=== PATIENT | female | born 1985 | race African-American/Black ===

== ENCOUNTER 2020-01-29 10:39 | Outpatient (CLI) | payer OTHER, SELFPAY ==
--- NOTE | ~2020-01-29 | US_ITS ---
EXAMINATION: US thyroid DATE: 01/29/2020 11:10 INDICATION: Abnormal labs with increased TPO and decreased TSH TECHNIQUE: Multiple ultrasound images of the thyroid were obtained. COMPARISON: None. FINDINGS: The right thyroid lobe measures 4.9 x 2.0 x 1.6 cm. The left thyroid lobe measures 4.2 x 1.2 x 1.3 c m. Wider than tall, well defined 6 x 5 x 2.5 mm solid hypoechoic nodule without echogenic foci in the right thyroid (TI-RADS 4, moderately suspicious , FNA if >=1.5 cm, annual followup is >1 cm). There is a slightly larger 9 x 8 x 7 mm nodule along the deep margin of the right thyroid which could repre sent a second There is nodule however on the cine images the nodule appears peripheral to the capsule of the thyroid with location favoring parathyroid adenoma. There is normal echogenicity and echotext ure throughout the thyroid but with diffusely increased vascular flow on color Doppler. IMPRESSION: 1. 9 mm solid hypoechoic nodule which abuts but appears peripheral to the capsule of the posterior ri ght thyroid lobe and favor parathyroid adenoma over a TI-RADS 4 thyroid nodule. If a thyroid nodule, this along with a smaller TI-RADS 4 nodule in the right thyroid with both remain below threshold for recommendation for either biopsy or follow-up. Could consider correlation with calcium and parathyroi d hormone levels and if clinically indicated parathyroid scintigraphy. Reviewed, dictated and finalized at location A. IMPRESSION: 1. 9 mm solid hypoechoic nodule which abuts but appears peripheral to the capsu le of the posterior right thyroid lobe and favor parathyroid adenoma over a TI- RADS 4 thyroid nodule. If a thyroid nodule, this along with a smaller TI-RADS 4 nodule in the right thyroid with both remain below threshold for recommendatio n for either biopsy or follow-up. Could consider correlation with calcium and p arathyroid hormone levels and if clinically indicated parathyroid scintigraphy.
== END 2020-01-29 10:40 | disposition home or self-care (01) ==
LOC: ANHIMG 10:42
PROVIDERS: PCP Emergency Medicine; Visit Provider Emergency Medicine
DX: R94.6 Abnormal results of thyroid function studies (principal); E04.1 Nontoxic single thyroid nodule
CPT/HCPCS: 76536

== ENCOUNTER 2020-09-02 19:14 | Emergency (ER) | payer OTHER, SELFPAY ==
[2020-09-02 19:20] VITALS: BP 118/63; PULSE 69; RESP 16; TEMP 36.8; O2SAT 100
[2020-09-02 19:27] VITALS: BP 118/63; PULSE 69; RESP 16; TEMP 36.8; O2SAT 100
--- NOTE | 2020-09-02 19:33 | ED.DENTAL ---
HPI - Dental/Oral General Chief complaint: Dental/Oral Stated complaint: sore in nose/swollen face/tooth pain Source: patient Mode of arrival: ambulatory Limitations: no limitations and clinical condition History of Present Illness HPI Narrative: Patient is a 35-year-old female who presents complaining of right upper dental pain x3 to 4 days. She reports a history of dental infections. Reports increased swelling starting yesterday. She reports taking ibuprofen with no relief. She reports dental appointment on 09/30/2020. She denies all other complaints. MD Complaint: tooth pain Related Data Home Medications Medication Instructions Recorded Confirmed ferrous sulfate 324 mg PO DAILY 06/16/20 09/02/20 sumatriptan succinate 50 mg PO PRN PRN 06/16/20 09/02/20 topiramate 50 mg PO HS 09/02/20 09/02/20 Allergies Allergy/AdvReac Type Severity Reaction Status Date / Time No Known Allergies Allergy Unknown Verified 09/02/20 19:25 Review of Systems Review of Systems: Narrative: CONSTITUTIONAL: Denies fever, chills, or sweats. EYES: Denies visual changes, redness, or discharge. ENT: Denies rhinorrhea, congestion, sore throat, or otalgia. Reports dental pain CARDIOVASCULAR: Denies chest pain, palpitations, or edema. RESPIRATORY: Denies cough or dyspnea. GASTROINTESTINAL: Denies abdominal pain, nausea, vomiting, or diarrhea. GENITOURINARY: Denies dysuria or hematuria. SKIN: Denies rash or itching. MUSCULOSKELETAL: Denies back pain, joint pain, or myalgia. NEUROLOGIC: Denies headache, numbness, dizziness, or weakness. PSYCHIATRIC: Denies anxiety or depression. [facility] Past Medical History Medical History Anemia Back pain Depression Eczema Fibroids Hypothyroidism Migraines labor Renal cyst Seasonal allergies Thyroid disease UTI (urinary tract infection) Surgical History Surgical History H/O breast biopsy H/O tubal ligation History of lumpectomy Family History Family History Grandparent Hypertension Asthma Malignant neoplasm of prostate Diabetes mellitus Other Cerebrovascular accident Family history of allergic disorder Family history of anemia Family history of malignant neoplasm Family history of migraine headaches Social History Social History Smoking status: Never smoker Alcohol intake: current Gender identity (if verbalized by the patient): Female Spiritual care concerns: No Exam Narrative: Exam Narrative: GENERAL: Well-appearing, well-nourished, and in no acute distress. HEAD: Normocephalic, atraumatic. EYES: Conjunctiva are normal. ENT: Mucous membranes pink and moist. Multiple dental caries and fractures, periapical abscess noted CHEST: No respiratory distress. EXTREMITIES: Normal range of motion. SKIN: Warm, dry, no rash. NEURO: No focal deficits. Alert and oriented x3. Gait steady. PSYCH: Normal affect. No signs of depression or anxiety. Course Vital Signs Vital signs: Vital Signs Temperature 36.8 C 09/02/20 19:20 Pulse Rate 69 09/02/20 19:20 Respiratory Rate 16 09/02/20 19:20 Blood Pressure 118/63 09/02/20 19:20 Pulse Oximetry 100 09/02/20 19:20 Temperature 36.8 C 09/02/20 19:27 Pulse Rate 69 09/02/20 19:27 Respiratory Rate 16 09/02/20 19:27 Blood Pressure 118/63 09/02/20 19:27 Pulse Oximetry 100 09/02/20 19:27 Reviewed MDM - Dental/Oral MDM Narrative Medical decision making narrative: Patient has periapical abscess and dental swelling. Patient to be started on antibiotics at this time. Discussed with patient the need to see a dentist as soon as possible. Patient reporting that ibuprofen is not working, limited prescription of tramadol to be given. Patient is stable for discharge home with outp
== END 2020-09-02 19:48 | disposition home or self-care (01) ==
PROVIDERS: Emergency Provider Nurse Practitioner; PCP Emergency Medicine
DX: K02.9 Dental caries, unspecified (principal); K04.7 Periapical abscess without sinus; E03.9 Hypothyroidism, unspecified; D64.9 Anemia, unspecified
CPT/HCPCS: 99213; G0463

== ENCOUNTER 2020-11-08 08:24 | Outpatient (CLI) | payer OTHER, SELFPAY ==
--- NOTE | ~2020-11-08 | MM_ITS ---
EXAMINATION: MM screening noemi BI w jason HISTORY: Screening TECHNIQUE: Craniocaudal and mediolateral oblique 3-D tomosynthesis images were obtained and synthetic 2-D images were generated. CAD analysis was submitted and interpreted. COMPARISON: 07/29/2015 BREAST PARENCHYMAL COMPOSITION: The breasts are heterogenously dense, which may obscure small masses. FINDINGS: There are developing clustered calcifications in the upper central and upper outer quadrant s of the right breast. The left breast is stable without evidence for malignancy. IMPRESSION: 1. Developing clusters of right breast calcifications. 2. Magnification views are recommended. BI-RADS Category 0: Incomplete: Needs additional imaging evaluation. Reviewed, dictated and finalized at location A. NAL CLERK
== END 2020-11-08 08:25 | disposition home or self-care (01) ==
LOC: ANHIMG 08:27
PROVIDERS: PCP Emergency Medicine; Visit Provider Emergency Medicine
DX: Z12.31 Encounter for screening mammogram for malignant neoplasm of breast (principal); R92.8 Other abnormal and inconclusive findings on diagnostic imaging of breast
CPT/HCPCS: 77063; 77067

== ENCOUNTER 2020-12-05 13:03 | Outpatient (CLI) | payer OTHER, SELFPAY ==
--- NOTE | ~2020-12-05 | MM_ITS ---
EXAMINATION: MM diagnostic mammo unilat RT HISTORY: Right breast calcifications TECHNIQUE: Additional 3-D tomosynthesis images of the right breast were performed and synthetic 2-D i mages were generated. CAD analysis was submitted and interpreted. COMPARISON: Comparison to multiple prior studies sequentially, with oldest reviewed study dated 07/17. BREAST PARENCHYMAL COMPOSITION: The breasts are heterogenously dense, which may obscure small masses. FINDINGS: There are scattered punctate monomorphic calcifications of the right breast, likely benign. There are no suspicious discrete masses or architectural distortion. IMPRESSION: 1. Probable benign right breast calcifications. 2. Recommend 6 month follow-up diagnostic right mammogram BI-RADS category 3, probably benign findings. Reviewed, dictated and finalized at location A. DISASTER RECOVERY MANAGER
== END 2020-12-05 13:04 | disposition home or self-care (01) ==
PROVIDERS: PCP Emergency Medicine; Visit Provider Emergency Medicine
DX: R92.8 Other abnormal and inconclusive findings on diagnostic imaging of breast (principal)
CPT/HCPCS: 77065

== ENCOUNTER 2020-12-12 09:07 | Emergency (ER) | payer OTHER, SELFPAY ==
--- NOTE | 2020-12-12 09:18 | ED.GENADULT ---
HPI - General Adult General Chief complaint: Upper Respiratory Infection Stated complaint: sore throat Time Seen by Provider: 12/12/20 09:18 Source: patient Mode of arrival: ambulatory Limitations: no limitations History of Present Illness HPI narrative: 35-year-old female patient presents to the [facility] with complaints of a sore throat for the past 2 days. 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 Patient states she started taking some leftover penicillin that she had at home yesterday. Patient states she is coming here today to get treatment because the place that she works out does not take Medicaid. Patient also says she has had some fullness to bilateral ears, congestion, and body aches. Patient states she has not been tested for Covid but would like to be tested for Covid today. Related Data Home Medications Medication Instructions Recorded Confirmed sumatriptan succinate 50 mg PO PRN PRN 06/16/20 12/12/20 topiramate 50 mg PO HS 09/02/20 12/12/20 Allergies Allergy/AdvReac Type Severity Reaction Status Date / Time No Known Allergies Allergy Unknown Verified 12/12/20 09:46 Review of Systems Review of Systems: Narrative: CONSTITUTIONAL: Denies fever, chills, or sweats. Positive body aches EYES: Denies visual changes, redness, or discharge. ENT: Positive rhinorrhea, congestion, positive sore throat, positive bilateral otalgia. CARDIOVASCULAR: Denies chest pain, palpitations, or edema. RESPIRATORY: Denies cough or dyspnea. GASTROINTESTINAL: Denies abdominal pain, nausea, vomiting, or diarrhea. GENITOURINARY: Denies dysuria or hematuria. SKIN: Denies rash or itching. MUSCULOSKELETAL: Denies back pain, joint pain, or myalgia. NEUROLOGIC: Denies headache, numbness, or weakness. PSYCHIATRIC: Denies anxiety or depression. [facility] Past Medical History Medical History Anemia Back pain Depression Eczema Fibroids Hypothyroidism Migraines labor Renal cyst Seasonal allergies Thyroid disease UTI (urinary tract infection) Surgical History Surgical History H/O breast biopsy H/O tubal ligation History of lumpectomy Family History Family History Grandparent Hypertension Asthma Malignant neoplasm of prostate Diabetes mellitus Other Cerebrovascular accident Family history of allergic disorder Family history of anemia Family history of malignant neoplasm Family history of migraine headaches Social History Social History Smoking status: Never smoker Alcohol intake: current Gender identity (if verbalized by the patient): Female Spiritual care concerns: No Comments At the time of my signature I agree with nursing past medical history, surgical, social, and family history. There is no relevant family history pertinent to the presenting complaint. Exam Narrative: Exam Narrative: GENERAL: Well-appearing, well-nourished, and in no acute distress. HEAD: Normocephalic, atraumatic. EYES: PERRLA and EOMI. ENT: Nares with erythema and edema noted bilaterally, no rhinorrhea or epistaxis. Mucous membranes moist. Posterior pharynx with some erythema but no tonsil enlargement, no exudates or lesions present. NECK: Supple. No lymphadenopathy CHEST: Clear to auscultation. No respiratory distress. Patient able talk in clear complete sentences. HEART: Regular rate and rhythm. No murmur heard. Normal peripheral pulses. ABDOMEN: Soft, nontender, nondistended, normal active bowel sounds. EXTREMITIES: Normal range of motion. No edema. SKIN: Warm, dry, no rash. NEURO: No focal deficits. Alert and oriented x3. Course Reevaluation(s) Reevaluation #1: Reevaluated patient
[2020-12-12 11:15] VITALS: BP 128/84; PULSE 107; RESP 18; TEMP 37.6; O2SAT 100
[2020-12-13 19:42] LABS: SARS-CoV-2 RNA PCR Negative
== END 2020-12-12 10:11 | disposition home or self-care (01) ==
PROVIDERS: Emergency Provider Nurse Practitioner Family; PCP Emergency Medicine
DX: J02.9 Acute pharyngitis, unspecified (principal); Z20.822 Contact with and (suspected) exposure to COVID-19; E03.9 Hypothyroidism, unspecified
CPT/HCPCS: 87081; 87426; 87880; 99213; C9803; G0463; U0003; U0005

== ENCOUNTER 2020-12-16 17:42 | Outpatient (CLI) | payer OTHER, SELFPAY ==
[2020-12-16 18:10] LABS: Basophils Percent Auto 0.6 % (0.2-1.2); Eosinophils Absolute Auto 0.1 K/mm3 (0-0.3); Eosinophils Percent Auto 2.1 % (0-4.4); Hematocrit 34.5 % (37.0-47.0); Hemoglobin 11.4 g/dL (12.0-15.0); Immature Granulocyte Absolute 0.01 K/mm3 (0.00-0.031); Immature Granulocyte Percent A 0.2 % (0-0.5); Lymphocytes Absolute Auto 2.54 K/mm3 (0.9-3.2); Lymphocytes Percent Auto 40.8 % (18.3-44.2); Mean Corpuscular Hemoglobin 30.2 pg (26-34); Mean Corpuscular Volume 91.5 fl (80-100); Mean Platelet Volume 9.5 fl (7.4-10.4); Monocytes Absolute Auto 0.5 K/mm3 (0.1-0.6); Monocytes Percent Auto 8.3 % (2.6-8.5); Platelet Count Result 269 k/mm3 (150-375); Red Blood Count 3.77 M/mm3 (4.2-5.4); Red Cell Distribution Width 12.7 % (11.5-14.5); White Blood Count 6.2 K/mm3 (4.5-10.0)
[2020-12-16 19:01] LABS: Iron 50 ug/dL (37-170)
[2020-12-16 19:10] LABS: Percent Iron Saturation 15 % (20-50)
== END 2020-12-16 17:43 | disposition home or self-care (01) ==
LOC: ANHLAB 17:46
PROVIDERS: PCP Emergency Medicine; Visit Provider Internal Medicine Hematology & Oncology
DX: D64.9 Anemia, unspecified (principal)
CPT/HCPCS: 36415; 82728; 83540; 83550; 85025

== ENCOUNTER 2021-01-08 13:27 | Outpatient (CLI) | payer OTHER, SELFPAY ==
--- NOTE | ~2021-01-08 | US_ITS ---
EXAMINATION: US pelvic complete w TV DATE: 01/08/2021 14:52 INDICATION: Abdominal pain Comparison:Ultrasound dated 03/23/2019 TECHNIQUE: Multiple transabdominal and endovaginal sonographic images of the pelvis performed. FINDINGS: The uterus measures 8.3 x 4 x 5.5 cm. The endometrial complex measures 4 mm. The right ovary measures 3 x 1.6 x 1.9 cm and the left ovary measures 2.3 x 1.9 x 1.8 cm. There is a 1.8 cm complicated cyst of the right ovary, likely proteinaceous or hemorrhagic. There are small foll icles in each ovary. Normal doppler signal in both ovaries. There is no free fluid in the pelvis. There are no abnormal masses seen on either side. IMPRESSION: 1. Complicated 1.8 cm right ovarian cyst. Reviewed, dictated and finalized at location A.
[2021-01-08 14:16] LABS: Lactic Acid 0.6 mmol/L (0.7-2.1)
[2021-01-08 14:19] LABS: Rheumatoid Factor < 8.6 IU/ML (<12)
[2021-01-08 14:36] LABS: Erythrocyte Sedimentation Rate 12 mm/hr (0-20)
[2021-01-08 14:56] LABS: HIV 1/2 Ab P24 Ag Result Negative (Negative)
[2021-01-09 12:02] LABS: Rapid Plasma Reagin Non-Reactive (NonReactive)
== END 2021-01-08 13:28 | disposition home or self-care (01) ==
PROVIDERS: PCP Emergency Medicine; Visit Provider Emergency Medicine
DX: N83.291 Other ovarian cyst, right side (principal)
CPT/HCPCS: 36415; 76830; 76856; 83605; 85652; 86038; 86430; 86592; 86695; 86696; 86703; 87086; 87491; 87591; G0432

== ENCOUNTER 2021-01-13 17:30 | Outpatient (CLI) | payer OTHER, SELFPAY | END 2021-01-13 17:31 | disposition home or self-care (01) | LOC: ANHLAB 17:33 | PROVIDERS: PCP Emergency Medicine; Visit Provider Emergency Medicine | DX: R10.9 Unspecified abdominal pain (principal) | CPT/HCPCS: 87491; 87591 ==

== ENCOUNTER → 2021-02-04 16:30 | Outpatient (CLI) | payer OTHER, SELFPAY ==
--- NOTE | ~2021-02-04 | XR_ITS ---
EXAMINATION: XR chest 2V 02/04/2021 16:45 INDICATION: Productive cough PROCEDURE: 2 view chest COMPARISON: 03/28/2019 FINDINGS: The lungs are clear. The cardiomediastinal silhouette is within normal limits. There are no pleural effusions. There is no pneumothorax suspected. IMPRESSION: 1: NO ACUTE CARDIOPULMONARY DISEASE. Reviewed, dictated and finalized at location A.
== END ==
PROVIDERS: PCP Emergency Medicine; Visit Provider Emergency Medicine
DX: R05 Cough (principal)
CPT/HCPCS: 71046

== ENCOUNTER 2021-06-05 13:51 | Outpatient (CLI) | payer OTHER, SELFPAY ==
--- NOTE | ~2021-06-05 | MM_ITS ---
EXAMINATION: MM diagnostic noemi RT w jason HISTORY: Six-month follow-up for probably benign right breast calcifications TECHNIQUE: Craniocaudal, mediolateral, and mediolateral oblique 3-D tomosynthesis images of the right breast were performed and synthetic 2-D images were generated. Magnification views of the right [address] are also obtained. CAD analysis was submitted and interpreted. COMPARISON: 12/05/2020, 11/08/2020, 07/29/2015 BREAST PARENCHYMAL COMPOSITION: The breasts are heterogeneously dense, which may obscure small masses . FINDINGS: There are stable punctate grouped calcifications in the posterior third of the upper outer quadrant of the breast which appear to be round in morphology. No suspicious mass or architectural di stortion are identified. IMPRESSION: 1. Stable, probably benign right breast calcifications. 2. Recommend 6 month follow-up right diagnostic mammogram. BI-RADS category 3, probably benign findings. Reviewed, dictated and finalized at location A.
== END 2021-06-05 13:52 | disposition home or self-care (01) ==
PROVIDERS: PCP Emergency Medicine; Visit Provider Emergency Medicine
DX: R92.8 Other abnormal and inconclusive findings on diagnostic imaging of breast (principal)
CPT/HCPCS: 77061; 77065; G0279

== ENCOUNTER 2021-07-13 16:26 | Outpatient (CLI) | payer OTHER, SELFPAY ==
[2021-07-13 16:58] LABS: Hematocrit 35.1 % (37.0-47.0); Hemoglobin 11.7 g/dL (12.0-15.0); Mean Corpuscular HGB Conc 33.3 g/dl (32-36); Mean Corpuscular Hemoglobin 30.1 pg (26-34); Mean Corpuscular Volume 90.2 fl (80-100); Mean Platelet Volume 9.9 fl (7.4-10.4); Platelet Count Result 277 k/mm3 (150-375); Red Blood Count 3.89 M/mm3 (4.2-5.4); Red Cell Distribution Width 12.6 % (11.5-14.5)
[2021-07-13 17:08] LABS: Cholesterol 177 mg/dL (0-200); HDL Direct 75 mg/dL; Triglycerides 59 mg/dL (<150)
[2021-07-13 17:18] LABS: LDL Cholesterol Direct 73 mg/dL
[2021-07-13 17:38] LABS: Thyroid Stimulating Hormone 0.356 uIU/mL (0.465-4.680)
[2021-07-13 18:04] LABS: Free T4 Free Thyroxine 0.86 ng/mL (0.78-2.19); Vitamin D 25 Hydroxy 39.2 ng/mL
[2021-07-13 18:15] LABS: Iron 69 ug/dL (37-170)
== END 2021-07-13 16:27 | disposition home or self-care (01) ==
LOC: ANHLAB 16:29
PROVIDERS: PCP Emergency Medicine; Visit Provider Emergency Medicine
DX: D64.9 Anemia, unspecified (principal)
CPT/HCPCS: 36415; 80061; 82306; 83540; 84439; 84443; 85027

== ENCOUNTER → 2021-11-25 02:21 | Outpatient (CLI) | payer OTHER, SELFPAY ==
[2021-11-25 16:42] LABS: SARS-CoV-2 RNA PCR Negative
== END ==
PROVIDERS: PCP Emergency Medicine; Visit Provider Emergency Medicine
DX: Z20.822 Contact with and (suspected) exposure to COVID-19 (principal)
CPT/HCPCS: C9803; U0003; U0005

== ENCOUNTER 2021-11-28 11:46 | Outpatient (CLI) | payer OTHER, SELFPAY ==
[2021-11-28 12:59] LABS: Ammonia < 9 umol/L (9-30)
[2021-11-28 13:00] LABS: Alanine Aminotransferase 12 U/L (4-35); Albumin Level 4.4 g/dL (3.5-5.1); Alkaline Phosphatase 49 U/L (38-126); Anion Gap 10 mmol/L (8-16); Aspartate Amino Transferase 20 U/L (14-36); Bilirubin,Total 0.3 mg/dL (0.2-1.3); Blood Urea Nitrogen 11 mg/dL (7-17); Calcium 9.2 mg/dL (8.4-10.2); Carbon Dioxide 26 mmol/L (22-30); Chloride 101 mmol/L (98-107); Estimated Glomerular Filt Rate > 60; Glucose 99 mg/dL (65-110); Potassium 3.9 mmol/L (3.4-5.0); Sodium 137 mmol/L (137-145)
[2021-11-28 13:47] LABS: Thyroid Stimulating Hormone Reflex 0.174 uIU/mL (0.465-4.68)
[2021-11-29 06:18] LABS: Free T4 Free Thyroxine Reflex 1.02 ng/dL (0.78-2.19)
[2021-11-29 07:26] LABS: Total Triiodothyronine (T3) 1.32 NG/ML (0.97-1.69)
== END 2021-11-28 11:47 | disposition home or self-care (01) ==
LOC: ANHLAB 11:48
PROVIDERS: PCP Emergency Medicine; Visit Provider Emergency Medicine
DX: R43.8 Other disturbances of smell and taste (principal)
CPT/HCPCS: 36415; 80053; 82140; 82525; 84439; 84443; 84480

== ENCOUNTER 2021-12-07 14:06 | Outpatient (CLI) | payer OTHER, SELFPAY ==
--- NOTE | ~2021-12-07 | MMUS_ITS ---
EXAMINATION: MM diagnostic noemi BI w jason, US breast BI complete HISTORY: Six-month follow-up of calcifications TECHNIQUE: ML, MLO and craniocaudal 3-D tomosynthesis images of both breasts were performed and synth etic 2-D images were generated. Magnification views of right breast in ML and cc projections. CAD cielo lysis was submitted and interpreted. High resolution complete bilateral breast ultrasound including a ll 4 quadrants and subareolar area was performed. COMPARISON: 06/05/2021 diagnostic right mammogram 12/05/2020 diagnostic right mammogram 11/08/2020 bilateral screening mammogram /09/2017 Limited left breast ultrasound / left diagnostic mammogram 07/29/2015 bilateral diagnostic mammography and complete left breast ultrasound BREAST PARENCHYMAL COMPOSITION: The breasts are extremely dense, which lowers the sensitivity of mamm ography. FINDINGS: MAMMOGRAPHIC FINDINGS: Bilateral microcalcifications are again noted, more numerous on the right, mostly punctate, most like ly benign. No suspicious mass or architectural distortion is evident. ULTRASOUND: Right breast: 12:00 1 cm from nipple: 9.5 x 4.2 x 9.0 mm parallel largely circumscribed but mildly irregular mass w ith internal vascularity is noted. No suspicious shadowing is evident. The mild irregular margins and internal vascularity warrant further investigation; ultrasound-guided biopsy is recommended. No other significant sonographic finding of the right breast Left breast: No suspicious mass or shadowing or other significant sonographic finding. IMPRESSION: 1. Mildly irregular vascular 9.5 x 4.2 x 9.0 mm right breast mass at 12:00 1 cm from nipple 2. Ultrasound-guided biopsy of right breast 12:00 lesion is recommended BI-RADS category 4, suspicious findings. Dr. Gray telephoned Dr. Huerta himself with the report and ultrasound guided biopsy recommendation of the right breast at 12:00 on December 07, 2021 at 1540 hours. Reviewed, dictated and finalized at location A. OWN MACHINE OPERATOR IMPRESSION: 1. Mildly irregular vascular 9.5 x 4.2 x 9.0 mm right breast mass at 12:00 1 cm from nipple 2. Ultrasound-guided biopsy of right breast 12:00 lesion is recommended BI-RADS category 4, suspicious findings. Dr. Gray telephoned Dr. Huerta himself with the report and ultrasound guided bio psy recommendation of the right breast at 12:00 on December 07, 2021 at 1540 ho urs.
== END 2021-12-07 14:07 | disposition home or self-care (01) ==
PROVIDERS: PCP Emergency Medicine; Visit Provider Emergency Medicine
DX: R92.8 Other abnormal and inconclusive findings on diagnostic imaging of breast (principal)
CPT/HCPCS: 76641; 77062; 77066; G0279

== ENCOUNTER 2021-12-17 10:06 | Outpatient (CLI) | payer OTHER, SELFPAY ==
--- NOTE | ~2021-12-17 | MMUS_ITS ---
EXAMINATION: US breast biopsy RT w image, MM post biopsy invasive RT DATE: 12/17/2021 11:34 (accession [id number]), 12/17/2021 11:38 (accession [id number]) INDICATION: Indeterminate right breast mass Ultrasound-guided core biopsy is requested to evaluate fo r malignancy. TECHNIQUE AND FINDINGS: The risks and potential benefits of the procedure were discussed with the patient including bleeding, infection, and nondiagnostic specimen. A time out was performed. The skin of the right breast was pr epared and draped in usual sterile fashion. 1% lidocaine was used for superficial anesthesia. 1% lido luis with epinephrine was used for deep anesthesia. A vacuum-assisted biopsy gun needle was advanced through to the outer edge of the region of interest from an inferolateral approach utilizing sonographic guidance. A total of five tissue core samples we re obtained through the lesion. A tissue marker clip was then placed at the biopsy site. Hemostasis w as achieved. A sterile bandage was applied. The patient tolerated procedure well and there was no evidence of immediate complication. The patient was given verbal instructions to return to the Emergency Department in the event of severe breast pa in or rapid breast enlargement. A two view right breast mammogram was obtained to document tissue mar ker clip placement. IMPRESSION: 1. Successful ultrasound-guided vacuum-assisted biopsy of right breast mass with tissue marker placem ent. Reviewed, dictated and finalized at location A. LITIES MANAGEMENT EXECUTIVE IMPRESSION: 1. Successful ultrasound-guided vacuum-assisted biopsy of right breast mass wit h tissue marker placement.
== END 2021-12-17 10:07 | disposition home or self-care (01) ==
LOC: ANHIMG 10:09
PROVIDERS: PCP Emergency Medicine; Visit Provider Emergency Medicine
DX: D24.1 Benign neoplasm of right breast (principal); N60.31 Fibrosclerosis of right breast; N60.21 Fibroadenosis of right breast; N60.41 Mammary duct ectasia of right breast
CPT/HCPCS: 19083; 88305; A4648

== ENCOUNTER 2022-01-08 13:11 | Outpatient (CLI) | payer OTHER, SELFPAY ==
[2022-01-08 13:45] LABS: Basophils Percent Auto 0.6 % (0.2-1.2); Eosinophils Absolute Auto 0.1 K/mm3 (0-0.3); Eosinophils Percent Auto 1.2 % (0-4.4); Hematocrit 33.9 % (37.0-47.0); Immature Granulocyte Absolute 0.01 K/mm3 (0.00-0.031); Immature Granulocyte Percent A 0.2 % (0-0.5); Lymphocytes Absolute Auto 1.83 K/mm3 (0.9-3.2); Lymphocytes Percent Auto 35.3 % (18.3-44.2); Mean Corpuscular HGB Conc 32.4 g/dl (32-36); Mean Corpuscular Hemoglobin 29.6 pg (26-34); Mean Corpuscular Volume 91.4 fl (80-100); Mean Platelet Volume 9.5 fl (7.4-10.4); Monocytes Absolute Auto 0.5 K/mm3 (0.1-0.6); Monocytes Percent Auto 8.9 % (2.6-8.5); Neutrophils Absolute Auto 2.8 K/mm3 (1.3-6.7); Neutrophils Percent Auto 53.8 % (45.5-73.1); Platelet Count Result 249 k/mm3 (150-375); Red Blood Count 3.71 M/mm3 (4.2-5.4); Red Cell Distribution Width 13.2 % (11.5-14.5); White Blood Count 5.2 K/mm3 (4.5-10.0)
[2022-01-08 14:00] LABS: Alanine Aminotransferase 12 U/L (4-35); Albumin Level 4.5 g/dL (3.5-5.1); Alkaline Phosphatase 43 U/L (38-126); Anion Gap 4 mmol/L (8-16); Aspartate Amino Transferase 20 U/L (14-36); Bilirubin,Total 0.4 mg/dL (0.2-1.3); Blood Urea Nitrogen 12 mg/dL (7-17); Carbon Dioxide 29 mmol/L (22-30); Chloride 106 mmol/L (98-107); Estimated Glomerular Filt Rate > 60; Glucose 84 mg/dL (65-110); Potassium 3.6 mmol/L (3.4-5.0); Sodium 139 mmol/L (137-145)
[2022-01-08 14:13] LABS: Iron 49 ug/dL (37-170)
[2022-01-08 14:22] LABS: Percent Iron Saturation 14 % (20-50)
[2022-01-08 14:30] LABS: Free T4 Free Thyroxine 0.77 ng/mL (0.78-2.19); Thyroid Stimulating Hormone 0.269 uIU/mL (0.465-4.680)
[2022-01-08 14:38] LABS: Vitamin D 25 Hydroxy 29.9 ng/mL
[2022-01-08 15:06] LABS: Folic Acid 10.1 ng/mL (2.76->20)
[2022-01-08 18:09] LABS: Parathyroid Intact 100.4 pg/mL (7.5-53.5)
[2022-01-10 05:27] LABS: Thyroid Peroxidase Antibodies 24 IU/mL (<9)
[2022-01-12 14:33] LABS: Thyroid Stimulating Immunoglob <89 % baseline (<140)
== END 2022-01-08 13:12 | disposition home or self-care (01) ==
LOC: ANHLAB 13:24
PROVIDERS: PCP Emergency Medicine; Visit Provider Nurse Practitioner
DX: R94.6 Abnormal results of thyroid function studies (principal); E04.9 Nontoxic goiter, unspecified; R53.83 Other fatigue
CPT/HCPCS: 36415; 80053; 82306; 82607; 82746; 83540; 83550; 83970; 84439; 84443; 84445; 85025; 86376

== ENCOUNTER 2022-02-08 11:38 | Outpatient (CLI) | payer OTHER, SELFPAY ==
--- NOTE | ~2022-02-08 | NM_ITS ---
EXAMINATION: NM parathyroid w imaging DATE: 02/09/2022 07:20 INDICATION: Hyperparathyroidism. TECHNIQUE: A 2.5 mCi Tc99m sestamibi was administered intravenously. Anterior images of the neck were obtained immediately and at 2 hours. SPECT images of the neck were obtained. COMPARISON: Thyroid ultrasound 05/12/2015 FINDINGS: There is focal persistent activity in the area of posterior inferior left thyroid lobe. IMPRESSION: 1. Focal persistent activity in the area of posterior inferior left thyroid lobe, which may be a para thyroid adenoma. Reviewed, dictated and finalized at location A. IMPRESSION: 1. Focal persistent activity in the area of posterior inferior left thyroid lob e, which may be a parathyroid adenoma.
[2022-02-08 14:06] LABS: Alanine Aminotransferase 13 U/L (4-35); Albumin Level 4.4 g/dL (3.5-5.1); Alkaline Phosphatase 45 U/L (38-126); Anion Gap 7 mmol/L (8-16); Aspartate Amino Transferase 24 U/L (14-36); Bilirubin,Total 0.2 mg/dL (0.2-1.3); Blood Urea Nitrogen 12 mg/dL (7-17); Calcium 9.3 mg/dL (8.4-10.2); Carbon Dioxide 29 mmol/L (22-30); Chloride 103 mmol/L (98-107); Estimated Glomerular Filt Rate > 60; Glucose 87 mg/dL (65-110); Sodium 139 mmol/L (137-145)
[2022-02-08 14:46] LABS: Vitamin D 25 Hydroxy 39.1 ng/mL
[2022-02-10 11:38] LABS: Ionized Calcium 5.1 mg/dL (4.8-5.6)
== END 2022-02-08 11:39 | disposition home or self-care (01) ==
PROVIDERS: PCP Emergency Medicine; Visit Provider Nurse Practitioner
DX: E21.3 Hyperparathyroidism, unspecified (principal); E55.9 Vitamin D deficiency, unspecified; R93.89 Abnormal findings on diagnostic imaging of other specified body structures
CPT/HCPCS: 36415; 78070; 80053; 82306; 82330; 84100; A9500

== ENCOUNTER 2022-02-11 09:20 | Outpatient (CLI) | payer OTHER, SELFPAY ==
[2022-02-14 15:07] LABS: Total Volume 700 mL; Urine Calcium 4.8 mg/dL
== END 2022-02-11 09:21 | disposition home or self-care (01) ==
PROVIDERS: PCP Emergency Medicine; Visit Provider Nurse Practitioner
DX: E21.3 Hyperparathyroidism, unspecified (principal); E55.9 Vitamin D deficiency, unspecified
CPT/HCPCS: 82340

== ENCOUNTER 2022-03-18 12:10 | Outpatient (CLI) | payer OTHER, SELFPAY ==
[2022-03-18 21:45] LABS: Alanine Aminotransferase 14 U/L (6-35); Albumin Level 4.3 g/dL (3.5-5.1); Alkaline Phosphatase 50 U/L (38-126); Anion Gap 9 mmol/L (8-16); Aspartate Amino Transferase 25 U/L (14-36); Bilirubin,Total 0.5 mg/dL (0.2-1.3); Blood Urea Nitrogen 13 mg/dL (7-17); Calcium 8.6 mg/dL (8.4-10.2); Carbon Dioxide 27 mmol/L (22-30); Chloride 103 mmol/L (98-107); Estimated Glomerular Filt Rate > 60; Glucose 97 mg/dL (65-110); Potassium 3.6 mmol/L (3.4-5.0); Sodium 139 mmol/L (137-145); Uric Acid 3.2 mg/dL (2.5-7.5)
[2022-03-18 21:56] LABS: Parathyroid Intact 36.1 pg/mL (7.5-53.5)
[2022-03-22 03:00] LABS: Ionized Calcium 4.9 mg/dL (4.8-5.6)
== END 2022-03-18 12:11 | disposition home or self-care (01) ==
LOC: ANHLAB 12:12
PROVIDERS: PCP Emergency Medicine; Visit Provider Internal Medicine Endocrinology, Diabetes & Metabolism
DX: E21.0 Primary hyperparathyroidism (principal)
CPT/HCPCS: 36415; 80053; 82330; 83970; 84550

== ENCOUNTER 2022-04-12 14:07 | Outpatient (CLI) | payer OTHER, SELFPAY ==
[2022-04-12 14:40] LABS: Hemoglobin 11.3 g/dL (12.0-15.0); Mean Corpuscular HGB Conc 32.3 g/dl (32-36); Mean Corpuscular Hemoglobin 28.8 pg (26-34); Mean Corpuscular Volume 89.3 fl (80-100); Mean Platelet Volume 9.6 fl (7.4-10.4); Platelet Count Result 289 k/mm3 (150-375); Red Blood Count 3.92 M/mm3 (4.2-5.4); Red Cell Distribution Width 12.6 % (11.5-14.5); White Blood Count 5.3 K/mm3 (4.5-10.0)
[2022-04-12 14:46] LABS: Appearance Urine Clear (Clear); Bilirubin Urine Negative (Negative); Blood Urine Negative (Negative); Color Urine Yellow (Yellow); Glucose Urine UA Negative (Negative); Ketones Urine Negative (Negative); Leukocyte Esterase Ur Negative LEU/UL (NEGATIVE); Nitrate Urine Negative (Negative); Protein Urine Negative (Negative); Specific Grav Ur 1.025 (1.001-1.035); pH Urine 6.5 (5.0-9.0)
[2022-04-12 14:51] LABS: Bacteria Urine Trace /hpf; Mucus Urine Rare /lpf; RBC Urine 0-2 /hpf (0-2); Squamous Epithelial Cell Urine Occasional /hpf (Few); WBC Urine 0-3 /hpf (0-3)
[2022-04-12 14:54] LABS: Add Urine Microscopic? YES
[2022-04-12 14:56] LABS: Alanine Aminotransferase 11 U/L (6-35); Albumin Level 4.5 g/dL (3.5-5.1); Alkaline Phosphatase 47 U/L (38-126); Anion Gap 4 mmol/L (8-16); Aspartate Amino Transferase 17 U/L (14-36); Bilirubin,Total 0.4 mg/dL (0.2-1.3); Blood Urea Nitrogen 10 mg/dL (7-17); Carbon Dioxide 29 mmol/L (22-30); Chloride 105 mmol/L (98-107); Estimated Glomerular Filt Rate > 60; Glucose 107 mg/dL (65-110); Potassium 3.9 mmol/L (3.4-5.0); Sodium 138 mmol/L (137-145)
[2022-04-12 15:03] LABS: Iron 85 ug/dL (37-170)
[2022-04-12 15:21] LABS: Free T4 Free Thyroxine 1.06 ng/mL (0.78-2.19)
[2022-04-12 15:25] LABS: Thyroid Stimulating Hormone < 0.015 uIU/mL (0.465-4.680)
== END 2022-04-12 14:08 | disposition home or self-care (01) ==
LOC: ANHLAB 14:09
PROVIDERS: PCP Emergency Medicine; Visit Provider Emergency Medicine
DX: R42 Dizziness and giddiness (principal); R35.0 Frequency of micturition; E03.9 Hypothyroidism, unspecified
CPT/HCPCS: 36415; 80053; 81001; 82330; 83540; 84439; 84443; 85027; 87086

== ENCOUNTER → 2022-04-28 09:23 | Outpatient (CLI) | payer OTHER, SELFPAY ==
--- NOTE | ~2022-04-28 | US_ITS ---
US abdomen limited INDICATION: Elevated liver function tests PROCEDURE: Realtime right upper abdominal ultrasound. COMPARISON: No prior studies for comparison. FINDINGS: The pancreas is normal without focal mass or pancreatic ductal dilation. Liver echotexture is normal without focal mass or intrahepatic biliary dilatation. There is normal directional flow i n the portal vein. The gallbladder is normal without stones, gallbladder wall thickening or pericholecystic fluid. Comm on bile duct measures 4 mm. No sonographic Canales's sign. There is a right renal cyst measuring 3.6 cm. IMPRESSION: 1: Right renal cysts measuring 3.6 cm. Reviewed, dictated and finalized at location A.
== END ==
PROVIDERS: PCP Emergency Medicine; Visit Provider Emergency Medicine
DX: R74.01 Elevation of levels of liver transaminase levels (principal); N28.1 Cyst of kidney, acquired
CPT/HCPCS: 76705

== ENCOUNTER 2022-05-10 13:32 | Outpatient (CLI) | payer OTHER, SELFPAY ==
--- NOTE | ~2022-05-10 | XR_ITS ---
XR tibia fibula RT 2V, XR tibia fibula LT 2V 05/10/2022 15:05 Indication: Bilateral leg pain Procedure: 2 views of the tibia/fibula bilaterally Comparison: No prior studies for comparison. Findings: There is anatomic alignment. No fracture, subluxation or dislocation. No significant soft t issue abnormality. No foreign body. Impression: 1: No acute bone or joint abnormality. Reviewed, dictated and finalized at location A. Impression: 1: No acute bone or joint abnormality. Impression: 1: No acute bone or joint abnormality.
--- NOTE | ~2022-05-10 | DEXA_ITS ---
Bone Density Report Name: ANI MELENDEZ Age: 37 Sex: Female Ethnicity: Black Date of : 1985 Indication: hyperparathyroidism; Referring Provider: NOA ALANIS Study: Bone densitometry was performed. Exam Date: May 10, 2022 Accession number: [id number] Bone Density: Region BMD T-score Z-score Classification AP Spine(L1-L4) 1.114 -0.2 Femoral Neck (Left) 0.748 -1.2 Total Hip (Left) 0.933 -0.5 Femoral Neck (Right) 0.738 -1.2 Total Hip (Right) 0.908 -0.7 Total Hip Mean 0.921 -0.6 World Health Organization criteria for BMD impression classify patients as: Normal (T-score at or above -1.0), Osteopenia (T-score between -1.0 and -2.5), or Osteoporosis (T-score at or below -2.5). 10-year Fracture Risk: FRAX not reported because: Premenopausal woman Clinical Information Provided by Patient: Has the following medical conditions: Hyperparathyroidism Patient maximum height was 66 No regular weight bearing exercise Onset of menses at age 12 Premenopausal Number of children 3 Impression: The patient's bone mass is within expected range for age, gender and ethnicity. Discussion: BONE DENSITY IS WITHIN EXPECTED LIMITS FOR AGE, SEX AND RACE. Bone density is within expected limits for age, sex and race at all sites measured. The patient should follow a healthful lifestyle (good nutrition with adequate calcium and vitamin D, and appropriate weight-bearing exercise). Follow-Up: Consider repeating this study in 5 years or sooner if there is some new clinical indication. Reported by: GUERO on 05/10/2022 2:16:00 PM. Reviewed, dictated and finalized at location Ciarra MOJICA
--- NOTE | ~2022-05-10 | XR_ITS ---
XR knee RT min 4V, XR knee LT min 4V 05/10/2022 15:05 Indication: Knee pain Procedure: 4 views each knee Comparison: No prior studies for comparison. Findings: There is anatomic alignment of both knees. No significant joint space narrowing. No degener ative change. No erosive changes. No joint effusion. No significant soft tissue abnormality or foreig n body. Impression: 1: No significant bone or joint abnormality. Reviewed, dictated and finalized at location A. Impression: 1: No significant bone or joint abnormality. Impression: 1: No significant bone or joint abnormality.
== END 2022-05-10 13:33 | disposition home or self-care (01) ==
LOC: ANHIMG 13:35
PROVIDERS: PCP Emergency Medicine; Visit Provider Emergency Medicine
DX: M79.661 Pain in right lower leg (principal); M79.662 Pain in left lower leg
CPT/HCPCS: 73564; 73590; 77080

== ENCOUNTER 2022-06-15 12:06 | Outpatient (CLI) | payer OTHER, SELFPAY ==
[2022-06-15 13:28] LABS: Alanine Aminotransferase 9 U/L (6-35); Albumin Level 4.1 g/dL (3.5-5.1); Alkaline Phosphatase 41 U/L (38-126); Anion Gap 11 mmol/L (8-16); Aspartate Amino Transferase 18 U/L (14-36); Bilirubin,Total 0.6 mg/dL (0.2-1.3); Blood Urea Nitrogen 10 mg/dL (7-17); Calcium 8.9 mg/dL (8.4-10.2); Carbon Dioxide 26 mmol/L (22-30); Chloride 103 mmol/L (98-107); Estimated Glomerular Filt Rate > 60; Glucose 98 mg/dL (65-110); Potassium 3.6 mmol/L (3.4-5.0); Sodium 140 mmol/L (137-145)
[2022-06-15 13:49] LABS: Thyroid Stimulating Hormone 0.361 uIU/mL (0.465-4.680)
[2022-06-18 04:17] LABS: Thyroid Peroxidase Antibodies 122 IU/mL (<9)
== END 2022-06-15 12:07 | disposition home or self-care (01) ==
PROVIDERS: PCP Emergency Medicine; Visit Provider Internal Medicine Endocrinology, Diabetes & Metabolism
DX: E06.3 Autoimmune thyroiditis (principal)
CPT/HCPCS: 36415; 80053; 84443; 86376

== ENCOUNTER → 2022-07-07 10:51 | Outpatient (CLI) | payer OTHER, SELFPAY ==
--- NOTE | ~2022-07-07 | XR_ITS ---
XR forearm RT 2V 07/07/2022 11:20 INDICATION: Right arm pain PROCEDURE: 2 views right forearm. Generalized joint pain. COMPARISON: No prior studies for comparison. FINDINGS: Fracture, dislocation or subluxation is not identified. The soft tissues appear within norm al limits. No foreign bodies are identified. IMPRESSION: 1: NO ACUTE BONE OR JOINT ABNORMALITY IDENTIFIED. Reviewed, dictated and finalized at location A.
--- NOTE | ~2022-07-07 | XR_ITS ---
XR elbow RT min 3V 07/07/2022 11:20 INDICATION: Generalized joint pain PROCEDURE: 4 views right elbow COMPARISON: No prior studies for comparison. FINDINGS: Fracture, dislocation or subluxation is not identified. No significant joint effusion. The soft tissues appear within normal limits. No foreign bodies are identified. IMPRESSION: 1: NO ACUTE BONE OR JOINT ABNORMALITY IDENTIFIED. Reviewed, dictated and finalized at location A.
--- NOTE | ~2022-07-07 | XR_ITS ---
XR hand RT min 3V 07/07/2022 11:20 INDICATION: Generalized joint pain. PROCEDURE: 3 views right hand COMPARISON: No prior studies for comparison. FINDINGS: Fracture, dislocation or subluxation is not identified. The soft tissues appear within norm al limits. No foreign bodies are identified. IMPRESSION: 1: NO ACUTE BONE OR JOINT ABNORMALITY IDENTIFIED. Reviewed, dictated and finalized at location A.
--- NOTE | ~2022-07-07 | XR_ITS ---
XR wrist RT min 3V 07/07/2022 11:21 Indication: General joint pain Procedure: 4 views right wrist Comparison: No prior studies for comparison. Findings: No fracture, subluxation or dislocation. No significant soft tissue abnormality. No foreign bodies. Impression: 1: No acute bone or joint abnormality. Reviewed, dictated and finalized at location A. Impression: 1: No acute bone or joint abnormality.
== END ==
PROVIDERS: PCP Emergency Medicine; Visit Provider Emergency Medicine
DX: M79.621 Pain in right upper arm (principal); M79.641 Pain in right hand; M79.631 Pain in right forearm; M25.531 Pain in right wrist; M25.521 Pain in right elbow
CPT/HCPCS: 73080; 73090; 73110; 73130

== ENCOUNTER → 2022-08-20 18:06 | Outpatient (CLI) | payer OTHER, SELFPAY ==
--- NOTE | ~2022-08-20 | XR_ITS ---
XR hand RT min 3V DATE: 08/20/2022 18:22 INDICATION: Chronic pain and swelling of right hand including third proximal interphalangeal joint TECHNIQUE: 3 views of right hand COMPARISON: 07/07/2022 right hand FINDINGS: No fracture or dislocation, periosteal reaction or bone destruction, joint space narrowing, erosive change or chondrocalcinosis. IMPRESSION: Negative Reviewed, dictated and finalized at location A. IMPRESSION: Negative
== END ==
PROVIDERS: PCP Emergency Medicine; Visit Provider Emergency Medicine
DX: M79.641 Pain in right hand (principal)
CPT/HCPCS: 73130

== ENCOUNTER → 2022-08-27 13:31 | Outpatient (CLI) | payer OTHER, SELFPAY ==
--- NOTE | ~2022-08-27 | XR_ITS ---
XR tibia fibula LT 2V DATE: 08/27/2022 13:51 INDICATION: Posterior lower leg pain TECHNIQUE: AP and lateral views COMPARISON: 05/10/2022 tibia fibula FINDINGS: No fracture or dislocation, periosteal reaction or bone destruction. Normal alignment and p reservation of joint spaces at the knee and ankle joints. IMPRESSION: Negative Reviewed, dictated and finalized at location A. OSITION STONE APPLICATOR IMPRESSION: Negative
--- NOTE | ~2022-08-27 | XR_ITS ---
XR tibia fibula RT 2V DATE: 08/27/2022 13:50 INDICATION: Posterior lower leg pain TECHNIQUE: AP and lateral views COMPARISON: 05/10/2022 right tibia fibula FINDINGS: No fracture or dislocation, periosteal reaction or bone destruction. Normal alignment at th e knee and ankle joints. IMPRESSION: Negative Reviewed, dictated and finalized at location A. ERATURE REGULATOR PYROMETER IMPRESSION: Negative
== END ==
PROVIDERS: PCP Emergency Medicine; Visit Provider Emergency Medicine
DX: M79.661 Pain in right lower leg (principal); M79.662 Pain in left lower leg
CPT/HCPCS: 73590

== ENCOUNTER 2022-09-03 10:50 | Outpatient (CLI) | payer OTHER, SELFPAY ==
--- NOTE | ~2022-09-03 | US_ITS ---
EXAMINATION:US venous doppler LE BI INDICATION:Bilateral leg pain TECHNIQUE: Multiple grayscale, color flow and Doppler images of the right and left lower extremity de ep venous systems were obtained and reviewed. COMPARISON:Ultrasound dated 01/06/2018 FINDINGS: The common femoral, superficial femoral and popliteal veins demonstrate normal respiratory variation, augmentation and compressibility. Color flow is also seen within the posterior tibial, pe roneal, greater saphenous and profunda veins. IMPRESSION: 1: No lower extremity deep venous thrombosis. Reviewed, dictated and finalized at location A. ITECTURAL DESIGN LECTURER
== END 2022-09-03 10:51 | disposition home or self-care (01) ==
PROVIDERS: PCP Emergency Medicine; Visit Provider Emergency Medicine
DX: M79.662 Pain in left lower leg (principal); M79.661 Pain in right lower leg
CPT/HCPCS: 93970

== ENCOUNTER 2023-02-01 08:08 | Emergency (ER) | payer OTHER, SELFPAY ==
[2023-02-01 08:12] VITALS: BP 110/67; PULSE 72; RESP 20; TEMP 37; O2SAT 100
--- NOTE | 2023-02-01 08:33 | ED.EYEPROB ---
HPI - Eye Problem General Chief complaint: Eye Problems Stated complaint: sore throat and crusty eyes Time Seen by Provider: 02/01/23 08:33 Source: patient, RN notes reviewed and old records reviewed Mode of arrival: ambulatory Limitations: no limitations History of Present Illness HPI Narrative: 37-year-old female presents to [facility] with complaints of sore throat, some nasal congestion and drainage which started 4 days ago and then developed during the night crusty drainage from bilateral eyes which is greenish. Patient reports some itching to her eyes with drainage noted to be yellowish, denies any sharp pain to her eyes. Patient reports that she has been taking Zyrtec daily for her nasal congestion and drainage. Patient denies any known fevers, chills or sweats. MD chief complaint: eye redness and other (eye drainage) Onset (ago): day(s) (1) Onset description: awoke with symptoms Eye Symptoms: redness, itching, discharge and blurry vision Severity scale (1-10): 2 Treatments Prior to Arrival: other (warm compresses, zyrtec) Related Data Allergies Allergy/AdvReac Type Severity Reaction Status Date / Time No Known Allergies Allergy Unknown Verified 02/01/23 08:25 Review of Systems Review of Systems: CONSTITUTIONAL: Denies malaise, chills, sweats, or fever. EYES: Denies visual changes,positive for redness, and discharge bilateral eyes ENT: Reports rhinorrhea, congestion,no sinus pain,no otalgia and sore throat. CARDIOVASCULAR: Denies chest pain, palpitations, or edema. RESPIRATORY: Reports no cough.? Denies dyspnea. GASTROINTESTINAL: Denies abdominal pain, nausea, vomiting, diarrhea SKIN: Denies rash or itching. MUSCULOSKELETAL: Denies myalgia. NEUROLOGIC: Denies headache. All systems reviewed & are unremarkable except as noted in HPI and below PMFSH Past Medical History Medical History Anemia Back pain Depression Eczema Fibroids Hypothyroidism Migraines labor Renal cyst Seasonal allergies Thyroid disease UTI (urinary tract infection) Surgical History Surgical History H/O breast biopsy H/O tubal ligation History of lumpectomy Family History Family History Grandparent Hypertension Asthma Malignant neoplasm of prostate Diabetes mellitus Other Cerebrovascular accident Family history of allergic disorder Family history of anemia Family history of malignant neoplasm Family history of migraine headaches Social History Social History Smoking status: Never smoker Alcohol intake: current Gender identity (if verbalized by the patient): Female Spiritual care concerns: No Comments At time of signature, agree with nursing past medical, surgical, social and family history. There is no relevant family history pertinent to the presenting complaint Exam Narrative: GENERAL: Well-appearing, well-nourished, and in no acute distress. HEAD: Normocephalic EYES: PERRLA, conjunctivae red bilateral eyes with yellowish drainage ENT: Nares clear, turbinates edematous and erythematous, clear discharge. Mucous membranes moist. TM pearly smalls with dull light reflex bilaterally; no tragal tenderness. Oropharynx erythematous without lesions. Tonsils red not enlarged and without exudate, no drooling, no hoarseness, no trismus, uvula midline, post nasal drainage. NECK: Supple. No lymphadenopathy CHEST: Clear to auscultation, breath sounds equal. No wheezing, rhonchi, rales, or stridor. No respiratory distress, speaks in full sentences.SAO2 100% on room air HEART: Regular rate and rhythm. No murmur heard. SKIN: Warm, dry, no rash. NEURO: Alert and oriented x3. PSYCH: Normal mood and affect Course Course Emergency Course: Patient is aware of diagnosis,
== END 2023-02-01 08:53 | disposition home or self-care (01) ==
PROVIDERS: Emergency Provider Registered Nurse
DX: H10.9 Unspecified conjunctivitis (principal); J31.0 Chronic rhinitis; E03.9 Hypothyroidism, unspecified
CPT/HCPCS: 87081; 87880; 99213; G0463

== ENCOUNTER 2023-02-18 12:37 | Outpatient (CLI) | payer OTHER, SELFPAY ==
[2023-02-18 12:50] LABS: Hematocrit 34.2 % (37.0-47.0); Hemoglobin 11.1 g/dL (12.0-15.0); Mean Corpuscular HGB Conc 32.5 g/dl (32-36); Mean Corpuscular Hemoglobin 29.2 pg (26-34); Mean Platelet Volume 8.9 fl (7.4-10.4); Platelet Count Result 322 k/mm3 (150-375); Red Cell Distribution Width 12.9 % (11.5-14.5); White Blood Count 4.9 K/mm3 (4.5-10.0)
[2023-02-18 15:29] LABS: Blood Urea Nitrogen 12 mg/dL (7-17); Calcium 8.9 mg/dL (8.4-10.2); Carbon Dioxide 31 mmol/L (22-30); Chloride 103 mmol/L (98-107); Estimated Glomerular Filt Rate > 60; Glucose 93 mg/dL (65-110)
[2023-02-18 21:27] LABS: Anion Gap 5 mmol/L (8-16); Potassium 3.9 mmol/L (3.4-5.0); Sodium 139 mmol/L (137-145)
== END 2023-02-18 12:38 | disposition home or self-care (01) ==
LOC: ANHLAB 12:39
PROVIDERS: PCP Family Medicine; Visit Provider Internal Medicine Hematology & Oncology
DX: D64.9 Anemia, unspecified (principal)
CPT/HCPCS: 36415; 80048; 85027

== ENCOUNTER 2023-03-03 10:05 | Outpatient (CLI) | payer OTHER, SELFPAY ==
[2023-03-03 12:55] LABS: Thyroid Stimulating Hormone 0.576 uIU/mL (0.465-4.680)
== END 2023-03-03 10:06 | disposition home or self-care (01) ==
LOC: ANHLAB 10:08
PROVIDERS: PCP Family Medicine; Visit Provider Internal Medicine Hematology & Oncology
DX: E03.9 Hypothyroidism, unspecified (principal)
CPT/HCPCS: 36415; 84443

== ENCOUNTER 2023-04-24 09:54 | Emergency (ER) | payer OTHER, SELFPAY ==
[2023-04-24 10:01] VITALS: BP 93/70; PULSE 69; RESP 16; TEMP 36.2; O2SAT 100
--- NOTE | 2023-04-24 10:16 | ED.GENADULT ---
HPI - General Adult General Chief complaint: Upper Respiratory Infection Stated complaint: Ear Pain/Sore Throat Source: patient Mode of arrival: ambulatory Limitations: no limitations History of Present Illness HPI narrative: Pt presents for evaluation of bilateral ear pain. Symptom onset two days ago. She went rafting yesterday and when she woke from sleep this morning she noted that she was also experiencing a sore throat. No fever, chills, nausea, vomiting, cough or SOB. No recent sick contacts to her knowledge. She is not taking any medications for symptoms. She does not smoke. Related Data Home Medications Medication Instructions Recorded Confirmed ferrous sulfate 325 mg (65 mg 325 mg PO DAILY 04/24/23 04/24/23 iron) tablet (Iron (ferrous sulfate)) topiramate 25 mg tablet 25 mg PO DAILY PRN headache 04/24/23 04/24/23 Allergies Allergy/AdvReac Type Severity Reaction Status Date / Time No Known Allergies Allergy Unknown Verified 04/24/23 10:00 Review of Systems Review of Systems: CONSTITUTIONAL: Denies fever, chills, or sweats. EYES: Denies visual changes, redness, or discharge. ENT: Reports sore throat and bilateral ear pain. Denies rhinorrhea and congestion CARDIOVASCULAR: Denies chest pain, palpitations, or edema. RESPIRATORY: Denies cough or dyspnea. GASTROINTESTINAL: Denies abdominal pain, nausea, vomiting, or diarrhea. GENITOURINARY: Denies dysuria or hematuria. SKIN: Denies rash or itching. MUSCULOSKELETAL: Denies back pain, joint pain, or myalgia. NEUROLOGIC: Denies headache, numbness, dizziness, or weakness. PSYCHIATRIC: Denies anxiety or depression. [facility] Past Medical History Medical History Anemia Back pain Depression Eczema Fibroids Hypothyroidism Migraines labor Renal cyst Seasonal allergies Thyroid disease UTI (urinary tract infection) Surgical History Surgical History H/O breast biopsy H/O tubal ligation History of lumpectomy Family History Family History Grandparent Hypertension Asthma Malignant neoplasm of prostate Diabetes mellitus Other Cerebrovascular accident Family history of allergic disorder Family history of anemia Family history of malignant neoplasm Family history of migraine headaches Social History Social History Smoking status: Never smoker Alcohol intake: current Gender identity (if verbalized by the patient): Female Spiritual care concerns: No Exam Narrative: GENERAL: Well-appearing, well-nourished, and in no acute distress. HEAD: Normocephalic, atraumatic. EYES: PERRLA and EOMI. ENT: Nares clear, no rhinorrhea or epistaxis. Mucous membranes moist. Oropharynx without tonsillar hypertrophy exudate or other lesions. Bilateral TMs pearly smalls nonbulging NECK: Supple. No adenopathy or masses. No carotid bruits or JVD CHEST: Clear to auscultation. No respiratory distress. No wheezes rales or rhonchi HEART: Regular rate and rhythm. No murmur heard. Normal peripheral pulses. ABDOMEN: Soft, nontender, nondistended, normal active bowel sounds. EXTREMITIES: Normal range of motion. No edema. SKIN: Warm, dry, no rash. NEURO: No focal deficits. Alert and oriented x3. PSYCH: Normal mood and affect. Course Course Emergency Course: This is a 38-year-old female who presented for evaluation of bilateral ear pain and sore throat. Her rapid strep was negative. Discussed waiting for culture results vs treating today. She would like to be treated today. Will dc with augmentin. Follow up with primary provider this week. Go to the ER for worsening symptoms. Pt in agreement with plan of care. Level of Care: Express Care Visit Vital Signs Vital signs: Vital Signs Temperature
== END 2023-04-24 10:25 | disposition home or self-care (01) ==
PROVIDERS: Emergency Provider Nurse Practitioner; PCP Family Medicine
DX: J02.9 Acute pharyngitis, unspecified (principal); E03.9 Hypothyroidism, unspecified
CPT/HCPCS: 87081; 87880; 99213; G0463

== ENCOUNTER 2023-06-18 15:24 | Emergency (ER) | payer OTHER, SELFPAY ==
[2023-06-18 15:29] VITALS: BP 104/63; PULSE 70; RESP 16; TEMP 36.6; O2SAT 100
--- NOTE | 2023-06-18 16:41 | ED.EAR ---
HPI - Ear Problem General Chief complaint: Ear Stated complaint: ears aching Source: patient Mode of arrival: ambulatory Limitations: no limitations History of Present Illness HPI Narrative: Patient presents for evaluation of bilateral ear pain. Symptoms have been intermittently bothersome over the last 4 months. She states she was seen in urgent care on the time of symptom onset was given Augmentin. Her symptoms improved. She has noticed intermittent discomfort as of late. No fever, chills, nausea, vomiting, sore throat, cough, tinnitus, hearing loss, drainage from the ears. Related Data Home Medications Medication Instructions Recorded Confirmed ferrous sulfate 325 mg (65 mg 325 mg PO DAILY 04/24/23 06/18/23 iron) tablet (Iron (ferrous sulfate)) Allergies Allergy/AdvReac Type Severity Reaction Status Date / Time No Known Allergies Allergy Unknown Verified 06/18/23 15:36 Review of Systems Review of Systems: CONSTITUTIONAL: Denies fever, chills, or sweats. EYES: Denies visual changes, redness, or discharge. ENT: Reports bilateral ear pain. Denies rhinorrhea, congestion, or sore throat CARDIOVASCULAR: Denies chest pain, palpitations, or edema. RESPIRATORY: Denies cough or dyspnea. GASTROINTESTINAL: Denies abdominal pain, nausea, vomiting, or diarrhea. GENITOURINARY: Denies dysuria or hematuria. SKIN: Denies rash or itching. MUSCULOSKELETAL: Denies back pain, joint pain, or myalgia. NEUROLOGIC: Denies headache, numbness, dizziness, or weakness. PSYCHIATRIC: Denies anxiety or depression. [facility] Past Medical History Medical History Anemia Back pain Depression Eczema Fibroids Hypothyroidism Migraines labor Renal cyst Seasonal allergies Thyroid disease UTI (urinary tract infection) Surgical History Surgical History H/O breast biopsy H/O tubal ligation History of lumpectomy History of parathyroid surgery Family History Family History Grandparent Hypertension Asthma Malignant neoplasm of prostate Diabetes mellitus Other Cerebrovascular accident Family history of allergic disorder Family history of anemia Family history of malignant neoplasm Family history of migraine headaches Social History Social History Smoking status: Never smoker Alcohol intake: current Gender identity (if verbalized by the patient): Female Spiritual care concerns: No Exam Narrative: GENERAL: Well-appearing, well-nourished, and in no acute distress. HEAD: Normocephalic, atraumatic. EYES: PERRLA and EOMI. ENT: Nares clear, no rhinorrhea or epistaxis. Mucous membranes moist. Oropharynx without tonsillar hypertrophy exudate or other lesions. There is thick yellow drainage behind both TM's with bulging on right NECK: Supple. No adenopathy or masses. No carotid bruits or JVD CHEST: Clear to auscultation. No respiratory distress. No wheezes rales or rhonchi HEART: Regular rate and rhythm. No murmur heard. Normal peripheral pulses. ABDOMEN: Soft, nontender, nondistended, normal active bowel sounds. EXTREMITIES: Normal range of motion. No edema. SKIN: Warm, dry, no rash. NEURO: No focal deficits. Alert and oriented x3. PSYCH: Normal mood and affect. Course Course Emergency Course: This is a 38-year-old female who presented for evaluation of bilateral ear pain. She has evidence of otitis media on exam. Will treat with Augmentin. Increase hydration. [id number] agents for symptom management. Follow up with primary provider. To the emergency department for worsening symptoms. Patient in agreement plan of care Level of Care: Express Care Visit Vital Signs Vital signs: Vital Signs Temperature 36.6 C 06/18/23 15:29 Pulse Ra
== END 2023-06-18 15:49 | disposition home or self-care (01) ==
PROVIDERS: Emergency Provider Nurse Practitioner; PCP Family Medicine
DX: H66.93 Otitis media, unspecified, bilateral (principal); E03.9 Hypothyroidism, unspecified; D64.9 Anemia, unspecified
CPT/HCPCS: 99213; G0463

== ENCOUNTER 2023-08-11 12:28 | Outpatient (CLI) | payer OTHER, SELFPAY ==
--- NOTE | ~2023-08-11 | MMUS_ITS ---
EXAMINATION: MM diagnostic noemi BI w jason, US breast BI complete HISTORY: Left upper outer quadrant breast pain TECHNIQUE: ML, MLO and CC 3-D tomosynthesis images of both breasts were performed and synthetic 2-D i mages were generated. CAD analysis was submitted and interpreted. High resolution complete bilateral breast ultrasound examination: All 4 quadrants and subareolar area was performed. COMPARISON: 12/17/2021 right ultrasound-guided breast biopsy 12/07/2021 diagnostic bilateral mammogram and complete bilateral breast ultrasound examination BREAST PARENCHYMAL COMPOSITION: The breasts are extremely dense, which lowers the sensitivity of mamm ography. FINDINGS: MAMMOGRAPHIC FINDINGS: Bilateral benign-appearing microcalcifications are noted, more numerous on the right. No suspicious m ass or architectural distortion desiccation, skin thickening or retraction of either breast is noted. Extremely dense tissue however may obscure masses. Bilateral complete breast ultrasound examination w as performed. ULTRASOUND: Right breast: 2:00 2 cm from nipple: Parallel circumscribed hypoechoic 6.6 x 3 x 4.7 mm lesion without suspicious s hadowing. No other significant finding of the right breast is noted. Left breast: No suspicious mass or shadowing of the left breast is detected. IMPRESSION: 1. Benign findings; no mammographic or sonographic evidence of malignancy of the breasts 2. Routine annual mammographic screening is recommended BI-RADS Category 2: Benign finding(s). Reviewed, dictated and finalized at location C. IMPRESSION: 1. Benign findings; no mammographic or sonographic evidence of malignancy of th e breasts 2. Routine annual mammographic screening is recommended BI-RADS Category 2: Benign finding(s).
== END 2023-08-11 12:29 | disposition home or self-care (01) ==
PROVIDERS: PCP Family Medicine; Visit Provider Nurse Practitioner Obstetrics & Gynecology
DX: N64.4 Mastodynia (principal); R92.8 Other abnormal and inconclusive findings on diagnostic imaging of breast
CPT/HCPCS: 76641; 77062; 77066; G0279

== ENCOUNTER 2023-10-20 17:54 | Emergency (ER) | payer OTHER, SELFPAY ==
--- NOTE | ~2023-10-20 | XR_ITS ---
EXAMINATION: XR hand BI arthritis min 3V DATE: 10/20/2023 18:31 INDICATION: Bilateral hand pain. TECHNIQUE: 3 views of right hand and 3 views of left hand were obtained. COMPARISON: Right hand radiographs 08/20/2022 FINDINGS: RIGHT HAND: Bone alignment is normal. No fracture. Joint spaces are normal. LEFT HAND: Bone alignment is normal. No fracture. There is mild osteoarthritis of third distal interp halangeal joint. IMPRESSION: 1. 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 Reviewed, dictated and finalized at location E. ST FIRE PREVENTION SPECIALIST
[2023-10-20 17:58] VITALS: BP 113/54; PULSE 72; RESP 16; TEMP 37; O2SAT 100
--- NOTE | 2023-10-20 18:05 | ED.GENADULT ---
HPI - General Adult General Chief complaint: Extremity Problem,Nontraumatic Stated complaint: fingers swelling/achy Time Seen by Provider: 10/20/23 18:05 Source: patient, RN notes reviewed and old records reviewed Mode of arrival: ambulatory Limitations: no limitations History of Present Illness HPI narrative: 38-year-old female presents to the [facility] with finger swelling and hands that are very achy. Reports that her elbows and her shoulders were also achy and felt swollen. Patient states that she started a new job on September 25. Had seen her primary care provider was prescribed steroid pack on the 04 of October. States it never got any better. Patient reports that she had recent labs done, explained to patient that if she conceded in my chart that is probably with [facility] care and we cannot see any of that. Patient upset that we cannot see anything [facility] does, states that she was referred here by her primary for further evaluation of her chronic hand pain and swelling. Related Data Home Medications Medication Instructions Recorded Confirmed ferrous sulfate 325 mg (65 mg 325 mg PO DAILY 04/24/23 10/20/23 iron) tablet (Iron (ferrous sulfate)) Allergies Allergy/AdvReac Type Severity Reaction Status Date / Time No Known Allergies Allergy Unknown Verified 10/20/23 18:08 Review of Systems Review of Systems: All systems reviewed & are unremarkable except as noted in HPI and below Constitutional: Constitutional: Reports no additional constitutional complaints Eyes: Eyes: Reports no additional eye complaints ENT: Reports system reviewed and no additional complaints, except as documented Cardiovascular: Cardiovascular: Reports no additional cardiovascular complaints, Denies chest pain and Denies dyspnea Respiratory: Respiratory: Reports no additional respiratory complaints, Denies chest congestion, Denies cough and Denies dyspnea Gastrointestinal: Gastrointestinal: Reports no additional gastrointestinal complaints, Denies abdominal pain, Denies nausea and Denies vomiting Musculoskeletal: Musculoskeletal: Reports as per HPI Integumentary/Breasts: Skin/Breast: Reports system reviewed and no additional complaints, except as docu Neurologic: Reports system reviewed and no additional complaints, except as documented Psychiatric: Psychiatric: Reports no additional psychiatric complaints Allergic/Immunologic: Allergic/Immunologic: Reports no additional allergic/immunologic complaints PMFSH Past Medical History Medical History Anemia Back pain Depression Eczema Fibroids Hypothyroidism Migraines labor Renal cyst Seasonal allergies Thyroid disease UTI (urinary tract infection) Surgical History Surgical History H/O breast biopsy H/O tubal ligation History of lumpectomy History of parathyroid surgery Family History Family History Grandparent Hypertension Asthma Malignant neoplasm of prostate Diabetes mellitus Other Cerebrovascular accident Family history of allergic disorder Family history of anemia Family history of malignant neoplasm Family history of migraine headaches Social History Social History Smoking status: Never smoker Alcohol intake: current Gender identity (if verbalized by the patient): Female Spiritual care concerns: No Comments At the time of my signature, I reviewed and agree with the nursing past medical, surgical, social, and family history. There is no relevant family history pertinent to the patient complaint. Exam Const: General: cooperative, healthy appearing, comfortable, no acute distress, well developed, alert and well nourished Nutritional Appearance: well nourished Orientation/consciousness: patient oriented x3 Vega
== END 2023-10-20 18:53 | disposition home or self-care (01) ==
PROVIDERS: Emergency Provider Nurse Practitioner; PCP Family Medicine
DX: M79.642 Pain in left hand (principal); M79.641 Pain in right hand; R22.33 Localized swelling, mass and lump, upper limb, bilateral; M19.042 Primary osteoarthritis, left hand; E03.9 Hypothyroidism, unspecified; E06.3 Autoimmune thyroiditis; D64.9 Anemia, unspecified
CPT/HCPCS: 73130; 99214; G0463

== ENCOUNTER 2024-02-25 10:15 | Outpatient (CLI) | payer OTHER, SELFPAY ==
[2024-02-25 11:24] LABS: Hematocrit 35.7 % (37.0-47.0); Hemoglobin 11.4 g/dL (12.0-15.0)
== END 2024-02-25 10:16 | disposition home or self-care (01) ==
LOC: ANHLAB 10:17
PROVIDERS: Visit Provider Anesthesiology
DX: Z01.818 Encounter for other preprocedural examination (principal); D50.9 Iron deficiency anemia, unspecified
CPT/HCPCS: 36415; 85014; 85018

== ENCOUNTER 2024-03-02 00:28 | Day surgery (SDC) | payer OTHER, SELFPAY ==
--- NOTE | 2024-02-24 13:34 | PC.NURSE ---
Report to the Outpatient Waiting Room, entrance under the green pavilion located off [facility], at time _0700_ on date _[id number]_. Planned Procedure Time: _0900_. Time changes happen often and if your time is changed the preop area will call you the afternoon before. - You and your visitor will be asked to self-screen and do not enter if you have any COVID symptoms. - A mask is optional within the hospital at this time. Patients may have clear liquids (water, carbonated beverages, clear teas, apple juice) until 3 hours prior to surgery with a maximum of 20 ounces. - No food from midnight until time of surgery Take the following medications with a SIP of water the morning of surgery: __None DO NOT STOP ANY OF YOUR OTHER PRESCRIPTION MEDICATIONS PRIOR TO SURGERY ?EXCEPT THE FOLLOWING Medications to discontinue per physician Vitamin d3 and Ferrous sulfate Date to take last ebrp__[id number] Please no make-up, nail kuwaiti, hairspray, perfume, deodorant, or body powder the day of surgery. No jewelry (including any body piercings) or valuables the day of surgery, leave them at home. Please take a shower or bath the night before, or the morning of, surgery with an antibacterial soap. Wear comfortable, loose fitting clothing. - Jewelry must be removed prior to entering the operating room. Rings and piercings that are not removed may be cut off. - The hospital will not accept responsibility for valuables. - Please leave all valuables, including medications, at home the day of surgery. If you are going home after surgery, a licensed sprinkler driver must drive you home. - NO public transportation without another adult if you receive anesthesia. - We recommend that an adult stay with you for 24 hours following discharge. - We also recommend that you do not drive, make important decision, drink alcoholic beverages, or take any drugs that were not prescribed by your health care provider for at least 24 hours after your discharge time. Follow any additional instructions given to you from your surgeon. If you or anyone in your household have experienced Covid symptoms in the past week, please notify your surgeon or the nurse liaison at the phone number below for possible testing. Telephone instructions given to __Akhil__and asked if any additional questions and then verbalized understanding. Patient advised to call surgeon office or pre surgery nurse liaison [phone] if any additional questions.
[2024-03-02 06:11] VITALS: BP 94/69; PULSE 66; RESP 14; TEMP 36.3; O2SAT 100
[2024-03-02 06:30] VITALS: BMI 20.9
[2024-03-02] MEDS: LACTATED RINGERS 1,000 ML 30 ML IV CONT (06:35)
[2024-03-02] MEDS: ACETAMINOPHEN 500 MG TABLET 1000 MG PO (06:39)
--- NOTE | 2024-03-02 07:02 | P.PNAN_ITS ---
Anes - Initial Pre Proc Eval Procedure: Operation Date: 03/02/24 07:30 Proposed Procedures p Hysteroscopy with Concepción Endometrial Ablation, Removal of Leiomyomata - Arben Mendoza MD Date/Time: 03/02/24 07:02 Surgeon: Arben Mendoza MD Pre Op Diagnosis: Uterine Leiomyomia, Menorrhagia Patient Data Age: 39 Gender: F Height: 1.68 m Weight: 58.75 kg Last Vital Signs Temp 97.4 F L 03/02/24 06:11 Pulse 66 03/02/24 06:11 Resp 14 03/02/24 06:11 BP 94/69 L 03/02/24 06:11 Pulse Ox 100 03/02/24 06:11 O2 Del Method Room Air 03/02/24 06:11 Allergies Allergy/AdvReac Type Severity Reaction Status Date / Time oxycodone [From Percocet] Allergy Unknown Itching Verified 03/02/24 06:46 Home Medications Medication Instructions Recorded Confirmed Type ferrous sulfate 325 mg (65 mg 325 mg PO DAILY 04/24/23 03/02/24 History iron) tablet (Iron (ferrous sulfate)) cholecalciferol (vitamin D3) 10 10 mcg PO DAILY 02/24/24 03/02/24 History mcg (400 unit) tablet (Vitamin D3) Patient hx anesthesia problems: none Family hx anesthesia problems: none Results Review: All pre-operative results and documents have been reviewed as part of the pre- operative evaluation. [facility] Past Medical History Medical History Anemia Back pain Depression Eczema Fibroids Hypothyroidism Migraines labor Renal cyst Seasonal allergies Thyroid disease UTI (urinary tract infection) Surgical History Surgical History H/O breast biopsy H/O tubal ligation History of lumpectomy History of parathyroid surgery Family History Family History Grandparent Hypertension Asthma Malignant neoplasm of prostate Diabetes mellitus Other Cerebrovascular accident Family history of allergic disorder Family history of anemia Family history of malignant neoplasm Family history of migraine headaches Social History Social History Smoking status: Never smoker Alcohol intake: current Living arrangements: with family Gender identity (if verbalized by the patient): Female Spiritual care concerns: No Anes - Eval Final PreProcedure Day of Procedure 03/02/24 07:02 Patient weight: normal Heart: regular rate and rhythm Lungs: clear to auscultation Airway: Mallampati scale and special considerations (Missing some upper and lower post teeth, none loose. ) Neurological: alert and oriented Last oral intake: >/= 8 hours ASA classification: II Emergent: no Anesthetic plan: proceed Anesthesia type and monitoring: general GIVS and standard monitoring Results Review: All pre-operative results and documents have been reviewed as part of the pre- operative evaluation. Informed Consent: The patient's anesthetic plan and its attendant risks and benefits were discussed with the patient/family/POA. Questions were solicited and answers provided to the satisfaction of the patient/family/POA.
--- NOTE | 2024-03-02 07:23 | PM.IMHP ---
H&P: HPI History of Present Illness Date/Time: 03/02/24 07:23 Chief Complaint: Heavy vaginal bleeding Narrative: this patient is a 39-year-old female with menorrhagia and a submucosal fibroid. We agreed to perform endometrial ablation with hysteroscopy and possible resection of myoma. She understands the procedures. It is been explained her in detail. She understands the risk. She says usually occur that result in hospitalization, more surgery, and severe illness. She understands risk of hemorrhage infection. She denies any nausea, vomiting, fever, chills. She denies any chest pain shortness of breath. Review of Systems Review of Systems: All systems reviewed & are unremarkable except as noted in HPI and below Constitutional: Constitutional: Denies chills, Denies fatigue, Denies fever(s) and Denies weakness Eyes: Eyes: Denies blurry vision, Denies change in vision, Denies loss of peripheral vision, Denies loss of vision, Denies other visual disturbances and Denies eye pain ENT: Denies vertigo, Denies dizziness, Denies hearing loss, Denies mouth pain, Denies nasal obstruction, Denies neck mass and Denies neck pain Cardiovascular: Cardiovascular: Denies chest pain, Denies diaphoresis, Denies syncope, Denies leg edema and Denies dyspnea Respiratory: Respiratory: Denies chest congestion, Denies cough, Denies hemoptysis, Denies dyspnea and Denies wheezing Gastrointestinal: Gastrointestinal: Denies abdominal pain, Denies constipation, Denies diarrhea, Denies nausea and Denies vomiting Genitourinary: Genitourinary: Denies hematuria, Denies change in libido, Denies nocturia, Denies genital lesions, Denies flank pain and Denies urinary urgency Musculoskeletal: Musculoskeletal: Denies abnormal gait, Denies back pain, Denies myalgias, Denies arthralgias, Denies joint swelling, Denies muscle weakness and Denies neck pain Integumentary/Breasts: Skin/Breast: Denies swelling, Denies breast pain, Denies breast mass, Denies dry skin, Denies nipple discharge, Denies unusual bruising and Denies jaundice Neurologic: Denies Neuro-related abnormal movements, Denies Abnormal speech present, Denies abnormal gait, Denies behavioral changes, Denies confusion, Denies vertigo, Denies dizziness, Denies syncope, Denies loss of vision, Denies memory loss, Denies convulsions and Denies weakness Psychiatric: Psychiatric: Denies abnormal sleep pattern, Denies behavioral changes, Denies change in libido, Denies confusion, Denies depression, Denies anhedonia and Denies memory loss Endocrine: Endocrine: Reports no additional endocrine complaints, Denies change in libido and Denies fatigue Hematologic/Lymphatic: Hematologic/Lymphatic: Reports no additional hematologic/lymphatic complaints Allergic/Immunologic: Allergic/Immunologic: Reports no additional allergic/immunologic complaints and Denies wheezing PMFSH Past Medical History Medical History Anemia Back pain Depression Eczema Fibroids Hypothyroidism Migraines labor Renal cyst Seasonal allergies Thyroid disease UTI (urinary tract infection) Surgical History Surgical History H/O breast biopsy H/O tubal ligation History of lumpectomy History of parathyroid surgery Family History Family History Grandparent Hypertension Asthma Malignant neoplasm of prostate Diabetes mellitus Other Cerebrovascular accident Family history of allergic disorder Family history of anemia Family history of malignant neoplasm Family history of migraine headaches Social History Social History Smoking status: Never smoker Alcohol intake: current Living arrangements: with family Gender identity (if verbalized by the patient): Female Spiritual care concerns
--- NOTE | 2024-03-02 07:27 | WPDHPUPDATE1 ---
History and Physical Update Update Date/Time: 03/02/24 07:27 History and Physical has been reviewed, including an updated exam of the patient. There are NO changes in the patient's condition. Risks, benefits, and alternatives have been discussed and questions answered. Patient agrees to proceed with procedure.
[2024-03-02] MEDS: LIDOCAINE HCL 1% LOCAL INJ 20 ML VIAL 10 ML INFILTRATE (07:44)
[2024-03-02 08:25] VITALS: BP 91/56; PULSE 62; RESP 12; O2SAT 100
[2024-03-02 08:55] VITALS: BP 151/68; PULSE 67; RESP 20
--- NOTE | 2024-03-02 08:56 | W.PM.PROC2 ---
Procedure Note - Detailed Date of Procedure 03/02/24 Pre-op Diagnosis Uterine Leiomyomia, Menorrhagia Post-op Diagnosis Same Procedure Performed endometrial ablation with hysteroscopy d&c , operative hysteroscopy with resection of myoma Surgeon Arben Mendoza MD Anesthesia MAC Indications Severe menorrhagia Findings Normal vulva vagina and cervix. 3cm submucosal myoma Description of Procedure The patient was taken to the operating room. She was prepped and draped in the dorsal lithotomy position after induction of mac anesthesia. A speculum was placed in the vagina. Cervix grasped with a tenaculum. The cervix was dilated to about 1 cm. The hysteroscope was inserted. The above findings were noted. Endometrial curettage was performed with a medium-size curette. All surfaces of the endometrium were affected by the curettage. The specimens were collected and sent to pathology. The operative portion of the procedure was then performed. The rotation ablated the hysteroscope was inserted. Fibroid that was observed was resected two-point beneath the surface of the endometrium. Measurements were taken of the uterus and cervix. The uterine length was then entered into the hand piece of the Concepción device. The device was inserted into the intrauterine cavity. The array of the device was expanded. The balloon cuff was inflated. A good seal was achieved. The energy and safety cycles were initiated and completed. The array was collapsed and the instrument was withdrawn after deflating the balloon cuff. Hysteroscope was reinserted. Above findings were noted. The hysteroscope was removed. The patient tolerated the procedure well. The speculum and tenaculum were removed. She was taken to recovery in stable condition. Sponge lap and needle counts were correct x2. Estimated Blood Loss 15 Pathology Yes Complications No immediate complications Condition Stable Disposition Same day
[2024-03-02 09:25] VITALS: BP 113/78; PULSE 55; RESP 20
[2024-03-02 09:40] VITALS: BP 117/79; PULSE 53; RESP 20
== END 2024-03-02 09:45 | disposition home or self-care (01) ==
PROVIDERS: PCP Emergency Medicine; Visit Provider Obstetrics & Gynecology
PROC: 0U5B8ZZ Destruction of Endometrium, Via Natural or Artificial Opening Endoscopic (ICD-10-PCS; CPT 58563; principal; 2024-03-02 07:30)
DX: D25.0 Submucous leiomyoma of uterus (principal); N92.0 Excessive and frequent menstruation with regular cycle
CPT/HCPCS: 58561; 58563; 88305; A9270; J1100; J2250; J2405; J2704; J3010; J7120

== ENCOUNTER 2024-03-09 15:28 | Outpatient (CLI) | payer OTHER, SELFPAY ==
[2024-03-09 16:01] LABS: Hematocrit 36.8 % (37.0-47.0); Mean Corpuscular HGB Conc 32.6 g/dl (32-36); Mean Corpuscular Hemoglobin 29.6 pg (26-34); Mean Corpuscular Volume 90.6 fl (80-100); Mean Platelet Volume 9.6 fl (7.4-10.4); Platelet Count Result 282 k/mm3 (150-375); Red Blood Count 4.06 M/mm3 (4.2-5.4); Red Cell Distribution Width 12.9 % (11.5-14.5); White Blood Count 5.4 K/mm3 (4.5-10.0)
[2024-03-09 16:12] LABS: Alanine Aminotransferase 12 U/L (6-35); Albumin Level 4.6 g/dL (3.5-5.1); Alkaline Phosphatase 43 U/L (38-126); Anion Gap 8 mmol/L (4-12); Aspartate Amino Transferase 19 U/L (14-36); Bilirubin,Total 0.5 mg/dL (0.2-1.3); Blood Urea Nitrogen 9 mg/dL (7-17); Calcium 9.4 mg/dL (8.4-10.2); Carbon Dioxide 27 mmol/L (22-30); Chloride 105 mmol/L (98-107); Cholesterol 180 mg/dL (0-200); Estimated Glomerular Filt Rate > 60; Glucose 117 mg/dL (65-110); HDL Direct 77 mg/dL; Potassium 3.5 mmol/L (3.4-5.0); Sodium 140 mmol/L (137-145); Triglycerides 150 mg/dL (<150)
[2024-03-09 16:23] LABS: Appearance Urine Clear (Clear); Bacteria Urine Rare /hpf; Bilirubin Urine Negative (Negative); Blood Urine Negative (Negative); Color Urine Dark Yellow (Yellow); Glucose Urine UA Negative (Negative); Ketones Urine Trace mg/dL (Negative); Leukocyte Esterase Ur Negative LEU/UL (Negative); Need Manual Microscopic Reviewed; Nitrate Urine Negative (Negative); Non Pathogenic Casts 0-2; Protein Urine Trace mg/dL (Negative); RBC Urine 0-2 /hpf (0-2); Specific Grav Ur 1.027 (1.001-1.035); Squamous Epithelial Cell Urine Few /hpf (Few); WBC Urine 0-5 /hpf (0-3); pH Urine 5.5 (5.0-9.0)
[2024-03-09 16:23] LABS: LDL Cholesterol Direct 74 mg/dL
[2024-03-09 16:24] LABS: Add Urine Microscopic? YES
[2024-03-09 16:59] LABS: Hemoglobin A1C 4.7 % (<5.7)
[2024-03-09 17:14] LABS: Free T4 Free Thyroxine 0.82 ng/mL (0.78-2.19); Vitamin D 25 Hydroxy 50.5 ng/mL
[2024-03-09 17:40] LABS: Microalbumin Urine Random 65.7 mg/L (0-16.7)
[2024-03-09 17:52] LABS: Creatinine Urine 370.6 mg/dL; MALB Creatinine Ratio 17.7 mg/g (0-30)
== END 2024-03-09 15:29 | disposition home or self-care (01) ==
LOC: ANHLAB 15:30
PROVIDERS: PCP Emergency Medicine; Visit Provider Emergency Medicine
DX: Z00.00 Encounter for general adult medical examination without abnormal findings (principal); M12.9 Arthropathy, unspecified
CPT/HCPCS: 36415; 80053; 80061; 81001; 82043; 82306; 83036; 84439; 84443; 85027

== ENCOUNTER 2024-05-02 14:13 | Outpatient (CLI) | payer OTHER, SELFPAY ==
[2024-05-02 14:49] LABS: Basophils Percent Auto 0.8 % (0.2-1.2); Eosinophils Absolute Auto 0.1 K/mm3 (0-0.3); Hematocrit 35.3 % (37.0-47.0); Hemoglobin 11.9 g/dL (12.0-15.0); Immature Granulocyte Absolute 0.01 K/mm3 (0.00-0.031); Immature Granulocyte Percent A 0.2 % (0-0.5); Lymphocytes Absolute Auto 2.08 K/mm3 (0.9-3.2); Lymphocytes Percent Auto 42.4 % (18.3-44.2); Mean Corpuscular HGB Conc 33.7 g/dl (32-36); Mean Corpuscular Hemoglobin 30.2 pg (26-34); Mean Corpuscular Volume 89.6 fl (80-100); Mean Platelet Volume 9.9 fl (7.4-10.4); Monocytes Absolute Auto 0.3 K/mm3 (0.1-0.6); Monocytes Percent Auto 5.3 % (2.6-8.5); Neutrophils Absolute Auto 2.4 K/mm3 (1.3-6.7); Neutrophils Percent Auto 49.3 % (45.5-73.1); Platelet Count Result 264 k/mm3 (150-375); Red Blood Count 3.94 M/mm3 (4.2-5.4); Red Cell Distribution Width 12.5 % (11.5-14.5); White Blood Count 4.9 K/mm3 (4.5-10.0)
[2024-05-02 17:20] LABS: Iron 49 ug/dL (37-170)
[2024-05-02 17:38] LABS: Percent Iron Saturation 15 % (20-50)
[2024-05-02 18:02] LABS: Folic Acid 12.5 ng/mL (2.76->20)
== END 2024-05-02 14:14 | disposition home or self-care (01) ==
LOC: ANHLAB 14:16
PROVIDERS: PCP Emergency Medicine; Visit Provider Internal Medicine Hematology & Oncology
DX: E03.9 Hypothyroidism, unspecified (principal)
CPT/HCPCS: 36415; 82607; 82728; 82746; 83540; 83550; 85025

== ENCOUNTER 2024-05-10 14:41 | Emergency (ER) | payer OTHER, SELFPAY ==
[2024-05-10 14:53] VITALS: BP 124/69; PULSE 75; RESP 18; TEMP 36.3; O2SAT 100
--- NOTE | 2024-05-10 15:23 | ED.LOWEXIN ---
HPI - Extremity Injury (Lower) General Chief Complaint: Extremity Injury, Lower Stated Complaint: Swollen Feet History of Present Illness HPI Narrative: Patient is a 39-year-old female, past medical history significant for mitral valve prolapse who presents to [facility] with persistent lower extremity swelling for the past 2 months, worse when she is standing for a long period time which he is seated at her desk at work for long duration. Swelling improves when she elevates her legs. Her crystal evaluator ordered an outpatient venous duplex scheduled for tomorrow however she presents today with concerns of her lower extremity swelling persists. She denies history of renal insufficiency but does have a scheduled appointment with nephrology the end of May for protein urea. She does not take diuretic therapy. She does not wear Gutierrez hose. She has no calf pain, no asymmetry of her lower extremities. She denies shortness of breath or dyspnea on exertion. Related Data Home Medications Medication Instructions Recorded Confirmed ferrous sulfate 325 mg (65 mg 325 mg PO DAILY 04/24/23 03/02/24 iron) tablet (Iron (ferrous sulfate)) cholecalciferol (vitamin D3) 10 10 mcg PO DAILY 02/24/24 03/02/24 mcg (400 unit) tablet (Vitamin D3) Allergies Allergy/AdvReac Type Severity Reaction Status Date / Time oxycodone [From Percocet] Allergy Unknown Itching Verified 05/10/24 15:00 Review of Systems Musculoskeletal: Comments: refer to [facility] Past Medical History Medical History Anemia Back pain Depression Eczema Fibroids Hypothyroidism Migraines labor Renal cyst Seasonal allergies Thyroid disease UTI (urinary tract infection) Surgical History Surgical History H/O breast biopsy H/O tubal ligation History of lumpectomy History of parathyroid surgery Family History Family History Grandparent Hypertension Asthma Malignant neoplasm of prostate Diabetes mellitus Other Cerebrovascular accident Family history of allergic disorder Family history of anemia Family history of malignant neoplasm Family history of migraine headaches Social History Social History Smoking status: Never smoker Alcohol intake: current Living arrangements: with family Gender identity (if verbalized by the patient): Female Spiritual care concerns: No Exam Const: General: healthy appearing, no acute distress and alert Nutritional Appearance: well nourished Orientation/consciousness: patient oriented x3 Limitations: no limitations HENMT: Head: normal to inspection Ears: external ears normal Mouth: Yes Normal oral and palatal mucosa present Teeth and gingiva: dentition normal Throat: posterior oropharynx normal and uvula midline Eyes: Conjunctivae: conjunctivae normal EOM: EOMs intact bilaterally Neck: Neck: normal visual inspection, no lymphadenopathy and no meningeal signs Resp: Effort & Inspection: normal respiratory effort Auscultation: clear to auscultation bilaterally Cardio: Rate: regular rate Rhythm: regular rhythm Other: no murmur noted, S1-S2 Back/Spine/Pelvis: Back: no CVA tenderness Skin: General skin exam: normal color Rashes: no rashes Wounds: no wounds Neuro: General: patient oriented x3, moves all extremities, no meningeal signs, no focal motor deficits and CN's II-XI intact bilaterally Cranial nerves: Yes Nystagmus not present Speech: normal speech Gait exam (Neuro): Normal gait present Extrem: General: normal to inspection and no clubbing, cyanosis or edema Other: patient has no pitting edema, no asymmetry or lower extremities, no palpable cord. She does bring with her pictures of lower extremity, primarily feet swelling that
== END 2024-05-10 15:41 | disposition home or self-care (01) ==
PROVIDERS: Emergency Provider Nurse Practitioner Family; PCP Emergency Medicine
DX: R60.9 Edema, unspecified (principal); E03.9 Hypothyroidism, unspecified; D64.9 Anemia, unspecified
CPT/HCPCS: 99213; G0463

== ENCOUNTER 2024-07-10 15:56 | Outpatient (CLI) | payer OTHER, SELFPAY ==
[2024-07-10 17:17] LABS: HIV 1/2 Ab P24 Ag Result Negative (Negative)
[2024-07-10 17:51] LABS: Hepatitis B Surface Antigen Negative (Negative)
[2024-07-10 17:56] LABS: Hepatitis B Core IgM Result Negative (Negative)
[2024-07-10 18:08] LABS: Hepatitis C Virus Antibody Negative (Negative)
[2024-07-11 07:45] LABS: Rapid Plasma Reagin Non-Reactive (NonReactive)
== END 2024-07-10 15:57 | disposition home or self-care (01) ==
LOC: ANHLAB 16:00
PROVIDERS: PCP Emergency Medicine; Visit Provider Obstetrics & Gynecology
DX: A64 Unspecified sexually transmitted disease (principal)
CPT/HCPCS: 36415; 86592; 86695; 86696; 86703; 86705; 86803; 87340; G0432

== ENCOUNTER 2024-09-20 16:08 | Emergency (ER) | payer OTHER, SELFPAY ==
[2024-09-20 16:28] VITALS: BP 110/71; PULSE 75; RESP 20; TEMP 37.1; O2SAT 99
--- NOTE | 2024-09-20 17:03 | ED.URI ---
HPI - URI/Sore Throat General Chief Complaint: Upper Respiratory Infection Stated Complaint: cold symptoms Time Seen by Provider: 09/20/24 16:44 Source: patient, RN notes reviewed and old records reviewed Mode of arrival: ambulatory Limitations: no limitations History of Present Illness HPI Narrative: 39 year old female who presents to [facility] with complaints of cough with congestion and intermittent headaches since Thanksgiving with phlegm production greenish in color. Patient reports that she has not had any chills or sweats or any known fevers. Patient reports some leg aches but denies any generalized body aches. Patient reports that cough is worse when she is supine and has been sleeping propped up. Patient has taken Theraflu and allergy medications for her symptoms with no improvement. Patient reports that she is so congested she can't breathe out of her nose. MD elicited complaint: cough, rhinorrhea, nasal congestion and other (headache) Onset (ago): week(s) (2) Severity: moderate Treatments prior to arrival: other (Theraflu and allergy medication) Related Data Home Medications Medication Instructions Recorded Confirmed ferrous sulfate 325 mg (65 mg 325 mg PO DAILY 04/24/23 09/20/24 iron) tablet (Iron (ferrous sulfate)) Allergies Allergy/AdvReac Type Severity Reaction Status Date / Time oxycodone [From Percocet] Allergy Unknown Itching Verified 05/10/24 15:00 Review of Systems Review of Systems: CONSTITUTIONAL: Reports malaise, no chills, sweats, or fever. EYES: Denies visual changes, redness, or discharge. ENT: Reports rhinorrhea, congestion, sinus pain,headache, no otalgia and no sore throat. CARDIOVASCULAR: Denies chest pain, palpitations, or edema. RESPIRATORY: Reports cough.? Denies dyspnea. GASTROINTESTINAL: Denies abdominal pain, nausea, vomiting, diarrhea SKIN: Denies rash or itching. MUSCULOSKELETAL: Denies generalized myalgia, reports leg ache NEUROLOGIC: Reports intermittent headache. All systems reviewed & are unremarkable except as noted in HPI and below PMFSH Past Medical History Medical History Anemia Back pain Depression Eczema Fibroids Hypothyroidism Migraines labor Renal cyst Seasonal allergies Thyroid disease UTI (urinary tract infection) Surgical History Surgical History H/O breast biopsy H/O tubal ligation History of lumpectomy History of parathyroid surgery Family History Family History Grandparent Hypertension Asthma Malignant neoplasm of prostate Diabetes mellitus Other Cerebrovascular accident Family history of allergic disorder Family history of anemia Family history of malignant neoplasm Family history of migraine headaches Social History Social History Smoking status: Never smoker Alcohol intake: current Substance use type: does not use Living arrangements: with family Gender identity (if verbalized by the patient): Female Spiritual care concerns: No Comments At time of signature, agree with nursing past medical, surgical, social and family history. There is no relevant family history pertinent to the presenting complaint Exam Narrative: GENERAL: Well-appearing, well-nourished, and in no acute distress. HEAD: Normocephalic EYES: PERRLA, conjunctivae clear ENT: Nares clear, turbinates edematous and erythematous, clear discharge, sinus pressure intermittent headache,. Mucous membranes moist. TM pearly smalls with dull light reflex bilaterally; no tragal tenderness. Oropharynx erythematous without lesions. Tonsils not enlarged and without exudate, no drooling, no hoarseness, no trismus, uvula midline, post nasal drainage present.. NECK: Supple. No lymphadenopathy CHEST: Clear to auscultation, breath sounds equal. No wheezing, rhonchi, rales, or stridor. No respiratory distress, speaks in full sentences.cough present productive greenish tinged phlegm, SAO2 99% on room air HEART: Regular rate and rhythm. No murmur heard. SKIN: Warm, dry, no rash. NEURO: Alert and oriented x3. PSYCH: Normal mood and affect Course Course Emergency Course: Patient is aware of diagnosis, understands and agrees to treatment plan.? Anticipatory guidance given.? Patient agrees to follow-up as directed and is aware of reasons to seek care at the emergency department. Portions of this record may have been created with voice recognition software Level of Care: Express Care Visit Vital Signs Vital signs: Vital Signs Temperature 37.1 C 09/20/24 16:28 Pulse Rate 75 12/05/24 16:28 Respiratory Rate 20 09/20/24 16:28 Blood Pressure 110/71 09/20/24 16:28 Pulse Oximetry 99 09/20/24 16:28 Oxygen Delivery Room Air 09/20/24 16:28 Temperature 37.1 C 09/20/24 16:28 Pulse Rate 75 09/20/24 16:28 Respiratory Rate 20 09/20/24 16:28 Blood Pressure 110/71 09/20/24 16:28 Pulse Oximetry 99 09/20/24 16:28 Oxygen Delivery Room Air 09/20/24 16:28 Reviewed MDM - URI/Sore Throat MDM Narrative Medical decision making narrative: Differential diagnosis considered: Martinez virus, strep pharyngitis, allergic rhinitis, upper respiratory tract infection, sinusitis, rhinosinusitis, nasopharyngitis. viral pharyngitis, otitis media, otitis externa, pneumonia, bronchitis, viral cough syndrome, viral syndrome, and influenza.? Exam findings show no acute concerns or changes; patient is non-toxic appearing and is in no distress.? Patient is appropriate for outpatient treatment and follow-up. Differential Diagnosis Differential diagnosis: Likely upper respiratory infection, sinusitis, viral infection, bronchitis and other (cough) Medical Records Attestation: I reviewed the patient's medical records. Lab Data Attestation: I reviewed the patient's lab results. Critical Care Time Critical Care Time Critical Care Time: No Discharge Plan Discharge Clinical Impression: Sinusitis Qualifiers: Sinusitis location: pansinusitis Chronicity: acute Recurrence: non-recurrent Qualified Code(s): J01.40 - Acute pansinusitis, unspecified Patient Disposition: Home, Self-Care Condition: Stable Instructions: Antibiotic Form, Sinusitis (ED) Additional Instructions: Increase fluids especially juices and water [id number] cough and cold medicine of your choice for your symptoms Zyrtec Claritin or Chantelle daily may use plain Sudafed in a.m. and early p.m. heat to the face 20-30 minutes 4-6 times a day for pain Salt water gargles, throat lozenges or throat sprays as desired Antibiotic as directed--finished the medication If your symptoms persist, change or worsen significantly before you can contact your personal physician then please, without delay, go to the emergency department for further evaluation. Follow-up with PCP in 7-10 days or sooner if needed Use your Flonase nasal spray daily Prescriptions: New amoxicillin-pot clavulanate 875-125 mg tablet 1 tablet PO Q12H Qty: 20 0RF No Action ferrous sulfate [Iron (ferrous sulfate)] 325 mg (65 mg iron) Tablet 325 mg PO DAILY Follow-up/Referrals: Khari Jason MD [Primary Care Provider] - Time of Disposition: 17:15 Quality Emy Coma Scale Eyes: Open Verbal: Oriented and Alert Motor: Follows Commands Emy Coma Total Score: 15
== END 2024-09-20 17:23 | disposition home or self-care (01) ==
PROVIDERS: Emergency Provider Registered Nurse; PCP Emergency Medicine
DX: J01.40 Acute pansinusitis, unspecified (principal); E03.9 Hypothyroidism, unspecified
CPT/HCPCS: 99213; G0463

== ENCOUNTER 2024-11-06 14:26 | Outpatient (CLI) | payer OTHER, SELFPAY ==
[2024-11-06 14:41] LABS: Basophils Percent Auto 0.7 % (0.2-1.2); Eosinophils Absolute Auto 0.1 K/mm3 (0-0.3); Eosinophils Percent Auto 1.3 % (0-4.4); Hematocrit 33.3 % (37.0-47.0); Lymphocytes Absolute Auto 1.33 K/mm3 (0.9-3.2); Lymphocytes Percent Auto 29.4 % (18.3-44.2); Mean Corpuscular Hemoglobin 29.7 pg (26-34); Mean Platelet Volume 9.4 fl (7.4-10.4); Monocytes Absolute Auto 0.8 K/mm3 (0.1-0.6); Monocytes Percent Auto 17.7 % (2.6-8.5); Neutrophils Absolute Auto 2.3 K/mm3 (1.3-6.7); Neutrophils Percent Auto 50.9 % (45.5-73.1); Platelet Count Result 299 k/mm3 (150-375); Red Cell Distribution Width 12.7 % (11.5-14.5); White Blood Count 4.5 K/mm3 (4.5-10.0)
[2024-11-06 16:30] LABS: Iron 48 ug/dL (37-170)
[2024-11-06 16:40] LABS: Percent Iron Saturation 15 % (20-50)
--- OUTSIDE RECORDS SUMMARY | 2024-11-08 18:52 | XMS_ITS | Data Portability ---
Author Organization [facility] [email or web address], Main Office Address [address] [place] [phone] Assessment No assessment recorded. Plan of Treatment Reminders Order Date Submit Date Provider Last Modified By Organization Details Last Modified Time Details Appointments None recorded. Lab None recorded. Referral None recorded. Procedures None recorded. Surgeries None recorded. Imaging None recorded. Medication Orders ketoconaz ole 2 % topical cream 2023 024 [facility], [address] [place] [address], [address], 4 12:46:04 Diflucan 150 mg tablet 2023 024 [facility], [address] [place], [address], 4 12:46:04 Patient TargetsNo targets recorded. Patient InstructionsNo instructions recorded. Reason for Referral None Reported. Results Created Date Observation Date Name Description Value Unit Range Abnormal Flag Note LastModifiedBy Organization Detail LastModifiedTime 06/23/2006/25/2022 T3, FREE T3, free 3.2 pg/mL 2.3-4. 2 normal Not Available [employer] [facility] [address] [place], [address], 06/25/2022 17:11:41 06/23/20 22 06/25/2022 TSH TSH 0.70 mIU/L normal Refer ence Range > or = 20 Years 0.40- 4.50 Pregn verona Range s First trime ster 0.26- 2.66 Secon d trime ster 0.55- 2.73 Third trime ster 0.43- 2.91 Not Available [address], [address], 06/25/2022 17:11:40 06/23/20 22 06/25/2022 T4, FREE T4, free 1.0 NG/dL 0.8-1. 8 normal Not Available [address], [address], 06/25/2022 17:11:40 06/23/20 22 06/25/2022 THYRO ID PEROX IDASE ANTIB ODIES thyroid peroxidase antibodies 155 IU/mL <9 high Not Available [address], [address], 06/25/2022 17:11:39 06/23/20 22 06/25/2022 COMPR EHENS YOSI METAB OLIC PANEL glucose 86 mg/dL 65-99 normal Fasti ng refer ence inter hilary Not Available [address], [address], 06/25/2022 17:11:39 06/23/20 22 06/25/2022 COMPR EHENS YOSI METAB OLIC PANEL urea nitrogen (BUN) 9 mg/dL 7-25 normal Not Available [address], [address], 06/25/2022 17:11:39 06/23/20 22 06/25/2022 COMPR EHENS YOSI METAB OLIC PANEL creatinine 0.84 mg/dL 0.50-0 .97 normal Not Available [address], [address], 06/25/2022 17:11:39 06/23/20 22 06/25/2022 COMPR EHENS YOSI METAB OLIC PANEL eGFR 92 mL/mi n/1.7 3m2 > or = 60 normal The eGFR is based on the CKD-E PI 2020 equat ion. To calcu late the new eGFR from a previ ous Creat inine or Cysta tin C resul t, go to https ://jun welch.elva childs.o dmitriy/pr ofess ional s/ kdoqi /gfr% 5Fcal culat or Not Available [address], [address], 06/25/2022 17:11:39 06/23/20 22 06/25/2022 COMPR EHENS YOSI METAB OLIC PANEL BUN/creatini ne ratio not applic able (calc ) 6-22 Not Available [address], [address], 06/25/2022 17:11:39 06/23/20 22 06/25/2022 COMPR EHENS YOSI METAB OLIC PANEL sodium 140 mmol/ L 135-14 6 normal Not Available [address], [address], 06/25/2022 17:11:39 06/23/20 22 06/25/2022 COMPR EHENS YOSI METAB OLIC PANEL potassium 4.2 mmol/ L 3.5-5. 3 normal Not Available [address], [address], 06/25/2022 17:11:39 06/23/20 22 06/25/2022 COMPR EHENS YOSI METAB OLIC PANEL chloride 106 mmol/ L 98-110 normal Not Available [address], [address], 06/25/2022 17:11:39 06/23/20 22 06/25/2022 COMPR EHENS YOSI METAB OLIC PANEL carbon dioxide 28 mmol/ L 20-32 normal Not Available [address], [address], 06/25/2022 17:11:39 06/23/20 22 06/25/2022 COMPR EHENS YOSI METAB OLIC PANEL calcium 9.2 mg/dL 8.6-10 .2 normal Not Available [address], [address], 06/25/2022 17:11:39 06/23/20 22 06/25/2022 COMPR EHENS YOSI METAB OLIC PANEL protein, total 6.9 g/dL 6.1-8. 1 normal Not Available [address], [address], 06/25/2022 17:11:39 06/23/20 22 06/25/2022 COMPR EHENS YOSI METAB OLIC PANEL albumin 4.4 g/dL 3.6-5. 1 normal Not Available [address], [address], 06/25/2022 17:11:39 06/23/20 22 06/25/2022 COMPR EHENS YOSI METAB OLIC PANEL globulin 2.5 g/dL_ (calc ) 1.9-3. 7 normal Not Available [address], [address], 06/25/2022 17:11:39 06/23/20 22 06/25/2022 COMPR EHENS YOSI METAB OLIC PANEL albumin/glob ulin ratio 1.8 (calc ) 1.0-2. 5 normal Not Available [address], [address], 06/25/2022 17:11:39 06/23/20 22 06/25/2022 COMPR EHENS YOSI METAB OLIC PANEL bilirubin, total 0.5 mg/dL 0.2-1. 2 normal Not Available [address], [address], 06/25/2022 17:11:39 06/23/20 22 06/25/2022 COMPR EHENS YOSI METAB OLIC PANEL alkaline phosphatase 41 U/L 31-125 normal Not Available [address], [address], 06/25/2022 17:11:39 06/23/20 22 06/25/2022 COMPR EHENS YOSI METAB OLIC PANEL AST 11 U/L 10-30 normal Not Available [address], [address], 06/25/2022 17:11:39 06/23/20 22 06/25/2022 COMPR EHENS YOSI METAB OLIC PANEL ALT 8 U/L 6-29 normal Not Available [address], [address], 06/25/2022 17:11:39 07/06/20 22 07/10/2022 CALCI UM, IONIZ ED calcium, ionized 5.0 mg/dL 4.8-5. 6 normal Not Available [address], [address], 07/10/2022 15:37:55 07/06/20 22 07/10/2022 CORTI KULDEEP, A.M. cortisol, A.M. 18.1 mcg/d L normal Refer ence Range 8 a.m. (7-9 a.m.) Speci men: 4.0-2 2.0 Not Available [address], [address], 07/10/2022 15:37:55 07/06/20 22 07/10/2022 PROLA CTIN prolactin 24.3 NG/mL normal Refer ence Range Femal es Non-p regna nt 3.0-3 0.0 Pregn ant 10.0- 209.0 Postm enopa usal 2.0-2 0.0 Not Available [address], [address], 07/10/2022 15:37:54 07/06/20 22 07/10/2022 ACTH, PLASM A acth, plasma 21 pg/mL 6-50 Refer ence range appli es only to speci mens colle cted betwe en 7am-1 0am. Not Available [facility] [address], [place], [address], 07/10/2022 15:37:54 02/10/20 22 02/08/2022 tanner MOLINA scan No observ ation record ed. [id number] [facility] [address], [place], [address], 12/15/2022 16:41:26 Result Notes None recorded. 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 606972621 Active 2021 Not Available [facility] 3 16:40:24 Thyroid function tests abnormal 346987747 Active 2021 Not Available [facility] 3 16:40:24 Vitamin D deficiency 77123702 Active 2021 Not Available [facility] 3 16:40:24 Primary hyperparathyr oidism 09188758 Active 2021 Not Available [facility] 3 16:40:24 Goiter 7954072 Active 2021 Not Available [facility] 3 16:40:24 Hypothyroidis m 51515025 Active 2021 Not Available [facility] 3 16:40:24 Hyperparathyr oidism 00901155 Active 2021 Not Available [facility] 3 16:40:24 Fatigue 23032357 Active 2021 Not Available [facility] 3 16:40:24 Iron deficiency anemia 02801274 Active 2021 Not Available [facility] 3 16:40:25 Tinea pedis 8513363 Active 2023 Patricio Barrientos, EAN null, [place] - [facility] 4 14:33:54 Onychomycosis of toenails 199142091 Active 2023 EAN Hancock [facility], [place] - [facility] 4 14:35:25 Problem Notes None recorded. Procedures Surgical History Date Name Laterality Status Provider Name and Address Organization Details Recorded Time 2 Lumpectomy completed Not Available [facility] 3 16:39:45 2 Biopsy completed Not Available [facility] 3 16:39:45 Tubal Ligation completed EAN Hancock [place] - [facility] 04/11/2024 14:29:31 Imaging Results Imaging Date Name Status LastModified by Organiz ation Details LastModified Time 02/08/2022 NM, parathyroid scan completed [id number] [facility] [address], [place], [address], 12/15/2022 16:41:26 Procedure Notes None recorded. Medical Equipment None Reported. Allergies No known drug allergies Medications Name Sig Start Date Stop Date Status Note LastModified by Organization Details LastModified Time tetracyclin e 500 mg capsule TAKE 1 CAPSULE BY MOUTH 4 TIMES DAILY FOR 14 DAYS active Not Available Not Available No t Available amoxicillin 500 mg capsule 04/23 completed Not Available Not Available Not Available azithromyci n 250 mg tablet 07/19 completed Not Available Not Available Not Available fluconazole 150 mg tablet TAKE 1 TABLET BY MOUTH ONCE DAILY active Not Available Not Available No t Available clarithromy diane 500 mg tablet TAKE 1 TABLET BY MOUTH TWICE DAILY FOR 14 DAYS active Not Available Not Available No t Available metronidazo le 0.75 % (37.5 mg/5 gram) vaginal gel INSERT 1 APPLICATO RFUL VAGINALLY EVERY DAY AT BEDTIME 07/19 completed Not Available Not Available Not Available famotidine 40 mg tablet TAKE 1 TABLET BY MOUTH TWICE DAILY NEEDED (DYSPEPSI A/UPSET STOMACH) active Not Available Not Available No t Available metronidazo le 250 mg tablet 07/19 completed Not Available Not Available Not Available topiramate 25 mg tablet TAKE 1 TABLET BY MOUTH AT BEDTIME active Not Available Not Available No t Available acyclovir 400 mg tablet 07/19 completed Not Available Not Available Not Available ciprofloxac in 500 mg tablet TAKE 1 TABLET BY MOUTH EVERY 12 HOURS active Not Available Not Available No t Available calcium 600 mg (as calcium carbonate 1,500 mg) tablet PLEASE SEE ATTACHED FOR DETAILED DIRECTION S 07/19 completed Not Available Not Available Not Available pantoprazol e 40 mg tablet,marquise yed release TAKE 1 TABLET BY MOUTH TWICE DAILY FOR 14 DAYS active Not Available Not Available No t Available bismuth subsalicyla te 262 mg chewable tablet TAKE 2 TABLETS BY MOUTH 4 TIMES DAILY FOR 14 DAYS active Not Available Not Available No t Available omeprazole 20 mg capsule,del ayed release TAKE 1 CAPSULE BY MOUTH TWICE DAILY FOR 14 DAYS WHILE BEING TREATED WITH ANTIBIOTI CS 04/23 completed Not Available Not Available Not Available Euthyrox 50 mcg tablet TAKE 1 TABLET BY MOUTH ONCE DAILY FOR 30 DAYS 07/19 completed Not Available Not Available Not Available amoxicillin 250 mg capsule TAKE 3 CAPSULES BY MOUTH THREE TIMES DAILY FOR 14 DAYS active Not Available Not Available No t Available Unithroid 25 mcg tablet Take 1 tablet every day by oral route for 30 days. active Not Available Not Available No t Available ergocalcife rol (vitamin D2) 1,250 mcg (50,000 unit) capsule 07/19 completed Not Available Not Available Not Available levofloxaci n 500 mg tablet TAKE 1 TABLET BY MOUTH ONCE DAILY FOR 14 DAYS active Not Available Not Available No t Available methylpredn isolone 4 mg tablets in a dose pack TAKE BY MOUTH DIRECTED ON INSIDE OF PACKAGE active Not Available Not Available No t Available ketoconazol e 2 % topical cream APPLY CREAM TOPICALLY TO AFFECTED AREA TWICE DAILY active Not Available Not Available No t Available ondansetron 4 mg disintegrat ing tablet DISSOLVE 1 TABLET IN MOUTH EVERY 6 HOURS NEEDED FOR NAUSEA OR VOMITING active Not Available Not Available No t Available amoxicillin 875 mg-potassiu m clavulanate 125 mg tablet TAKE 1 TABLET BY MOUTH EVERY 12 HOURS active Not Available Not Available No t Available rizatriptan 5 mg tablet TAKE ONE TABLET BY MOUTH AT ONSET OF MIGRAINE. IF SYMPTOMS PERSIST, A SECOND DOSE MAY BE TAKEN IN 2 HOURS. DO NOT EXCEED 2 DOSES IN A 24 HOUR PERIOD, UNLESS OTHERWISE INSTRUCTE D BY YOUR PHYSICIAN active Not Available Not Available No t Available oxycodone 5 mg tablet 04/23 completed Not Available Not Available Not Available nitrofurant oin monohydrate /macrocryst als 100 mg capsule 07/19 completed Not Available Not Available Not Available solifenacin 5 mg tablet 07/19 completed Not Available Not Available Not Available Vitamin D3 125 mcg (5,000 unit) tablet Take 1 tablet every day by oral route for 90 days. active Not Available Not Available No t Available Vitals Date Recorded Body mass index (BMI) Body height Oxygen saturation Oxygen saturation in Arterial blood by Pulse oximetry Heart rate Body temperature Body weight Systolic blood pressure Diastolic blood pressure Provider Name and Address Organization Details Last Updated DateTime 2 21 kg/m2 167.64 cm 99 % 99 % 70 /min 97.8 [degF] 93860.0 1 g 105 mm[Hg] 75 mm[Hg] Not Available [facility] 3 16:39:50 Date Recorded Body mass index (BMI) Body height Oxygen saturation Oxygen saturation in Arterial blood by Pulse oximetry Heart rate Body temperature Body weight Systolic blood pressure Diastolic blood pressure Provider Name and Address Organization Details Last Updated DateTime 2 21.5 kg/m2 167.64 cm 98 % 98 % 70 /min 97.8 [degF] 90072.5 8 g 95 mm[Hg] 65 mm[Hg] Not Available [facility] 3 16:39:51 Date Recorded Body mass index (BMI) Body height Oxygen saturation Oxygen saturation in Arterial blood by Pulse oximetry Heart rate Body temperature Body weight Systolic blood pressure Diastolic blood pressure Provider Name and Address Organization Details Last Updated DateTime 2 21.5 kg/m2 167.64 cm 98 % 98 % 82 /min 98.8 [degF] 11466.7 9 g 100 mm[Hg] 60 mm[Hg] Not Available [facility] 3 16:39:51 Date Recorded Body mass index (BMI) Body height Oxygen saturation Oxygen saturation in Arterial blood by Pulse oximetry Heart rate Body temperature Body weight Systolic blood pressure Diastolic blood pressure Provider Name and Address Organization Details Last Updated DateTime 2 22.5 kg/m2 167.64 cm 99 % 99 % 75 /min 97.6 [degF] 24218.0 6 g 102 mm[Hg] 64 mm[Hg] Not Available [facility] 3 16:39:51 Date Recorded Body height Body mass index (BMI) Body weight Oxygen saturation Oxygen saturation in Arterial blood by Pulse oximetry Body temperature Heart rate Systolic blood pressure Diastolic blood pressure Provider Name and Address Organization Details Last Updated DateTime 4 167.64 cm 20.7 kg/m2 51011.8 2 g 97 % 97 % 97.7 [degF] 69 /min 116 mm[Hg] 73 mm[Hg] EAN Hancock [place] [facility] [place] [employer] [facility] 4 14:28:06 Social History Question Answer Notes LastModified by Organizat ion Details LastModified Time Tobacco Smoking Status Never Smoker Not Available [facility] 12/15/2022 16:39:37 What Is Your Level Of Alcohol Consumption? None [id number] Information not available 12/15/2022 What Is Your Level Of Caffeine Consumption? Occasional On A Rare Occassion [id number] Information not available 12/15/2022 In The 14 Days Before Symptom Onset, Have You Had Close Contact With A Laboratory-confi rmed COVID-19 While That Case Was Ill? No [id number] Information not available 12/15/2022 In The 14 Days Before Symptom Onset, Have You Had Close Contact With A Person Who Is Under Investigation For COVID-19 While That Person Was Ill? 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 04/11/2024 Information not available 04/11/2024 What Is Your Relationship Status? Single [id number] Information not available 12/15/2022 Have You Recently Traveled Abroad? No [id number] Information not available 12/15/2022 Sex: Female Functional Status None recorded. Mental Status None recorded. Family History Relationship Description Onset Age of this Age Resolved Age Notes LastModified by Organization Details LastModified Time Maternal Grandmother History of thyroid disorder [id number] Not available 12/15/2022 16:39:46 Paternal Aunt History of thyroid disorder [id number] Not available 12/15/2022 16:39:46 Medical History Condition Response HAVE YOU BEEN HOSPITALIZED OR SEEN IN [facility] ER IN THE PAST YEAR ? Y GERD/NAUSEA Y HEADACHES/MIGRAINES Y ANEMIA/BLOOD DISORDER Y Gynecological HistoryNo gynecological history recorded. Obstetrics History GPAL:G 0 P 0 0 0 0 Past Encounters Encounter ID Performer Location Encounter Start Date Encounter Closed Date Diagnosis/Indication Diagnosis SNOMED-CT Code Diagnosis ICD10 Code Diagnosis Note [id number] [facility] [address] [place] [address] 12/21/2021 00:00:00 12/21/2021 11:15:37 [id number] [facility] [address] [place] [address] 02/01/2022 00:00:00 02/01/2022 14:52:44 [id number] [facility] [address] [place] [address] 04/23/2022 00:00:00 04/24/2022 13:21:53 [id number] [facility] [address] [place] [address] 07/19/2022 00:00:00 07/19/2022 13:27:43 [id number] Davy Jackson DPM [facility] [place] [id number] [address] 04/11/2024 14:02:20 04/26/2024 11:57:16 Tinea pedis 4808294 B35.3 Health Concerns Section Related Observation LastModified by Organization Detai ls LastModified Time None Recorded Concern Status LastModified by Organization Details LastModified Time None Recorded Advance Directives Directive None Recorded Payers Encounter Date Sequence Insurance Name Policy Number Policy Otero Covered Member ID Otero Member ID Guarantor Name 04/11/2024 1 [facility] (MEDICAID HMO) [id number] Cawana Blissit [id number] Cawana Blissit OBGyn Episode No OBEpisode recorded.
--- OUTSIDE RECORDS SUMMARY | 2024-11-08 18:53 | XMS_ITS | Data Portability ---
Author Organization [facility] Address [address] [place] [address] Care Team Providers Care Photolithographer Name Role Phone NOA ALANIS Primary Care Provider [phone] Assessment Encounter Date Assessment Date Assessment LastModified by Organization Details LastModified Time 07/07/2024 07/07/2024 Annual gynecological exam performed. Patient will come back in a year unless there are new symptoms. Not available 07/07/2024 12:18:37 Plan of Treatment Reminders Order Date Submit Date Provider Last Modified By Organization Details Last Modified Time Details Appointments None recorded. Lab hormone panel, serum or plasma 2023 024 [facility] (Lab), [address], [place], [address], 4 07:18:32 Referral None recorded. Procedures None recorded. Surgeries hysteroscop y, with endometrial ablation (SURG) 2023 024 [facility], [address], [address], 4 10:04:23 hysteroscop y,surgical with removal of leiomyomata (SURG) [address], [address], [address], 4 09:55:03 Imaging None recorded. Medication Orders None recorded. Patient TargetsNo targets recorded. Patient InstructionsNo instructions recorded. Reason for Referral None Reported. Results Created Date Observation Date Name Description Value Unit Range Abnormal Flag Note LastModifiedBy Organization Detail LastModifiedTime 07/21/2007/21/2023 CT/GC AND TRICH OMONA S VAGIN THOMAS (RRNA ), SWAB chlamydia trachomatis, PCR Negati ve negati ve Not Available [facility] (Lab) [address], [place], [address], 07/22/2023 15:04:00 07/21/2007/21/2023 CT/GC AND TRICH OMONA S VAGIN THOMAS (RRNA ), SWAB neisseria gonorrhoeae, PCR Negati ve negati ve Not Available [facility] (Lab) [address], [place], [address], 07/22/2023 15:04:00 07/21/20 23 07/21/2023 CT/GC AND TRICH OMONA S VAGIN THOMAS (RRNA ), SWAB trichomonas vaginalis ribosomal RNA (rrna) Negati ve negati ve Not Available [facility] (Lab) [address], [place], [address], 07/22/2023 15:04:00 01/12/20 24 01/12/2024 FSH, LH, ESTRA DIOL estradiol 42.0 pg/mL This assay was perfo rmed using [employer] n reage nts and test kits. Value s obtai etienne with other assay metho ds or kits canno t be used inter [place] [facility] . Femal e Estra diol Range s: Folli cular phasE 12.4- 233 pg/mL Ovula tion phasE 41.0- 398 pg/mL Lutea l phasE 22.3- 341 pg/mL Postm enopa usal <5-13 8 pg/mL Healt hy Pregn ant Women 1st Trime ster 154-3 243 pg/mL 2nd Trime ster 1561- 57159 pg/mL 3rd Trime ster 8525- >3000 0 pg/mL Not Available [facility] (Lab) [address] [place], [address], 01/13/2024 07:18:32 01/12/20 24 01/12/2024 FSH, LH, ESTRA DIOL FSH 12.3 mIU/m L This assay was perfo rmed using [employer] reage nts and test kits. Value s obtai etienne with other assay metho ds or kits canno t be used inter [facility] . Femal es Folli cular : 3.5-1 2.5 mIU/m L Ovula tion: 4.7-2 1.5 mIU/m L Lutea l: 1.7-7 .7 mIU/m L Postm enopa use: 25.8- 134.8 mIU/m L Not Available [facility] (Lab) [address], [place], [address], 01/13/2024 07:18:32 01/12/20 24 01/12/2024 FSH, LH, ESTRA DIOL LH 8.1 mIU/m L This assay was perfo rmed using [employer] reage nts and test kits. Value s obtai etienne with other assay metho ds or kits canno t be used inter [facility] . Femal es Mid-F ollic ular: 2.4-1 2.6 mIU/m L Mid-C ycle: 14.0- 95.6 mIU/m L Mid-L uteal : 1.0-1 1.4 mIU/m L Postm enopa use: 7.7-5 8.5 mIU/m L Not Available [facility] (Lab) [address], [place], [address], 01/13/2024 07:18:32 01/12/20 24 01/12/2024 TSH, REFLE X FREE T4 TSH 0.58 uIU/m L 0.30-5 .33 Not Available [facility] (Lab) [address], [place], [address], 01/13/2024 07:18:33 07/09/20 24 07/09/2024 IMAGE GUIDE D PAP AND HPV REGAR DLESS image guided Pap, HPV regardless of Pap result SEE RESULT S BELOW CASE REPOR T: Cytol ogy Gynec ologi radha Repor t Case: [id number] Autho zafar meyer Provi gayle: America Mendoza MD Colle cted: 07/09 0820 Order ing Locat ion: [place] Patho logfreddy Recei rodger: 07/10 0710 First Scree n: Anne samuel, Sri maria, CT Speci men: José Manuel burleson Pap - Image d, Cervi x STATE MENT OF ADEQU ACY: Satis facto ry for evalu ation Trans forma tion zone compo nent prese nt ----- ----- ----- ----- ----- ----- ----- ----- ----- ----- ----- ----- ----- ----- ----- ----- ----- ---- FINAL DIAGN OSIS: Negat gigi for Intra epith elial Lesio brock or Surya merida (NIL) . Elect norris ferrer d by Sri Reis ed, CT on 2023 at 6:35 PM ----- ----- ----- ----- ----- ----- ----- ----- ----- ----- ----- ----- ----- ----- ----- ----- ----- ---- HPV RESUL TS: HPV mRNA E6/E7 : No HPV mRNA Detec srinath NOTE: This high risk HPV mRNA assay detec ts fourt een high- risk HPV types (16, 18, 31, 33, 35, 39, 45, 51, 52, 56, 58, 59, 66, 68) witho ut diffe renti ation . COMME NT: This speci men was revie wed by a Cytot echno logis t and/o r Patho logis t (as indic ated in this repor t) after evalu ation using the Thinp rep Imagi ng Syste m. CLINI RADHA INFOR MATIO N: Menst rual Statu s: LMP (if appli cable ): Clini radha Histo ry/Pr eviou s Pap: Type of Neopl diane (if appli cable ): Signi fican t Clini radha Findi ngs: Other Histo ry: Hormo sofiya (if appli cable ): PAP EDUCA JEFE L NOTE: The Pap Test is a scree benjy test with an inher ent false negat gigi rate. Liqui d-bas ed sampl ing may decre ase, but will not elimi afrzad, false negat gigi resul ts. A negat gigi resul t does not precl ude the prese nce and/o r devel opmen t of disea se, since the prese nce of abnor mal cells in the sampl e depen ds on the locat ion of the lesio n and sampl ing techn ique. Pilar nued regul ar scree benjy is the best metho d of cance r preve ntion . If repor srinath cytol ogic findi ng do not corre late with physi radha and/o r histo rical findi ngs, furth er inves tigat ion is recom art d, as clini genny warra nted. Not Available [facility] (Lab) [address], [place], [address], 07/16/2024 19:40:58 07/26/20 23 07/26/2023 US, trans vagin al No observ ation record ed. [email or web address] [facility] [address], [place], [address], 07/26/2023 13:42:45 07/26/20 23 07/26/2023 US, trans vagin al No observ ation record ed. [email or web address] [address] [facility], [place], [address], 07/29/2023 13:50:06 08/11/20 23 08/11/2023 MAMMO , diagn ostic , bilat eral No observ ation record ed. [facility] [address], [place], [address], 08/16/2023 16:27:41 Result Notes None recorded. Problems Name Problem SNOMED Code Status Onset Date Resolution Date Notes Provider Name and Address Organization Details Recorded Time Gestatio n period, 35 weeks [id number] Completed 201705/16/2021 35 weeks gestatio n of pregnanc y;Record ed Elsewher e: No Locat ion: Immanuel [facility] S ource: EHR Hydroelectric Mechanic niko: N Pam ce ID: 0001 Ramiro lable Time: 11:30:[address] [facility] 12:29:[address] Concept Completed 201705/16/2021 Matern care for abnlt fetl hrt rate or rhym, 3rd tri, unsp;Rec orded Elsewher e: No [facility]: EHR Hydroelectric Mechanic niko: N Pam ce ID: 0001 Ramiro lable Time: 10:30:[address] [facility] 12:30:15 Normal pregnanc y in multigra justin [id number] Completed 201605/16/2021 Encounte r for suprvsn of normal pregnanc y, third trimeste r;Record ed Elsewher e: No Locat ion: [facility] S ource: EHR Hydroelectric Mechanic niko: N Pam ce ID: 0001 Ramiro lable Time: 11:45:[address] [facility] 12:30:01 Gestatio n period, 33 weeks [id number] Completed 201705/16/2021 33 weeks gestatio n of pregnanc y;Record ed Elsewher e: No Locat ion: [facility] S ource: EHR Hydroelectric Mechanic niko: N Ricardoti ce ID: 0001 Ramiro lable Time: 08:30:[address] [facility] 12:29:26 Localize d enlarged lymph nodes [id number] Completed 201605/16/2021 Localize d enlarged lymph node;Rec orded Elsewher e: No Locat ion: Immanuel burden [facility] S ource: EHR Hydroelectric Mechanic niko: N Practi ce ID: 0001 Ramiro lable Time: 09:45:00 AM Yazmin Olivera [facility] 12:29:50 Gestatio n period, 26 weeks [id number] Completed 201705/16/2021 26 weeks gestatio n of pregnanc y;Record ed Elsewher e: No Locat ion: [facility] jenise [facility] S ource: EHR Hydroelectric Mechanic niko: N Practi ce ID: 0001 Ramiro lable Time: 09:45:00 AM Yazmin [facility] 12:29:21 Gestatio n period, 36 weeks [id number] Completed 201705/16/2021 36 weeks gestatio n of pregnanc y;Record ed Elsewher e: No Locat ion: Todd jenise [facility] S ource: EHR Hydroelectric Mechanic niko: N Ricardoti ce ID: 0001 Ramiro lable Time: 09:15:00 AM Yazminrubens Olivera [facility] 12:29:32 Alopecia [id number] Active 2018 Alopecia ;Recorde d Elsewher e: No Locat ion: [facility] jenise [facility] S ource: EHR Hydroelectric Mechanic niko: N Practi ce ID: 0001 Ramiro lable Time: 10:00:00 AM Not Available [facility] 0 21:38:29 Abdomina l pain [id number] Completed 201405/16/2021 Left flank pain;Rec orded Elsewher e: No Locat ion: [facility] jenise [facility] S ource: EHR Hydroelectric Mechanic niko: N Practi ce ID: 0001 Ramiro lable Time: 11:00:00 AM Yazminrubens Olivera [facility] 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 1 12:30:20 Pregnanc y detectio n examinat ion Completed 201605/16/2021 Encounte r for pregnanc y test, result positive ;Recorde d Elsewher e: No Locat ion: [facility] S ource: EHR Hydroelectric Mechanic niko: N Practi ce ID: 0001 Ramiro lable Time: 04:15:00 PM Yazmin Olivera [facility] 12:30:07 Gestatio n period, 38 weeks [id number] Completed 201705/16/2021 38 weeks gestatio n of pregnanc y;Record ed Elsewher e: No Locat ion: [facility] jenise [facility] S ource: EHR Hydroelectric Mechanic niko: N Practi ce ID: 0001 Ramiro lable Time: 08:30:00 AM Yazmin Olivera [facility] 12:29:36 Leukorrh ea [id number] Completed 201305/16/2021 Leukorrh ea, not specifie d as infectiv e;Record ed Elsewher e: No Locat ion: [facility] S ource: EHR Hydroelectric Mechanic niko: N Practi ce ID: 0001 Ramiro lable Time: 09:00:00 AM Yazmin Olivera [facility] 12:29:48 Lesion of ovary Completed 201805/16/2021 Other ovarian cyst, unspecif ied side;Rec orded Elsewher e: No Locat ion: [facility] S ource: EHR Hydroelectric Mechanic niko: N Practi ce ID: 0001 Ramiro lable Time: 09:00:00 AM Yazmin Olivera [facility] 12:29:14 Adult health examinat ion Completed 201305/16/2021 Routine general medical examinat ion at a health care facility ;Practic e ID: 0001 Yazmin juarez [facility] 12:28:50 Speciali zed medical examinat ion Completed 201305/16/2021 Routine gynecolo gical examinat ion;Prac robert ID: 0001 Yazmin juarez [facility] 12:30:22 Speciali zed medical examinat ion Completed 201305/16/2021 Other specifie d chlamydi al diseases ;Practic e ID: 0001 Yazmin juarez [facility] 12:30:24 Venereal disease screenin g Completed 201305/16/2021 Screenin g examinat ion for venereal disease; Practice ID: 0001 Yazmin juarez [facility] 12:30:38 Urinary tract infectio us disease [id number] Completed 201305/16/2021 Urinary tract infectio n, site not specifie d;Practi ce ID: 0001 Yazmin juarez [facility] 12:30:34 Pregnanc y test negative [id number] Completed 201305/16/2021 Negative Pregnanc y Test;Pra ctice ID: 0001 Yazmin juraez [facility] 12:30:09 Joint pain [id number] Completed 201405/16/2021 Pain in joint, site unspecif ied;Prac robert ID: 0001 Yazmin juarez [facility] 12:29:45 Blood in urine [id number] Completed 201405/16/2021 HEMATURI A NOS;Prac robert ID: 0001 [facility] 12:29:02 Increase d frequenc y of urinatio n [id number] Completed 201405/16/2021 Urinary frequenc y;Practi ce ID: 0001 [facility] 12:29:[address] Concept Completed 201405/16/2021 Encntr for general adult medical exam w/o abnormal findings ;Practic e ID: 0001 [facility] 12:30:16 Screenin g for malignan t neoplasm of cervix Completed 201405/16/2021 Encounte r for screenin g for malignan t neoplasm of cervix;P jonathantice ID: 0001 [facility] 12:30:11 Vaginola bial hernia Completed 201505/16/2021 Other specifie d noninfla mmatory disorder s of vagina;P haider ID: 0001 [facility] 12:30:36 Acute vaginiti s [id number] Completed 201505/16/2021 Acute vaginiti s;Practi ce ID: 0001 [facility] 12:28:46 Infectio n screenin g Completed 201505/16/2021 Encounte r for screenin g for oth infec/pa rastc diseases ;Practic e ID: 0001 [facility] 12:29:43 Breast lump [id number] Completed 201605/16/2021 Unspecif ied lump in breast;P ractice ID: 0001 [facility] 12:29:[address] Concept Completed 201605/16/2021 Encntr for patrol officer exam (general ) (routine ) w abnormal findings ;Practic e ID: 0001 [facility] 12:30:18 Amenorrh ea [id number] Completed 201605/16/2021 Amenorrh ea, unspecif ied;Prac robert ID: 0001 [facility] 12:28:54 Nausea [id number] Completed 201605/16/2021 Nausea;P ractice ID: [address] [facility] 12:29:59 Finding of general energy [id number] Completed 201605/16/2021 Other fatigue; Practice ID: [address] [facility] 12:29:19 Antenata l screenin g Completed 201605/16/2021 Encounte r for antenata l screenin g for nuchal transluc ency;Pra ctice ID: 0001 [facility] 12:28:56 Antenata l screenin g for malforma tion Completed 201605/16/2021 Encounte r for antenata l screenin g for malforma tions;Pr actice ID: 0001 [facility] 12:28:58 Placenta previa [id number] Completed 201705/16/2021 Placenta previa specifie d as w/o hemor, second trimeste r;Practi ce ID: 0001 [facility] 12:30:05 Pregnanc y, childbir th and puerperi um finding Completed 201705/16/2021 Oth pregnanc y related conditio ns, third trimeste r;Practi ce ID: 0001 Yazmin Joselin null, [facility] 12:29:10 Gestatio n period, 31 weeks [id number] Completed 201705/16/2021 31 weeks gestatio n of pregnanc y;Practi ce ID: 0001 Yazmin juarez [facility] 12:29:23 Backache [id number] Completed 201705/16/2021 Dorsalgi a, unspecif ied;Prac robert ID: 0001 Yazmin juarez [facility] 12:29:00 Complica tion of pregnanc y, childbir th and/or puerperi um [id number] Completed 201705/16/2021 Oth diseases and conditio ns compl preg/chl dbrth;Pr actice ID: 0001 Yazmin juarez [facility] 12:30:32 Gestatio n period, 32 weeks [id number] Completed 201705/16/2021 32 weeks gestatio n of pregnanc y;Practi ce ID: 0001 Yazmin juarez [facility] 12:29:25 Gestatio n period, 34 weeks [id number] Completed 201705/16/2021 34 weeks gestatio n of pregnanc y;Practi ce ID: 0001 Yazmin juarez [facility] 12:29:29 Gestatio n period, 37 weeks [id number] Completed 201705/16/2021 37 weeks gestatio n of pregnanc y;Practi ce ID: 0001 Yazmin juarez [facility] 12:29:34 Pelvic and perineal pain [id number] Completed 201805/16/2021 Pelvic and perineal pain;Rec orded Elsewher e: No Locat ion: Immanuel burden [facility] S ource: EHR Hydroelectric Mechanic niko: N Practi ce ID: 0001 Ramiro lable Time: 04:30:00 PM Yazmin juarez [facility] 1 12:30:03 Lesion of ovary Completed 201805/16/2021 Other ovarian cyst, right side;Rec orded Elsewher e: No Locat ion: [facility] S ource: EHR Hydroelectric Mechanic niko: N Practi ce ID: 0001 Ramiro lable Time: 02:30:00 PM Yazmin juarez [facility] 1 12:29:12 heart finding Completed 201705/16/2021 Abnlt in heart rate and rhythm comp labor and delivery ;Practic e ID: 0001 Yazmin juarez [facility] 12:29:16 Single live [id number] Completed 201705/16/2021 Single live ;Pr actice ID: 0001 Yazmin juarez [facility] 12:30:13 Gestatio n period, 39 weeks [id number] Completed 201705/16/2021 39 weeks gestatio n of pregnanc y;Practi ce ID: 0001 Yazmin juarez [facility] 12:29:38 Lochia finding Completed 201705/16/2021 Encounte r for routine postpart um follow-u p;Practi ce ID: 0001 Yazmin juarez [facility] 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 12:29:08 Left lower quadrant pain [id number] Completed 201805/16/2021 Left lower quadrant pain;Pra ctice ID: 0001 Yazmin juarez [facility] 12:29:47 Mammogra phi calcific ation of breast [id number] Completed 201405/16/2021 Mammogra phic calcifcn found on diagnost ic imaging of breast;R ecorded Elsewher e: No Locat ion: [facility] S ource: EHR Hydroelectric Mechanic niko: N Practi ce ID: 0001 Ramiro lable Time: 09:30:00 AM [facility] 12:29:56 Problem Notes None recorded. Procedures Surgical History Date Name Laterality Status Provider Name and Address Organization Details Recorded Time 024 HYSTEROSCOPY, WITH ENDOMETRIAL ABLATION (SURG) completed Morgan Calderón [facility] 03/02/2024 11:14:15 024 Date of Last Mammogram completed Arielle Williamson [facility] 01/12/2024 14:09:49 022 Date of Last Pap Smear completed [facility] 10/13/2022 09:56:40 022 breast procedure completed [facility] 07/23/2022 10:50:05 022 biopsy of breast completed [facility] 07/23/2022 10:47:38 022 parathyroidectomy completed [facility] 07/23/2022 10:40:02 017 breast procedure completed [facility] 07/23/2022 10:46:32 [facility] 05/16/2021 09:10:12 Imaging Results Imaging Date Name Status LastModified by Organization Details LastModified Time 07/26/2023 US, transvaginal completed [email or web address] Immanuel burden [address], [place], [address], 07/26/2023 13:42:45 07/26/2023 US, transvaginal completed [email or web address] [address], [place], [address], 07/29/2023 13:50:06 08/11/2023 MAMMO, diagnostic, bilateral completed [facility] [address], [place], [address], 08/16/2023 16:27:41 Procedure Notes None recorded. Medical Equipment None Reported. Allergies No known drug allergies Medications Name Sig Start Date Stop Date Status Note LastModified by Organization Details LastModified Time iron 65mg tab TAKE 1 TABLET BY MOUTH ONCE DAILY 07/23 completed Not Available Not Available Not Available tetracycl ine 500 mg capsule TAKE 1 CAPSULE BY MOUTH 4 TIMES DAILY FOR 14 DAYS 03/09 completed Not Available Not Available Not Available cyclobenz aprine 10 mg tablet take 1 tablet by oral route 2 times every day 02/22 completed Prescrib ed Elsewher e: No [facility] M odify By: marci guidry DateTime : 12/27/19 18 12:00:00 PM Not Available Not Available Not Available amoxicill in 500 mg capsule TAKE 1 CAPSULE BY MOUTH EVERY 8 HOURS FOR 10 DAYS 07/21 completed Not Available Not Available Not Available azithromy diane 250 mg tablet TAKE 2 TABLETS BY MOUTH ON DAY 1 AND THEN TAKE 1 TABLET BY MOUTH ONCE A DAY ON DAY 2 THROUGH DAY 5 07/23 completed Not Available Not Available Not Available ibuprofen 800 mg tablet TAKE 1 TABLET BY MOUTH EVERY 12 HOURS FOR 10 DAYS. 07/21 completed Not Available Not Available Not Available ofloxacin 0.3 % eye drops PUT 1-2 DRPS INTO AFFECTED EYE(S) EVERY 2-4 H X 2 DAYS, THEN 1-2 DRPS 4 TIMES/DA Y DAYS 3-7 07/21 completed Not Available Not Available Not Available fluconazo le 150 mg tablet TAKE 1 TABLET BY MOUTH ONCE DAILY active Not Available Not Available No t Available clarithro mycin 500 mg tablet TAKE 1 TABLET BY MOUTH TWICE DAILY FOR 14 DAYS 03/09 completed Not Available Not Available Not Available metronida zole 0.75 % (37.5 mg/5 gram) vaginal gel INSERT 1 APPLICAT ORFUL VAGINALL Y EVERY DAY AT BEDTIME 07/23 completed Not Available Not Available Not Available famotidin e 40 mg tablet TAKE 1 TABLET BY MOUTH TWICE DAILY NEEDED (DYSPEPS IA/UPSET STOMACH) 2023 active Not Available Not Available Not Avai lable metronida zole 250 mg tablet TAKE 1 TABLET BY MOUTH EVERY 6 HOURS FOR 14 DAYS 07/23 completed Not Available Not Available Not Available sumatript an 50 mg tablet 10/13 completed Not Available Not Available Not Available penicilli n V potassium 500 mg tablet TK 1 T PO Q 6 H FOR 7 DAYS 10/13 completed Not Available Not Available Not Available topiramat e 25 mg tablet TAKE 1 TABLET BY MOUTH AT BEDTIME 07/07 completed Not Available Not Available Not Available acyclovir 400 mg tablet TAKE 1 TABLET BY MOUTH THREE TIMES DAILY FOR 7 DAYS 07/23 completed Not Available Not Available Not Available ciproflox acin 500 mg tablet TAKE 1 TABLET BY MOUTH EVERY 12 HOURS 07/07 completed Not Available Not Available Not Available tramadol 50 mg tablet TK 1 T PO Q 6 H PRN FOR PAIN 07/23 completed Not Available Not Available Not Available acetamino phen 500 mg tablet TAKE 1 TABLET BY MOUTH EVERY 8 HOURS FOR 10 DAYS 07/21 completed Not Available Not Available Not Available butalbita l-acetami nophen-ca ffeine 50 mg-325 mg-40 mg tablet TAKE 1 TABLET BY MOUTH EVERY 4 HOURS NEEDED FOR HEADACHE (NO ADDITION AL TYLENOL OR ACETAMIN OPHEN WITH THIS MEDICATI ON) 07/23 completed Not Available Not Available Not Available propranol ol 10 mg tablet take 2 tablet by oral route 3 times every day 02/12 completed Prescrib ed Elsewher e: Yes Loca tion: Immanuel burden [facility] odify By: [email or web address] trick En counter DateTime : 07/17/20 14 10:30:00 AM Not Available Not Available Not Available calcium 600 mg (as calcium carbonate 1,500 mg) tablet PLEASE SEE ATTACHED FOR DETAILED DIRECTIO NS 10/13 completed Not Available Not Available Not Available Flagyl 500 mg tablet take 1 tablet by oral route 2 times every day 02/22 completed Prescrib ed Elsewher e: No Locat ion: [facility] odify By: marci Espinoza r DateTime : 12/23/19 18 02:00:00 PM Not Available Not Available Not Available cephalexi n 500 mg capsule take 1 capsule by oral route every 6 hours 02/22 completed Prescrib ed Elsewher e: No [facility] By: marci Espinoza r DateTime : 10/13/20 17 09:45:00 AM Not Available Not Available Not Available pantopraz ole 40 mg tablet,de layed release TAKE 1 TABLET BY MOUTH TWICE DAILY FOR 14 DAYS 03/09 completed Not Available Not Available Not Available oseltamiv ir 75 mg capsule 05/14 completed Not Available Not Available Not Available bismuth subsalicy late 262 mg chewable tablet TAKE 2 TABLETS BY MOUTH 4 TIMES DAILY FOR 14 DAYS 03/09 completed Not Available Not Available Not Available omeprazol e 20 mg capsule,d elayed release TAKE 1 CAPSULE BY MOUTH TWICE DAILY FOR 14 DAYS WHILE BEING TREATED WITH ANTIBIOT ICS 10/13 completed Not Available Not Available Not Available Euthyrox 50 mcg tablet TAKE 1 TABLET BY MOUTH ONCE DAILY FOR 30 DAYS 10/13 completed Not Available Not Available Not Available amoxicill in 250 mg capsule TAKE 3 CAPSULES BY MOUTH THREE TIMES DAILY FOR 14 DAYS 01/11 completed Not Available Not Available Not Available Ferron 10 mg-325 mg tablet take 1 tablet by oral route every 4 - 6 hours as needed for pain 09/10 completed Prescrib ed Elsewher e: No [facility] By: marci Espinoza r DateTime : 03/23/20 18 03:35:20 PM Not Available Not Available Not Available Unithroid 25 mcg tablet 07/21 completed Not Available Not Available Not Available ergocalci ferol (vitamin D2) 1,250 mcg (50,000 unit) capsule TAKE 1 CAPSULE BY MOUTH ONCE A WEEK active Not Available Not Available No t Available levofloxa diane 500 mg tablet 01/11 completed Not Available Not Available Not Available methylpre dnisolone 4 mg tablets in a dose pack TAKE BY MOUTH DIRECTED ON INSIDE OF PACKAGE 01/11 completed Not Available Not Available Not Available ketoconaz ole 2 % topical cream APPLY CREAM TOPICALL Y TO AFFECTED AREA TWICE DAILY 07/07 completed Not Available Not Available Not Available ondansetr on 4 mg disintegr ating tablet DISSOLVE 1 TABLET IN MOUTH EVERY 6 HOURS NEEDED FOR NAUSEA OR VOMITING active Not Available Not Available No t Available naproxen 500 mg tablet TAKE 1 TABLET BY MOUTH TWICE DAILY NEEDED FOR PAIN WITH FOOD 10/13 completed Not Available Not Available Not Available metoclopr amide 10 mg tablet TAKE 1 TABLET BY MOUTH EVERY 6 HOURS 10/13 completed Not Available Not Available Not Available amoxicill in 875 mg-potass ium clavulana te 125 mg tablet TAKE 1 TABLET BY MOUTH EVERY 12 HOURS 07/21 completed Not Available Not Available Not Available rizatript an 5 mg tablet TAKE ONE TABLET BY MOUTH AT ONSET OF MIGRAINE . IF SYMPTOMS PERSIST, A SECOND DOSE MAY BE TAKEN IN 2 HOURS. DO NOT EXCEED 2 DOSES IN A 24 HOUR PERIOD, UNLESS OTHERWIS E INSTRUCT ED BY YOUR PHYSICIA N 07/07 completed Not Available Not Available Not Available oxycodone 5 mg tablet 07/23 completed Not Available Not Available Not Available NuvaRing 0.12 mg-0.015 mg/24 hr vaginal insert 1 vaginal ring by vaginal route every month leave in place for 3 weeks, remove for 1 week 11/11 completed Prescrib ed Elsewher e: No Locat ion: [facility] odify By: [email or web address] trick En counter DateTime : 07/17/20 14 10:30:00 AM Not Available Not Available Not Available Ortho Evra 150 mcg-35 mcg/24 hr transderm al patch apply 1 patch by transder mal route every week 11/05 /2014 completed Prescrib ed Elsewher e: Yes Loca tion: [facility]en[facility] odify By: [email or web address] richardson Thomas counter DateTime : 07/17/20 14 10:30:00 AM Not Available Not Available Not Available iron ER 325 mg (65 mg iron) capsule,e xtended release take 1 Tablet by Oral route 3 times every day 09/10 completed Prescrib ed Elsewher e: Yes Loca tion: [facility]en[facility] odify By: [email or web address] Espinoza r DateTime : 02/23/20 18 10:15:00 AM Not Available Not Available Not Available topiramat e 50 mg tablet 05/14 completed Not Available Not Available Not Available nitrofura ntoin monohydra te/macroc rystals 100 mg capsule TAKE 1 CAPSULE BY MOUTH EVERY 12 HOURS WITH FOOD FOR 7 DAYS 07/23 completed Not Available Not Available Not Available duloxetin e 20 mg capsule,d elayed release TAKE 1 CAPSULE BY MOUTH ONCE DAILY WITH BREAKFAS T 10/13 completed Not Available Not Available Not Available iron 07/23 completed Not Available Not Available Not Available Iron (ferrous sulfate) active Not Available Not Available Not Available Topamax 10/13 completed Not Available Not Available Not Available ferrous sulfate 324 mg (65 mg iron) tablet,de layed release 05/14 completed Not Available Not Available Not Available omeprazol e 20 mg tablet,de layed release TAKE 1 TABLET BY MOUTH ONCE DAILY 30 MINUTES BEFORE A MEAL 07/21 completed Not Available Not Available Not Available Morgidox 1x100 100 mg kit 01/19 completed Prescrib ed Elsewher e: Yes Loca tion: [facility] odify By: tyshawn euceda DateTime : 02/13/20 16 01:00:00 PM Not Available Not Available Not Available Monistat 3 4 % (200 mg)-2 %(9 gram)vagi nal pack,pref il appl and cream Use 1 prefille d applicat ion every night for 3 nights 01/19 completed Prescrib ed Elsewher e: No Locat ion: [facility] odify By: tyshawn euceda DateTime : 02/13/20 16 01:00:00 PM Not Available Not Available Not Available Vitals Date Recorded Body height Body mass index (BMI) Body weight Systolic blood pressure Diastolic blood pressure Provider Name and Address Organization Details Last Updated DateTime 08/04/2023 167.64 cm 21.6 kg/m2 83160.38 g 113 mm[Hg] 72 mm[Hg] Yazmin Olivera [facility] 3 15:06:18 Date Recorded Body height Body mass index (BMI) Body weight Systolic blood pressure Diastolic blood pressure Provider Name and Address Organization Details Last Updated DateTime 01/12/2024 167.64 cm 21.1 kg/m2 88929.6 g 105 mm[Hg] 67 mm[Hg] Arielle [facility] 4 14:02:51 Date Recorded Body height Body mass index (BMI) Body weight Systolic blood pressure Diastolic blood pressure Provider Name and Address Organization Details Last Updated DateTime 03/09/2024 167.64 cm 21.1 kg/m2 66089.6 g 122 mm[Hg] 77 mm[Hg] Amaris Mayer [facility] 4 15:03:43 Date Recorded Body height Body mass index (BMI) Body weight Systolic blood pressure Diastolic blood pressure Provider Name and Address Organization Details Last Updated DateTime 07/07/2024 167.64 cm 22.3 kg/m2 98366.75 g 116 mm[Hg] 81 mm[Hg] Arielle [facility] 4 12:19:37 Social History Question Answer Notes LastModified by Organizat ion Details LastModified Time Tobacco Smoking Status Never Smoker Yazmin Olivera [facility] 08/04/2023 15:06:24 Do You Have An Advance Directive? No Information n ot available 04/08/2021 What Is Your Level Of Alcohol Consumption? None Information not available 04/08/2021 Are You Blind Or Do You Have Difficulty Seeing? No Information n ot available 04/08/2021 What Is Your Level Of Caffeine Consumption? Occasional Information not available 04/08/2021 How Much Tobacco Do You Chew? None Information not available 04/08/2021 In The 14 Days Before Symptom Onset, Have You Had Close Contact With A Laboratory-confirm ed COVID-19 While That Case Was Ill? No Information n ot available 04/08/2021 In The 14 Days Before Symptom Onset, Have You Had Close Contact With A Person Who Is Under Investigation For COVID-19 While That Person Was Ill? No Information not available 04/08/2021 Have You Been To An Area Known To Be High Risk For COVID-19? No Information not available 04/08/2021 Are You Deaf Or Do You Have Serious Difficulty Hearing? No Information not available 04/08/2021 What Type Of Diet Are You Following? REGULAR Information n ot available 04/08/2021 What Is The Highest Grade Or Level Of School You Have Completed Or The Highest Degree You Have Received? 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 No Information not available 04/08/2021 Do You Use Protection During Sex? No Information not available 04/08/2021 Do You Use Your Seat Belt Or Car Seat Routinely? Yes Information not available 04/08/2021 Do You Have Smoke And Carbon Monoxide Detectors In Your Home? Yes Information not available 04/08/2021 How Much Tobacco Do You Smoke? No Information not available 04/08/2021 Do You Feel Stressed (tense, Restless, Nervous, Or Anxious, Or Unable To Sleep At Night)? NB1212-6 Information not available 04/08/2021 Do You Use Any Illicit Or Recreational Drugs? No Information not available 04/08/2021 Do You Use Sunscreen Routinely? No Information not available 04/08/2021 Have You Used IV Drugs? No Information not available 04/08/2021 Sex: Unknown Functional Status Question Answer Note LastModified by Organizat ion Details LastModified Time Are you able to walk? YESWOREST Information not available 04/08/2021 What is your exercise level? Occasional Information not available 04/08/2021 Mental Status None recorded. Family History Relationship Description Onset Age of this Age Resolved Age Notes LastModified by Organization Details LastModified Time Maternal Grandmother Diabetes mellitus [email or web address] Not available 2022 12:10:51 Maternal Grandmother Asthma [email or web address] Not available 2022 12:10:51 Maternal Grandmother Disorder of thyroid gland [email or web address] Not available 2022 12:10:51 Maternal Aunt Disorder of thyroid gland [email or web address] Not available 2022 12:10:51 Maternal Aunt Diabetes mellitus [email or web address] Not available 2022 12:10:51 Maternal Aunt Asthma Not avail able 07/21/2023 12:10:51 Paternal Aunt Disorder of thyroid gland [email or web address] Not available 2022 12:10:51 Paternal Aunt History of malignant neoplasm of kidney 56 [email or web address] Not available 2023 14:55:33 Paternal Grandmother Family history of breast cancer Patern al Great Grandm other- from Breast CA [email or web address] Not available 03/09/2024 14:55:33 Paternal Grandfather Family history of malignant neoplasm of prostate from prosta te CA [email or web address] Not available 03/09/2024 14:55:33 Medical History Condition Response History of abnormal pap Y Anemia Y Thyroid Problems Y Gynecological History Statement/Question Response Abnormal Pap Y Date of Last Mammogram 12/16/2023 Flow Moderate Date of LMP 01/12/2024 On BCP's at Conception? N N Was last menstrual period normal Y STIs/STDs N HPV Vaccine Y Duration of Flow (days) 5 Current Control Method Tubal Ligat ion Age at First Child 18 Are cycles usually normal Y Sexually Active? Y Menses Monthly Y Age of first menstrual cycle 14 Date of Last Pap Smear 07/23/2022 Sexual Problems? N Desired Control Method Ablation LMP Approximate N Obstetrics History GPAL:G 3 P 2 1 0 3 Type Value Full Term 2 Premature 1 Living 3 Total 3 Past Encounters Encounter ID Performer Location Encounter Start Date Encounter Closed Date Diagnosis/Indication Diagnosis SNOMED-CT Code Diagnosis ICD10 Code Diagnosis Note [id number] Harika KirbySELENAStan [facility] [address],[place] [address] 03/14/2020 11:51:17 04/17/2020 18:13:16 Acute urinary tract infection 667432665 N39.0 [id number] Arben Mendoza MD [facility] [address],[place] [address] 05/14/2020 17:10:07 05/14/2020 17:51:37 Gynecologic examination 64699598 Z01.419 This patient is here for her annual exam. A thorough history was taken. A physical exam was performed. Age appropriat e routine health screening was ordered, performed, and discussed. Recommende d testing was ordered. She was asked to follow up in one year. She will be informed of any test results. Dyspareunia 98648339 N94 .10 Vaginitis 03386785 N76.0 [id number] Lisa Guerra [facility] [address],[place] [address] 05/15/2020 15:00:26 05/15/2020 15:33:08 Pain in pelvis 26613157 R10.2 [id number] Arben Mendoza MD [facility] [address],[place] [address] 06/07/2020 10:41:32 06/07/2020 11:25:21 Pain in pelvis 12259306 R10.2 This patient is a 35-year-ol d female presents for follow-up on pelvic pain. Her pelvic pain has resolved. Her pain with intercours e has resolved. All her pelvic ultrasound was normal. We agreed to follow up as needed. [id number] Arben Mendoza MD [facility] [address],[place] [address] 04/08/2021 18:13:16 04/09/2021 09:16:27 Cyst of ovary 75688157 N83.209 THIS PATIENT IS A 36-YEAR-OL D FEMALE she presents for follow-up on a couple of issues. She has asked me about her breast findings. She has had some suspicious areas on breast ultrasound and mammogram. She has adequate follow-up for that. I emphasized the importance of rigorous follow-up on this issue. She has an ovarian cyst on previous ultrasound . It was a complex cyst. She needs follow-up on this ovarian cyst concern. We agreed to ultrasound and short-term follow-up. She has no symptoms at this time. Patient has some vague complaints about a sharp instantane ous abdominal pain that lasts less than 1 minute. She she was asked to see her primary care physician about this. ? She also reports urinary urge before intercours e. I indicated to her that we could try some medication s for bladder spasm. This is likely a learned behavior. She declined a trial of anticholin ergics. We need to check her urine. [id number] Lisa Guerra [facility] [address],[place] [address] 04/13/2021 10:00:07 04/13/2021 10:41:56 Cyst of right ovary [id number] 6641840 N83.291 [id number] Arben Mendoza MD [facility] [address],[place] [address] 04/24/2021 13:06:28 04/25/2021 09:51:17 Cyst of ovary 50778492 N83.209 ? discussed normal ultrasound results with patient over the phone. She has no complaints . [id number] Arben Mendoza MD [facility] [address],[place] [address] 05/16/2021 12:25:47 05/16/2021 13:23:51 Vulvovaginitis 89210506 N76.0 Gynecologi c examination 59340557 Z01.419 This patient is here for her annual exam. A thorough history was taken. A physical exam was performed. Age appropriat e routine health screening was ordered, performed, and discussed. Recommende d testing was ordered. She was asked to follow up in one year. She will be informed of any test results. [id number] Arben Mendoza MD [facility] [address],[place] [address] 07/23/2022 10:16:38 07/23/2022 11:10:44 Gynecologic examination 86491126 Z01.419 Z11.51 This patient is here for her annual exam. A thorough history was taken. A physical exam was performed. Age appropriat e routine health screening was ordered, performed, and discussed. Recommende d testing was ordered. She was asked to follow up in one year. She will be informed of any test results. Night sweats 82774586 R6 1 [id number] Charlene Black [facility] [address],[place] [address] 10/13/2022 09:41:46 10/14/2022 15:39:14 Menorrhagia 371834377 N92.0 D64.9 Today we discussed updating TVUS.Consi gayle the following for possible causes of the pain she describes: pelvic congestion syndrome, arterio/ve nous malformati ons, hernia etc. Discussed management options for heavy menses:Con supervisor nurse trial of SLYND or consider IUD Mirena moving forward for heavy menses & dysmenorrh ea which would also benefit her anemia and test our theory of a connection with heavy menses, loss of blood, & calf pain bilaterall y she has a couple days prior to onset of menses. during menses until resolution . Will update US & f/u to discuss.He r hematologi st has her uptodate on labs as well as PCP/Endocr inologist. Will request these results/do cuments. Time spent in visit is a total of 30 mins with at least 50% of visit consisting of counseling and review of plan of care. [facility] ion care management [id number] Z30.9 Counseled on multiple options today.Will await results to determine best options moving forward. [id number] Althea Rene [facility] [address],[place] [address] 10/14/2022 12:25:58 10/14/2022 15:01:25 Menorrhagia 349998037 N92.0 [id number] Charlene Black [facility] [address],[facility] [place] [address] 10/22/2022 10:31:26 10/22/2022 11:16:15 Menorrhagia 296456757 N92.0 D64.9 Reviewed US today.Opti ons discussed as noted below.Hx of tubal ligation which can also potentiall y cause an increase in menstrual flow in some women. Time spent in visit is a total of 30 mins with at least 50% of visit consisting of counseling and review of plan of care. Uterine leiomyoma 217665 05 D25.9 Reviewed USSmall fibroid stable (can effect menses making them heavier).P aratubal cyst-will repeat us in 6-8wks (no pain currently outside of menstrual cycle). Contracept ion care management 623578408 Z30.9 Discussed all control options and pt would like mirena IUD. I have discussed in detail all risks and benefits including risk of infection and perforatio n. She understand s she will need to contact office with next menses.. Aware of need to verify with insurance device coverage. Literature given. All questions answered to patient satisfacti on.Hx of Tubal ligation.O pts for IUD mirena.ananth l call with next menstrual cycle for placement appt. Pelvic con gestion syndrome 85059599 N94.89 US noted Dilated pelvic vessels which could be indicative of PCS.Will request a consultati on to evaluate if there is a possibilit y of this issue/othe r issue that is connected with the pain she experience s in her calves only during the onset of her menstrual cycle.Refe rral placed and agreeablel to this plan. [id number] Lisa Guerra [facility] [address],[place] [address] 12/14/2022 16:26:57 12/14/2022 17:33:42 Cyst of right ovary [id number] 3310776 N83.291 D25.9 N92.0 [id number] Arben Mendoza MD [facility] [address],[place] [address] 12/30/2022 13:51:04 12/30/2022 15:24:42 Pain in pelvis 06975860 R10.2 Patient is a 37-year-ol d female presents for follow-up from the emergency department . She went for pain in her legs. Patient has pelvic congestion syndrome. She has a uterine artery embolizati on schedule. She has pain at the time of her. The leading up to her periods that runs down her legs and into her legs lower legs. She is known to have a fibroid uterus. She has 1 small fibroid that is possibly submucosal . We talked about her pain. We talked about her treatment plan. Talked about her emergency depart trip. She we spent more than 20 minutes face-to-fa ce. More than 50% was counseling . She will follow-up as needed. [id number] [facility] [address],[place] [address] 07/21/2023 11:55:13 07/21/2023 14:51:48 Pain in pelvis 25791497 R10.2 This patient is a 38 -year-old female with pelvic pain. We have agreed to complete the evaluation with pelvic ultrasound . The patient will return after the pelvic ultrasound to discuss those findings and to develop a treatment plan. A comprehens gigi history and physical exam was performed today. We spent over 25 minutes face-to-fa ce. The patient was given precaution s. She will contact clinic if pelvic pain increases in frequency or intensity. Also notify clinic of any new symptoms associated with pelvic pain. She does not appear to have an acute pelvic infection today, but was asked to contact us Immediatel y with nausea, vomiting, fever, chills. Pain of left breast [id number] 864163 N64.4 12-1 o'clock position an area of thickened breast tissue and tenderness presentHx of breast bx'sBenign Ordered imagingWil l schedule [id number] [facility] [address],[place] [address] 07/26/2023 11:40:34 07/26/2023 13:25:22 Pain in pelvis 44455472 R10.2 Patient is a 37-year-ol d female presents for follow-up from the emergency department . She went for pain in her legs. Patient has pelvic congestion syndrome. She has a uterine artery embolizati on schedule. She has pain at the time of her. The leading up to her periods that runs down her legs and into her legs lower legs. She is known to have a fibroid uterus. She has 1 small fibroid that is possibly submucosal . We talked about her pain. We talked about her treatment plan. Talked about her emergency depart trip. She we spent more than 20 minutes face-to-fa ce. More than 50% was counseling . She will follow-up as needed. [id number] [facility] [address],[place] [address] 07/27/2023 11:20:33 07/27/2023 11:39:39 Pain in pelvis 45923672 R10.2 N92.0 Today we reviewed US.Underst anding verbalized . consult recommende d since very symptomati c and would also like to discuss fibroid/he felipa menses. Patient is to contact office or go to nearest ED/Urgent care if fever >/= 100.1, pain, excessive bleeding, unusual drainage or swelling in area of concern; or experienci ng worsening sx's or new onset of concerning sx's. Understand ing verbalized . All questions answered to patient satisfacti on. Total time of virtual-te levisit visit was approx 15 mins with >50% consisting of counseling , education of patient's plan of care. [id number] Arben Mendoza MD [facility] [address],[place] [address] 08/04/2023 15:02:01 08/04/2023 16:01:52 Pain in pelvis 90812292 R10.2 this patient is a 38-year-ol d female with pelvic pain and menorrhagi a. she also has uterine fibroids, and pelvic congestion syndrome. We talked about treatment options in detail. She is already taken some hormonal contracept ion that failed. She has longstandi ng pelvic pain and the pain is affecting her quality of life and activities of daily living. The bleeding has resulted in severe anemia that required iron insfusions . We spent 40 minutes face-to-fa ce and essentiall y made a decision to perform surgery. She is going to contact us with her confirmati on of total laparoscop ic hysterecto my bilateral salpingect norbert. Uterine leiomyoma 415234 05 D25.9 Pelvic con gestion syndrome 22528877 N94.89 Menorrhagia 512643513 N9 2.0 Anemia 223240221 D64.9 [id number] Arben Mendoza MD [facility] [address],[place] [address] 01/12/2024 13:50:08 01/12/2024 22:08:17 Menorrhagia 517339892 N92.0 this patient is a 38-year-ol d female with severe menorrhagi a. We reviewed her ultrasound results today and her symptoms. She has a submucosal fibroid. We talked about treatment options. We agreed to treat with hysterosco pic myomectomy and endometria l ablation. We spent over 40 minutes face-to-fa ce. We discussed all medical treatment options along with surgical treatment options that included hysterecto my. We reviewed the endometria l ablation procedure and the myomectomy in detail. We talked about risks in detail. We made a decision today to perform surgery. We will proceed with hysterosco pic myomectomy and endometria l ablation discussed menopausal symptoms. She has night sweats. To evaluate sex hormones. Menopausal symptom 36465 002 N95.1 Uterine leiomyoma 397913 05 D25.9 [id number] Arben Mendoza MD [facility] [address],[place] [address] 03/09/2024 14:55:28 03/09/2024 16:06:27 Postoperative care [id number] Z48.89 patient presents for postop follow-up after endometria l ablation. She is recovering normally. She has Watery vaginal discharge. She denies any foul-smell ing discharge. She denies any nausea, vomiting, fever, chills. [id number] Arben Mendoza MD [facility] [address] [address] 07/07/2024 12:12:55 07/09/2024 09:22:52 Gynecologic examination 23201098 Z01.419 Z11.51 Annual gynecologi radha exam performed. Patient will come back in a year unless there are new symptoms. Suggest Calcium with Vitamin D if not eating in diet. Patient advised to get annual flu shot. Recommend yearly physicals and preform monthly breast exams. Genetic testing is available for patients with family history of cancer. Engage in safe sexual practices, use condoms. Encouraged to have daily exercise. Avoid tobacco and illicit drugs, moderation of alcohol. If BMI greater than 25 dietary consult advised. If you have any questions please call or email. Pap smear- today laboratory evaluation - std's only Health Concerns Section Related Observation LastModified by Organization Detai ls LastModified Time None Recorded Concern Status LastModified by Organization Details LastModified Time None Recorded Advance Directives Directive N: Payers Encounter Date Sequence Insurance Name Policy Number Policy Otero Covered Member ID Otero Member ID Guarantor Name 07/27/2023 1 [facility] (MEDICAID HMO) [id number] Cawana Blissit [id number] Cawana Blissit 08/04/2023 1 [facility] (MEDICAID HMO) [id number] Cawana Blissit [id number] Cawana Blissit 01/12/2024 1 [facility] (MEDICAID HMO) [id number] 0003 Cawana Blissit [id number] Cawana Blissit 03/09/2024 1 [facility] (MEDICAID HMO) [id number] 0003 Cawana Blissit [id number] Cawana Blissit 07/07/2024 1 [facility] (MEDICAID HMO) [id number] 0003 Cawana Blissit [id number] Cawana Blissit Notes Date Note Type Note Provider Name and Address Organization Details Recorded Time 07/27/2023 text/html Televisit for f/ u to US for pelvic pain & heavy menses Charlene Black, [facility]- [address], [place], [address], [facility] 07/27/2023 11:39:04 08/04/2023 text/html this patient is a 38-year-old female with pelvic pain and menorrhagia. she also has uterine fibroids, and pelvic congestion syndrome. We talked about treatment options in detail. She is already taken some hormonal contraception that failed. She has longstanding pelvic pain and the pain is affecting her quality of life and activities of daily living. The bleeding has resulted in severe anemia that required iron insfusions. We spent 40 minutes [id number] and essentially made a decision to perform surgery. She is going to contact us with her confirmation of total laparoscopic hysterectomy bilateral salpingectomy. Arben Mendoza MD [address], [place], [address], [facility] 08/04/2023 15:59:16 01/12/2024 text/html this patient is a 38-year-old female with severe menorrhagia. We reviewed her ultrasound results today and her symptoms. She has a submucosal fibroid. We talked about treatment options. We agreed to treat with hysteroscopic myomectomy and endometrial ablation. We spent over 40 minutes [id number]. We discussed all medical treatment options along with surgical treatment options that included hysterectomy. We reviewed the endometrial ablation procedure and the myomectomy in detail. We talked about risks in detail. We made a decision today to perform surgery. We will proceed with hysteroscopic myomectomy and endometrial ablation Arben Mendoza MD [address], [place], [address], [facility] 01/12/2024 18:44:37 03/09/2024 text/html patient presents for postop follow-up after endometrial ablation. She is recovering normally. She has Watery vaginal discharge. She denies any foul-smelling discharge. She denies any nausea, vomiting, fever, chills. Arben Mendoza MD [address], [place], [address], [facility] 03/09/2024 15:53:03 07/07/2024 text/html Annual GYNReport ed bypatient.History:n o gynecologic complaints Urinary symptoms:No hematuria Vulva:No genital lesion Vagina:Normal vaginal discharge Breast:No breast pain Current Contraception:Satis fied with current contraception; Tubal ligation Sexual complaints:No sexual complaints; No pain during intercourse Menopausal Symptoms:No menopausal symptoms Psychological symptoms:No depression; No anxiety Preventive measures:Encourage self breast examination Arben Mendoza MD [address], [place], [address], [facility] 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 Status 05/14/20 20 1 CLOSED Fetus Data First Name Last Name Admitted to NICU Weight (g) Sex Living Outcome Pediatric Complications Fetus ID Race Codes Race Delivery Type 3316.66 4704 F Prematur e 3288 Vaginal Delivery Jaun Calculation Initial Jaun Date Initial Exam Date Initial Exam Provider Initial Ultrasound Date Last Menstrual Period Date Ultra Sound Weeks Gestation 0 Eighteen To Twenty Week Jaun Update Ultra Sound Date Fundal Height At Umbil Quickening Date Ultra Sound Latest Weeks Gestation Final Jaun Confirmed By Final Jaun Confirmed Date Final Jaun Date Ultra Sound Latest Days Gestation 0 0 Menstrual History Last Menstrual Date Menses Monthly On Bcp Conception Prior Menses Frequency Hcg Plus Date Menarche Onset Age Delivery Information Delivery Date Delivery Type Labor Anesthesia Weeks Gestation Incision Type Labor Labor Length Hrs Delivered By Post Complications Tubal Sterilization Discharge Date Comments 5 35 Trell Discharge Information Feeding Method Contraceptive Method Maternal HG B and HCT Levels Ob Episode Information Episode Created Date Number of Fetuses Patient Bloodtype Patient rh Status Prepregnancy Weight lbs Domestic Partner Domestic Partner Phone 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 Status 05/14/20 20 1 CLOSED Fetus Data First Name Last Name Admitted to NICU Weight (g) Sex Living Outcome Pediatric Complications Fetus ID Race Codes Race Delivery Type 3401.94 M Full Term 3287 Vaginal Delivery Jaun Calculation Initial Jaun Date Initial Exam Date Initial Exam Provider Initial Ultrasound Date Last Menstrual Period Date Ultra Sound Weeks Gestation 0 Eighteen To Twenty Week Jaun Update Ultra Sound Date Fundal Height At Umbil Quickening Date Ultra Sound Latest Weeks Gestation Final Jaun Confirmed By Final Jaun Confirmed Date Final Jaun Date Ultra Sound Latest Days Gestation 0 0 Menstrual History Last Menstrual Date Menses Monthly On Bcp Conception Prior Menses Frequency Hcg Plus Date Menarche Onset Age Delivery Information Delivery Date Delivery Type Labor Anesthesia Weeks Gestation Incision Type Labor Labor Length Hrs Delivered By Post Complications Tubal Sterilization Discharge Date Comments 3 40 Mick Discharge Information Feeding Method Contraceptive Method Maternal HG B and HCT Levels Ob Episode Information Episode Created Date Number of Fetuses Patient Bloodtype Patient rh Status Prepregnancy Weight lbs Domestic Partner Domestic Partner Phone 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 Status 05/14/20 20 1 CLOSED Fetus Data First Name Last Name Admitted to NICU Weight (g) Sex Living Outcome Pediatric Complications Fetus ID Race Codes Race Delivery Type 3543.46 0704 M Full Term 3289 Vaginal Delivery Jaun Calculation Initial Jaun Date Initial Exam Date Initial Exam Provider Initial Ultrasound Date Last Menstrual Period Date Ultra Sound Weeks Gestation 0 Eighteen To Twenty Week Jaun Update Ultra Sound Date Fundal Height At Umbil Quickening Date Ultra Sound Latest Weeks Gestation Final Jaun Confirmed By Final Jaun Confirmed Date Final Jaun Date Ultra Sound Latest Days Gestation 0 0 Menstrual History Last Menstrual Date Menses Monthly On Bcp Conception Prior Menses Frequency Hcg Plus Date Menarche Onset Age Delivery Information Delivery Date Delivery Type Labor Anesthesia Weeks Gestation Incision Type Labor Labor Length Hrs Delivered By Post Complications Tubal Sterilization Discharge Date Comments 8 39 Previa(r e solved) arrhythmi a Discharge Information Feeding Method Contraceptive Method Maternal HG B and HCT Levels
== END 2024-11-06 14:27 | disposition home or self-care (01) ==
LOC: ANHLAB 14:29
PROVIDERS: PCP Emergency Medicine; Visit Provider Internal Medicine Hematology & Oncology
DX: D64.9 Anemia, unspecified (principal)
CPT/HCPCS: 36415; 82728; 83540; 83550; 85025

== ENCOUNTER 2025-05-01 16:32 | Outpatient (CLI) | payer OTHER, SELFPAY ==
--- OUTSIDE RECORDS SUMMARY | 2025-05-01 16:38 | XMS_ITS | Clinical Summary ---
Author Organization [facility] Address [address] [place] [address] Care Team Providers Care Health Care Consultant Name Role Phone Bucky Abreu MD Unavailable [phone] Arben Mendoza MD Unavailable [phone] Rigoberto Ramos MD Unavailable [phone] Gregorio Land MD Unavailable [phone] Rei Cid NP Unavailable [phone] Khari Jason MD Primary Care Provider [phone] Allergies Active Allergy Reactions Criticality Noted Date Comments Oxycodone-Acetaminoph en Nausea And Vomiting Low 05/14/2022 Shakiness, nausea, vomiting Medications ferrous sulfate 325 mg (65 mg of elemental iron) tabletIndications :Iron Deficiency Anemia Take 1 tablet (325 mg total) by mouth daily with breakfast 0 Active famotidine (PEPCID) 40 mg tablet Take 1 tablet (40 mg total) by mouth 2 (two) times a day as needed (Dyspepsia/ups et stomach) 60 tablet 1 4 Active bismuth subsalicylate 262 mg tablet,chewable Take 2 tablets (524 mg total) by mouth 4 (four) times a day for 14 days 112 tablet [address] (PROTONIX) 40 mg EC tablet Take 1 tablet (40 mg total) by mouth 2 (two) times a day for 14 days 28 tablet 4 Active rizatriptan (MAXALT) 5 mg tablet TAKE ONE TABLET BY MOUTH AT ONSET OF MIGRAINE. IF SYMPTOMS PERSIST, A SECOND DOSE MAY BE TAKEN IN 2 HOURS. DO NOT EXCEED 2 DOSES IN A 24 HOUR PERIOD, UNLESS OTHERWISE INSTRUCTED BY YOUR PHYSICIAN 4 Active ergocalciferol (VITAMIN D) 50,000 unit capsule Take 1 capsule (50,000 Units total) by mouth once a week 4 Active rimegepant (NURTEC ODT) tablet,disintegra tingIndications:M igraine with aura and without status migrainosus, not intractable Take 1 tablet (75 mg total) by mouth daily as needed (migraine) 8 tablet 5 5 Active Active Problems Problem Noted Date Diagnosed Date Anemia 05/31/2024 Microalbuminuria 05/31/2024 Microscopic hematuria 05/31/2024 Venous insufficiency 05/21/2024 Onychomycosis of toenail 04/11/2024 Tinea pedis 04/11/2024 Renal cyst 04/09/2024 Pain in both upper extremities 11/23/2023 Acute pain of left shoulder 10/24/2023 Assessment & Plan (10/24/2023 11:21 AM HOISTING ENGINEER): Acute problem-this is a new problem Recommend taking OTC Tylenol and ibuprofen-use as directed Alternate ice and heat therapy to left shoulder p.r.n. at 20 minute intervals Ordered EMG/NCS bilateral upper extremities Follow-up with PCP as scheduled Continue to monitor Ordered x-ray of left shoulder Plan to consult ortho versus PT pending images Pain involving joints of fingers of both hands 0 10/24/2023 Assessment & Plan (10/24/2023 11:23 AM HOISTING ENGINEER): Acute problem-this is a new problem Recommend taking OTC Tylenol and ibuprofen-use as directed Alternate ice and heat therapy to hands p.r.n. at 20 minute intervals Ordered EMG/NCS bilateral upper extremities Follow-up with PCP as scheduled Continue to monitor Reviewed current x-rays and shows mild osteoarthritis of distal joint in the third finger of left hand BMI 21.0-21.9, adult 10/04/2023 Myalgia 10/04/2023 Assessment & Plan (10/24/2023 11:19 AM HOISTING ENGINEER): Acute on chronic problem-this is recurring problem Recommend taking OTC Tylenol and ibuprofen-use as directed Alternate ice and heat therapy to left shoulder p.r.n. at 20 minute intervals Ordered EMG/NCS bilateral upper extremities Follow-up with PCP as scheduled Continue to monitor Follow-up with rheumatoid specialist as scheduled Assessment & Plan (10/04/2023 11:28 AM HOISTING ENGINEER): OTC NSAIDs recommended. Please take your omeprazole daily. Pain in both feet 10/04/2023 Assessment & Plan (10/04/2023 11:29 AM HOISTING ENGINEER): Xrays ordered, add OTC NSAIDs, such as Aleve. Use as directed. Pain in both knees 10/04/2023 Assessment & Plan (10/04/2023 11:29 AM HOISTING ENGINEER): Xrays ordered, add OTC NSAIDs, such as Aleve. Use as directed. Abnormal thyroid function test 09/27/2023 Assessment & Plan (09/27/2023 4:24 PM HOISTING ENGINEER): Chronic, worsening Low TSH with normal free T4 levels DD: Thyroiditis versus true hyperthyroidism from Graves disease versus toxic goiter - plan to repeat thyroid function test include TSH, free T4 levels, free T3 levels Include thyroid antibodies - if TSH remains low then will plan to get thyroid ultrasound and nuclear medicine thyroid uptake and scan Further plans based on it Migraine with aura and witho ut status migrainosus, not intractable 06/03/2023 Assessment & Plan (03/13/2025 8:39 AM CDT): The patient has a history of migraine with aura. During her migraine she often times develops left facial droop. Unfortunately, her headaches have become more frequent and severe. She is currently not on any preventative medications. We will start Nurtec 75 mg daily as needed. She has had success with this medication in the past but it was not covered by her insurance. She has tried and failed sumatriptan, rizatriptan, propranolol, topiramate. She is to let me know how this medication works for her. We may need to add additional preventative agents depending on how she responds. Follow up in six months. Assessment & Plan (04/25/2024 10:45 AM CDT): The patient reports that she is doing very well without any prophylactic agents currently. She attributes this improvement to her recent gynecological procedure as well as a change in job. She rarely has take acute treatment with rizatriptan. When she takes it she does not have any side effects. Continue rizatriptan 5 mg as needed. Follow up in one year. Assessment & Plan (06/03/2023 11:15 AM CDT): Improved, keep magdalena appt with neurology next month. Suggested that she try Excedrin Migraine OTC, use as directed. Continue Topamax. Fan's thyroiditis 06/03/2023 Assessment & Plan (07/16/2024 8:12 AM CDT): History of Fan's thyroiditis Elevated TPO antibodies Repeat recent thyroid function test, within normal limits Recheck thyroid function test today Follow-up in 1 year Assessment & Plan (11/28/2023 8:34 AM HOISTING ENGINEER): History of Fan's thyroiditis Elevated TPO antibodies Repeat recent thyroid function test, within normal limits Patient hot flashes are not explain due to her thyroid Advised patient to see cane weigher Assessment & Plan (06/03/2023 11:16 AM CDT): Currently not on any medications. Patient reports that her crown ironer told her she no longer needed levothyroxine. Labs ordered, will follow. Pelvic congestion syndrome 03/15/2023 Overview (03/15/2023): pelvic venous insufficiency status post bilateral gonadal vein embolization on 01/05 Assessment & Plan (03/15/2023 10:45 AM CDT): Managed by Interventional Radiology. 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 Left parathyroid inferior removal. Assessment & Plan (03/29/2023 1:25 PM CDT): Asymptomatic. Referred to endocrinology for further eval/mgmt. Assessment & Plan (03/29/2023 11:56 AM CDT): S/p parathyroid surgery in 2021 Post operative Normal PTH and calcium Last calcium level was 8.9 on 03/03/23 - check PTH History of Helicobacter pylori infection 022 Dyspepsia 02/24/2022 Non-toxic multinodular goiter 05/02/2020 Assessment & Plan (03/29/2023 1:26 PM CDT): Asymptomatic, referred to Endocrinology for further eval/mgmt. Assessment & Plan (03/29/2023 11:58 AM CDT): Multiple sub-centimeter nodules stable in size since 2014 last ultrsound on 08/20/21 Not detected clinically Plan: Can monitor clinically If nodules are stable, no follow up will be needed. Assessment & Plan (08/04/2021 2:25 PM CDT): Multiple sub-centimeter nodules Looks to be stable in size since 2014 with last ultrsound on 01/29/2020 Plan: Schedule patient for thyroid Ultrasound this month If nodules are stable, no follow up will be needed. Assessment & Plan (05/02/2020 12:29 PM CDT): Multiple sub-centimeter nodules Looks to be stable in size since 2014 with last ultrsound on 01/29/2020 Radiologist suspected parathyroid adenoma on the right lobe, but work up showed normal PTH 38 and calcium 9.2 on 01/31/20 Plan: The results of ultrasound reviewed with patient Assured patient of stability Chronic abdominal pain 12/12/2019 Overview (12/12/2019): Added automatically from request for surgery [id number] Assessment & Plan (12/26/2019 1:42 PM CDT): Had an episode of abdominal cramping recently. Likely related to constipation. Colonoscopy, EGD, and CT negative. Diastasis of rectus abdominis 11/21/2019 Assessment & Plan (11/21/2019 12:01 PM HOISTING ENGINEER): With a couple of loops of non obstructed bowel extending into the resultant small wide mouthed ventral hernia. Will discuss referral to surgery at next visit after EGD is done. Irritable bowel syndrome with constipation 11/20 Assessment & Plan (12/26/2019 1:52 PM CDT): Pt says she has only tracked BM for about 1 week. She had colonoscopy a week ago and just had BM yesterday. Pt says she had to strain a lot and very hard stool. Will start on fiber gummies daily. Explained this could cause more gas/bloating at first so can use simethicone prn if having more gas/bloating with the fiber. Assessment & Plan (12/12/2019 1:55 PM HOISTING ENGINEER): Pt is unsure of her BM pattern. She says she is going to pay more attention to these and track them for next appointment. She says she does know that after the EGD she had 3 BM's but hasn't had one since. This was about 1 week ago. Pt encouraged to use Miralax prn for constipation and try not to go more than a couple days without BM. Will schedule colonoscopy due to abdominal pain, nausea, and constipation issues. Assessment & Plan (11/20/2019 2:31 PM HOISTING ENGINEER): Intermittent issues with constipation. Pt is unsure of pattern and states she doesn't pay attention to when she goes. She does know she can skip a couple of days. She doesn't take anything for her constipation. Spoke with patient and appears she has poor diet. She says she eats fast food a lot and loves malagasy fries. Discussed importance of eating a fresh piece of fruit with every meal and increase fiber intake. Also discussed importance of cutting down on heavy fried foods and eating out. Resolved Problems Problem Noted Date Diagnosed Date Resolved Date Fan's thyroiditis 03/29/202305/17 Assessment & Plan (03/29/2023 12:02 PM CDT): Patient reports diagnosis by Endocrinology She has been on and off Levothyroxine Patient is clinically euthyroid Last TSH was normal at 0.57 on 03/03/23 Plan: Stay off Levothyroxine Check labs in 6 weeks We will decide on restarting treatment based on results Muscle strain of lower extremity 05/13/2022 03/15/2023 Positive H. pylori test 08/14/202102/16 Acquired hypothyroidism 05/02/202002/16 Assessment & Plan (08/05/2021 8:50 AM CDT): Chronic low TSH between 0.16 and 0.3 detected in 2015 With normal T4 and T3 The abnormality was extenenesively evaluated by Endocrinology department at [facility] No other abnormalities found TSH was normal at 0.48 on 05/02/20 With normal free T4 and Free T3 She had a recent TSH of 0.35 on 07/13/21 Plan: Again explained to patient that the abnormal TSH is not the cause of any symptoms and will only require treatment if there is evidence of hyperthyroidism with high T4 and T3. I recommend annual TSH and free T4, by her PCP Assessment & Plan (05/02/2020 12:34 PM CDT): Chronic low TSH between 0.16 and 0.3 detected in 2015 With normal T4 and T3 The abnormality was extenenesively evaluated by Endocrinology department at [facility] No other abnormalities found Plan: Explained to patient that the abnormal TSH is not the cause of symptoms and will only require treatment if there is evidence of hyperthyroidism with high T4 and T3. Follow up and further recommendation will be decided after we obtain above test results. Obtain copy of most recent thyroid labs. Check labs for TFT Nausea without vomiting 11/20/2019 053 Assessment & Plan (12/26/2019 1:41 PM CDT): Pt has intermittent nausea usually occurs after eating certain foods. Recent had after having pizza and bread with butter and another time after having queso. Pt has not started on pantoprazole yet. Advised to start taking this every morning about 30 minutes before first meal. Will also target constipation issues to see if this will help with nausea. Assessment & Plan (12/12/2019 1:54 PM HOISTING ENGINEER): Pt having intermittent episodes of nausea. EGD was normal. Possible dyspepsia. Pt appears to have overall poor diet. Will start on pantoprazole 40mg daily and instructed to keep food journal of things that are causing the nausea/pain. Instructed to avoid too heavy/high fat, fast foods. Assessment & Plan (11/20/2019 2:35 PM HOISTING ENGINEER): Intermittent episodes of nausea on and off. No vomiting. Discussed avoiding high fat, fried foods and avoiding fast food. Will schedule EGD due to complaints of LUQ pain and intermittent nausea. Upper abdominal pain 11/20/2019 023 Overview (11/20/2019): Added automatically from request for surgery [id number] Assessment & Plan (12/12/2019 1:52 PM HOISTING ENGINEER): Intermittent episodes. Pt says she had LUQ pain that didn't last very long and then another separate episodes in the epigastric area. She is getting intermittent nausea episodes as well. Will schedule colonoscopy due to issues with constipation, abdominal pain, and nausea. Acute vaginitis 07/01/2016 07/28/2023 Overview (07/28/2023): Acute vaginitis;Practice ID: [id number] Encounters Date Type Department Care Team Description 03/13/2025 8:30 AM CDT [facility] [address] [place] [id number] Gregorio Land MD Migraine with aura and without status migrainosus, not intractable (Primary Dx) 03/13/2025 [facility] [address] [facility] [address] [place] [phone] Kris Tyler MA Nurtec PA 02/08/2025 2:50 PM CDT Lab [facility] [address] [place] [address] from Last 3 Months Immunizations Immunization Administration Dates Next Due DTP 06/12/1992,06/22/1988,1985 ,1985 HPV, Quadrivalent 10/30/2007,08/14/2007 Hep A, Unspecified 12/26/2007 Hep B, Adolescent or Pediatric 05/30/2000 Influenza, Unspecified 10/04/2023(Deferr ed: Patient Refused),03/15/2023(Deferred: Patient Refused) MMR 06/12/1992,06/22/1988 OPV 06/12/1992,06/22/1988,1985 ,1985 Surgical History Surgery Date Site/Laterality Comments TUBAL LIGATION 03/23/2018 CYST REMOVAL 10/17/2016 - 10/16/2017 Left breast COLONOSCOPY 12/19/2019 BREAST LUMPECTOMY 01/15/2022 - 02/13/2022 Right UTERINE FIBROID SURGERY Medical History Medical History Date Comments UTI (urinary tract infection) Anemia Hernia, umbilical GERD (gastroesophageal reflux disease) Chronic constipation Hypothyroidism Acute vaginitis 07/01/2016 Acute vaginitis; Practice ID: [id number] Family History Medical History Relation Name Comments Thyroid disease Daughter Asthma Maternal Grandmother Prostate cancer Paternal Grandfather Diabetes Paternal Grandmother Relation Name Status Comments Daughter Maternal Grandmother Paternal Grandfather Paternal Grandmother Social History Tobacco Use Types Packs/Day Years Used Date Smoking Tobacco: Never Smokeless Tobacco: Never Tobacco Cessation:Counseling Given: Not Answered Alcohol Use Standard Drinks/Week Comments Yes 0 (1 standard drink = 0.6 oz pur e alcohol) socially AUDIT-C Answer Date Recorded Q1: How often do you have a drink containing alcohol? Never 03/13/2025 Q2: How many drinks containi ng alcohol do you have on a typical day when you are drinking? Patient does not drink Q3: How often do you have si x or more drinks on one occasion? Never 03/13/2025 PHQ-2 Answer Date Recorded PHQ-2 Total Score (If total score is 3 or more points, staff should administer the PHQ-9) 0 10/24/2023 Personal Safety Answer Date Recorded Have you ever been in or are you currently in a harmful physical or emotional relationship or is someone making you feel afraid or unsafe? Denies 10/22/2024 Comments No Sex and Gender Information Value Date Recorded Sex Assigned at Not on file Legal Sex Female 3:57 AM HOISTING ENGINEER Gender Identity Female 08/04/2021 8:37 AM CDT Sexual Orientation Not on file Obstetrics History Para Term AB IAB SAB Ectopic Multiple Livin g Live Births 3 2 2 2 2 Date Outcome GA Total Labor Labor/2nd/3rd Weight Sex Type Anes PTL Elena A1 A5 Name Clin 06/29 Term 40w 0d M Vag-S pont Epidura l N Living Complications:None 10/18 Term 37w 0d 3.175 kg (7 lb) F Vag-S pont Epidura l N Living Complications:None Last Filed Vital Signs Vital Sign Reading Time Taken Comments Blood Pressure 97/75 10/22/2024 8:40 AM HOISTING ENGINEER Pulse 92 10/22/2024 8:40 AM HOISTING ENGINEER Temperature 36.7 C (98 F) 10/22/2024 8:40 AM HOISTING ENGINEER Respiratory Rate 16 10/22/2024 8:40 AM HOISTING ENGINEER Oxygen Saturation 100% 10/22/2024 8:40 AM HOISTING ENGINEER Inhaled Oxygen Concentration - - Weight 63.5 kg (140 lb) 03/13/2025 8:23 AM CDT Height 167.6 cm (5' 6) 03/13/2025 8:23 AM CDT Body Mass Index 22.6 03/13/2025 8:23 AM CDT Plan of Treatment Health Maintenance Due Date Last Done Comments DTaP/Tdap/Td Vaccine (5 - Tdap) 02/22/1996 06/12/1992, 06/22/1988, 1985, Additional history exists HPV Vaccines (3 - 3-dose series) 02/13/2008 10/30/2007, 08/14/2007 Regular Well Visit/Exam 18-64 03/15/2024 03/15/2023 Depression Screening 10/24/2024 10/24/2023, 10/04/2023, 06/03/2023, Additional history exists Influenza Vaccine (#1) 2025 Breast Cancer Screening-Mammogram 07/30/2025 07/30/2024, 07/30/2024, 08/11/2023, Additional history exists Cervical Cancer Screening 07/23/2027 07/23/2022 Hepatitis B Screening Completed 05/30/2000 Hepatitis C Screening Completed 03/15/2023 Pneumococcal vaccine <65 Aged Out No longer eligible based on patient's age to complete this topic Varicella Vaccines Discontinued Procedures Procedure Name Priority Date/Time Associated Diagnosis Comments EGFR Routine 02/08/2025 2:59 PM CDT DIFFERENTIAL AUTO Routine 02/08/2025 2:5 9 PM CDT URINALYSIS AND REFLEX TO MICROSCOPIC Routine 02/08/2025 2:59 PM CDT VITAMIN D 25 HYDROXY Routine 02/08/2025 2:59 PM CDT CBC WITH AUTO DIFFERENTIAL Routine 02/08/2025 2:59 PM CDT RENAL FUNCTION PANEL Routine 02/08/2025 2:59 PM CDT SCREENING MAMMOGRAM BILATERAL W CRISTIAN Schedule Routine, Read Routine (OP Routine) 08/11/2023 HEPATITIS C ANTIBODY Routine 03/15/2023 11:25 AM CDT Annual physical exam Encounter for hepatitis C screening test for low risk patient HM PAP SMEAR WITH HPV Routine 07/23/2022 from Last 3 Months or Most Recently Relevant to Health Maintenance Results * eGFR (02/08/2025 2:59 PM CDT) eGFR 72 >=60 mL/min/1. 73 m2 Comment: Interpretive Data Reference Interval Normal >/= 90 mL/min/1.73m2 Mildly decreased* 60 - 89 mL/min/1.73m2 Mildly to moderately decreased 45 - 59 mL/min/1.73m2 Moderately to severely decreased 30 - 44 mL/min/1.73m2 Severely decreased 15 - 29 mL/min/1.73m2 Kidney Failure < 15 mL/min/1.73m2 *Relative to young adult level Estimated glomerular filtration rate is determined by the 2020 CKD-EPI equation recommended by the National Kid[employer] Foundation (A Unifying Approach to GFR Estimation: Recommendations of the NKF-ASK Task Force on Reassessing the Inclusion of Race in Diagnosing Kidney Disease, JASN 2020). The CKD-EPI equation should not be used for patients with unstable renal function and has not been validated in children and those over 70. Current interpretive data was last reviewed 2021. Blood 02/08/2025 2:59 PM CDT 02/08/2025 3:03 PM CDT us Man Sidhu MD LAB BLOOD ORDERABLES Final Resul t [facility] ([place]) [address] [facility] [place] [address] * Differential, auto (02/08/2025 2:59 PM CDT) Neutrophil abs 3.49 1.50 - 6.50 K/cumm Imm gran abs 0.01 0.00 - 0.10 K/cumm [facility] ([place]) Lymphocyte abs 2.31 0.80 - 3.30 K/cumm [facility] ([place]) Monocyte abs 0.39 0.20 - 0.80 K/cumm [facility] ([place]) Eosinophil abs 0.07 0.00 - 0.50 K/cumm [facility] ([place]) Basophil abs 0.03 0.00 - 0.10 K/cumm [facility] ([place]) Neutrophil pct 55.3 % [facility] ([place]) Comment: Interpretive Data Percent cell count reference ranges are not reported, since discordance with absolute values may lead to misinterpretation of CBC data. Current Interpretive Data was last revised on 2018. Imm gran pct 0.2 % [facility] ([place]) Comment: Interpretive Data Percent cell count reference ranges are not reported, since discordance with absolute values may lead to misinterpretation of CBC data. Current Interpretive Data was last revised on 2018. Lymphocyte pct 36.7 % [facility] ([place]) Comment: Interpretive Data Percent cell count reference ranges are not reported, since discordance with absolute values may lead to misinterpretation of CBC data. Current Interpretive Data was last revised on 2018. Monocyte pct 6.2 % [facility] ([place]) Comment: Interpretive Data Percent cell count reference ranges are not reported, since discordance with absolute values may lead to misinterpretation of CBC data. Current Interpretive Data was last revised on 2018. Eosinophil pct 1.1 % [facility] ([place]) Comment: Interpretive Data Percent cell count reference ranges are not reported, since discordance with absolute values may lead to misinterpretation of CBC data. Current Interpretive Data was last revised on 2018. Basophil pct 0.5 % [facility] ([place]) Comment: Interpretive Data Percent cell count reference ranges are not reported, since discordance with absolute values may lead to misinterpretation of CBC data. Current Interpretive Data was last revised on 2018. Blood 02/08/2025 2:59 PM CDT 02/08/2025 3:03 PM CDT Man Sidhu MD LAB BLOOD ORDERABLES Final Resul t [facility] ([place]) [address] [facility] [place] [address] * (ABNORMAL) Urinalysis reflex to microscopic (02/08/2025 2:59 PM CDT) Color, ur Yellow Yellow Clarity, ur Turbid(A) Clear [facility] ([place]) Specific gravity, ur 1.022 1.003 - 1.030 [facility] ([place]) pH, urine 5.5 [facility] ([place]) Comment: Interpretive Data U rine pH is affected by diet, medications, systemic acid-base disturbances, and renal tubular function. pH may affect urinary stone formation. For example, urine pH below 6.0 may help reduce the tendency for calcium phosphate stones and pH greater than 6.0 may reduce the tendency for uric acid stone formation. Source: [facility] Current Interpretive Data was last revised on 2017 Protein, ur ql Negative Negative [facility] ([place]) Glucose, ur ql Negative Negative [facility] ([place]) Ketones, ur Negative Negative [facility] ([place]) Bilirubin, ur Negative Negative [facility] ([place]) Blood, ur Negative Negative [facility] ([place]) Urobilinogen, ur <2.0 <2.0 mg/dL [facility] ([place]) Nitrite, ur Negative Negative [facility] ([place]) Leukocyte esterase, ur Negative Negative [facility] ([place]) UA reflex comment Reflex conditions for microscopic UA not met. [facility] ([place]) Urine 02/08/2025 2:59 PM CDT 02/08/2025 3:03 PM CDT Man Sidhu MD LAB URINE ORDERABLES Final Resul t [facility] ([place]) [address] [facility] [place] [address] * (ABNORMAL) CBC with auto differential (02/08/2025 2:59 PM CDT) WBC 6.30 3.80 - 9.90 K/cumm Hgb 11.7(L) 11.9 - 15.5 g/dL [facility] ([place]) Hct 34.9(L) 35.6 - 45.5 % [facility] ([place]) Plt 275 150 - 400 K/cumm [facility] ([place]) MPV 9.7 9.1 - 12.3 fL [facility] ([place]) RBC 3.88(L) 3.90 - 5.20 M/cumm [facility] ([place]) MCV 89.9 81.3 - 96.4 fL [facility] ([place]) MCH 30.2 27.1 - 33.3 pg [facility] ([place]) MCHC 33.5 32.3 - 35.7 g/dL [facility] ([place]) RDW CV 13.0 11.1 - 14.9 % [facility] ([place]) RDW SD 42.8 35.7 - 48.1 fL [facility] ([place]) NRBC abs 0.00 0.00 - 0.01 K/cumm [facility] ([place]) Blood 02/08/2025 2:59 PM CDT 02/08/2025 3:03 PM CDT Man Sidhu MD LAB BLOOD ORDERABLES Final Resul t Performing Organization Address City/[facility]/ZIP Co de Phone Number [facility] ([place]) 1 [facility] [place] [address] * Vitamin D 25 hydroxy (02/08/2025 2:59 PM CDT) Vitamin D 25-OH 32 30 - 80 ng/mL Blood 02/08/2025 2:59 PM CDT 02/08/2025 3:03 PM CDT Man Sidhu MD LAB BLOOD ORDERABLES Final Resul t Performing Organization Address [facility] de Phone Number [facility] ([place]) 1 [facility] [place] [address] * Renal function panel (02/08/2025 2:59 PM CDT) Sodium 141 135 - 145 mmol/L Potassium, pl 3.4 3.3 - 4.9 mmol/L [facility] ([place]) Chloride 104 97 - 110 mmol/L [facility] ([place]) CO2 23 22 - 32 mmol/L [facility] ([place]) Anion gap 14 2 - 15 mmol/L [facility] ([place]) BUN 12 6 - 25 mg/dL [facility] ([place]) Creatinine 1.02 0.60 - 1.10 mg/dL [facility] ([place]) Glucose 100 70 - 199 mg/dL [facility] ([place]) Comment: Interpretive Data Fasting glucose >/= 126 mg/dl is diagnostic for diabetes. Fasting is defined as no caloric intake for at least 8 hours. Fasting glucose between 100 mg/dl to 125 mg/dl is diagnostic of prediabetes. In a patient with classic symptoms of hyperglycemia or hyperglycemic crisis, a random glucose >/= 200 mg/dl is diagnostic for diabetes. In the absence of unequivocal hyperglycemia, results should be confirmed by repeat testing. The classification and Diagnosis of Diabetes Diabetes Care 2021; 46: S19-S40. Current interpretive data was last revised 2022. Calcium 9.3 8.5 - 10.3 mg/dL [facility] ([place]) Phosphorus, pl 3.5 2.3 - 4.5 mg/dL [facility] ([facility]) Albumin 4.6 3.5 - 5.0 g/dL [facility] ([place]) Blood 02/08/2025 2:59 PM CDT 02/08/2025 3:03 PM CDT Man Sidhu MD LAB BLOOD ORDERABLES Final Resul t [facility] ([place]) 1 [facility] [place] [address] * Screening Mammogram Bilateral W Cristian (08/11/2023) Anatomical Region Laterality Modality Breast Bilateral Mammography Generic External Data Provider IMG MAMMO PROCEDU RES Final Result * Hepatitis C antibody (03/15/2023 11:25 AM CDT) Hep C Ab Nonreactive Nonreactive [facility] ([place]) Comment: Interpretive Data Nonreactive: Antibodies to HCV not detected. Does NOT exclude the possibility of recent exposure to HCV. Equivocal: Equivocal for HCV antibodies. Supplemental molecular testing will be automatically performed to determine infection status in accordance with current CDC screening recommendations. Reactive: Positive for HCV antibodies. This may represent current or past HCV infection. Supplemental molecular testing will be automatically performed to determine current infection status in accordance with current CDC screening recommendations. Interpretive data was last revised on 2020. Testing performed by: [facility], [address] [place] [address], [place]., [address] Blood 03/15/2023 11:2 5 AM CDT 03/15/2023 11:29 PM CDT Tegan Gama DO LAB MICROBIOLOGY - GENERAL ORDERABLES Final Result [facility] ([place]) 1 [facility] [place] [address] * HM PAP SMEAR WITH HPV (07/23/2022) Scribed Pap Smear w/HPV Normal Generic External Data Provider HEALTH MAINTENANC E Final Result from Last 3 Months or Most Recently Relevant to Health Maintenance Insurance [facility] CHOICE PLUS Advance Directives For more information, please contact: [phone] * Full Code (Latest Code Status on File) Date Activated Date Inactivated Comments 12/19/2019 9:42 AM 12/19/2019 5:00 PM * Full Code Date Activated Date Inactivated Comments 12/19/2019 9:42 AM 12/19/2019 9:42 AM * Full Code Date Activated Date Inactivated Comments 12/05/2019 6:51 AM 12/05/2019 1:19 PM * Full Code Date Activated Date Inactivated Comments 12/05/2019 6:51 AM 12/05/2019 6:51 AM Care Teams Health Care Consultant Relationship Specialty Start Date End Date Khari Jason MD [address] [place] [id number] PCP - General Emergency Medicine 03/05/24 Bucky Abreu MD [address] [phone] Referring Physician Hematology 03/15/23 Arben Mendoza MD [address] [place] [address] Referring Physician Obstetrics and Gynecology 03/15/23 Rigoberto Ramos MD [address] DIV OF RADIOLOGY [place], [place] [phone] Radiation Therapy 03/15/23 Gregorio Land MD [address] [place] [address] Referring Physician Neurology 03/15/23 Rei Cid NP [address] [place] [address] Nurse Practitioner Family Practice 03/15/23
--- OUTSIDE RECORDS SUMMARY | 2025-05-01 16:38 | XMS_ITS | Clinical Summary ---
Author Organization [facility] Address [address] [facility] [place] [address] Care Team Providers Care Entry Engineer Name Role Phone Tegan Gama DO Primary Care Provider [phone] Source Comments [facility],non-owned Affiliates and Associated Physician Practices is amultiple site organization consisting of ambulatory clinics and hospital sitesin [place], [place], [place] and [place]. This disclosure is being madepursuant to the Care Everywhere program and may not contain all information available regarding this patient. Last updated 18.[facility] Allergies No known active allergies Medications * Be aware that medications may not be up to date on this document. Alwaysverify current medications with the patient. Acetaminophen Extra Strength 500 MG tablet TAKE 1 TABLET BY MOUTH EVERY 8 HOURS FOR 10 DAYS 2023 Active omeprazole EC (PriLOSEC OTC) 20 MG tablet Take 1 (one) tablet by mouth once daily as needed 08/20/2022 Active ergocalciferol (Drisdol) 1.25 MG (84175 UT) capsule Take 1 (one) capsule by mouth 06/18/2024 Active Active Problems Problem Noted Date Diagnosed Date Acute pain of left shoulder 10/24/202311/17 Overview (11/28/2023): Last Assessment & Plan: Acute problem-this is a new problem Recommend taking OTC Tylenol and ibuprofen-use as directed Alternate ice and heat therapy to left shoulder p.r.n. at 20 minute intervals Ordered EMG/NCS bilateral upper extremities Follow-up with PCP as scheduled Continue to monitor Ordered x-ray of left shoulder Plan to consult ortho versus PT pending images Pain involving joints of fingers of both hands 0 10/24/2023 11/28/2023 Overview (11/28/2023): Last Assessment & Plan: Acute problem-this is a new problem Recommend taking OTC Tylenol and ibuprofen-use as directed Alternate ice and heat therapy to hands p.r.n. at 20 minute intervals Ordered EMG/NCS bilateral upper extremities Follow-up with PCP as scheduled Continue to monitor Reviewed current x-rays and shows mild osteoarthritis of distal joint in the third finger of left hand Pain in both feet 10/04/2023 11/28/2023 Overview (11/28/2023): Last Assessment & Plan: Xrays ordered, add OTC NSAIDs, such as Aleve. Use as directed. 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 Labs ordered, will follow. Female pelvic congestion syndrome 01/03/2023 Renal cyst 05/14/2022 Gross hematuria 05/14/2022 Dyspepsia 02/24/2022 Helicobacter pylori infection 02/24/2022 History of Helicobacter pylori infection 022 07/11/2023 Hyperparathyroidism 01/11/2022 Overview (07/09/2022): PROCEDURE PERFORMED (03/16/22, Suze) Four gland parathyroid exploration. Left parathyroid inferior removal. Fatigue 12/21/2021 Migraine headache 04/29/2021 Iron deficiency anemia 06/16/2020 Non-toxic multinodular goiter 05/02/2020 Abnormal serum thyroid stimulating hormone (TSH) level 05/02/2020 Overview (08/04/2020): Last Assessment & Plan: Chronic low TSH between 0.16 and 0.3 detected in 2015 With normal T4 and T3 The abnormality was extenenesively evaluated by Endocrinology department at [facility] No other abnormalities found Plan: Explained to patient that the abnormal TSH is not the cause of symptoms and will only require treatment if there is evidence of hyperthyroidism with high T4 and T3. Follow up and further recommendation will be decided after we obtain above test results. Obtain copy of most recent thyroid labs. Check labs for TFT Fan's thyroiditis 03/19/2020 Mitral valve insufficiency 02/14/2020 Vitamin D deficiency 02/06/2020 Ectopic atrial tachycardia 02/06/2020 Thyroid disease 02/06/2020 Diastasis of rectus abdominis 11/21/2019 Overview (03/04/2021): Last Assessment & Plan: With a couple of loops of non obstructed bowel extending into the resultant small wide mouthed ventral hernia. Will discuss referral to surgery at next visit after EGD is done. Lesion of ovary 03/23/2019 07/11/2023 Overview (07/11/2023): Other ovarian cyst, unspecified side;Recorded Elsewhere: No Location: [facility] Source: EHR Chronic: N Practice ID: [id number] Billable Time: 09:00:00 AM Other ovarian cyst, right side;Recorded Elsewhere: No Location: [facility] Source: EHR Chronic: N Practice ID: [id number] Billable Time: 02:30:00 PM Broad ligament laceration syndrome 03/23/2018 Normal in multigravida 07/25/2017 07/11/2023 Overview (07/11/2023): Encounter for suprvsn of normal , third trimester;Recorded Elsewhere: No Location: [facility] Source: EHR Chronic: N Practice ID: [id number] Billable Time: 11:45:00 AM 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 Leukorrhea 08/21/2014 Resolved Problems Problem Noted Date Diagnosed Date Resolved Date Muscle strain of lower extremity 05/13/2022 11/18/2022 Contact with and (suspected) exposure to other communicable diseases 04/29/2020 11/12/2020 Constipation 02/06/2020 11/12/2020 Overview (11/12/2020): neg colon and endosocpu Chest pain, atypical 02/06/2020 021 Left lower quadrant pain 03/23/2019 Single live 01/24/2018 11/12/2020 arrhythmia affecting p regnancy, antepartum 12/06/2017 03/19/2020 Hypothyroidism affecting pre gnancy, antepartum 12/06/2017 03/19/2020 Localized enlarged lymph nodes 10/13/2017 11/12/2020 Amenorrhea 06/28/2017 11/12/2020 Breast lump 01/19/2017 11/12/2020 Upper abdominal pain 08/24/2016 021 Overview (05/02/2020): Overview: Per written order 07/29/16 Added automatically from request for surgery [id number] Last Assessment & Plan: Intermittent episodes. Pt says she had LUQ pain that didn't last very long and then another separate episodes in the epigastric area. She is getting intermittent nausea episodes as well. Will schedule colonoscopy due to issues with constipation, abdominal pain, and nausea. Added automatically from request for surgery [id number] Last Assessment & Plan: Had an episode of abdominal cramping recently. Likely related to constipation. Colonoscopy, EGD, and CT negative. Acute vaginitis 07/01/2016 11/12/2020 Increased frequency of urination 01/29/2015 11/12/2020 Blood in urine 01/29/2015 11/12/2020 Joint pain 11/11/2014 11/12/2020 Urinary tract infectious disease 08/21/2014 11/12/2020 Immunizations Immunization Administration Dates Next Due DTP 06/12/1992, 8,1985,1984 HEP A PED/ADULT VACCINE 12/26/2007 HEP B VACCINE, PED/ADOL 05/30/2000 Human Papilloma Virus Annabel valent Vaccine 10/30/2007,08/14/2007 MMR 06/12/1992,06/22/1988 POLIO OPV 06/12/1992, 8,1985,1984 Family History Medical History Relation Name Comments Other Mother Cancer - Other Paternal Aunt Cancer - Prostate Paternal Grandfather Cancer - Breast Paternal Great-Grandmother Relation Name Status Comments Mother Other Other Kidney cancer Paternal Aunt Paternal Grandfather Paternal Great-Grandmother Social History Tobacco Use Types Packs/Day Years Used Date Smoking Tobacco: Never Smokeless Tobacco: Never Tobacco Cessation:Counseling Given: Not Answered Alcohol Use Standard Drinks/Week Comments Not Currently 1 (1 standard drink = 0.6 oz pure alcohol) rare glass of wine/special occasion AUDIT-C Answer Date Recorded Q1: How often do you have a drink containing alc ohol? Monthly or less 12/03/2022 Q2: How many drinks containi ng alcohol do you have on a typical day when you are drinking? 1 or 2 12/03/2022 Q3: How often do you have si x or more drinks on one occasion? 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 Oxygen Saturation 98% 07/30/2024 10:57 AM CDT Inhaled Oxygen Concentration 21% 01/19/2022 6 :57 AM CDT Weight 63.5 kg (140 lb) 07/30/2024 10:57 AM CDT Height 167.6 cm (5' 6) 07/30/2024 10:57 AM CDT Body Mass Index 22.6 07/30/2024 10:57 AM CDT Plan of Treatment Upcoming Encounters Date Type Department Care Team (Late st Contact Info) Description 07/29/2025 9:45 AM CDT Appointment [address] [address] Selin Eldridge MD [address] [place] [phone] 07/29/2025 10:00 AM CDT Appointment [address] [address] Selin Eldridge MD [address] [place] [address] [place] [phone] 07/29/2025 11:00 AM CDT Office Visit [facility] - General Surgery [address] [place] [phone] Selin Eldridge MD [address] [place] [phone] Health Maintenance Due Date Last Done Comments DTAP/TDAP/TD VACCINES (5 - Tdap) 02/22/1996 06/12/1992, 06/22/1988, 1985, Additional history exists HIV SCREENING 02/22/2000 HEPATITIS B VACCINE (2 of 3 - 3-dose series) 06/27/2000 05/30/2000 HEPATITIS C SCREENING 02/17/2003 HPV VACCINE (3 - 3-dose series) 02/13/2008 10/30/2007, 08/14/2007 COVID-19 VACCINE ( season) 2024 DEPRESSION SCREENING 10/17/2024 INFLUENZA VACCINE (#1) 2025 MAMMOGRAM 07/30/2026 07/30/2024, 07/18, 12/29/2021, Additional history exists PAP SMEAR 07/09/2027 07/09/2024, 06/18, 07/23/2022, Additional history exists LIPID TESTING 03/15/2028 03/15/2023 ZOSTER VACCINE (1 of 2) 2035 HIB VACCINE Aged Out No longer eligi ble based on patient's age to complete this topic MENINGOCOCCAL (Group B) VACCINE SHARED DECISION-MAKING Aged Out No longer eligible based on patient's age to complete this topic MENINGOCOCCAL GROUPS A/C/Y/W VACCINE Aged Out No longer eligible based on patient's age to complete this topic PNEUMOCOCCAL VACCINE Aged Out No long er eligible based on patient's age to complete this topic Goals Goal Patient Goal Type Associated Problems Recent Progress Patient-Stated? Author Medication Management General On track( 023 10:48 AM CDT) Linda Larsen, RN Note: Expected end date: Ongoing Interventions: Take all medications as prescribed Let your doctor know right away about any changes in your medications Make sure to request a refill of your medication at least one week prior to your last dose Medical Devices Implanted Type [employer] Leader Device Identifier Shelf Expiration Date Model / Serial / Lot Coil Azur Cx 32cm 16mm .035in Dtch Loop Implanted:Qty: 1 on 01/05/2023 by Rigoberto Ramos MD at [facility] [employer] [facility] 08/16/2025 [id number] / / [id number] Description:implanted in the left gonadal vein Coil Azur Cx 32cm 16mm .035in Dtch Loop Implanted:Qty: 2 on 01/05/2023 by Rigoberto Ramos MD at [facility] [employer] [facility] 10/16/2027 [id number] / / [id number] Description:implanted in the left gonadal vein. Coil Azur Cx Hdrcl 38cm 12mm .021-.027in Implanted:Qty: 1 on 01/05/2023 by Rigoberto Ramos MD at [facility] 10/16/2027 [id number] / / [id number] Description:R gonadal vein Coil Azur Cx Hdrcl 34cm 14mm .021-.027in Implanted:Qty: 1 on 01/05/2023 by Rigoberto Ramos MD at [facility] 02/13/2025 [id number] / / [id number] Description:R gonadal vein Coil Azur Cx Hdrcl 32cm 10mm .021-.027in Implanted:Qty: 1 on 01/05/2023 by Rigoberto Ramos MD at [facility] 08/16/2026 [id number] / / [id number] Description:R gonadal vein Coil Azur Cx Hdrcl 36cm 18mm .021-.027in Implanted:Qty: 1 on 01/05/2023 by Rigoberto Ramos MD at [facility] 03/16/2025 [id number] / / [id number] Description:R gonadal Vein Coil Azur Cx Hdrcl 36cm 18mm .021-.027in Implanted:Qty: 1 on 01/05/2023 by Rigoberto Ramos MD at [facility] 05/16/2025 [id number] / / [id number] Coil Azur Cx Hdrcl 36cm 18mm .021-.027in Implanted:Qty: 1 on 01/05/2023 by Rigoberto Ramos MD at [facility] 03/16/2025 [id number] / / [id number] Description:R gonadal vein Procedures Procedure Name Priority Date/Time Associated Diagnosis Comments MAMMO BILAT SCREENING W KAMILAH Routine 07/30/2024 10:46 AM CDT Encounter for screening mammogram for malignant neoplasm of breast from Last 3 Months or Most Recently Relevant to Health Maintenance Results * MAMMO BILAT SCREENING W KAMILAH (07/30/2024 10:46 AM CDT) Anatomical Region Laterality Modality Breast Bilateral Mammography 07/30/2024 10:3 4 AM CDT Impressions 07/30/2024 10:55 AM CDT IMPRESSION: Benign mammogram, without evidence of malignancy. Dense breast parenchyma. RECOMMENDATION: 1. Screening mammography in one year, pending no interval breast concerns. 2. Given the extremely dense breast parenchyma, consider annual complete breast ultrasound or breast MRI for supplemental screening. This can be alternated at 6 month intervals with mammography or performed near the time of screening. Patient was notified of the results at the time of her exam. They will see Dr. Eldridge in the breast clinic today. Patient will also receive the exam results by lay letter. OVERALL ASSESSMENT: BI-RADS CATEGORY 2: BENIGN. Report dictated by Lizandro Valdivia MD (residential door unit installer). Ann-Marie Ramey MD (manager of radiology) assisted in the interpretation of this study. I, Bernarda Daniel MD, FACR have personally reviewed and interpreted this examination/study. > Interpreting Provider: Bernarda Daniel MD, FACR on 07/30/2024 10:55 AM Narrative 07/30/2024 10:55 AM CDT EXAMINATIONS: BILATERAL DIGITAL SCREENING MAMMOGRAM AND BILATERAL BREAST TOMOSYNTHESIS LOCATION: [facility] EXAM DATE: 07/30/2024 HISTORY: Screening. 38-year-old female status post right breast mass excision in January 2022 for a benign fibroepithelial lesion. No family history of breast cancer. RISK ASSESSMENT CALCULATION: Patient completed a breast cancer risk assessment during her appointment 07/30/2024. Based upon the information she provided and her mammographic breast density, her lifetime risk of developing breast cancer is 13 % (Average Risk <15%; Intermediate / Moderate Risk 15-19%; High Risk > 20%). Given her extremely dense breast parenchyma, supplemental screening ultrasound is suggested for further evaluation and can be performed at 6 month intervals with screening mammography or the time of screening mammography. For further information, please call [phone]. Risk assessment based upon the BRCAPRO model. COMPARISON: Comparison is made to prior mammograms back to 11/08/2020 and the most recent examination on 08/11/2023 from from [place], [place]. The most recent ultrasound examination was performed on 01/02/2024 from [facility]. TECHNIQUE: Tomosynthesis (3D) and reconstructed synthetic 2-D images acquired and reviewed in the bilateral craniocaudal and mediolateral oblique projections. A total of 4 images obtained. Scar markers placed on both breasts. Transpara AI was utilized in the interpretation. BREAST PARENCHYMAL COMPOSITION: Category D: The breasts are extremely dense which lowers the sensitivity of mammography. FINDINGS: There are no suspicious findings or evidence of malignancy on mammography. Scattered bilateral benign punctate breast calcified patient's. There is no significant change from the prior. Selin Eldridge MD MAMMO ORDERABLES Final Resu lt from Last 3 Months or Most Recently Relevant to Health Maintenance Insurance [facility] * Guarantor: AKHIL MELENDEZ Account Type Relation to Patient Date of Phone Billing Address [address]/Family [phone] [facility] [place] [facility] Member Subscriber Plan / Payer (Ef fective for All Dates) Name:Akhil Melendez Member ID:Not on file Relation to Subscriber:Not on file Name:AKHIL MELENDEZ Subscriber ID:Not on file Address: [address] [place], [place] [phone] Payer ID:Not on file Group ID:Not on file Type:Self Pay Address: [place], [place] * Guarantor: AKHIL MELENDEZ Account Type Relation to Patient Date of Phone Billing Address Personal/Family [address] [phone] [facility] SELF PAY NO INSURANCE Member Subscriber Plan / Payer (Ef fective for All Dates) Name:Akhil Melendez Member ID:Not on file Relation to Subscriber:Not on file Name:AKHIL MELENDEZ Subscriber ID:Not on file Address: [address] [phone] Payer ID:Not on file Group ID:Not on file Type:Self Pay Address: [place], [place] * Guarantor: AKHIL MELENDEZ Account Type Relation to Patient Date of Phone Billing Address Personal/Family [address] [phone] [facility] SELF PAY NO INSURANCE Member Subscriber Plan / Payer (Ef fective for All Dates) Name:Akhil Melendez Member ID:Not on file Relation to Subscriber:Not on file Name:AKHIL MELENDEZ Subscriber ID:Not on file Address: [address] [place] [phone] Payer ID:Not on file Group ID:Not on file Type:Self Pay Address: [place], [place] Care Teams Entry Engineer Relationship Specialty Start Date End Date Tegan Gama DO [address] [place] [phone] PCP - General Family Medicine 03/10/23
--- OUTSIDE RECORDS SUMMARY | 2025-05-01 16:38 | XMS_ITS | Encounter Summary ---
Author Organization [facility] Healthcare Address [address] [place] [address] Care Team Providers Care Machine Greaser Name Role Phone Unavailable Primary Care Provider Unavailabl e Reason for Visit * Diagnostic Imaging (Routine) - Closed Specialty Diagnoses / Procedures Referred By Contac t Referred To Contact Procedures Breast Imaging US Outside Reference Rose Mary Hale MD PhD Phone: tel: fax: Referral ID Status Reason Start Date Expiration Date Visits Re quested Visits Authorized [id number] Closed 12/30/2021 01/29/2023 1 1 Encounter Details Date Type Department Care Team (Late st Contact Info) Description 01/26/2017 Hospital Encounter [facility] Radiology [facility] [address] [place] [id number] Social History Tobacco Use Types Packs/Day Years Used Date Smoking Tobacco: Never Smokeless Tobacco: Never Alcohol Use Standard Drinks/Week Comments Yes 0 [...] on file Legal Sex Female 3:57 AM LIDDER Gender Identity Female 08/04/2021 8:37 AM CDT Sexual Orientation Not on file documented as of this encounter Functional Status * Audit-C Score Answer Date of Assessment Author 0 04/25/2024 10:10 AM CDT Penelope Ignacio MA * Question Answer Date of Assessment Author Q1: How often do you have a drink containing alcohol? Never 04/25/2024 10:10 AM CDT Penelope Ignacio MA Q2: How many drinks containing alcohol do you have on a typical day when you are drinking? Patient does not drink 03/13/2025 8:18 AM CDT Kris Tyler MA Q3: How often do you have six or more drinks on one occasion? Never 04/25/2024 10:10 AM CDT Penelope Ignacio MA documented as of this encounter Plan of Treatment Not on file documented as of this encounter Procedures Procedure Name Priority Date/Time Associated Diagnosis Comments BREAST IMAGING US OUTSIDE REFERENCE Routine 01/26/2017 12:00 AM CDT documented in this encounter Results * Breast Imaging US Outside Reference (01/26/2017 12:00 AM CDT) Impressions [facility]MO[facility] - 12/30/2021 11:28 AM CDT These images are for Reference purposes only and have not been reviewed by [facility] Radiology. There will be no report generated by a [facility] Radiologist. Narrative [facility] - 12/30/2021 11:28 AM CDT EXAMINATION: Images For Reference Purposes Only us Rose Mary Hale MD PhD IMG MAMMO PROCEDURES Final Result [facility] documented in this encounter Visit Diagnoses Not on filedocumented in this encounter Additional Health Concerns Infection Onset Date Last Indicated Resolved Time COVID: Suspected 04/23/2020 04/23/2020 04/25/2020 9:46 AM CDT Respiratory Infection (COLT), contact + droplet Comment:Automatically added due to negative COVID-19 result. 04/25/2020 04/25/2020 05/09/2020 3:0 6 AM CDT Exposure, COVID-19 Comment:Added automatically based on COVID19 lab answers indicating exposure risk 09/17/2021 09/17/2021 09/17/2021 4:[address] COVID: Suspected 09/17/2021 09/17/2021 09/17/2021 4:54 PM LIDDER COVID19 09/17/2021 09/17/2021 10/01/2021 3:05 AM LIDDER COVID: Recovered Comment:Added based on recent COVID infection. 10/01/2021 12/22/2021 01/29/2022 3:05 AM C DT COVID: Suspected 06/09/2022 06/09/2022 06/09/2022 5:57 PM CDT COVID: Suspected 08/30/2022 08/30/2022 08/30/2022 6:50 PM LIDDER COVID: Suspected 03/05/2024 03/05/2024 03/05/2024 8:34 PM CDT COVID: Suspected 10/22/2024 10/22/2024 10/22/2024 9:49 AM LIDDER documented as of this encounter
--- OUTSIDE RECORDS SUMMARY | 2025-05-01 16:38 | XMS_ITS | Referral Summary ---
Author Organization [facility] Address [address] [place] [address] Care Team Providers Care Loan Documentation Specialist Name Role Phone Bucky Abreu MD Unavailable [phone] Arben Mendoza MD Unavailable [phone] Rigoberto Ramos MD Unavailable [phone] Gregorio Land MD Unavailable Rei Cid NP Unavailable [phone] Khari Jason MD Primary Care Provider [phone] Encounters Date Type Department Care Team Description 03/13/2025 [facility] [address] [place] [phone] Kris Tyler MA [facility] 03/13/2025 8:30 AM CDT [facility] [address] [place] [phone] Gregorio Land MD Migraine with aura and without status migrainosus, not intractable (Primary Dx) 02/08/2025 2:50 PM CDT Lab [address] [phone] from Last 3 Months Allergies Active Allergy Reactions Criticality Noted Date [...] 10/24/2023 Assessment & Plan (10/24/2023 11:21 AM PEANUT PICKER): Acute problem-this is a new problem Recommend [...] 10/24/2023 Assessment & Plan (10/24/2023 11:23 AM PEANUT PICKER): Acute problem-this is a new problem Recommend [...] 10/04/2023 Assessment & Plan (10/24/2023 11:19 AM PEANUT PICKER): Acute on chronic problem-this is recurring problem Recommend taking OTC Tylenol and ibuprofen-use as directed Alternate ice and heat therapy to left shoulder p.r.n. at 20 minute intervals Ordered EMG/NCS bilateral upper extremities Follow-up with PCP as scheduled Continue to monitor Follow-up with rheumatoid specialist as scheduled Assessment & Plan (10/04/2023 11:28 AM PEANUT PICKER): OTC NSAIDs recommended. Please take your omeprazole daily. Pain in both feet 10/04/2023 Assessment & Plan (10/04/2023 11:29 AM PEANUT PICKER): Xrays ordered, add OTC NSAIDs, such as Aleve. Use as directed. Pain in both knees 10/04/2023 Assessment & Plan (10/04/2023 11:29 AM PEANUT PICKER): Xrays ordered, add OTC NSAIDs, such as Aleve. Use as directed. Abnormal thyroid function test 09/27/2023 Assessment & Plan (09/27/2023 4:24 PM PEANUT PICKER): Chronic, worsening Low TSH with normal free [...] year Assessment & Plan (11/28/2023 8:34 AM PEANUT PICKER): History of Fan's thyroiditis Elevated TPO antibodies Repeat recent thyroid function test, within normal limits Patient hot flashes are not explain due to her thyroid Advised patient to see filing and polishing supervisor Assessment & Plan (06/03/2023 11:16 AM CDT): Currently not on any medications. Patient reports that her packing checker told her she no longer needed levothyroxine. [...] (12/12/2019): Added automatically from request for surgery [id number] Assessment & Plan (12/26/2019 1:42 PM CDT): Had an episode of abdominal cramping recently. Likely related to constipation. Colonoscopy, EGD, and CT negative. Diastasis of rectus abdominis 11/21/2019 Assessment & Plan (11/21/2019 12:01 PM PEANUT PICKER): With a couple of loops of non [...] fiber. Assessment & Plan (12/12/2019 1:55 PM PEANUT PICKER): Pt is unsure of her BM pattern. [...] issues. Assessment & Plan (11/20/2019 2:31 PM PEANUT PICKER): Intermittent issues with constipation. Pt is unsure of pattern and states she doesn't pay attention to when she goes. She does know she can skip a couple of days. She doesn't take anything for her constipation. Spoke with patient and appears she has poor diet. She says she eats fast food a lot and loves cambodian fries. Discussed importance of eating a fresh [...] was extenenesively evaluated by Endocrinology department at [facility] No other abnormalities found TSH was normal [...] TSH between 0.16 and 0.3 detected in 2016 With normal T4 and T3 The abnormality was extenenesively evaluated by Endocrinology department at [facility] No other abnormalities found Plan: Explained to patient that the abnormal TSH is not the cause of symptoms and will only require treatment if there is evidence of hyperthyroidism with high T4 and T3. Follow up and further recommendation will be decided after we obtain above test results. Obtain copy of most recent thyroid labs. Check labs for TFT Nausea without vomiting 11/20/201902/16 Assessment & Plan (12/26/2019 1:41 PM CDT): [...] nausea. Assessment & Plan (12/12/2019 1:54 PM PEANUT PICKER): Pt having intermittent episodes of nausea. EGD was normal. Possible dyspepsia. Pt appears to have overall poor diet. Will start on pantoprazole 40mg daily and instructed to keep food journal of things that are causing the nausea/pain. Instructed to avoid too heavy/high fat, fast foods. Assessment & Plan (11/20/2019 2:35 PM PEANUT PICKER): Intermittent episodes of nausea on and off. No vomiting. Discussed avoiding high fat, fried foods and avoiding fast food. Will schedule EGD due to complaints of LUQ pain and intermittent nausea. Upper abdominal pain 11/20/2019 023 Overview (11/20/2019): Added automatically from request for surgery [id number] Assessment & Plan (12/12/2019 1:52 PM PEANUT PICKER): Intermittent episodes. Pt says she had LUQ pain that didn't last very long and then another separate episodes in the epigastric area. She is getting intermittent nausea episodes as well. Will schedule colonoscopy due to issues with constipation, abdominal pain, and nausea. Acute vaginitis 07/01/2016 07/28/2023 Overview (07/28/2023): Acute vaginitis;Practice ID: 0001 Immunizations Immunization Administration Dates Next Due DTP 06/12/1992,06/22/1988,1985 ,1985 HPV, Quadrivalent 10/30/2007,08/14/2007 Hep A, Unspecified 12/26/2007 Hep B, Adolescent or Pediatric 05/30/2000 Influenza, Unspecified 10/04/2023(Deferr ed: Patient Refused),03/15/2023(Deferred: Patient Refused) MMR 06/12/1992,06/22/1988 OPV 06/12/1992,06/22/1988,1985 ,1985 Social History Tobacco Use Types Packs/Day Years [...] on file Legal Sex Female 3:57 AM PEANUT PICKER Gender Identity Female 08/04/2021 8:37 AM CDT Sexual Orientation Not on file Last Filed Vital Signs Vital Sign Reading Time Taken Comments Blood Pressure 97/75 10/22/2024 8:40 AM PEANUT PICKER Pulse 92 10/22/2024 8:40 AM PEANUT PICKER Temperature 36.7 C (98 F) 10/22/2024 8:40 AM PEANUT PICKER Respiratory Rate 16 10/22/2024 8:40 AM PEANUT PICKER Oxygen Saturation 100% 10/22/2024 8:40 AM PEANUT PICKER Inhaled Oxygen Concentration - - Weight 63.5 kg (140 lb) 03/13/2025 8:23 AM CDT Height 167.6 cm (5' 6) 03/13/2025 8:23 AM CDT Body Mass Index 22.6 03/13/2025 8:23 AM CDT Plan of Treatment Not on file Procedures Procedure Name Priority Date/Time Associated Diagnosis [...] BLOOD ORDERABLES Final Resul t [facility] ([place]) 1 [facility] Department [place] [address] * Differential, auto (02/08/2025 2:59 PM CDT) [...] revised on 2018. Monocyte pct 6.2 % [facility] ([place]) Comment: Interpretive Data [...] 2018. Basophil pct 0.5 % [facility] ([place]) Comment: Interpretive Data Percent cell count reference ranges are not reported, since discordance with absolute values may lead to misinterpretation of CBC data. Current Interpretive Data was last revised on 2018. Blood 02/08/2025 2:59 PM CDT 02/08/2025 3:03 PM CDT Man Sidhu MD LAB BLOOD ORDERABLES Final Resul t [facility] ([place]) 1 [facility] Department [place] [address] * (ABNORMAL) Urinalysis reflex to microscopic (02/08/2025 2:59 PM CDT) Color, ur Yellow Yellow Clarity, ur Turbid(A) Clear [facility] ([place]) Specific gravity, ur 1.022 1.003 - 1.030 [facility] ([place]) pH, urine 5.5 [facility] ([place]) Comment: Interpretive Data U rine pH is affected by diet, medications, systemic acid-base disturbances, and renal tubular function. pH may affect urinary stone formation. For example, urine pH below 6.0 may help reduce the tendency for calcium phosphate stones and pH greater than 6.0 may reduce the tendency for uric acid stone formation. Source: [facility] [employer] Current Interpretive Data was last revised on 2017 Protein, ur ql Negative Negative [facility] ([place]) Glucose, ur ql Negative Negative [facility] ([place]) Ketones, ur Negative Negative [facility] ([place]) Bilirubin, ur Negative Negative [facility] ([place]) Blood, ur Negative Negative [facility] ([place]) Urobilinogen, ur <2.0 <2.0 mg/dL [facility] ([place]) Nitrite, ur Negative Negative [facility] ([place]) Leukocyte esterase, ur Negative Negative [facility] ([place]) UA reflex comment Reflex conditions for microscopic UA not met. [facility] ([place]) Urine 02/08/2025 2:59 PM CDT 02/08/2025 3:03 PM CDT Man Sidhu MD LAB URINE ORDERABLES Final Resul t [facility] ([place]) 1 [facility] Department [place] [address] * (ABNORMAL) CBC with auto differential (02/08/2025 [...] RDW CV 13.0 11.1 - 14.9 % [facility] ([place]) RDW SD 42.8 35.7 - 48.1 fL [facility] ([place]) NRBC abs 0.00 0.00 - 0.01 K/cumm [facility] ([place]) Blood 02/08/2025 2:59 PM CDT 02/08/2025 3:03 PM CDT Man Sidhu MD LAB BLOOD ORDERABLES Final Resul t [facility] ([place]) 1 [facility] [place] [address] * Vitamin D 25 hydroxy (02/08/2025 2:59 PM CDT) Vitamin D 25-OH 32 30 - 80 ng/mL Blood 02/08/2025 2:59 PM CDT 02/08/2025 3:03 PM CDT Man Sidhu MD LAB BLOOD ORDERABLES Final Resul t Performing Organization Address City/[facility]/ZIP Co de Phone Number [facility] ([place]) 1 [facility] [place] [address] * Renal function panel (02/08/2025 2:59 PM CDT) Sodium 141 135 - 145 mmol/L Potassium, pl 3.4 3.3 - 4.9 mmol/L [facility] ([place]) Chloride 104 97 - 110 mmol/L [facility] ([place]) CO2 23 22 - 32 mmol/L [facility] ([place] Anion gap 14 2 - 15 mmol/L [facility] ([place]) BUN 12 6 - 25 mg/dL [facility] ([place]) Creatinine 1.02 0.60 - 1.10 mg/dL [facility] ([place]) Glucose 100 70 - 199 mg/dL [facility] ([place]) Comment: Interpretive Data Fasting glucose >/= [...] 2022. Calcium 9.3 8.5 - 10.3 mg/dL [facility] ([place]) Phosphorus, pl 3.5 2.3 - 4.5 mg/dL [facility] ([place]) Albumin 4.6 3.5 - 5.0 g/dL [facility] ([place]) Blood 02/08/2025 2:59 PM CDT 02/08/2025 3:03 PM CDT Man Sidhu MD LAB BLOOD ORDERABLES Final Resul t [facility] ([place]) 1 [facility] Department [place] [address] * Screening Mammogram Bilateral W Cristian (08/11/2023) Anatomical Region Laterality Modality Breast Bilateral Mammography Generic External Data Provider IMG MAMMO PROCEDU RES Final Result * Hepatitis C antibody (03/15/2023 11:25 AM CDT) Hep C Ab Nonreactive Nonreactive [facility] ([place]) Comment: Interpretive Data Nonreactive: Antibodies to HCV [...] last revised on 2020. Testing performed by: [facility], [address] [place] [address], [place]., [address] Blood 03/15/2023 11:2 5 AM CDT 03/15/2023 11:29 PM CDT us Tegan Gama DO LAB MICROBIOLOGY - GENERAL ORDERABLES Final Result [facility] ([place]) 1 [facility] Department [place] [address] * HM PAP SMEAR WITH HPV (07/23/2022) Scribed Pap Smear w/HPV Normal us Generic External Data Provider HEALTH MAINTENANC E Final Result from Last 3 Months or Most Recently Relevant to Health Maintenance Insurance [facility] [place] [address] Advance Directives For more information, please contact: [phone] * Full Code (Latest Code Status on File) Date Activated Date Inactivated Comments 12/19/2019 9:42 AM 12/19/2019 5:00 PM * Full Code Date Activated Date Inactivated Comments 12/19/2019 9:42 AM 12/19/2019 9:42 AM * Full Code Date Activated Date Inactivated Comments 12/05/2019 6:51 AM 12/05/2019 1:19 PM * Full Code Date Activated Date Inactivated Comments 12/05/2019 6:51 AM 12/05/2019 6:51 AM Care Teams Loan Documentation Specialist Relationship Specialty Start Date End Date Khari Jason MD [address] [address] PCP - General Emergency Medicine 03/05/24 Bucky Abreu MD [address] [id number] Referring Physician Hematology 03/15/23 Arben Mendoza MD [address] [place] [address] Referring Physician Obstetrics and Gynecology 03/15/23 Rigoberto Ramos MD [address] [place] [address] Radiation Therapy 03/15/23 Gregorio Land MD [address] [place] [address] Referring Physician Neurology 03/15/23 Rei Cid NP [address] [place] [address] Nurse Practitioner Family Practice 03/15/23
--- OUTSIDE RECORDS SUMMARY | 2025-05-01 16:38 | XMS_ITS | Encounter Summary ---
Author Organization [facility] Healthcare Address [address] [place] [address] Care Team Providers Care Photography Editor Name Role Phone Khari Jason MD Primary Care Provider [phone] Reason for Visit * Diagnostic Imaging (Routine) - Closed Specialty Diagnoses / Procedures Referred By Contac t Referred To Contact Procedures Breast Imaging Screening Outside Reference Rose Mary Hale MD PhD Phone: tel: fax: Referral ID Status Reason Start Date Expiration Date Visits Re quested Visits Authorized [id number] Closed 12/30/2021 01/29/2023 1 1 Encounter Details Date Type Department Care Team (Late st Contact Info) Description 11/08/2020 Hospital Encounter [facility] Rad[facility] [address] [place] [phone] Social History Tobacco Use Types Packs/Day Years [...] on file Legal Sex Female 3:57 AM SHREDDED FILLER CUTTER OPERATOR Gender Identity Female 08/04/2021 8:37 AM CDT [...] Priority Date/Time Associated Diagnosis Comments BREAST IMAGING MG SCREENING OUTSIDE REFERENCE Routine 11/08/2020 12:00 AM SHREDDED FILLER CUTTER OPERATOR documented in this encounter Results * Breast Imaging Screening Outside Reference (11/08/2020 12:00 AM SHREDDED FILLER CUTTER OPERATOR) Impressions [facility] - 12/30/2021 11:24 AM CDT These images are for Reference purposes only and have not been reviewed by [facility] Radiology. There will be no report generated by a [facility] Radiologist. Narrative [facility] - 12/30/2021 11:24 AM CDT EXAMINATION: Images For Reference Purposes Only us Rose Mary Hale MD PhD IMG MAMMO PROCEDURES Final Result [facility] documented in this encounter Visit Diagnoses Not on filedocumented in this encounter Additional Health Concerns Infection Onset Date Last Indicated Resolved Time Exposure, COVID-19 Comment:Added automatically based on COVID19 lab answers indicating exposure risk 09/17/2021 09/17/2021 09/17/2021 4:[address] COVID: Suspected 09/17/2021 09/17/2021 09/17/2021 4:54 PM SHREDDED FILLER CUTTER OPERATOR COVID19 09/17/2021 09/17/2021 10/01/2021 3:05 AM SHREDDED FILLER CUTTER OPERATOR COVID: Recovered Comment:Added based on recent COVID infection. 10/01/2021 12/22/2021 01/29/2022 3:05 AM C DT COVID: Suspected 06/09/2022 06/09/2022 06/09/2022 5:57 PM CDT COVID: Suspected 08/30/2022 08/30/2022 08/30/2022 6:50 PM SHREDDED FILLER CUTTER OPERATOR COVID: Suspected 03/05/2024 03/05/2024 03/05/2024 8:34 PM CDT COVID: Suspected 10/22/2024 10/22/2024 10/22/2024 9:49 AM SHREDDED FILLER CUTTER OPERATOR documented as of this encounter Care Teams Photography Editor Relationship Specialty Start Date End Date Khari Jason MD PCP - General Emergency Medicine 04/01/20 03/14/23 documented as of this encounter
--- OUTSIDE RECORDS SUMMARY | 2025-05-01 16:38 | XMS_ITS | Clinical Summary ---
Author Organization [facility] Address [address] [place] [phone] Phone Care Team Providers Care Information Clerk Brokerage Name Role Phone Unavailable Primary Care Provider Unavailabl e Allergies No known active allergies Medications ferrous sulfate 324 MG tablet delayed-release Take 324 mg by mouth 1 (one) time each day with breakfast As needed Active sertraline (ZOLOFT) 25 MG tablet Take 25 mg by mouth 1 (one) time each day As needed Active omeprazole (PriLOSEC) [address] capsule Take 20 mg by mouth 1 (one) time each day As needed Active ergocalciferol (VITAMIN D-2) 1.25 MG (62978 UT) capsule Take 1 capsule (50,000 Units total) by mouth 1 (one) time per week 4 capsule 11 5 Active ergocalciferol (VITAMIN D-2) 1.25 MG (12190 UT) capsule Take 50,000 Units by mouth 1 (one) time per week 04/11/20 25 Discontinu ed(Reorder ) Active Problems Problem Noted Date Diagnosed Date Microalbuminuria 05/31/2024 Microscopic hematuria 05/31/2024 Anemia 05/31/2024 Encounters Date Type Department Care Team Description 04/11/2025 4:20 PM CDT Office Visit [facility] [address] [facility] 1 [place] [address] Man Sidhu MD Chronic kidney disease stage 2 (Primary Dx); Essential hypertension from Last 3 Months Social History Tobacco Use Types Packs/Day Years Used Date Smoking Tobacco: Never Smokeless Tobacco: Never Alcohol Use Standard Drinks/Week Comments Never 0 (1 standard drink = 0.6 oz pur e alcohol) Comments Unknown Sex and Gender Information Value Date Recorded Sex Assigned at Not on file Legal Sex Female 3:25 PM MDT Gender Identity Not on file Sexual Orientation Not on file Last Filed Vital Signs Vital Sign Reading Time Taken Comments Blood Pressure 115/80 04/11/2025 4:16 PM CDT Pulse 75 04/11/2025 4:16 PM CDT Temperature - - Respiratory Rate - - Oxygen Saturation - - Inhaled Oxygen Concentration - - Weight 67.1 kg (148 lb) 04/11/2025 4:16 PM CDT Height 170.2 cm (5' 7) 04/11/2025 4:16 PM CDT Body Mass Index 23.18 04/11/2025 4:16 PM CDT Plan of Treatment Upcoming Encounters Date Type Department Care Team (Late st Contact Info) Description 10/03/2025 11:20 AM PRODUCT HANDLER Office Visit [facility] [address] [facility] 1 [place] [address] Man Sidhu MD [address] [facility] 1 [place] [address] Health Maintenance Due Date Last Done Comments Pneumococcal PPSV23 Highest Risk Adult (1 of 3 - PCV13 ) 02/22/2004 Influenza Vaccine (#1) 2025 Insurance PM INTERFACED INSURANCE
--- OUTSIDE RECORDS SUMMARY | 2025-05-01 16:38 | XMS_ITS | Continuity of Care Document ---
Author Organization [facility] Address [address] [place] [address] Phone Care Team Providers Care Cloth Colorer Name Role Phone Unavailable Unavailable Unavailable Medications Medication Instructions Dosage Effective Dates (start - stop) Status Comments PLUS 65-1MGTABLET PLUS TABLET<><> 1 TAB by mouth (PO) every day.<><><>DISPENSE: 90 day supply.<>REFILLS: 4<>Provider: EZE BURKETT MD<> SIGNATURE ON FILE <><> PLEASE HOLD FOR PATIENT PICK-UP <><>Healt - Active Procedures Procedure Date OFFICE CONSULT, 15 MIN, 3 KE Y COMPS: PROB FOCUS HX; PROB FOCUS EXAM; STRTFWD BLOOD COUNT; COMPLETE (CBC), AUTOMATED (HGB, HCT, RBC, WBC AND PLATELET COUNT) BASIC METABOLIC PANEL CALCIUM TOTAL HUMAN PAPILLOMA VIRUS VACCINE QUADRIV 3 DOSE IM OFFICE OUTPT EST 10 MIN HUMAN PAPILLOMA VIRUS VACCINE QUADRIV 3 DOSE IM OFFICE OUTPT EST 10 MIN Injection, medroxyprogesterone acetate ( Depo-Provera), 150 mg URINE TEST, BY VISUAL COLOR CO MPARISON METHODS Injection, medroxyprogesterone acetate ( Depo-Provera), 150 mg OFFICE OUTPT EST 25 MIN OFFICE/OUTPATIENT VISIT, EST URINE TEST, BY VISUAL COLOR CO MPARISON METHODS OFFICE/OUTPATIENT VISIT, EST Injection, medroxyprogesterone acetate ( Depo-Provera), 150 mg URINE TEST, BY VISUAL COLOR CO MPARISON METHODS Injection, medroxyprogesterone acetate ( Depo-Provera), 150 mg OFFICE/OUTPATIENT VISIT, EST OFFICE/OUTPATIENT VISIT, EST GONADOTROPIN, CHORIONIC (HCG); QUALITATI VE COLLECTION OF VENOUS BLOOD BY VENIPUNCTU RE Injection, medroxyprogesterone acetate ( Depo-Provera), 150 mg SMEAR, WET MOUNT, SALINE/INK BLOOD COUNT; COMPLETE (CBC), AUTOMATED (HGB, HCT, RBC, WBC AND PLATELET COUNT) OFFICE OUTPT EST 25 MIN CYTP C/V AUTO THIN LYR PREPJ SCR SYS PHY S URNLS DIP STICK/TABLET RGNT AUTO W/O RONALD CHYLMD TRACH, DNA, DIR PROBE N.GONORRHOEAE, DNA, DIR PROB OFFICE OUTPT EST 25 MIN Injection, medroxyprogesterone acetate ( Depo-Provera), 150 mg URINE TEST, BY VISUAL COLOR CO MPARISON METHODS URNLS DIP STICK/TABLET RGNT AUTO W/O RONALD Injection, medroxyprogesterone acetate ( Depo-Provera), 150 mg OFFICE OUTPT EST 25 MIN URINE TEST, BY VISUAL COLOR CO MPARISON METHODS URNLS DIP STICK/TABLET RGNT AUTO W/O RONALD Advance Directives Directive Yes / No Effective Date File Name No Information Encounters Encounter Description Practice Location Reason(s) For Visit Diagnoses Date Provider Providers Copied on Encounter [facility] [address], [place], [place], [id number] , [place] tel:[phone] Historic Immunization Location No Information 9 No Information OFFICE CONSULT, 15 MIN, 3 AC COMPS: PROB FOCUS HX; PROB FOCUS EXAM; STRTFWD [facility], [address], [place], [place], [address] , [place] tel: [phone] [facility] ECONOMIC PROBLEM 8 No Information OFFICE OUTPT EST 10 MIN [facility], [address], [place], [place], [address] , [place] tel: [phone] [facility] CONTRACEPT PILL SURVEILLVACCIN FOR DISEASE NEC 8 No Information OFFICE OUTPT EST 10 MIN [facility], [address], [place], [place], [address] , [place] tel: [phone] [facility] VACCIN FOR DISEASE NECCONTRACEPT SURVEILL NEC 7 No Information OFFICE OUTPT EST 25 MIN [facility], [address], [place], [place], [address] , [place] tel: [phone] [facility] [place] LUMP OR MASS IN BREAST 7 Donnell Richard. [address], [place], [place], [address], [place]. tel:[phone] OFFICE/OUTPA TIENT VISIT, EST [facility], [address], [place], [place], [address] , [place] tel: [phone] [facility] [place] OTALGIA NOSACUTE PHARYNGITISRHI NITIS DUE TO POLLEN 7 No Information OFFICE/OUTPA TIENT VISIT, EST [facility], [address], [place], [place], [address] , [place] tel: [phone] [facility] CONTRACEPT PILL SURVEILL 7 No Information OFFICE/OUTPA TIENT VISIT, EST [facility], [address], [place], [place], [address] , [place] tel: [phone] [facility] CONTRACEPT PILL SURVEILL 6 No Information OFFICE/OUTPA TIENT VISIT, EST [facility], [address], [place], [place], [address] , [place] tel: [phone] [facility] CONTRACEPT SURVEILL NOS 6 No Information OFFICE OUTPT EST 25 MIN [facility], [address], [place], [place], [address] , [place] tel: [phone] [facility] ROUTINE KNITTER HELPER EXAMINATION 6 No Information OFFICE OUTPT EST 25 MIN [facility], [address], [place], [place], [address] , [place] tel: [phone] [facility] CONTRACEPT PILL SURVEILLROUTIN E KNITTER HELPER EXAMINATIONLUM P OR MASS IN BREAST 6 No Information OFFICE OUTPT EST 25 MIN [facility], [address], [place], [place], [address] , [place] tel: [phone] Dion[facility] Conversion ROUTINE KNITTER HELPER EXAMINATIONCON TRACEPT PILL SURVEILL 6 No Information Family History Family Member Type Diagnosis Age At Onset No Information Immunizations Vaccine Date Status Comments HUMAN PAPILLOMA VIRUS VACCIN E QUADRIV 3 DOSE IM administered Source: New Immuniza tion Record HUMAN PAPILLOMA VIRUS VACCIN E QUADRIV 3 DOSE IM administered Source: New Immuniza tion Record Payers Payer name Insurance type Covered constitution party ID Authoriza tion(s) No Information Social History Type Description Quantity Date Captured Comments Sex Female Smoking Status No Information Chief Complaint And Reason For Visit No Information Reason For Referral Reason For Referral No Information Plan Of Treatment Date Type Action Status Goal HPV (3rd). Due on 8 due Goal HPV (2nd). Due on 8 due Goal HPV (1st). Due on 7 due History Of Present Illness Encounter Date Complaint History Of Prese nt Illness No Information Functional Status Date Functional Assessmen t No Information Instructions Date Instruction Additional Infor mation No Information Assessments Type Assessment Date No Information Patient Care Teams Name Effective Dates (start - stop) Status Members No Information
--- OUTSIDE RECORDS SUMMARY | 2025-05-01 16:38 | XMS_ITS | Clinical Summary ---
Author Organization [facility] Address [address] [place] [address] Care Team Providers Care Journeyman Plumber Name Role Phone Khari Jason MD Primary Care Provider [phone] Allergies No known active allergies Medications esomeprazole (NEXIUM) 20 MG CAPSULE DELAYED RELEASE Take 2 Caps by mouth daily. 30 Cap 0 02/12/2017 Active polyethylene glycol (MIRALAX) Powder Take 17 g by mouth daily. 17 g = 1 scoop. Dissolve in 4 -8 oz of water or other liquid. 1 Bottle 0 02/12/2017 Active azithromycin (ZITHROMAX Z-DAVE) 250 MG Tablet 2 tab(s) daily for 1 day, then 1 tab(s) daily for days 2-5. 6 Tab 08/25/2018 Active butalbital-acet aminophen-caffe ine (FIORICET, ESGIC) 50-325-40 MG Tablet Take 1 Tab by mouth every 4 hours as needed for Headaches. 15 Tab 06/04/2019 Active Active Problems No known active problems Social History Tobacco Use Types Packs/Day Years Used Date Smoking Tobacco: Never Smokeless Tobacco: Never Alcohol Use Standard Drinks/Week Comments No 0 (1 standard drink = 0.6 oz pur e alcohol) occasional Comments No Sex and Gender Information Value Date Recorded Sex Assigned at Not on file Legal Sex Female 8:16 AM CDT Gender Identity Not on file Sexual Orientation Not on file Last Filed Vital Signs Vital Sign Reading Time Taken Comments Blood Pressure 109/61 06/04/2019 8:47 PM CDT Pulse 67 06/04/2019 6:24 PM CDT Temperature 36.3 C (97.3 F) 06/04/2019 6:24 PM CDT Respiratory Rate 22 06/04/2019 8:47 PM CDT Oxygen Saturation 98% 06/04/2019 8:47 PM CDT Inhaled Oxygen Concentration - - Weight 57.6 kg (127 lb) 06/04/2019 6:24 PM CDT Height 167.6 cm (5' 6) 06/04/2019 6:24 PM CDT Body Mass Index 20.5 06/04/2019 6:24 PM CDT Plan of Treatment Health Maintenance Due Date Last Done Comments Hepatitis C Virus (HCV) Screening 1985 TdaP Immunization 1985 Human Papillomavirus (HPV) Immunization (1 - 3-dose series) 02/22/2000 Hepatitis B Immunization (2 of 3 - 3-dose series) 06/27/2000 05/30/2000 Pap Smear 2006 Cervical Cancer Screening (CCS) 2015 HPV/Cotest 2015 SARS-COV-2 Immunization ( season) 2024 Influenza Immunization (#1) 2025 Respiratory Syncytial Virus (RSV) Immunization (Adult) (1 - 1-dose 75+ series) 02/22/2060 DTaP/Tdap/Td Immunization Discontinued 1991, 06/22/1988, 1985, Additional history exists Meningococcal Immunization (ACWY) Aged Out No longer eligible based on patient's age to complete this topic Pneumococcal Immunization Combined Aged Out No longer eligible based on patient's age to complete this topic Rotavirus Immunization Aged Out No lo nger eligible based on patient's age to complete this topic Insurance [facility] Advance Directives * Full Code (Latest Code Status on File) Date Activated Date Inactivated Comments 01/03/2018 7:44 PM 01/04/2018 2:45 AM CPR-Full Isael atment: FULL ARREST: Attempt Resuscitation/CPR wit intubation and mechanical ventilation. PRE-ARREST: Use entire range of life support measures to stabilize the patient. * Full Code Date Activated Date Inactivated Comments 09/19/2017 12:03 PM 09/19/2017 6:09 PM CPR-Full Tr eatment: FULL ARREST: Attempt Resuscitation/CPR wit intubation and mechanical ventilation. PRE-ARREST: Use entire range of life support measures to stabilize the patient. Care Teams Journeyman Plumber Relationship Specialty Start Date End Date Khari Jason MD [address] [address] PCP - General Family Medicine 09/19/17
--- OUTSIDE RECORDS SUMMARY | 2025-05-01 16:38 | XMS_ITS | Encounter Summary ---
Author Organization [facility] Healthcare Address [address] [place] [address] Care Team Providers Care Grading Clerk Name Role Phone Khari Jason MD Primary Care Provider [phone] Reason for Visit * Diagnostic Imaging (Routine) - Closed Specialty Diagnoses / Procedures Referred By Contac t Referred To Contact Procedures Breast Imaging Diagnostic Outside Reference Rose Mary Hale MD PhD Phone: tel: fax: Referral ID Status Reason Start Date Expiration Date Visits Re quested Visits Authorized [id number] Closed 12/30/2021 01/29/2023 1 1 Encounter Details Date Type Department Care Team (Late st Contact Info) Description 12/05/2020 Hospital Encounter [facility] [address] [place] [id number] Social History Tobacco Use Types Packs/Day Years [...] on file Legal Sex Female 3:57 AM LOAD PLANNER Gender Identity Female 08/04/2021 8:37 AM CDT [...] Date/Time Associated Diagnosis Comments BREAST IMAGING MG DIAGNOSTIC OUTSIDE REFERENCE Routine 12/05/2020 12:00 AM LOAD PLANNER documented in this encounter Results * Breast Imaging Diagnostic Outside Reference (12/05/2020 12:00 AM LOAD PLANNER) Impressions [id number] - 12/30/2021 11:25 AM CDT These images are for Reference purposes only and have not been reviewed by [facility]iology. There will be no report generated by a [facility] Radiologist. Narrative [facility] - 12/30/2021 11:25 AM CDT EXAMINATION: Images For Reference Purposes [...] COVID: Suspected 09/17/2021 09/17/2021 09/17/2021 4:54 PM LOAD PLANNER COVID19 09/17/2021 09/17/2021 10/01/2021 3:05 AM LOAD PLANNER COVID: Recovered Comment:Added based on recent COVID infection. 10/01/2021 12/22/2021 01/29/2022 3:05 AM C DT COVID: Suspected 06/09/2022 06/09/2022 06/09/2022 5:57 PM CDT COVID: Suspected 08/30/2022 08/30/2022 08/30/2022 6:50 PM LOAD PLANNER COVID: Suspected 03/05/2024 03/05/2024 03/05/2024 8:34 PM CDT COVID: Suspected 10/22/2024 10/22/2024 10/22/2024 9:49 AM LOAD PLANNER documented as of this encounter Care Teams Grading Clerk Relationship Specialty Start Date End Date Khari Jason MD PCP - General Emergency Medicine 04/01/20 03/14/23 documented as of this encounter
--- OUTSIDE RECORDS SUMMARY | 2025-05-01 16:38 | XMS_ITS | Clinical Summary ---
Author Organization [facility] Address [address] [place] [address] Care Team Providers Care Project Product Manager Name Role Phone Tegan Gama Primary Care Provider [phone] Allergies No known active allergies Medications ferrous sulfate 324 mg (65 mg iron) Tablet, Delayed Release (E.C.) Take 324 mg by mouth. 01/23/2020 Active omeprazole (PriLOSEC) 20 mg Capsule, Delayed Release(E.C.) 08/13/2021 Activ e Active Problems Problem Noted Date Diagnosed Date Iron deficiency anemia 06/16/2020 Encounters Date Type Department Care Team Description 04/30/2025 External Device Data [facility] ABSTRACTION Provider, Abstract 04/02/2025 External Device Data [facility] ABSTRACTION Provider, Abstract 03/07/2025 External Device Data [facility] ABSTRACTION Provider, Abstract 03/05/2025 External Device Data [facility] ABSTRACTION Provider, Abstract 02/12/2025 External Device Data [facility] ABSTRACTION Provider, Abstract 02/12/2025 External Device Data [facility] ABSTRACTION Provider, Abstract from Last 3 Months Family History Relation Name Status Comments Brother Alive Father Alive Mother Alive Sister Alive Social History Tobacco Use Types Packs/Day Years Used Date Smoking Tobacco: Never Smokeless Tobacco: Never Tobacco Cessation:Counseling Given: Not Answered Alcohol Use Standard Drinks/Week Comments Never 0 (1 standard drink = 0.6 oz pur e alcohol) Comments No Sex and Gender Information Value Date Recorded Sex Assigned at Not on file Legal Sex Female 11:03 AM CDT Gender Identity Not on file Sexual Orientation Not on file Last Filed Vital Signs Vital Sign Reading Time Taken Comments Blood Pressure 101/76 05/03/2024 1:06 PM CDT Pulse 71 05/03/2024 1:06 PM CDT Temperature 36.3 C (97.3 F) 05/03/2024 1:06 PM CDT Respiratory Rate 18 05/03/2024 1:06 PM CDT Oxygen Saturation 98% 05/03/2024 1:06 PM CDT Inhaled Oxygen Concentration - - Weight 61.2 kg (135 lb) 05/03/2024 1:06 PM CDT Height 167.6 cm (5' 6) 08/16/2022 11:35 AM CDT Body Mass Index 21.79 08/16/2022 11:35 AM CDT Plan of Treatment Upcoming Encounters Date Type Department Care Team (Late st Contact Info) Description 05/08/2025 2:45 PM CDT Office Visit [facility] Oncology and Hematology [facility] [address] [facility] [address] [place] [address] Bucky Abreu MD [address] [facility] [address] [place] [address] Health Maintenance Due Date Last Done Comments DTAP/TDAP/TD VACCINES (5 - Tdap) 02/22/1996 06/12/1992, 06/22/1988, 1985, Additional history exists HEPATITIS B VACCINES (2 of 3 - 3-dose series) 06/27/2000 05/30/2000 HPV/Cotest (21-29) 2006 HPV VACCINES (3 - 3-dose series) 02/13/2008 10/30/19 08, 08/14/2007 HPV/Cotest (30-65) 2015 INFLUENZA VACCINE (#1) 2025 BREAST CANCER SCREENING 07/30/2025 07/30/20 24, 08/11/2023, 02/14/2017, Additional history exists CERVICAL CANCER SCREENING 07/09/2027 PAP SMEAR 07/09/2027 07/09/2024, 04/2022, 05/18/2021 Insurance [place] Care Teams Project Product Manager Relationship Specialty Start Date End Date Tegan Gama DO PCP - General Family Practice 02/18/23
--- OUTSIDE RECORDS SUMMARY | 2025-05-01 16:38 | XMS_ITS | Encounter Summary ---
Author Organization [facility] Healthcare Address [address] [place] [address] Care Team Providers Care Financial Services Counselor Name Role Phone No, Physician Primary Care Provider [phone] Reason for Visit * Diagnostic Imaging (Routine) - Closed Specialty Diagnoses / Procedures Referred By Contshamar t Referred To Contact Procedures Breast Imaging Diagnostic Outside Reference Rose Mary Hale MD PhD Phone: tel: fax: Referral ID Status Reason Start Date Expiration Date Visits Re quested Visits Authorized [id number] Closed 12/30/2021 01/29/2023 1 1 Encounter Details Date Type Department Care Team (Late st Contact Info) Description 06/05/2017 Hospital Encounter [facility] [address] [place] [address] Social History Tobacco Use Types Packs/Day Years [...] on file Legal Sex Female 3:57 AM INSTRUMENTATION AND CONTROLS DESIGNER Gender Identity Female 08/04/2021 8:37 AM CDT [...] BREAST IMAGING MG DIAGNOSTIC OUTSIDE REFERENCE Routine 06/05/2017 12:00 AM CDT documented in this encounter Results * Breast Imaging Diagnostic Outside Reference (06/05/2017 12:00 AM CDT) Impressions [id number] - 12/30/2021 11:25 AM CDT These images are for Reference purposes only and have not been reviewed by [facility]. There will be no report generated by a [facility] Radiologist. Narrative [facility] - 12/30/2021 11:25 AM CDT EXAMINATION: Images For Reference Purposes Only Rose Mary Hale MD PhD IMG MAMMO [...] COVID: Suspected 09/17/2021 09/17/2021 09/17/2021 4:54 PM INSTRUMENTATION AND CONTROLS DESIGNER COVID19 09/17/2021 09/17/2021 10/01/2021 3:05 AM INSTRUMENTATION AND CONTROLS DESIGNER COVID: Recovered Comment:Added based on recent COVID infection. 10/01/2021 12/22/2021 01/29/2022 3:05 AM C DT COVID: Suspected 06/09/2022 06/09/2022 06/09/2022 5:57 PM CDT COVID: Suspected 08/30/2022 08/30/2022 08/30/2022 6:50 PM INSTRUMENTATION AND CONTROLS DESIGNER COVID: Suspected 03/05/2024 03/05/2024 03/05/2024 8:34 PM CDT COVID: Suspected 10/22/2024 10/22/2024 10/22/2024 9:49 AM INSTRUMENTATION AND CONTROLS DESIGNER documented as of this encounter Care Teams Financial Services Counselor Relationship Specialty Start Date End Date No, Physician PCP - General 03/22/17 12/04/19 documented as of this encounter
--- OUTSIDE RECORDS SUMMARY | 2025-05-01 16:38 | XMS_ITS | Encounter Summary ---
Author Organization [facility] Address [address] [place] [address] Care Team Providers Care Robotics Testing Technician Name Role Phone Tegan Gama DO Primary Care Provider [phone] Encounter Details Date Type Department Care Team (Late st Contact Info) Description 04/30/2025 External Device Data [facility] Provider, Abstract NO ADDRESS ON FILE Social History Tobacco Use Types Packs/Day Years Used Date Smoking Tobacco: Never Smokeless Tobacco: Never Alcohol Use Standard Drinks/Week Comments Never 0 (1 standard drink = 0.6 oz pur e alcohol) Comments No Sex and Gender Information Value Date Recorded Sex Assigned at Not on file Legal Sex Female 11:03 AM CDT Gender Identity Not on file Sexual Orientation Not on file documented as of this encounter Plan of Treatment Upcoming Encounters Date Type Department Care Team (Late st Contact Info) Description 05/08/2025 2:45 PM CDT Office Visit [facility] Oncology and Hematology - [place] [address] [place] [address] [facility] [address] [place] [id number] Bucky Abreu MD [address] [facility] [address] [place] [address] documented as of this encounter Visit Diagnoses Not on filedocumented in this encounter Care Teams Robotics Testing Technician Relationship Specialty Start Date End Date Tegan Gama DO PCP - General Family Practice 02/18/23 documented as of this encounter
--- OUTSIDE RECORDS SUMMARY | 2025-05-01 16:38 | XMS_ITS | Data Portability ---
Author Organization [facility] [employer], Main Office Address [address] [place] [id number] Assessment No assessment recorded. Plan of Treatment Reminders Order Date Submit Date Provider Last Modified By Organization Details Last Modified Time Details Appointments None recorded. Lab None recorded. Referral None recorded. Procedures None recorded. Surgeries None recorded. Imaging None recorded. Medication Orders ketoconaz ole 2 % topical cream 2023 024 [facility], [address] [place] [address], [address], 4 12:46:04 Diflucan 150 mg tablet 2023 024 [facility], [address] [place] [address], [address], 4 12:46:04 Patient TargetsNo targets recorded. Patient InstructionsNo instructions recorded. Reason for Referral None Reported. Results Created Date Observation Date Name Description Value Unit Range Abnormal Flag Note LastModifiedBy Organization Detail LastModifiedTime 06/23/2006/25/2022 T3, FREE T3, free 3.2 pg/mL 2.3-4. 2 normal Not Available [facility] [id number] [address] , [place], [address], 06/25/2022 17:11:41 06/23/20 22 06/25/2022 TSH TSH 0.70 mIU/L normal Refer ence Range > or = 20 Years 0.40- 4.50 Pregn verona Range s First trime ster 0.26- 2.66 Secon d trime ster 0.55- 2.73 Third trime ster 0.43- 2.91 Not Available [address], [address], 06/25/2022 17:11:40 06/23/20 22 06/25/2022 T4, FREE T4, free 1.0 NG/dL 0.8-1. 8 normal Not Available [address], [address], 06/25/2022 17:11:40 06/23/20 22 06/25/2022 THYRO ID PEROX IDASE ANTIB ODIES thyroid peroxidase antibodies 155 IU/mL <9 high Not Available [address], [address], 06/25/2022 17:11:39 06/23/20 22 06/25/2022 COMPR EHENS YOSI METAB OLIC PANEL glucose 86 mg/dL 65-99 normal Fasti ng refer ence inter hilary Not Available [address], [address], 06/25/2022 17:11:39 06/23/20 22 06/25/2022 COMPR EHENS YOSI METAB OLIC PANEL urea nitrogen (BUN) 9 mg/dL 7-25 normal Not Available [address], [address], 06/25/2022 17:11:39 06/23/20 22 06/25/2022 COMPR EHENS YOSI METAB OLIC PANEL creatinine 0.84 mg/dL 0.50-0 .97 normal Not Available [address], [address], 06/25/2022 17:11:39 06/23/20 22 06/25/2022 COMPR EHENS YOSI METAB OLIC PANEL eGFR 92 mL/mi n/1.7 3m2 > or = 60 normal The eGFR is based on the CKD-E PI 2020 equat ion. To calcu late the new eGFR from a previ ous Creat inine or Cysta tin C resul t, go to https ://jun w.elva childs.o dmitriy/blessing timmons s/ kdoqi /gfr% 5Fcal culat or Not Available [address], [address], 06/25/2022 17:11:39 06/23/20 22 06/25/2022 COMPR EHENS YOSI METAB OLIC PANEL BUN/creatini ne ratio not applic able (calc ) 6-22 Not Available [address], [address], 06/25/2022 17:11:39 06/23/20 22 06/25/2022 COMPR EHENS YOSI METAB OLIC PANEL sodium 140 mmol/ L 135-14 6 normal Not Available [address], [address], 06/25/2022 17:11:39 06/23/20 22 06/25/2022 COMPR EHENS YOSI METAB OLIC PANEL potassium 4.2 mmol/ L 3.5-5. 3 normal Not Available [address], [address], 06/25/2022 17:11:39 06/23/20 22 06/25/2022 COMPR EHENS YOSI METAB OLIC PANEL chloride 106 mmol/ L 98-110 normal Not Available [address], [address], 06/25/2022 17:11:39 06/23/20 22 06/25/2022 COMPR EHENS YOSI METAB OLIC PANEL carbon dioxide 28 mmol/ L 20-32 normal Not Available [address], [address], 06/25/2022 17:11:39 06/23/20 22 06/25/2022 COMPR EHENS YOSI METAB OLIC PANEL calcium 9.2 mg/dL 8.6-10 .2 normal Not Available [facility] [id number], [place], [address], 06/25/2022 17:11:39 06/23/20 22 06/25/2022 COMPR EHENS YOSI METAB OLIC PANEL protein, total 6.9 g/dL 6.1-8. 1 normal Not Available [address], [address], 06/25/2022 17:11:39 06/23/20 22 06/25/2022 COMPR EHENS YOSI METAB OLIC PANEL albumin 4.4 g/dL 3.6-5. 1 normal Not Available [address], [address], 06/25/2022 17:11:39 06/23/20 22 06/25/2022 COMPR EHENS YOSI METAB OLIC PANEL globulin 2.5 g/dL_ (calc ) 1.9-3. 7 normal Not Available [address], [address], 06/25/2022 17:11:39 06/23/20 22 06/25/2022 COMPR EHENS YOSI METAB OLIC PANEL albumin/glob ulin ratio 1.8 (calc ) 1.0-2. 5 normal Not Available [address], [address], 06/25/2022 17:11:39 06/23/20 22 06/25/2022 COMPR EHENS YOSI METAB OLIC PANEL bilirubin, total 0.5 mg/dL 0.2-1. 2 normal Not Available [address], [address], 06/25/2022 17:11:39 06/23/20 22 06/25/2022 COMPR EHENS YOSI METAB OLIC PANEL alkaline phosphatase 41 U/L 31-125 normal Not Available [address], [address], 06/25/2022 17:11:39 06/23/20 22 06/25/2022 COMPR EHENS YOSI METAB OLIC PANEL AST 11 U/L 10-30 normal Not Available [address], [address], 06/25/2022 17:11:39 06/23/20 22 06/25/2022 COMPR EHENS YOSI METAB OLIC PANEL ALT 8 U/L 6-29 normal Not Available [address], [address], 06/25/2022 17:11:39 07/06/20 22 07/10/2022 CALCI UM, IONIZ ED calcium, ionized 5.0 mg/dL 4.8-5. 6 normal Not Available [address], [address], 07/10/2022 15:37:55 07/06/20 22 07/10/2022 CORTI KULDEEP, A.M. cortisol, A.M. 18.1 mcg/d L normal Refer ence Range 8 a.m. (7-9 a.m.) Speci men: 4.0-2 2.0 Not Available [address], [address], 07/10/2022 15:37:55 07/06/20 22 07/10/2022 PROLA CTIN prolactin 24.3 NG/mL normal Refer ence Range Femal es Non-p regna nt 3.0-3 0.0 Pregn ant 10.0- 209.0 Postm enopa usal 2.0-2 0.0 Not Available [address], [address], 07/10/2022 15:37:54 07/06/20 22 07/10/2022 ACTH, PLASM A acth, plasma 21 pg/mL 6-50 Refer ence range appli es only to speci mens colle cted betwe en 7am-1 0am. Not Available [facility] [id number], [place], [address], 07/10/2022 15:37:54 02/10/20 22 02/08/2022 NMtanner josémelly d scan No observ ation record ed. [id number] [id number], [place], [address], 12/15/2022 16:41:26 Result Notes None recorded. 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 079107300 Active 2021 Not Available [facility] 3 16:40:24 Thyroid function tests abnormal 523710954 Active 2021 Not Available [facility] 3 16:40:24 Vitamin D deficiency 79917779 Active 2021 Not Available [facility] 3 16:40:24 Primary hyperparathyr oidism 91682958 Active 2021 Not Available [facility] 3 16:40:24 Goiter 7018888 Active 2021 Not Available [facility] 3 16:40:24 Hypothyroidis m 16553308 Active 2021 Not Available [facility] 3 16:40:24 Hyperparathyr oidism 98373554 Active 2021 Not Available [facility] 3 16:40:24 Fatigue 77653027 Active 2021 Not Available [facility] 3 16:40:24 Iron deficiency anemia 11957364 Active 2021 Not Available [facility] 3 16:40:25 Tinea pedis 6188413 Active 2023 Patricio Barrientos, EAN null, [place] [employer] [facility] 4 14:33:54 Onychomycosis of toenails 399575739 Active 2023 Patricio EAN Barrientos EZRA Stacy Sebastien [place] [employer] [facility] 4 14:35:25 Problem Notes None recorded. Procedures Surgical History Date Name Laterality Status Provider Name and Address Organization Details Recorded Time 2 Lumpectomy completed Not Available [facility] 3 16:39:45 2 Biopsy completed Not Available [facility] 3 16:39:45 Tubal Ligation completed Patricio ValdovinosEAN kennedy [place] - [facility] [employer] [facility] 04/11/2024 14:29:31 Imaging Results None recorded. Procedure Notes None recorded. Medical Equipment None [...] Heart rate Body temperature Body weight Systolic And Diastolic Provider Name and Address Organization Details Last Updated DateTime 2 21 kg/m2 167.64 cm 99 % 99 % 70 /min 97.8 [degF] 40710.0 1 g 105/75 mm[Hg] Not Available [facility] 3 16:39:50 Date Recorded Body mass index (BMI) Body height Oxygen saturation Oxygen saturation in Arterial blood by Pulse oximetry Heart rate Body temperature Body weight Systolic And Diastolic Provider Name and Address Organization Details Last Updated DateTime 2 21.5 kg/m2 167.64 cm 98 % 98 % 70 /min 97.8 [degF] 35098.5 8 g 95/65 mm[Hg] Not Available [facility] 3 16:39:51 Date Recorded Body height Body mass index (BMI) Body weight Oxygen saturation Oxygen saturation in Arterial blood by Pulse oximetry Body temperature Heart rate Systolic And Diastolic Provider Name and Address Organization Details Last Updated DateTime 4 167.64 cm 20.7 kg/m2 23623.8 2 g 97 % 97 % 97.7 [degF] 69 /min 116/73 mm[Hg] EAN H[place] [facility] [place] [employer] [facility] 4 14:28:06 Date Recorded Body mass index (BMI) Body height Oxygen saturation Oxygen saturation in Arterial blood by Pulse oximetry Heart rate Body temperature Body weight Systolic And Diastolic Provider Name and Address Organization Details Last Updated DateTime 2 21.5 kg/m2 167.64 cm 98 % 98 % 82 /min 98.8 [degF] 83309.7 9 g 100/60 mm[Hg] Not Available [facility] 3 16:39:51 Date Recorded Body mass index (BMI) Body height Oxygen saturation Oxygen saturation in Arterial blood by Pulse oximetry Heart rate Body temperature Body weight Systolic And Diastolic Provider Name and Address Organization Details Last Updated DateTime 2 22.5 kg/m2 167.64 cm 99 % 99 % 75 /min 97.6 [degF] 51349.0 6 g 102/64 mm[Hg] Not Available [facility] 16:39:51 Social History Question Answer Notes LastModified by Organizat [employer] Details LastModified Time Tobacco Smoking Status Never Smoker Not Available [facility] 12/15/2022 16:39:37 What Is Your Level Of Caffeine Consumption? Occasional On A Rare Occassion [id number] Information not available 12/15/2022 In The 14 Days Before Symptom Onset, Have You Had Close Contact With A Laboratory-confi rmed COVID-19 While That Case Was Ill? No [id number] Information not available 12/15/2022 In The 14 Days Before Symptom Onset, Have You Had Close Contact With A Person Who Is Under Investigation For COVID-19 While That Person Was Ill? No [id number] Information not available 12/15/2022 What Was The Date Of Your Most Recent Tobacco Screening? 04/11/2024 [email or web address] Information not available 04/11/2024 What Is Your Relationship Status? Single [id number] Information not available 12/15/2022 Have You Recently Traveled Abroad? No [id number] Information not available 12/15/2022 Sex: Female Functional Status Question Answer Note LastModified by Organ[employer] Details LastModified Time What is your level of alcohol consumption? 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 Family History Relationship Description Onset Age of this Age Resolved Age Notes LastModified by Organization Details LastModified Time Maternal Grandmother History of thyroid disorder [id number] Not available 12/15/2022 16:39:46 Paternal Aunt History of thyroid disorder [id number] Not available 12/15/2022 16:39:46 Medical History Condition Response HEADACHES/MIGRAINES Y GERD/NAUSEA Y ANEMIA/BLOOD DISORDER Y HAVE YOU BEEN HOSPITALIZED OR SEEN IN [facility] ER IN THE PAST YEAR ? Y Gynecological HistoryNo gynecological history recorded. Obstetrics History GPAL:G 0 P 0 0 0 0 Past Encounters Encounter ID Performer Location Encounter Start Date Encounter Closed Date Diagnosis/Indication Diagnosis SNOMED-CT Code Diagnosis ICD10 Code Diagnosis Note [id number] [facility] [address] [place] [address] 12/21/2021 00:00:00 12/21/2021 11:15:37 [id number] [facility] [address] [place] [address] 02/01/2022 00:00:00 02/01/2022 14:52:44 [id number] Melany Rosas MD [facility] [address] [place] [address] 04/23/2022 00:00:00 04/24/2022 13:21:53 [id number] [facility] [address] [place] [address] 07/19/2022 00:00:00 07/19/2022 13:27:43 [id number] Davy Jackson DPM [facility] [place] [address] [address] 04/11/2024 14:02:20 04/26/2024 11:57:16 Tinea pedis 8206434 B35.3 Health Concerns Section Related Observation LastModified by Organization Detai ls LastModified Time None Recorded Concern Status LastModified by Organization Details LastModified Time None Recorded Advance Directives Directive None Recorded Payers Insurance Date Sequence Insurance Name Policy Number Policy Otero Covered Member ID Otero Member ID Guarantor Name 04/08/2024 1 [facility] (MEDICAID HMO) [id number] Cawana Blissit [id number] Cawana Blissit OBGyn Episode No OBEpisode recorded.
--- OUTSIDE RECORDS SUMMARY | 2025-05-01 16:38 | XMS_ITS | Data Portability ---
Author Organization [facility] [place] Address [address] [place] [address] [place] [address] Care Team Providers Care Ball Point Splitter Name Role Phone NOA ALANIS Primary Care Provider Assessment Encounter Date Assessment Date Assessment LastModified by Organization Details LastModified Time 07/07/2024 07/07/2024 Annual gynecological exam performed. Patient will come back in a year unless there are new symptoms. Not available 07/07/2024 12:18:37 Plan of Treatment Reminders Order Date Submit Date Provider Last Modified By Organization Details Last Modified Time Details Appointments None recorded. Lab urinalysis, dipstick 2024 025 [email or web address] [place], [address], [place], [address], 16:51:16 culture, urine 2024 025 [facility] (Lab), [address], [place], [address], 21:57:23 unlisted lab - women's health swab plus, NIKOLE 2024 025 [facility] (Lab), [address], [place], [address], 21:57:23 urinalysis, dipstick 2024 025 [email or web address] [place], [address], [place], [address], 5 16:17:04 hormone panel, serum or plasma 2023 024 [facility] (Lab), [address], [place], [address], 4 07:18:32 Referral None recorded. Procedures None recorded. Surgeries hysteroscop y, with endometrial ablation (SURG) 2023 024 [facility], [facility] [facility], [place], [address], 4 10:04:23 hysteroscop y,surgical with removal of leiomyomata (SURG) [address] [place] [address], [facility] [facility], [place], [address], 4 09:55:03 Imaging None recorded. Medication Orders fluconazole 150 mg tablet 2024 025 [facility], [address] [place], [address], 5 16:51:16 Bactrim DS 800 mg-160 mg tablet 2024 025 [facility], [address] [place], [address], 5 15:58:17 Patient TargetsNo targets recorded. Patient InstructionsNo instructions recorded. Reason for Referral None Reported. Results Created Date Observation Date Name Description Value Unit Range Abnormal Flag Note LastModifiedBy Organization Detail LastModifiedTime 01/12/20 24 01/12/2024 FSH, LH, ESTRA DIOL [...] 154-3 243 pg/mL 2nd Trime ster 1561- 98066 pg/mL 3rd Trime ster 8525- >3000 0 pg/mL Not Available [facility] (Lab) [address] [facility], [place], [address], 01/13/2024 07:18:32 01/12/20 24 01/12/2024 FSH, LH, ESTRA DIOL FSH 12.3 mIU/m L This assay was perfo rmed using [employer] ratio n reage nts and test kits. Value s obtai etienne with other assay metho ds or kits canno t be used inter [place] e[place] . Femal es Folli cular : 3.5-1 2.5 mIU/m L Ovula tion: 4.7-2 1.5 mIU/m L Lutea l: 1.7-7 .7 mIU/m L Postm enopa use: 25.8- 134.8 mIU/m L Not Available [facility] (Lab) [address] [facility], [place], [address], 01/13/2024 07:18:32 01/12/20 24 01/12/2024 FSH, LH, ESTRA DIOL LH 8.1 mIU/m L This assay was perfo rmed using [employer] n reage nts and test kits. Value s obtai etienne with other assay metho ds or kits canno t be used inter [place] eably . Femal es Mid-F ollic ular: 2.4-1 2.6 mIU/m L Mid-C ycle: 14.0- 95.6 mIU/m L Mid-L uteal : 1.0-1 1.4 mIU/m L Postm enopa use: 7.7-5 8.5 mIU/m L Not Available [facility] (Lab) [address] [place], [address], 01/13/2024 07:18:32 01/12/20 24 01/12/2024 TSH, REFLE X FREE T4 TSH 0.58 uIU/m L 0.30-5 .33 Not Available [facility] (Lab) [address] [place], [address], 01/13/2024 07:18:33 07/09/20 24 07/09/2024 IMAGE GUIDE D PAP AND HPV REGAR DLESS image guided Pap, HPV regardless of Pap result SEE RESULT S BELOW CASE REPOR T: Cytol ogy Gynec ologi radha Repor t Case: [id number] Autho zafar g Provi gayle: America Mendoza MD Colle cted: 07/09 0820 Order ing Locat ion: [place] [facility] Recei rodger: 07/10 0710 First Scree n: Sri Reis ed, CT Speci men: Shyannejenise burleson Pap - Image d, Cervi x STATE MENT OF ADEQU ACY: Satis facto ry for evalu ation Trans forma tion zone compo nent prese nt ----- ----- ----- ----- ----- ----- ----- ----- ----- ----- ----- ----- ----- ----- ----- ----- ----- ---- FINAL DIAGN OSIS: Negat gigi for Intra epith elial Charmaine gutiérrez or Surya merida ([facility]) . Claritza lopez by Sri Reis ed, CT on 2023 [...] may decre ase, but will not elimi farzad, false negat gigi resul ts. A negat [...] as clini genny warra nted. Not Available [facility] (Lab) [address], [place], [address], 07/16/2024 19:40:58 11/14/19 25 11/14/2024 CT/GC AND TRICH OMONA S VAGIN GI (RRNA ), URINE chlamydia trachomatis, PCR Negati ve negati ve Not Available [facility] (Lab) [address], [place], [address], 11/15/2024 16:21:48 11/14/19 25 11/14/2024 CT/GC AND TRICH OMONA S VAGIN GI (RRNA ), URINE neisseria gonorrhoeae, PCR Negati ve negati ve Not Available [facility] (Lab) [address] [facility], [place], [address], 11/15/2024 16:21:48 11/14/19 25 11/14/2024 CT/GC AND TRICH OMONA S VAGIN GI (RRNA ), URINE trichomonas vaginalis ribosomal RNA (rrna) Negati ve negati ve Not Available [facility] (Lab) [address] [facility], [place], [address], 11/15/2024 16:21:48 11/14/19 25 11/14/2024 CULTU RE: URINE result report SEE RESULT S BELOW Test: Cultu re: Urine Speci men Sourc e: Urine - Clean Catch Speci men Type: Urine Speci men Date: 2024 1538 Resul t Date: 2024 2209 Resul t Statu s: Final resul t Abnor mal: No Resul ting Lab: [facility] [address] [facility] [address] Tel: CULTU RE ----- ----- ----- --- No growt h in 1 day (dete ction level of 10,00 0 colon ies / ml.) Not Available [facility] (Lab) [address] [place], [address], 11/15/2024 23:11:39 11/14/19 25 11/14/2024 HIV 1/2 ANTIG EN/AN TIBOD Y, REFLE X CONFI RMATI ON HIV antigen/anti body Nonrea ctive nonrea ctive HIV-1 antig en and HIV-1 /HIV- 2 antib odies were not detec srinath. No labor atory evide nce of HIV infec tion. Not Available [facility] (Lab) [address] [place] [facility] [place], [address], 11/16/2024 04:35:49 11/14/1911/14/2024 HEPAT ITIS B SURFA CE ANTIG EN hepatitis B surface antigen Non-re active non-re active This assay was perfo rmed using [employer] n reage nts and test kits. Value s obtai etienne with other assay metho ds or kits canno t be used inter [place] e[place] . Not Available [facility] (Lab) [address] [facility], [place], [address], 11/16/2024 04:35:50 11/14/1911/14/2024 HERPE S SIMPL EX VIRUS TYPE 2 SPECI FIC AB, IGG herpes simplex virus 2 IgG Negati ve negati ve Not Available [facility] (Lab) [address] [facility], [place], [address], 11/16/2024 04:35:50 11/14/19 25 11/14/2024 HERPE S SIMPL EX VIRUS TYPE 2 SPECI FIC AB, IGG herpes simples virus 2 IgG, quant <0.2 ai 0.0-0. 8 Not Available [facility] (Lab) [address] [facility], [place], [address], 11/16/2024 04:35:50 11/14/1911/14/2024 HEPAT ITIS B CORE, IGM hepatitis B core IgM antibody Non-re active non-re active IgM anti- HBc not detec srinath. Does not exclu de the possi bilit y of expos ure to or infec tion with HBV. Not Available [facility] (Lab) [address] [facility], [place], [address], 11/16/2024 04:35:50 11/14/1911/14/2024 RPR SCREE N, REFLE X TITER /CONF IRMAT ION RPR screen Nonrea ctive nonrea ctive Not Available [facility] (Lab) [address] [facility], [place], [address], 11/16/2024 04:35:51 11/14/19 25 11/14/2024 HEPAT ITIS C ANTIB POLO SCREE N, REFLE X TO CONFI RMATI ON hepatitis C antibody Non-re active non-re active Antib odies to HCV Not Detec srinath, does not exclu de the possi bilit y of expos ure to HCV. Not Available [facility] (Lab) [address], [place], [address], 11/16/2024 04:35:51 11/14/19 25 11/14/2024 urina lysis , dipst ick Leukocytes trace Not Available [facility] [address], [place], [address], 11/14/2024 16:16:36 11/14/19 25 11/14/2024 urina lysis , dipst ick Protein trace Not Available [place] [address], [place], [address], 11/14/2024 16:16:36 11/14/19 25 11/14/2024 urina lysis , dipst ick pH 8 Not Available [place] [address], [place], [address], 11/14/2024 16:16:36 11/14/19 25 11/14/2024 urina lysis , dipst ick Blood ++ Not Available [place] [address], [place], [address], 11/14/2024 16:16:36 11/14/19 25 11/14/2024 urina lysis , dipst ick Specific [place] 1.000 Not Available [facility] [address], [place], [address], 11/14/2024 16:16:36 11/14/19 25 11/14/2024 urina lysis , dipst ick Appearance cloudy Not Available Daphney allen [address], [place], [address], 11/14/2024 16:16:36 11/14/19 25 11/14/2024 urina lysis , dipst ick Color yellow Not Available [place] [address], [place], [address], 11/14/2024 16:16:36 02/14/20 25 02/13/2025 WOMEN 'S HEALT H SWAB PLUS, NIKOLE bacterial vaginosis (bv), tma Negati ve negati ve Not Available [facility] (Lab) [address] [facility], [place], [address], 02/14/2025 21:57:23 02/14/20 25 02/13/2025 WOMEN 'S HEALT H SWAB PLUS, NIKOLE vladimir species, tma Negati ve negati ve Not Available [facility] (Lab) [address] [place], [address], 02/14/2025 21:57:23 02/14/20 25 02/13/2025 WOMEN 'S HEALT H SWAB PLUS, NIKOLE vladimir glabrata, tma Negati ve negati ve Not Available [facility] (Lab) [address] [place], [address], 02/14/2025 21:57:23 02/14/20 25 02/13/2025 WOMEN 'S HEALT H SWAB PLUS, NIKOLE trichomonas vaginalis, tma Negati ve negati ve Not Available [facility] (Lab) [address] [place], [address], 02/14/2025 21:57:23 02/14/20 25 02/13/2025 WOMEN 'S HEALT H SWAB PLUS, NIKOLE chlamydia trachomatis, PCR Negati ve negati ve Not Available [facility] (Lab) [address] [place], [address], 02/14/2025 21:57:23 02/14/20 25 02/13/2025 WOMEN 'S HEALT H SWAB PLUS, NIKOLE neisseria gonorrhoeae, PCR Negati ve negati ve Bacte rial vagin osis detec ts the follo wing bacte diogenes assoc iated with bacte rial vagin osis (BV): Lacto bacil maru (L. gasse ri, L. crisp atus and L. jense courtney), Gardn erell a vagin gi, and Atopo bium vagin ae. A singl e quali tativ e resul t is repor srinath base on instr ument softw are to deter mine BV posit gigi or negat gigi statu s. The Dana da speci es group tests for C. albic ans, C. tropi calis , C. parap sarah is, C. dubli niens is. Testi ng is perfo rmed using the Trans cript ion Media srinath Ampli ficat ion metho d. Tests for Dana da glabr rudolph, Trich omona s vagin gi, Chlam ydia trach omati s, and Neiss eria gonor rhoea e are also inclu ded in this panel . Not Available [facility] (Lab) [address] [facility], [place], [address], 02/14/2025 21:57:23 02/14/20 25 02/13/2025 CULTU RE: URINE result report SEE RESULT S BELOW Test: Cultu re: Urine Speci men Sourc e: Urine - Clean Catch Speci men Type: Urine Speci men Date: 2024 1614 Resul t Date: 2053 Resul t Statu s: Final resul t Abnor mal: No Resul ting Lab: [facility] [address] [facility] [address] Tel: CULTU RE ----- ----- ----- --- No growt h in 1 day (dete ction level of 10,00 0 colon ies / ml.) Not Available [facility] (Lab) [address] [facility], [place], [address], 02/14/2025 21:57:23 02/14/20 25 02/13/2025 urina lysis , dipst ick Leukocytes - Not Available [facility] [address], [place], [address], 02/13/2025 16:33:53 02/14/20 25 02/13/2025 urina lysis , dipst ick Nitrite - Not Available [place] [address], [place], [address], 02/13/2025 16:33:53 02/14/20 25 02/13/2025 urina lysis , dipst ick Urobilinogen - Not Available [facility] vladimir [address], [place], [address], 02/13/2025 16:33:53 02/14/20 25 02/13/2025 urina lysis , dipst ick Protein trace Not Available [place] [address], [place], [address], 02/13/2025 16:33:53 02/14/20 25 02/13/2025 urina lysis , dipst ick pH 8 Not Available [place] [address], [place], [address], 02/13/2025 16:33:53 02/14/20 25 02/13/2025 urina lysis , dipst ick Specific [place] 1.000 Not Available [facility] [address], [place], [address], 02/13/2025 16:33:53 02/14/20 25 02/13/2025 urina lysis , dipst ick Ketone - Not Available [place] [address], [place], [address], 02/13/2025 16:33:53 02/14/20 25 02/13/2025 urina lysis , dipst ick Bilirubin - Not Available Im[facility] burden [address], [place], [address], 02/13/2025 16:33:53 02/14/2002/13/2025 urina lysis , dipst ick Glucose - Not Available [place] [address], [place], [address], 02/13/2025 16:33:53 02/14/2002/13/2025 urina lysis , dipst ick Appearance clear Not Available [facility] alejandro [address], [place], [address], 02/13/2025 16:33:53 02/14/2002/13/2025 urina lysis , dipst ick Color yellow Not Available [place] [address], [place], [address], 02/13/2025 16:33:53 Result Notes None recorded. Problems Name Problem SNOMED Code Status Onset Date Resolution Date Notes Provider Name and Address Organization Details Recorded Time Gestatio n period, 35 weeks 71130894 Completed 201705/16/2021 35 weeks gestatio n of pregnanc y;Record ed Elsewher e: No Locat ion: [facility] S ource: EHR Special Day Class Teacher niko: N Ricardoti ce ID: 0001 Ramiro lable Time: 11:30:00 AM Yazmin Joselin [facility] 12:29:[address] Concept Completed 201705/16/2021 Matern care for abnlt fetl hrt rate or rhym, 3rd tri, unsp;Rec orded Elsewher e: No Locat ion: [facility] S ource: EHR Special Day Class Teacher niko: N Practi ce ID: 0001 Ramiro lable Time: 10:30:00 AM Yazmin Joselin juarez [facility] 12:30:15 Normal pregnanc y in multigra justin [id number] Completed 201605/16/2021 Encounte r for suprvsn of normal pregnanc y, third trimeste r;Record ed Elsewher e: No Locat ion: [facility] S ource: EHR Special Day Class Teacher niko: N Pam ce ID: 0001 Ramiro lable Time: 11:45:00 AM Yazmin [facility], [facility] 12:30:01 Gestatio n period, 33 weeks [id number] Completed 201705/16/2021 33 weeks gestatio n of pregnanc y;Record ed Elsewher e: No Locat ion: [facility] S ource: EHR Special Day Class Teacher niko: N Ricardoti ce ID: 0001 Ramiro lable Time: 08:30:00 AM Yazmin [facility], [facility] 12:29:26 Localize d enlarged lymph nodes [id number] Completed 201605/16/2021 Localize d enlarged lymph node;Rec orded Elsewher e: No Locat ion: [facility] S ource: EHR Special Day Class Teacher niko: N Pam ce ID: 0001 Ramiro lable Time: 09:45:00 AM Yazminrubens Olivera [facility], [facility] 12:29:50 Gestatio n period, 26 weeks [id number] Completed 201705/16/2021 26 weeks gestatio n of pregnanc y;Record ed Elsewher e: No Locat ion: [facility] S ource: EHR Special Day Class Teacher niko: N Ricardoti ce ID: 0001 Ramiro lable Time: 09:45:00 AM Yazminrubens Olivera [facility], [facility] 12:29:21 Gestatio n period, 36 weeks [id number] Completed 201705/16/2021 36 weeks gestatio n of pregnanc y;Record ed Elsewher e: No Locat ion: [facility] S ource: EHR Special Day Class Teacher niko: N Ricardoti ce ID: 0001 Ramiro lable Time: 09:15:00 AM Yazmin juarez [facility] 1 12:29:32 Alopecia [id number] Active 2018 Alopecia ;Recorde d Elsewher e: No Locat ion: Todd jenise [facility] S ource: EHR Special Day Class Teacher niko: N Practi ce ID: 0001 Ramiro lable Time: 10:00:00 AM Not Available [facility] 0 21:38:29 Abdomina l pain [id number] Completed 201405/16/2021 Left flank pain;Rec orded Elsewher e: No Locat ion: [facility] jenise [facility] S ource: EHR Special Day Class Teacher niko: N Practi ce ID: 0001 Ramiro lable Time: 11:00:00 AM Yazmin juarez [facility] 1 12:28:[address] Concept Completed 201605/16/2021 Encntr for publicity director exam (general ) (routine ) w/o abn findings ;Recorde d Elsewher e: No Locat ion: [facility] jenise [facility] S ource: EHR Special Day Class Teacher niko: N Practi ce ID: 0001 Ramiro lable Time: 02:15:00 PM Yazmin juarez [facility] 1 12:30:20 Pregnanc y detectio n examinat ion Completed 201605/16/2021 Encounte r for pregnanc y test, result positive ;Recorde d Elsewher e: No Locat ion: [facility] jenise [facility] S ource: EHR Special Day Class Teacher niko: N Practi ce ID: 0001 Ramiro lable Time: 04:15:00 PM Yazmin juarez [facility] 1 12:30:07 Gestatio n period, 38 weeks [id number] Completed 201705/16/2021 38 weeks gestatio n of pregnanc y;Record ed Elsewher e: No Locat ion: [facility] jenise [facility] S ource: EHR Special Day Class Teacher niko: N Practi ce ID: 0001 Ramiro lable Time: 08:30:00 AM Yazmin juarez [facility] 12:29:36 Leukorrh ea [id number] Completed 201305/16/2021 Leukorrh ea, not specifie d as infectiv e;Record ed Elsewher e: No Locat ion: [facility] S ource: EHR Special Day Class Teacher niko: N Practi ce ID: 0001 Ramiro lable Time: 09:00:00 AM Yazmin juarez [facility] 12:29:48 Lesion of ovary Completed 201805/16/2021 Other ovarian cyst, unspecif ied side;Rec orded Elsewher e: No Locat ion: [facility] S ource: EHR Special Day Class Teacher niko: N Practi ce ID: 0001 Ramiro lable Time: 09:00:00 AM Yazmin Olivera [facility] 12:29:14 Adult health examinat ion Completed 201305/16/2021 Routine general medical examinat ion at a health care facility ;Practic e ID: 0001 Yazmin juarez [facility] 12:28:50 Speciali zed medical examinat ion Completed 201305/16/2021 Routine gynecolo gical examinat ion;Prac robert ID: 0001 Yazmin juarez [facility] 12:30:22 Speciali zed medical examinat ion Completed 201305/16/2021 Other specifie d chlamydi al diseases ;Practic e ID: 0001 Yazmin Olivera [facility] 12:30:24 Venereal disease screenin g Completed 201305/16/2021 Screenin g examinat ion for venereal disease; Practice ID: 0001 Yazmin juarez [facility] 12:30:38 Urinary tract infectio us disease [id number] Completed 201305/16/2021 Urinary tract infectio n, site not specifie d;Practi ce ID: 0001 [facility] 12:30:34 Pregnanc y test negative [id number] Completed 201305/16/2021 Negative Pregnanc y Test;Pra ctice ID: 0001 [facility] 12:30:09 Pain of joint 07409440 Completed 201405/16/2021 Pain in joint, site unspecif ied;Prac robert ID: 0001 Yazmin Olivera [facility] 12:29:45 Blood in urine 53591233 Completed 201405/16/2021 HEMATURI A NOS;Prac robert ID: 0001 Yazmin Olivera [facility] 12:29:02 Increase d frequenc y of urinatio n [id number] Completed 201405/16/2021 Urinary frequenc y;Practi ce ID: 0001 Yazmin Olivera [facility] 12:29:[address] Concept Completed 201405/16/2021 Encntr for general adult medical exam w/o abnormal findings ;Practic e ID: 0001 Yazmin Olivera [facility] 12:30:16 Screenin g for malignan t neoplasm of cervix Completed 201405/16/2021 Encounte r for screenin g for malignan t neoplasm of cervix;P ractice ID: 0001 [facility] 12:30:11 Vaginola bial hernia Completed 201505/16/2021 Other specifie d noninfla mmatory disorder s of vagina;P ractice ID: 0001 [facility] 12:30:36 Acute vaginiti s [id number] Completed 201505/16/2021 Acute vaginiti s;Practi ce ID: 0001 [facility] 12:28:46 Infectio n screenin g Completed 201505/16/2021 Encounte r for screenin g for oth infec/pa rastc diseases ;Practic e ID: 0001 [facility] 12:29:43 Breast lump [id number] Completed 201605/16/2021 Unspecif ied lump in breast;P haider ID: 0001 Yazmin Olivera [facility] 12:29:[address] Concept Completed 201605/16/2021 Encntr for publicity director exam (general ) (routine ) w abnormal findings ;Practic e ID: 0001 [facility] 12:30:18 Amenorrh ea [id number] Completed 201605/16/2021 Amenorrh ea, unspecif ied;Prac robert ID: 0001 [facility] 12:28:54 Nausea 371630384 Completed 201605/16/2021 Nausea;Tracy maloney ID: 0001 [facility] 12:29:59 Finding of general energy [id number] Completed 201605/16/2021 Other fatigue; Practice ID: 0001 [facility] 12:29:19 Antenata l screenin g Completed 201605/16/2021 Encounte r for antenata l screenin g for nuchal transluc ency;Pra ctice ID: 0001 [facility] 12:28:56 Antenata l screenin g for malforma tion Completed 201605/16/2021 Encounte r for antenata l screenin g for malforma tions;Pr actice ID: 0001 [facility] 12:28:58 Placenta previa [id number] Completed 201705/16/2021 Placenta previa specifie d as w/o hemor, second trimeste r;Practi ce ID: 0001 Yazmin juarez, [facility] 12:30:05 Pregnanc y, childbir th and puerperi um finding Completed 201705/16/2021 Oth pregnanc y related conditio ns, third trimeste r;Practi ce ID: 0001 [facility] 12:29:10 Gestatio n period, 31 weeks [id number] Completed 201705/16/2021 31 weeks gestatio n of pregnanc y;Practi ce ID: 0001 [facility] 12:29:23 Backache [id number] Completed 201705/16/2021 Dorsalgi a, unspecif ied;Prac robert ID: 0001 Yazmin juarez [facility] 12:29:00 Complica tion of pregnanc y, childbir th and/or puerperi um [id number] Completed 201705/16/2021 Oth diseases and conditio ns compl preg/chl dbrth;Pr actice ID: 0001 Yazmin juarez [facility] 12:30:32 Gestatio n period, 32 weeks [id number] Completed 201705/16/2021 32 weeks gestatio n of pregnanc y;Practi ce ID: 0001 Yazmin juarez [facility] 12:29:25 Gestatio n period, 34 weeks [id number] Completed 201705/16/2021 34 weeks gestatio n of pregnanc y;Practi ce ID: 0001 Yazmin juarez [facility] [facility] 12:29:29 Gestatio n period, 37 weeks [id number] Completed 201705/16/2021 37 weeks gestatio n of pregnanc y;Practi ce ID: 0001 Yazmin juarez, [facility] 12:29:34 Pelvic and perineal pain [id number] Completed 201805/16/2021 Pelvic and perineal pain;Rec orded Elsewher e: No Locat ion: [facility] S ource: EHR [employer] Teacher niko: N Practi ce ID: 0001 Ramiro lable Time: 04:30:00 PM Yazminrubens juarez [facility] 12:30:03 Lesion of ovary Completed 201805/16/2021 Other ovarian cyst, right side;Rec orded Elsewher e: No Locat ion: [facility] S ource: EHR [employer] Day [employer] Teacher niko: N Practi ce ID: 0001 Ramiro lable Time: 02:30:00 PM Yazmin juarez [facility] 12:29:12 heart finding Completed 201705/16/2021 Abnlt in heart rate and rhythm comp labor and delivery ;Practic e ID: 0001 Yazmin juarez [facility] 12:29:16 Single live from singleto n pregnanc y [id number] Completed 201705/16/2021 Single live ;Pr actice ID: 0001 Yazmin juarez [facility] 12:30:13 Gestatio n period, 39 weeks [id number] Completed 201705/16/2021 39 weeks gestatio n of pregnanc y;Practi ce ID: 0001 Yazmin juarez [facility] 12:29:38 Lochia finding Completed 201705/16/2021 Encounte r for routine postpart um follow-u p;Practi ce ID: 0001 Yazmin juarez [facility] 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 12:29:08 Left lower quadrant pain [id number] Completed 201805/16/2021 Left lower quadrant pain;Pra ctice ID: 0001 Yazmin juarez [facility] 12:29:47 Mammogra phic calcific ation of breast [id number] Completed 201405/16/2021 Mammogra phic calcifcn found on diagnost ic imaging of breast;R ecorded Elsewher e: No Locat ion: [facility] S ource: EHR Special Day Class Teacher niko: N Practi ce ID: 0001 Ramiro lable Time: 09:30:00 AM Yazmin juarez [facility] 12:29:56 Problem Notes None recorded. Procedures Surgical History Date Name Laterality Status Provider Name and Address Organization Details Recorded Time Date of Last Pap Smear completed Arielle Williamson [facility] 11/14/2024 16:03:37 HYSTEROSCOPY, WITH ENDOMETRIAL ABLATION (SURG) completed Morgan Calderón [facility] 03/02/2024 11:14:15 024 Date of Last Mammogram completed Arielle Williamson [facility] 01/12/2024 14:09:49 022 breast procedure completed [facility] 07/23/2022 10:50:05 022 biopsy of breast completed [facility] 07/23/2022 10:47:38 [address] [facility] 07/23/2022 10:40:02 017 breast procedure completed [facility] 07/23/2022 10:46:32 Tubal Ligation completed [facility] 05/16/2021 09:10:12 Imaging Results None recorded. Procedure Notes None [...] Elsewher e: No Locat ion: [facility] M odify By: [email or web address] Encounte r DateTime : 12/27/19 18 12:00:00 PM Not [...] BY MOUTH EVERY 12 HOURS FOR 10 DAYS 11/14 completed Not Available Not Available Not Available ofloxacin 0.3 % eye drops PUT 1-2 DRPS INTO AFFECTED EYE(S) EVERY 2-4 H X 2 DAYS, THEN 1-2 DRPS 4 TIMES/DA Y DAYS 3-7 07/21 completed Not Available Not Available Not Available fluconazo le 150 mg tablet TAKE 1 TABLET BY MOUTH EVERY 72 HOURS active Not Available Not Available No [...] MOUTH TWICE DAILY NEEDED (DYSPEPS IA/UPSET STOMACH) 11/14 completed Not Available Not Available Not Available metronida zole 250 mg tablet TAKE 1 [...] Prescrib ed Elsewher e: Yes Loca tion: [facility] odify By: [email or web address] richardson En counter DateTime : 07/17/20 14 10:30:00 AM Not Available Not Available Not Available calcium 600 mg (as calcium carbonate 1,500 mg) tablet PLEASE SEE ATTACHED FOR DETAILED DIRECTIO NS 10/13 completed Not Available Not Available Not Available Flagyl 500 mg tablet take 1 tablet by oral route 2 times every day 02/22 completed Prescrib ed Elsewher e: No Locat ion: [facility] odify By: marci Espinoza r DateTime : 12/23/19 18 02:00:00 PM Not Available Not Available Not Available cephalexi n 500 mg capsule take 1 capsule by oral route every 6 hours 02/22 completed Prescrib ed Elsewher e: No [facility] By: marci Espinoza r DateTime [...] completed Not Available Not Available Not Available Horton 10 mg-325 mg tablet take 1 tablet by oral route every 4 - 6 hours as needed for pain 09/10 completed Prescrib ed Elsewher e: No Locat ion: [facility] odify By: marci guidry DateTime : 03/23/20 18 03:35:20 PM Not Available Not Available Not Available Unithroid 25 mcg tablet 07/21 completed Not Available Not Available Not Available ergocalci ferol (vitamin D2) 1,250 mcg (50,000 unit) capsule TAKE 1 CAPSULE BY MOUTH ONCE A WEEK 11/14 completed Not Available Not Available Not Available levofloxa diane 500 mg tablet 01/11 [...] 6 HOURS NEEDED FOR NAUSEA OR VOMITING 11/14 completed Not Available Not Available Not Available naproxen 500 mg tablet TAKE 1 [...] 1 TABLET BY MOUTH EVERY 12 HOURS 11/14 completed Not Available Not Available Not Available [...] completed Not Available Not Available Not Available Bactrim DS 800 mg-160 mg tablet Take 1 tablet every 12 hours by oral route. 02/13 completed Not Available Not Available Not Available NuvaRing 0.12 mg-0.015 mg/24 hr vaginal insert 1 vaginal ring by vaginal route every month leave in place for 3 weeks, remove for 1 week 11/11 completed Prescrib ed Elsewher e: No Locat ion: [facility] odify By: [email or web address] trick En counter DateTime : 07/17/20 14 10:30:00 AM Not Available Not Available Not Available Ortho Evra 150 mcg-35 mcg/24 hr transderm al patch apply 1 patch by transder mal route every week 08/21 completed Prescrib ed Elsewher e: Yes Loca tion: [facility] odify By: [email or web address] trick En counter DateTime : 07/17/20 14 10:30:00 AM Not Available Not Available Not Available iron ER 325 mg (65 mg iron) capsule,e xtended release take 1 Tablet by Oral route 3 times every day 09/10 completed Prescrib ed Elsewher e: Yes [facility] odify By: marci Espinoza r DateTime : 02/23/20 18 10:15:00 [...] Elsewher e: Yes Loca tion: [facility] odify By: [email or web address] z Encoun ter DateTime : 02/13/20 16 01:00:00 PM Not Available Not Available Not Available Monistat 3 4 % (200 mg)-2 %(9 gram)vagi nal pack,pref il appl and cream Use 1 prefille d applicat ion every night for 3 nights 01/19 completed Prescrib ed Elsewher e: No Locat ion: [facility] M odify By: tyshawn z Encoun ter DateTime : 02/13/20 16 01:00:00 PM Not Available Not Available Not Available Vitals Date Recorded Body height Body mass index (BMI) Body weight Systolic And Diastolic Provider Name and Address Organization Details Last Updated DateTime 11/14/2024 167.64 cm 22.6 kg/m2 01261.93 g 103/64 mm[Hg] Arielle Clay [facility] 11/14/2024 16:02:45 Date Recorded Body height Body mass index (BMI) Body weight Systolic And Diastolic Provider Name and Address Organization Details Last Updated DateTime 01/12/2024 167.64 cm 21.1 kg/m2 72157.6 g 105/67 mm[Hg] Arielle [facility] 01/12/2024 14:02:51 Date Recorded Body height Body mass index (BMI) Body weight Systolic And Diastolic Provider Name and Address Organization Details Last Updated DateTime 02/13/2025 167.64 cm 23 kg/m2 18793.99 g 132/86 mm[Hg] Marija Campa [facility] 02/13/2025 16:15:30 Date Recorded Body height Body mass index (BMI) Body weight Systolic And Diastolic Provider Name and Address Organization Details Last Updated DateTime 03/09/2024 167.64 cm 21.1 kg/m2 96463.6 g 122/77 mm[Hg] Amaris Mayer [facility] 03/09/2024 15:03:43 Date Recorded Body height Body mass index (BMI) Body weight Systolic And Diastolic Provider Name and Address Organization Details Last Updated DateTime 07/07/2024 167.64 cm 22.3 kg/m2 11092.75 g 116/81 mm[Hg] Arielle Clay [facility] 07/07/2024 12:19:37 Social History Question Answer Notes LastModified by Organizat ion Details LastModified Time Tobacco Smoking Status Never Smoker Yazmin juarez, [facility] 08/04/2023 15:06:24 Do You Have An Advance Directive? No Information n ot available 04/08/2021 How Many Years Have You Consumed Alcohol? 0 Information not available 02/13/2025 Are You Blind Or Do You Have [...] Or The Highest Degree You Have Received? [id number] Information not available 04/08/2021 Are There Any Guns Present In Your [...] LastModified by Organizat ion Details LastModified Time Do you use any illicit or recreational drugs? No Information not available 04/08/2021 What is your level of alcohol consumption? None Information not available 04/08/2021 Are you able to walk? 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 Occasional Information not available 04/08/2021 Mental Status Question Answer Note LastModified by Organization D etails LastModified Time Do you feel stressed (tense, restless, nervous, or anxious, or unable to sleep at night)? [id number] Information not available 04/08/2021 Family History Relationship Description Onset Age of [...] History of malignant neoplasm of kidney 56 [id number] Not available 2023 14:55:33 Paternal Grandmother Family history of breast cancer Patern al Great Grandm other- from Breast CA Not available 03/09/2024 14:55:33 Paternal Grandfather Family history of malignant neoplasm of prostate from prosta te EZRA ziegler Not available 03/09/2024 14:55:33 Medical History Condition Response Kidney or Bladder Problems Y History of abnormal pap Y Thyroid Problems Y Anemia Y Gynecological History Statement/Question Response Abnormal Pap Y Date of Last Mammogram 12/16/2023 Flow Light Date of LMP 01/15/2025 On BCP's at Conception? N N Was last menstrual period normal Y STIs/STDs N HPV Vaccine Y Current Control Method Tubal Ligat ion Age at First Child 18 Are cycles usually normal Y Frequency of Cycle (Q days) 28 Sexually Active? Y Menses Monthly N Age of first menstrual cycle 14 Date of Last Pap Smear 07/09/2024 Sexual Problems? N Desired Control Method Ablation LMP Approximate N Obstetrics History GPAL:G 3 P 2 1 0 3 Type Value Full Term 2 Premature 1 Living 3 Total 3 Past Encounters Encounter ID Performer Location Encounter Start Date Encounter Closed Date Diagnosis/Indication Diagnosis SNOMED-CT Code Diagnosis ICD10 Code Diagnosis Note [id number] [address] [address] 03/14/2020 11:51:17 04/17/2020 18:13:16 Acute urinary tract infection 772975553 N39.0 [id number] Arben Mendoza MD [place] [address] [address] 05/14/2020 17:10:07 05/14/2020 17:51:37 Gynecologic examination 41324666 Z01.419 This patient is here for her annual exam. A thorough history was taken. A physical exam was performed. Age appropriat e routine health screening was ordered, performed, and discussed. Recommende d testing was ordered. She was asked to follow up in one year. She will be informed of any test results. Dyspareunia 93885223 N94 .10 Vaginitis 19336363 N76.0 [id number] Arben Mendoza MD [place] [address] [address] 05/15/2020 15:00:26 05/15/2020 15:33:08 Pain in pelvis 49517768 R10.2 [id number] Arben Mendoza MD [place] [address],[place] [address] 06/07/2020 10:41:32 06/07/2020 11:25:21 Pain in pelvis 41622744 R10.2 This patient is a 35-year-ol d female presents for follow-up on pelvic pain. Her pelvic pain has resolved. Her pain with intercours e has resolved. All her pelvic ultrasound was normal. We agreed to follow up as needed. [id number] Arben Mendoza MD [place] [address],[place] [address] 04/08/2021 18:13:16 04/09/2021 09:16:27 Cyst of ovary 95130314 N83.209 THIS PATIENT IS A 36-YEAR-OL D [...] see her primary care physician about this. She also reports urinary urge before intercours e. I indicated to her that we could try some medication s for bladder spasm. This is likely a learned behavior. She declined a trial of anticholin ergics. We need to check her urine. [id number] MD Chuck Melo [address],[place] [address] 04/13/2021 10:00:07 04/13/2021 10:41:56 Cyst of right ovary 3484183423 8640658 N83.291 [id number] Arben Mendoza MD [place] [address],[place] [address] 04/24/2021 13:06:28 04/25/2021 09:51:17 Cyst of ovary 58277637 N83.209 discussed normal ultrasound results with patient over the phone. She has no complaints . [id number] Arben Mendoza MD [place] [address] [address] 05/16/2021 12:25:47 05/16/2021 13:23:51 Vulvovaginitis 16093473 N76.0 Gynecologi c examination 37804803 Z01.419 This patient is here for her annual exam. A thorough history was taken. A physical exam was performed. Age appropriat e routine health screening was ordered, performed, and discussed. Recommende d testing was ordered. She was asked to follow up in one year. She will be informed of any test results. [id number] Arben Mendoza MD [place] [address] [address] 07/23/2022 10:16:38 07/23/2022 11:10:44 Gynecologic examination 33853605 Z01.419 Z11.51 This patient is here for her annual exam. A thorough history was taken. A physical exam was performed. Age appropriat e routine health screening was ordered, performed, and discussed. Recommende d testing was ordered. She was asked to follow up in one year. She will be informed of any test results. Night sweats 25918261 R6 1 [id number] [facility] [address] [address] 10/13/2022 09:41:46 10/14/2022 15:39:14 Menorrhagia 544066715 N92.0 D64.9 Today we discussed updating TVUS.Consi gayle the following for possible causes of the pain she describes: pelvic congestion syndrome, arterio/ve nous malformati ons, hernia etc. Discussed management options for heavy menses:Con information consultant trial of SLYND or consider IUD Mirena [...] counseling and review of plan of care. Contracept ion care management 757966162 Z30.9 Counseled on multiple options today.Will await results to determine best options moving forward. [id number] Arben Mendoza MD [place] [address] [address] 10/14/2022 12:25:58 10/14/2022 15:01:25 Menorrhagia 288323311 N92.0 [id number] [facility] [address] [address] 10/22/2022 10:31:26 10/22/2022 11:16:15 Menorrhagia 581218967 N92.0 D64.9 Reviewed US today.Opti ons discussed as noted below.Hx of tubal ligation which can also potentiall y cause an increase in menstrual flow in some women. Time spent in visit is a total of 30 mins with at least 50% of visit consisting of counseling and review of plan of care. Uterine leiomyoma 725459 05 D25.9 Reviewed USSmall fibroid stable (can effect menses making them heavier).P aratubal cyst-will repeat us in 6-8wks (no pain currently outside of menstrual cycle). Contracept ion care management 381334078 Z30.9 Discussed all control options and pt [...] for placement appt. Pelvic con gestion syndrome 36595103 N94.89 US noted Dilated pelvic vessels which could be indicative of PCS.Will request a consultati on to evaluate if there is a possibilit y of this issue/othe r issue that is connected with the pain she experience s in her calves only during the onset of her menstrual cycle.Refe rral placed and agreeablel to this plan. [id number] Arben Mendoza MD [place] [address] [address] 12/14/2022 16:26:57 12/14/2022 17:33:42 Cyst of right ovary 2823097739 6431357 N83.291 D25.9 N92.0 [id number] Arben Mendoza MD [place] [address] [address] 12/30/2022 13:51:04 12/30/2022 15:24:42 Pain in pelvis 42644137 R10.2 Patient is a 37-year-ol d female [...] counseling . She will follow-up as needed. [id number] Charlene Black [facility] [address] [address] 07/21/2023 11:55:13 07/21/2023 14:51:48 Pain in pelvis 87244963 R10.2 This patient is a 38 -year-old [...] fever, chills. Pain of left breast 1010 761046 N64.4 12-1 o'clock position an area of thickened breast tissue and tenderness presentHx of breast bx'sBenign Ordered imagingWil l schedule [id number] Arben Mendoza MD [place] [address] [address] 07/26/2023 11:40:34 07/26/2023 13:25:22 Pain in pelvis 18283171 R10.2 Patient is a 37-year-ol d female [...] counseling . She will follow-up as needed. [id number] Charlene Black [facility] [address] [address] 07/27/2023 11:20:33 07/27/2023 11:39:39 Pain in pelvis 09915267 R10.2 N92.0 Today we reviewed US.Underst anding verbalized .MD consult recommende d since very symptomati c [...] , education of patient's plan of care. [id number] Arben Mendoza MD [place] [address] [address] 08/04/2023 15:02:01 08/04/2023 16:01:52 Pain in pelvis 30474353 R10.2 this patient is a 38-year-ol d [...] hysterecto my bilateral salpingect norbert. Uterine leiomyoma 412807 05 D25.9 Pelvic con gestion syndrome 66099940 N94.89 Menorrhagia 931126972 N9 2.0 Anemia 623969286 D64.9 [id number] Arben Mendoza MD [place] [address] [address] 01/12/2024 13:50:08 01/12/2024 22:08:17 Menorrhagia 667833409 N92.0 this patient is a 38-year-ol d [...] sweats. To evaluate sex hormones. Menopausal symptom 19836 002 N95.1 Uterine leiomyoma 153030 05 D25.9 [id number] Arben Mendoza MD [place] [address] [address] 03/09/2024 14:55:28 03/09/2024 16:06:27 Postoperative care 765408704 Z48.89 patient presents for postop follow-up after endometria l ablation. She is recovering normally. She has Watery vaginal discharge. She denies any foul-smell ing discharge. She denies any nausea, vomiting, fever, chills. [id number] Arben Mendoza MD [place] [address] [address] 07/07/2024 12:12:55 07/09/2024 09:22:52 Gynecologic examination 74916140 Z01.419 Z11.51 Annual gynecologi radha exam performed. [...] smear- today laboratory evaluation - std's only [id number] Arben Mendoza MD [place] [address],[facility] [place] [address] 11/14/2024 15:41:58 11/14/2024 16:38:23 Dysuria 87665996 R30.0 This patient is a 39-year-ol d female who presents for urinary symptoms. She has dysuria. She has some frequency. We agreed to treat for urinary tract infection. We will culture her urine. She was prescribed antibiotic s. We talked about the risks, benefits, and alternativ es to antibiotic s. She was given precaution s and instructio ns [id number] Arben Mendoza MD [place] [address] [address] 02/13/2025 15:54:35 02/13/2025 16:53:22 Urinary system finding 388415737 R39.9 Urine dipstick negative.W ill send urine culture to r/o infection. Advised to drink clear fluids and avoid bladder irritants. Venereal d isease screening 620235148 Z11.3 Pt requested STI testing.Di scussed the various types of STDs, related symptoms and the potential consequenc es (including effects on fertility) of STD infections . Reviewed ways to limit exposure and prevention techniques . Vaginal discharge 250387 006 N89.8 Reviewed the various causes of vaginal discharge and vaginitis symptoms, including both infectious (STD's, BV, yeast, others) and noninfecti ous (physiolog ic d/c, irritants/ allergens, DIV, others) causes. Reviewed good vulvar/vag inal hygiene and ways to reduce symptoms. Discussed empirical treatment with fluconazol e for suspected yeast infection based on reported symptoms and physical exam findings.D iscussed vulvar care guidelines in addition to laundry/sk in irritants to avoid.Vagi nitis panel sent. Health Concerns Section Related Observation LastModified by Organization Detai ls LastModified Time None Recorded Concern Status LastModified by Organization Details LastModified Time None Recorded Advance Directives Directive N: Payers Insurance Date Sequence Insurance Name Policy Number Policy Otero Covered Member ID Otero Member ID Guarantor Name 03/03/2025 1 [facility] [id number] Cawana Blissit [id number] Cawana Blissit 02/14/2025 1 [facility] [id number] Cawana Blissit [id number] Cawana Blissit 02/08/2025 1 [facility] (MEDICAID HMO) [id number] Cawana Blissit [id number] Cawana Blissit Notes Date Note Type Note Provider Name and Address Organization Details Recorded Time 01/12/2024 text/html this patient is a 38-year-old female with severe menorrhagia. We reviewed her ultrasound results today and her symptoms. She has a submucosal fibroid. We talked about treatment options. We agreed to treat with hysteroscopic myomectomy and endometrial ablation. We spent over 40 minutes [id number]. We discussed all medical treatment options along with surgical treatment options that included hysterectomy. We reviewed the endometrial ablation procedure and the myomectomy in detail. We talked about risks in detail. We made a decision today to perform surgery. We will proceed with hysteroscopic myomectomy and endometrial ablation Arben Mendoza MD [address], [place], [address], [facility] 01/12/2024 18:44:37 03/09/2024 text/html patient presents for postop follow-up after endometrial ablation. She is recovering normally. She has Watery vaginal discharge. She denies any foul-smelling discharge. She denies any nausea, vomiting, fever, chills. Arben Mendoza MD [address], [place], [address], [facility] 03/09/2024 15:53:03 07/07/2024 text/html Annual GYNReport ed bypatient.History:n o gynecologic complaints Urinary symptoms:No hematuria Vulva:No genital lesion Vagina:Normal vaginal discharge Breast:No breast pain Current Contraception:Satis fied with current contraception; Tubal ligation Sexual complaints:No sexual complaints; No pain during intercourse Menopausal Symptoms:No menopausal symptoms Psychological symptoms:No depression; No anxiety Preventive measures:Encourage self breast examination Arben Mendoza MD [address], [place], [address], [facility] 07/07/2024 12:57:04 11/14/2024 text/html This patient is a 39-year-old female who presents for urinary symptoms. She has dysuria. She has some frequency. We agreed to treat for urinary tract infection. We will culture her urine. She was prescribed antibiotics. We talked about the risks, benefits, and alternatives to antibiotics. She was given precautions and instructions Arben Mendoza MD [address], [place], [address], [facility] 11/14/2024 16:35:30 02/13/2025 text/html 39 y/o patient states that she noticed blood in her urine three weeks ago and took leftover amoxicillin for a few days. Patient states that the bleeding resolved, however, she developed vulvar discomfort, feeling of warmth, and discharge.Patient sees kidney specialist for history of hematuria and recently had CMP, urinalysis and GFR that was WNL on 02/08/25.Patient denies dysuria or urgency. Reports intermittent frequency.Neg pain of abd/pelvis/flankNeg GI sx'sNeg N/V/F/C/D AMANDA SHOEMAKER NP [address], [place], [address], [place] [facility] 02/13/2025 16:52:09 OBGyn Episode Ob Episode Information Episode Created Date Number of Fetuses Patient Bloodtype Patient rh Status Prepregnancy Weight lbs Domestic Partner Domestic Partner Phone Father Name Stock Dealer Status 05/14/20 20 1 CLOSED Fetus Data [...] Domestic Partner Domestic Partner Phone Father Name Stock Dealer Status 05/14/20 20 1 CLOSED Fetus Data [...] Domestic Partner Domestic Partner Phone Father Name Stock Dealer Status 05/14/20 20 1 CLOSED Fetus Data [...]
--- OUTSIDE RECORDS SUMMARY | 2025-05-01 16:38 | XMS_ITS | Encounter Summary ---
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 Name Role Phone Unavailable Primary Care Provider Unavailabl e Reason for Visit * Diagnostic Imaging (Routine) - Closed Specialty Diagnoses / Procedures Referred By Contac t Referred To Contact Procedures Breast Imaging Diagnostic Outside Reference Rose Mary Hale MD PhD Phone: tel: fax: Referral ID Status Reason Start Date Expiration Date Visits Re quested Visits Authorized [id number] Closed 12/30/2021 01/29/2023 1 1 Encounter Details Date Type Department Care Team (Late st Contact Info) Description 02/02/2016 Hospital Encounter [facility] [address] [place] [id number] Social History Tobacco Use Types Packs/Day Years [...] on file 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 There will be no report generated by a [facility] Radiologist. Narrative [facility] - 12/30/2021 11:26 AM CDT EXAMINATION: Images For Reference Purposes [...] COVID: Suspected 09/17/2021 09/17/2021 09/17/2021 4:54 PM BUS CLEANER COVID19 09/17/2021 09/17/2021 10/01/2021 3:05 AM BUS CLEANER COVID: Recovered Comment:Added based on recent COVID infection. 10/01/2021 12/22/2021 01/29/2022 3:05 AM C DT COVID: Suspected 06/09/2022 06/09/2022 06/09/2022 5:57 PM CDT COVID: Suspected 08/30/2022 08/30/2022 08/30/2022 6:50 PM BUS CLEANER COVID: Suspected 03/05/2024 03/05/2024 03/05/2024 8:34 PM CDT COVID: Suspected 10/22/2024 10/22/2024 10/22/2024 9:49 AM BUS CLEANER documented as of this encounter
--- OUTSIDE RECORDS SUMMARY | 2025-05-01 16:38 | XMS_ITS | Encounter Summary ---
Author Organization [facility] Address [address] [place] [address] Care Team Providers Care Milking Machine Mechanic Name Role Phone Tegan Gama DO Primary Care Provider Encounter Details Date Type Department Care Team (Late st Contact Info) Description 11/11/2023 Telephone [facility] - Neurology [address] [place] [address], [place] [address] Gregorio Land MD [address] [place] [phone] Social History Tobacco Use Types Packs/Day Years Used Date Smoking Tobacco: Never Smokeless Tobacco: Never Alcohol Use Standard Drinks/Week Comments Not Currently [...] on file 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 Answer Date of Assessment Author No 12/03/2022 4:00 PM Richter RN * Is person blind or have serious difficulty seeing? Answer Date of Assessment Author No 12/03/2022 4:00 PM Richter RN * Does person have serious difficulty walking/climbing stairs? Answer Date of Assessment Author No 12/03/2022 4:00 PM Richter RN * Does person have difficulty dressing/bathing? Answer Date of Assessment Author No 12/03/2022 4:00 PM Richter RN * Does person have difficulty doing errands alone? Answer Date of Assessment Author No 12/03/2022 4:00 PM Richter RN documented as of this encounter Mental Status * Does person have difficulty concentrating/remembering/making decisions? Answer Entry Date Author No 12/03/2022 4:00 PM Richter RN documented in this encounter Miscellaneous Notes * Telephone Encounter - Syeda Rivera - 11/11/2023 11:26 AM CST Patient called in requesting a Med refill. Drug type:Nurotech (got samples but needs a script because her headaches are coming back.) [facility]acy:[facility] Patient call back number: [phone] . USSION INSTRUMENT REPAIRER documented in this encounter Plan of Treatment Upcoming Encounters Date Type Department Care Team (Late st Contact Info) Description 07/29/2025 9:45 AM CDT Appointment [address] [address] Selin Eldridge MD [address] [facility] [address] [place] [address] 07/29/2025 10:00 AM CDT Appointment [address] [address] Selin Eldridge MD [address] [facility] [address] [place] [address] 07/29/2025 11:00 AM CDT Office Visit [facility] - General Surgery [address] [place] [address] Selin Eldridge MD [address] [facility] [address] [place] [address] documented as of this encounter Goals Goal Patient Goal Type Associated Problems Recent Progress Patient-Stated? Author Medication Management General On track( 023 10:48 AM CDT) No Linda Spears, RN Note: Expected end date: Ongoing Interventions: Take all medications as prescribed Let your doctor know right away about any changes in your medications Make sure to request a refill of your medication at least one week prior to your last dose documented as of this encounter Visit Diagnoses Not on filedocumented in this encounter Care Teams Milking Machine Mechanic Relationship Specialty Start Date End Date Tegan Gama DO [address] [facility] [address] [place] [id number] PCP - General Family Medicine 03/10/23 documented as of this encounter
[2025-05-01 17:08] LABS: Hematocrit 36.0 % (37.0-47.0); Hemoglobin 11.8 g/dL (12.0-15.0); Mean Corpuscular HGB Conc 32.8 g/dl (32-36); Mean Corpuscular Hemoglobin 29.4 pg (26-34); Mean Corpuscular Volume 89.8 fl (80-100); Platelet Count Result 253 k/mm3 (150-375); Red Blood Count 4.01 M/mm3 (4.2-5.4); White Blood Count 5.5 K/mm3 (4.5-10.0)
[2025-05-01 17:27] LABS: Alanine Aminotransferase 17 U/L (6-35); Albumin Level 4.5 g/dL (3.5-5.1); Alkaline Phosphatase 36 U/L (38-126); Anion Gap 7 mmol/L (4-12); Aspartate Amino Transferase 26 U/L (14-36); Bilirubin,Total 0.6 mg/dL (0.2-1.3); Blood Urea Nitrogen 9 mg/dL (7-17); Calcium 9.4 mg/dL (8.4-10.2); Carbon Dioxide 23 mmol/L (22-30); Chloride 106 mmol/L (98-107); Cholesterol 194 mg/dL (0-200); Creatine Kinase 87 U/L (30-135); Estimated Glomerular Filt Rate > 60; Glucose 96 mg/dL (65-110); HDL Direct 80 mg/dL; Potassium 3.7 mmol/L (3.4-5.0); Sodium 136 mmol/L (137-145); Total Protein 7.8 g/dL (6.3-8.2); Triglycerides 67 mg/dL (<150)
[2025-05-01 17:28] LABS: Iron 142 ug/dL (37-170)
[2025-05-01 17:38] LABS: Percent Iron Saturation 42 % (20-50)
[2025-05-01 17:39] LABS: Hemoglobin A1C 5.1 % (<5.7)
[2025-05-01 17:48] LABS: Free T4 Free Thyroxine 1.06 ng/dL (0.78-2.19)
[2025-05-01 17:57] LABS: MALB Creatinine Ratio 6.3 mg/g (0-30)
[2025-05-01 18:03] LABS: Thyroid Stimulating Hormone 0.611 uIU/mL (0.465-4.680)
[2025-05-01 18:39] LABS: Vitamin B12 718.0 pg/mL (239-931)
== END 2025-05-01 16:33 | disposition home or self-care (01) ==
PROVIDERS: PCP Emergency Medicine; Referring Provider Internal Medicine Hematology & Oncology; Visit Provider Emergency Medicine
DX: E03.9 Hypothyroidism, unspecified (principal); Z00.00 Encounter for general adult medical examination without abnormal findings
CPT/HCPCS: 36415; 80053; 80061; 82043; 82306; 82550; 82607; 82746; 83036; 83540; 83550; 84439; 84443; 85027

== ENCOUNTER 2025-05-07 16:16 | Outpatient (CLI) | payer OTHER, SELFPAY ==
--- OUTSIDE RECORDS SUMMARY | 2025-05-07 16:19 | XMS_ITS | Encounter Summary ---
Author Organization [facility] Healthcare Address [address] [place] [address] Care Team Providers Care Artificial Log Machine Operator Name Role Phone Khari Jason MD Primary Care Provider [phone] Reason for Visit * Diagnostic Imaging (Routine) - Closed Specialty Diagnoses / Procedures Referred By Contac t Referred To Contact Procedures Breast Imaging Diagnostic Outside Reference Rose Mary Hale MD PhD Phone: tel: fax: Referral ID Status Reason Start Date Expiration Date Visits Re quested Visits Authorized [id number] Closed 12/30/2021 01/29/2023 1 1 Encounter Details Date Type Department Care Team (Late st Contact Info) Description 12/05/2020 Hospital Encounter [facility] [address] [place] [id number] Social History Tobacco Use Types Packs/Day Years [...] on file Legal Sex Female 3:57 AM CLUTCH OPERATOR Gender Identity Female 08/04/2021 8:37 AM [...] DIAGNOSTIC OUTSIDE REFERENCE Routine 12/05/2020 12:00 AM CLUTCH OPERATOR documented in this encounter Results * Breast Imaging Diagnostic Outside Reference (12/05/2020 12:00 AM CLUTCH OPERATOR) Impressions [facility] - 12/30/2021 11:25 AM CDT These images are for Reference purposes only and have not been reviewed by [facility] Radiology. There will be no report generated by a [facility] Radiologist. Narrative [facility] - 12/30/2021 11:25 AM [...] COVID: Suspected 09/17/2021 09/17/2021 09/17/2021 4:54 PM CLUTCH OPERATOR COVID19 09/17/2021 09/17/2021 10/01/2021 3:05 AM CLUTCH OPERATOR COVID: Recovered Comment:Added based on recent COVID infection. 10/01/2021 12/22/2021 01/29/2022 3:05 AM C DT COVID: Suspected 06/09/2022 06/09/2022 06/09/2022 5:57 PM CDT COVID: Suspected 08/30/2022 08/30/2022 08/30/2022 6:50 PM CLUTCH OPERATOR COVID: Suspected 03/05/2024 03/05/2024 03/05/2024 8:34 PM CDT COVID: Suspected 10/22/2024 10/22/2024 10/22/2024 9:49 AM CLUTCH OPERATOR documented as of this encounter Care Teams Artificial Log Machine Operator Relationship Specialty Start Date End Date Khari Jason MD PCP - General Emergency Medicine 04/01/20 03/14/23 documented as of this encounter
--- OUTSIDE RECORDS SUMMARY | 2025-05-07 16:19 | XMS_ITS | Encounter Summary ---
Author Organization [facility] Healthcare Address [address] [place] [address] Care Team Providers Care Adult Education Teacher Name Role Phone Khari Jason MD Primary Care Provider [phone] Reason for Visit * Diagnostic Imaging (Routine) - Closed Specialty Diagnoses / Procedures Referred By Contac t Referred To Contact Procedures Breast Imaging Screening Outside Reference Rose Mary Hale MD PhD Phone: tel: fax: Referral ID Status Reason Start Date Expiration Date Visits Re quested Visits Authorized [id number] Closed 12/30/2021 01/29/2023 1 1 Encounter Details Date Type Department Care Team (Late st Contact Info) Description 11/08/2020 Hospital Encounter [facility] [address] [place] [id number] Social History Tobacco Use Types Packs/Day Years [...] on file Legal Sex Female 3:57 AM CUSTOMER SOLUTIONS COORDINATOR Gender Identity Female 08/04/2021 8:37 AM CDT [...] SCREENING OUTSIDE REFERENCE Routine 11/08/2020 12:00 AM CUSTOMER SOLUTIONS COORDINATOR documented in this encounter Results * Breast Imaging Screening Outside Reference (11/08/2020 12:00 AM CUSTOMER SOLUTIONS COORDINATOR) Impressions [facility] - 12/30/2021 11:24 AM CDT These images are for Reference purposes only and have not been reviewed by [facility] Radiology. There will be no report generated by a [facility] Radiologist. Narrative [facility] - 12/30/2021 11:24 AM [...] COVID: Suspected 09/17/2021 09/17/2021 09/17/2021 4:54 PM CUSTOMER SOLUTIONS COORDINATOR COVID19 09/17/2021 09/17/2021 10/01/2021 3:05 AM CUSTOMER SOLUTIONS COORDINATOR COVID: Recovered Comment:Added based on recent COVID infection. 10/01/2021 12/22/2021 01/29/2022 3:05 AM C DT COVID: Suspected 06/09/2022 06/09/2022 06/09/2022 5:57 PM CDT COVID: Suspected 08/30/2022 08/30/2022 08/30/2022 6:50 PM CUSTOMER SOLUTIONS COORDINATOR COVID: Suspected 03/05/2024 03/05/2024 03/05/2024 8:34 PM CDT COVID: Suspected 10/22/2024 10/22/2024 10/22/2024 9:49 AM CUSTOMER SOLUTIONS COORDINATOR documented as of this encounter Care Teams Adult Education Teacher Relationship Specialty Start Date End Date Khari Jason MD PCP - General Emergency Medicine 04/01/20 03/14/23 documented as of this encounter
--- OUTSIDE RECORDS SUMMARY | 2025-05-07 16:19 | XMS_ITS | Data Portability ---
Author Organization [facility], Main Office Address [address] [place] [id number] Assessment No assessment recorded. Plan of Treatment Reminders Order Date Submit Date Provider Last Modified By Organization Details Last Modified Time Details Appointments None recorded. Lab None recorded. Referral None recorded. Procedures None recorded. Surgeries None recorded. Imaging None recorded. Medication Orders ketoconaz ole 2 % topical cream 2023 024 [facility], [address] [place] [address], [address], 4 12:46:04 Diflucan 150 mg tablet 2023 024 [facility], [address] [place] [address], [address], 4 12:46:04 Patient TargetsNo targets recorded. Patient InstructionsNo instructions recorded. Reason for Referral None Reported. Results Created Date Observation Date Name Description Value Unit Range Abnormal Flag Note LastModifiedBy Organization Detail LastModifiedTime 06/23/2006/25/2022 T3, FREE T3, free 3.2 pg/mL 2.3-4. 2 normal Not Available [facility] [address] , [place], [address], 06/25/2022 17:11:41 06/23/20 22 06/25/2022 TSH TSH 0.70 mIU/L normal Refer ence Range > or = 20 Years 0.40- 4.50 Pregn verona Range s First trime ster 0.26- 2.66 Secon d trime ster 0.55- 2.73 Third trime ster 0.43- 2.91 Not Available [address], [address], 06/25/2022 17:11:40 06/23/20 22 06/25/2022 T4, FREE T4, free 1.0 NG/dL 0.8-1. 8 normal Not Available [address], [address], 06/25/2022 17:11:40 06/23/20 22 06/25/2022 THYRO ID PEROX IDASE ANTIB ODIES thyroid peroxidase antibodies 155 IU/mL <9 high Not Available [address], [address], 06/25/2022 17:11:39 06/23/20 22 06/25/2022 COMPR EHENS YOSI METAB OLIC PANEL glucose 86 mg/dL 65-99 normal Fasti ng refer ence inter hilary Not Available [address], [address], 06/25/2022 17:11:39 06/23/20 22 06/25/2022 COMPR EHENS YOSI METAB OLIC PANEL urea nitrogen (BUN) 9 mg/dL 7-25 normal Not Available [address], [address], 06/25/2022 17:11:39 06/23/20 22 06/25/2022 COMPR EHENS YOSI METAB OLIC PANEL creatinine 0.84 mg/dL 0.50-0 .97 normal Not Available [address], [address], 06/25/2022 17:11:39 06/23/20 22 06/25/2022 COMPR EHENS [...] kdoqi /gfr% 5Fcal culat or Not Available [address], [address], 06/25/2022 17:11:39 06/23/20 22 06/25/2022 COMPR EHENS YOSI METAB OLIC PANEL BUN/creatini ne ratio not applic able (calc ) 6-22 Not Available [address], [address], 06/25/2022 17:11:39 06/23/20 22 06/25/2022 COMPR EHENS YOSI METAB OLIC PANEL sodium 140 mmol/ L 135-14 6 normal Not Available [address], [address], 06/25/2022 17:11:39 06/23/20 22 06/25/2022 COMPR EHENS YOSI METAB OLIC PANEL potassium 4.2 mmol/ L 3.5-5. 3 normal Not Available [address], [address], 06/25/2022 17:11:39 06/23/20 22 06/25/2022 COMPR EHENS YOSI METAB OLIC PANEL chloride 106 mmol/ L 98-110 normal Not Available [address], [address], 06/25/2022 17:11:39 06/23/20 22 06/25/2022 COMPR EHENS YOSI METAB OLIC PANEL carbon dioxide 28 mmol/ L 20-32 normal Not Available [address], [address], 06/25/2022 17:11:39 06/23/20 22 06/25/2022 COMPR EHENS YOSI METAB OLIC PANEL calcium 9.2 mg/dL 8.6-10 .2 normal Not Available [facility] [address] [address], [place], [address], 06/25/2022 17:11:39 06/23/20 22 06/25/2022 COMPR EHENS YOSI METAB OLIC PANEL protein, total 6.9 g/dL 6.1-8. 1 normal Not Available [address], [address], 06/25/2022 17:11:39 06/23/20 22 06/25/2022 COMPR EHENS YOSI METAB OLIC PANEL albumin 4.4 g/dL 3.6-5. 1 normal Not Available [address], [address], 06/25/2022 17:11:39 06/23/20 22 06/25/2022 COMPR EHENS YOSI METAB OLIC PANEL globulin 2.5 g/dL_ (calc ) 1.9-3. 7 normal Not Available [address], [address], 06/25/2022 17:11:39 06/23/20 22 06/25/2022 COMPR EHENS YOSI METAB OLIC PANEL albumin/glob ulin ratio 1.8 (calc ) 1.0-2. 5 normal Not Available [address], [address], 06/25/2022 17:11:39 06/23/20 22 06/25/2022 COMPR EHENS YOSI METAB OLIC PANEL bilirubin, total 0.5 mg/dL 0.2-1. 2 normal Not Available [address], [address], 06/25/2022 17:11:39 06/23/20 22 06/25/2022 COMPR EHENS YOSI METAB OLIC PANEL alkaline phosphatase 41 U/L 31-125 normal Not Available [address], [address], 06/25/2022 17:11:39 06/23/20 22 06/25/2022 COMPR EHENS YOSI METAB OLIC PANEL AST 11 U/L 10-30 normal Not Available [address], [address], 06/25/2022 17:11:39 06/23/20 22 06/25/2022 COMPR EHENS YOSI METAB OLIC PANEL ALT 8 U/L 6-29 normal Not Available [address], [address], 06/25/2022 17:11:39 07/06/20 22 07/10/2022 CALCI UM, IONIZ ED calcium, ionized 5.0 mg/dL 4.8-5. 6 normal Not Available [address], [address], 07/10/2022 15:37:55 07/06/20 22 07/10/2022 CORTI KULDEEP, A.M. cortisol, A.M. 18.1 mcg/d L normal Refer ence Range 8 a.m. (7-9 a.m.) Speci men: 4.0-2 2.0 Not Available [address], [address], 07/10/2022 15:37:55 07/06/20 22 07/10/2022 PROLA CTIN prolactin 24.3 NG/mL normal Refer ence Range Femal es Non-p regna nt 3.0-3 0.0 Pregn ant 10.0- 209.0 Postm enopa usal 2.0-2 0.0 Not Available [address], [address], 07/10/2022 15:37:54 07/06/20 22 07/10/2022 ACTH, PLASM A acth, plasma 21 pg/mL 6-50 Refer ence range appli es only to speci mens colle cted betwe en 7am-1 0am. Not Available [facility] [address], [place], [address], 07/10/2022 15:37:54 02/10/20 22 02/08/2022 NM, tanner elmira d scan No observ ation record ed. [id number], [place], [address], 12/15/2022 16:41:26 Result Notes None recorded. 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 Not Available [facility] 3 16:40:24 Vitamin D deficiency 69940719 Active 2021 Not Available [facility] 3 16:40:24 Hypothyroidis m 00336159 Active 2021 Not Available [facility] 3 16:40:24 Iron deficiency anemia 32700454 Active 2021 Not Available [facility] 3 16:40:25 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 Not Available [facility] 3 16:40:24 Pituitary function test outside reference range 327210263 Active 2021 Not Available [facility] 3 16:40:24 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 Procedures Surgical History Date Name Laterality Status Provider Name and Address Organization Details Recorded Time 2 Lumpectomy completed Not Available [facility] 3 16:39:45 2 Biopsy completed Not Available [facility] 3 16:39:45 Tubal Ligation completed Patricio ValdovinosENA kennedy [place] - [facility] [employer] [facility] 04/11/2024 14:29:31 Imaging Results None recorded. Procedure [...] % 99 % 70 /min 97.8 [degF] 63672.0 1 g 105/75 mm[Hg] Not Available [facility] 3 16:39:50 Date Recorded Body mass index (BMI) Body height Oxygen saturation Oxygen saturation in Arterial blood by Pulse oximetry Heart rate Body temperature Body weight Systolic And Diastolic Provider Name and Address Organization Details Last Updated DateTime 2 21.5 kg/m2 167.64 cm 98 % 98 % 70 /min 97.8 [degF] 92063.5 8 g 95/65 mm[Hg] Not Available [facility] 3 16:39:51 Date Recorded Body height Body mass index (BMI) Body weight Oxygen saturation Oxygen saturation in Arterial blood by Pulse oximetry Body temperature Heart rate Systolic And Diastolic Provider Name and Address Organization Details Last Updated DateTime 4 167.64 cm 20.7 kg/m2 66985.8 2 g 97 % 97 % 97.7 [degF] 69 /min 116/73 mm[Hg] EAN Hancock [place] [facility] [place] [employer] [facility] 4 14:28:06 Date Recorded Body mass index (BMI) Body height Oxygen saturation Oxygen saturation in Arterial blood by Pulse oximetry Heart rate Body temperature Body weight Systolic And Diastolic Provider Name and Address Organization Details Last Updated DateTime 2 21.5 kg/m2 167.64 cm 98 % 98 % 82 /min 98.8 [degF] 76841.7 9 g 100/60 mm[Hg] Not Available [facility] 3 16:39:51 Date Recorded Body mass index (BMI) Body height Oxygen saturation Oxygen saturation in Arterial blood by Pulse oximetry Heart rate Body temperature Body weight Systolic And Diastolic Provider Name and Address Organization Details Last Updated DateTime 2 22.5 kg/m2 167.64 cm 99 % 99 % 75 /min 97.6 [degF] 30485.0 6 g 102/64 mm[Hg] Not Available [facility] 16:39:51 Social History Question Answer Notes LastModified by Organizat [employer] Details LastModified Time Tobacco Smoking Status Never Smoker Not Available [facility] 12/15/2022 16:39:37 What Is Your Level Of Caffeine Consumption? Occasional On A Rare Occassion [id number] Information not available 12/15/2022 In The 14 Days Before Symptom Onset, Have You Had Close Contact With A Laboratory-confi rmed COVID-19 While That Case Was Ill? No [id number] Information not available 12/15/2022 In The 14 Days Before Symptom Onset, Have You Had Close Contact With A Person Who Is Under Investigation For COVID-19 While That Person Was Ill? No [id number] Information not available 12/15/2022 What Was The Date Of Your Most Recent Tobacco Screening? 04/11/2024 Information not available 04/11/2024 What Is Your Relationship Status? Single [id number] Information not available 12/15/2022 Have You Recently Traveled Abroad? No [id number] Information not available 12/15/2022 Sex: Female Functional Status Question Answer Note LastModified by Organizat [employer] Details LastModified Time What is your level of alcohol consumption? 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 Family History Relationship Description Onset Age of this Age Resolved Age Notes LastModified by Organization Details LastModified Time Maternal Grandmother History of thyroid disorder [id number] Not available 12/15/2022 16:39:46 Paternal Aunt History of thyroid disorder [id number] Not available 12/15/2022 16:39:46 Medical History Condition Response HEADACHES/MIGRAINES Y GERD/NAUSEA Y ANEMIA/BLOOD DISORDER Y HAVE YOU BEEN HOSPITALIZED OR SEEN IN [facility] ER IN THE PAST YEAR ? Y Gynecological HistoryNo gynecological history recorded. Obstetrics History GPAL:G 0 P 0 0 0 0 Past Encounters Encounter ID Performer Location Encounter Start Date Encounter Closed Date Diagnosis/Indication Diagnosis SNOMED-CT Code Diagnosis ICD10 Code Diagnosis Note [id number] [facility] [address] [place] [address] 12/21/2021 00:00:00 12/21/2021 11:15:37 [id number] [facility] [address] [place] [address] 02/01/2022 00:00:00 02/01/2022 14:52:44 [id number] Melany Rosas MD [facility] [address] [place] [address] 04/23/2022 00:00:00 04/24/2022 13:21:53 [id number] [facility] [address] [place] [address] 07/19/2022 00:00:00 07/19/2022 13:27:43 [id number] Davy Jackson DPM [facility] [place] [address] [address] 04/11/2024 14:02:20 04/26/2024 11:57:16 Tinea pedis 4070568 B35.3 Health Concerns Section Related Observation LastModified by Organization Detai ls LastModified Time None Recorded Concern Status LastModified by Organization Details LastModified Time None Recorded Advance Directives Directive None Recorded Payers Insurance Date Sequence Insurance Name Policy Number Policy Otero Covered Member ID Otero Member ID Guarantor Name 04/08/2024 1 [facility] (MEDICAID HMO) [id number] Cawana Blissit [id number] Cawana Blissit OBGyn Episode No OBEpisode recorded.
--- OUTSIDE RECORDS SUMMARY | 2025-05-07 16:19 | XMS_ITS | Clinical Summary ---
Author Organization [facility] Address [address] [place] [phone] Phone Care Team Providers Care Umbrella Repairer Name Role Phone Unavailable Primary Care Provider [...] needed Active ergocalciferol (VITAMIN D-2) 1.25 MG (58187 UT) capsule Take 1 capsule (50,000 Units total) by mouth 1 (one) time per week 4 capsule 11 5 Active ergocalciferol (VITAMIN D-2) 1.25 MG (21114 UT) capsule Take 50,000 Units by mouth 1 (one) time per week 04/11/20 25 Discontinu ed(Reorder ) Active Problems Problem Noted Date Diagnosed Date Microalbuminuria 05/31/2024 Microscopic hematuria 05/31/2024 Anemia 05/31/2024 Encounters Date Type Department Care Team Description 04/11/2025 4:20 PM CDT Office Visit [facility] [address] [facility] [address] [place] [address] Man Sidhu MD Chronic kidney disease stage [...] st Contact Info) Description 10/03/2025 11:20 AM MILK PASTEURIZER Office Visit [facility] [address] [facility] [address] [place] [address] Man Sidhu MD [address] [facility] 1 [place] [address] Health Maintenance Due Date Last Done Comments Pneumococcal PPSV23 Highest Risk Adult (1 of 3 - PCV13 ) 02/22/2004 Influenza Vaccine (#1) 2025 Insurance PM INTERFACED INSURANCE
--- OUTSIDE RECORDS SUMMARY | 2025-05-07 16:20 | XMS_ITS | Encounter Summary ---
Author Organization [facility] Healthcare Address [address] [place] [address] Care Team Providers Care Quality Control Tech Name Role Phone No, Physician Primary Care Provider [phone] Reason for Visit * Diagnostic Imaging (Routine) - Closed Specialty Diagnoses / Procedures Referred By Contshamar t Referred To Contact Procedures Breast Imaging Diagnostic Outside Reference Rose Mary Hale MD PhD Phone: tel: fax: Referral ID Status Reason Start Date Expiration Date Visits Re quested Visits Authorized [id number] Closed 12/30/2021 01/29/2023 1 1 Encounter Details Date Type Department Care Team (Late st Contact Info) Description 06/05/2017 Hospital Encounter [facility] [address] [place] [address] Social History Tobacco Use Types Packs/Day Years [...] on file Legal Sex Female 3:[address] [employer] [address] Gender Identity Female 08/04/2021 8:37 AM CDT [...] only and have not been reviewed by [facility] Radiology. There will be no report generated by a [facility] Radiologist. Narrative RAD_MAMMO_[facility] - 12/30/2021 11:25 [...] COVID: Suspected 09/17/2021 09/17/2021 09/17/2021 4:[address] [employer] [address] COVID19 09/17/2021 09/17/2021 10/01/2021 3:[address] [employer] [address] COVID: Recovered Comment:Added based on recent COVID infection. 10/01/2021 12/22/2021 01/29/2022 3:05 AM C DT COVID: Suspected 06/09/2022 06/09/2022 06/09/2022 5:57 PM CDT COVID: Suspected 08/30/2022 08/30/2022 08/30/2022 6:[address] [employer] [address] COVID: Suspected 03/05/2024 03/05/2024 03/05/2024 8:34 PM CDT COVID: Suspected 10/22/2024 10/22/2024 10/22/2024 9:[address] [employer] [address] documented as of this encounter Care Teams Quality Control Tech Relationship Specialty Start Date End Date No, Physician PCP - General 03/22/17 12/04/19 documented as of this encounter
--- OUTSIDE RECORDS SUMMARY | 2025-05-07 16:20 | XMS_ITS | Referral Summary ---
Author Organization [facility] Address [address] [place] [address] Care Team Providers Care Mechanical Engineering Officer Name Role Phone Bcuky Abreu MD Unavailable [phone] Arben Mendoza MD Unavailable [phone] Rigoberto Ramos MD Unavailable [phone] Gregorio Land MD Unavailable [phone] Rei Cid NP Unavailable [phone] Khari Jason MD Primary Care Provider [phone] Encounters Date Type Department Care Team Description 03/13/2025 [facility] [address] [place] [phone] Kris Tyler MA [facility] 03/13/2025 8:30 AM CDT [facility] [address] [place] [phone] Gregorio Land MD Migraine with aura and without status migrainosus, not intractable (Primary Dx) 02/08/2025 2:50 PM CDT Lab [address] [address] from Last 3 Months Allergies Active Allergy [...] 10/24/2023 Assessment & Plan (10/24/2023 11:21 AM PRESCHOOL PRINCIPAL): Acute problem-this is a new problem Recommend [...] 10/24/2023 Assessment & Plan (10/24/2023 11:23 AM PRESCHOOL PRINCIPAL): Acute problem-this is a new problem Recommend [...] 10/04/2023 Assessment & Plan (10/24/2023 11:19 AM PRESCHOOL PRINCIPAL): Acute on chronic problem-this is recurring problem Recommend taking OTC Tylenol and ibuprofen-use as directed Alternate ice and heat therapy to left shoulder p.r.n. at 20 minute intervals Ordered EMG/NCS bilateral upper extremities Follow-up with PCP as scheduled Continue to monitor Follow-up with rheumatoid specialist as scheduled Assessment & Plan (10/04/2023 11:28 AM PRESCHOOL PRINCIPAL): OTC NSAIDs recommended. Please take your omeprazole daily. Pain in both feet 10/04/2023 Assessment & Plan (10/04/2023 11:29 AM PRESCHOOL PRINCIPAL): Xrays ordered, add OTC NSAIDs, such as Aleve. Use as directed. Pain in both knees 10/04/2023 Assessment & Plan (10/04/2023 11:29 AM PRESCHOOL PRINCIPAL): Xrays ordered, add OTC NSAIDs, such as Aleve. Use as directed. Abnormal thyroid function test 09/27/2023 Assessment & Plan (09/27/2023 4:24 PM PRESCHOOL PRINCIPAL): Chronic, worsening Low TSH with normal free [...] year Assessment & Plan (11/28/2023 8:34 AM PRESCHOOL PRINCIPAL): History of Fan's thyroiditis Elevated TPO antibodies Repeat recent thyroid function test, within normal limits Patient hot flashes are not explain due to her thyroid Advised patient to see steam table associate Assessment & Plan (06/03/2023 11:16 AM CDT): Currently not on any medications. Patient reports that her wrap yarn sorter told her she no longer needed levothyroxine. [...] (12/12/2019): Added automatically from request for surgery [id number] Assessment & Plan (12/26/2019 1:42 PM CDT): Had an episode of abdominal cramping recently. Likely related to constipation. Colonoscopy, EGD, and CT negative. Diastasis of rectus abdominis 11/21/2019 Assessment & Plan (11/21/2019 12:01 PM PRESCHOOL PRINCIPAL): With a couple of loops of non [...] fiber. Assessment & Plan (12/12/2019 1:55 PM PRESCHOOL PRINCIPAL): Pt is unsure of her BM pattern. [...] issues. Assessment & Plan (11/20/2019 2:31 PM PRESCHOOL PRINCIPAL): Intermittent issues with constipation. Pt is unsure of pattern and states she doesn't pay attention to when she goes. She does know she can skip a couple of days. She doesn't take anything for her constipation. Spoke with patient and appears she has poor diet. She says she eats fast food a lot and loves burundian fries. Discussed importance of eating a fresh [...] was extenenesively evaluated by Endocrinology department at [facility] No other abnormalities found TSH was [...] was extenenesively evaluated by Endocrinology department at [facility] No other abnormalities found Plan: Explained [...] nausea. Assessment & Plan (12/12/2019 1:54 PM PRESCHOOL PRINCIPAL): Pt having intermittent episodes of nausea. EGD was normal. Possible dyspepsia. Pt appears to have overall poor diet. Will start on pantoprazole 40mg daily and instructed to keep food journal of things that are causing the nausea/pain. Instructed to avoid too heavy/high fat, fast foods. Assessment & Plan (11/20/2019 2:35 PM PRESCHOOL PRINCIPAL): Intermittent episodes of nausea on and off. No vomiting. Discussed avoiding high fat, fried foods and avoiding fast food. Will schedule EGD due to complaints of LUQ pain and intermittent nausea. Upper abdominal pain 11/20/2019 023 Overview (11/20/2019): Added automatically from request for surgery [id number] Assessment & Plan (12/12/2019 1:52 PM PRESCHOOL PRINCIPAL): Intermittent episodes. Pt says she had LUQ [...] on file Legal Sex Female 3:57 AM PRESCHOOL PRINCIPAL Gender Identity Female 08/04/2021 8:37 AM CDT Sexual Orientation Not on file Last Filed Vital Signs Vital Sign Reading Time Taken Comments Blood Pressure 97/75 10/22/2024 8:40 AM PRESCHOOL PRINCIPAL Pulse 92 10/22/2024 8:40 AM PRESCHOOL PRINCIPAL Temperature 36.7 C (98 F) 10/22/2024 8:40 AM PRESCHOOL PRINCIPAL Respiratory Rate 16 10/22/2024 8:40 AM PRESCHOOL PRINCIPAL Oxygen Saturation 100% 10/22/2024 8:40 AM PRESCHOOL PRINCIPAL Inhaled Oxygen Concentration - - Weight 63.5 [...] BLOOD ORDERABLES Final Resul t [facility] ([place]) 1 [facility] Department [place] [address] * Differential, auto (02/08/2025 2:59 PM CDT) [...] Eosinophil pct 1.1 % [facility] ([place]) Comment: Interpretive Data Percent cell count reference ranges are not reported, since discordance with absolute values may lead to misinterpretation of CBC data. Current Interpretive Data was last revised on 2018. Basophil pct 0.5 % [facility] ([place]) Comment: Interpretive Data Percent cell count reference ranges are not reported, since discordance with absolute values may lead to misinterpretation of CBC data. Current Interpretive Data was last revised on 2018. Blood 02/08/2025 2:59 PM CDT 02/08/2025 3:03 PM CDT Man Sidhu MD LAB BLOOD ORDERABLES Final Resul t [facility] ([place] 1 [facility] Department [place] [address] * (ABNORMAL) Urinalysis reflex to microscopic (02/08/2025 2:59 PM CDT) Color, ur Yellow Yellow Clarity, ur Turbid(A) Clear [facility] ([place]) Specific gravity, ur 1.022 1.003 - 1.030 [facility] ([place]) pH, urine 5.5 [facility] ([place]) Comment: Interpretive Data U rine pH is affected by diet, medications, systemic acid-base disturbances, and renal tubular function. pH may affect urinary stone formation. For example, urine pH below 6.0 may help reduce the tendency for calcium phosphate stones and pH greater than 6.0 may reduce the tendency for uric acid stone formation. Source: [facility] [employer] Current Interpretive Data was last revised on [...] MD LAB URINE ORDERABLES Final Resul t [facility] ([place]) 1 [facility] Department [place] [address] * (ABNORMAL) CBC with auto differential (02/08/2025 [...] 89.9 81.3 - 96.4 fL [facility] ([place]) MCH 30.2 27.1 - 33.3 pg [facility] ([place]) MCHC 33.5 32.3 - 35.7 g/dL [facility] ([place]) RDW CV 13.0 11.1 - 14.9 % [facility] ([place]) RDW SD 42.8 35.7 - 48.1 fL [facility] ([place]) NRBC abs 0.00 0.00 - 0.01 K/cumm [facility] ([place]) Blood 02/08/2025 2:59 PM CDT 02/08/2025 3:03 PM CDT Man Sidhu MD LAB BLOOD ORDERABLES Final Resul t [facility] ([place]) 1 [facility] [place] [address] * Vitamin D 25 hydroxy (02/08/2025 2:59 PM CDT) Vitamin D 25-OH 32 30 - 80 ng/mL Blood 02/08/2025 2:59 PM CDT 02/08/2025 3:03 PM CDT Man Sidhu MD LAB BLOOD ORDERABLES Final Resul t Performing Organization Address City/[facility]/ZIP Co de Phone Number [facility] ([place]) 1 [facility] [place] [address] * Renal function panel (02/08/2025 2:59 PM CDT) Sodium 141 135 - 145 mmol/L Potassium, pl 3.4 3.3 - 4.9 mmol/L [facility] ([place]) Chloride 104 97 - 110 mmol/L [facility] ([place]) CO2 23 22 - 32 mmol/L [facility] ([place]) Anion gap 14 2 - 15 mmol/L [facility] ([place]) BUN 12 6 - 25 mg/dL [facility] ([place]) Creatinine 1.02 0.60 - 1.10 mg/dL [facility] ([place]) Glucose 100 70 - 199 mg/dL [facility] ([place]) Comment: Interpretive Data Fasting glucose [...] 2022. Calcium 9.3 8.5 - 10.3 mg/dL [facility] ([place]) Phosphorus, pl 3.5 2.3 - 4.5 mg/dL [facility] ([place]) Albumin 4.6 3.5 - 5.0 g/dL [facility] ([place]) Blood 02/08/2025 2:59 PM CDT 02/08/2025 3:03 PM CDT Man Sidhu MD LAB BLOOD ORDERABLES Final Resul t [facility] ([place]) 1 [facility] Department [place] [address] * Screening Mammogram Bilateral W Cristian (08/11/2023) Anatomical Region Laterality Modality Breast Bilateral Mammography Generic External Data Provider IMG MAMMO PROCEDU RES Final Result * Hepatitis C antibody (03/15/2023 11:25 AM CDT) Hep C Ab Nonreactive Nonreactive [facility] ([place]) Comment: Interpretive Data Nonreactive: Antibodies to [...] Testing performed by: [facility], [address] [place] [address], [place]., [address] Blood 03/15/2023 11:2 5 AM CDT 03/15/2023 11:29 PM CDT us Tegan Gama DO LAB MICROBIOLOGY - GENERAL ORDERABLES Final Result [facility] ([place]) 1 [facility] Department [place] [address] * HM PAP SMEAR WITH HPV (07/23/2022) Scribed Pap Smear w/HPV Normal us Generic External Data Provider HEALTH MAINTENANC E Final Result from Last 3 Months or Most Recently Relevant to Health Maintenance Insurance [facility] CHOICE PLUS [facility] H[facility]/PPO Address: [facility] [address] [place] [address] Advance Directives For more information, please contact: [phone] * Full Code (Latest Code Status on File) Date Activated Date Inactivated Comments 12/19/2019 9:42 AM 12/19/2019 5:00 PM * Full Code Date Activated Date Inactivated Comments 12/19/2019 9:42 AM 12/19/2019 9:42 AM * Full Code Date Activated Date Inactivated Comments 12/05/2019 6:51 AM 12/05/2019 1:19 PM * Full Code Date Activated Date Inactivated Comments 12/05/2019 6:51 AM 12/05/2019 6:51 AM Care Teams Mechanical Engineering Officer Relationship Specialty Start Date End Date Khari Jason MD [address] [address] PCP - General Emergency Medicine 03/05/24 Bucky Abreu MD [address] [phone] Referring Physician Hematology 03/15/23 Arben Mendoza MD [address] [place] [address] Referring Physician Obstetrics and Gynecology 03/15/23 Rigoberto Ramos MD [address] [place] [address] Radiation Therapy 03/15/23 Gregorio Land MD [address] [place] [address] Referring Physician Neurology 03/15/23 Rei Cid NP [address] [place] [address] Nurse Practitioner Family Practice 03/15/23
--- OUTSIDE RECORDS SUMMARY | 2025-05-07 16:20 | XMS_ITS | Clinical Summary ---
Author Organization [facility] Address [address] [place] [address] Care Team Providers Care Vp Securities Name Role Phone Khari Jason MD Primary Care Provider [phone] Allergies No known active allergies Medications esomeprazole [...] patient's age to complete this topic Insurance [facility] [employer] Advance Directives * Full Code (Latest [...] measures to stabilize the patient. Care Teams Vp Securities Relationship Specialty Start Date End Date Khari Jason MD [address] [address] PCP - General Family Medicine 09/19/17
--- OUTSIDE RECORDS SUMMARY | 2025-05-07 16:20 | XMS_ITS | Clinical Summary ---
Author Organization [facility] Address [address] [facility] [place] [address] Care Team Providers Care Paper Pattern Folder Name Role Phone Tegan Gama DO Primary Care Provider [phone] Source Comments [facility],non-owned Affiliates and Associated Physician Practices is amultiple site organization consisting of ambulatory clinics and hospital sitesin [place], [place], [place] and [place]. This disclosure is being madepursuant to the Care Everywhere program and may not contain all information available regarding this patient. Last updated 18.[facility] Allergies No known active allergies Medications * [...] needed 08/20/2022 Active ergocalciferol (Drisdol) 1.25 MG (73380 UT) capsule Take 1 (one) capsule by [...] on any medications. Patient reports that her ball point splitter told her she no longer needed levothyroxine. [...] was extenenesively evaluated by Endocrinology department at [facility] No other abnormalities found Plan: Explained [...] ovarian cyst, unspecified side;Recorded Elsewhere: No Location: [facility] Source: EHR Chronic: N Practice ID: [id number] Billable Time: 09:00:00 AM Other ovarian cyst, right side;Recorded Elsewhere: No Location: [facility] Source: EHR Chronic: N Practice ID: [id number] Billable Time: 02:30:00 PM Broad ligament laceration syndrome 03/23/2018 Normal in multigravida 07/25/2017 07/11/2023 Overview (07/11/2023): Encounter for suprvsn of normal , third trimester;Recorded Elsewhere: No Location: [facility] Source: EHR Chronic: N Practice ID: [id number] [...] 07/29/16 Added automatically from request for surgery [id number] Last Assessment & Plan: Intermittent episodes. Pt says she had LUQ pain that didn't last very long and then another separate episodes in the epigastric area. She is getting intermittent nausea episodes as well. Will schedule colonoscopy due to issues with constipation, abdominal pain, and nausea. Added automatically from request for surgery [id number] Last Assessment & Plan: Had an episode [...] on file Legal Sex Female 6:27 AM COAT MAKER Gender Identity Not on file Sexual Orientation Not on file Last Filed Vital Signs Vital Sign Reading Time Taken Comments Blood Pressure 114/74 07/30/2024 10:57 AM CDT Pulse 75 07/30/2024 10:57 AM CDT Temperature 36.1 C (97 F) 07/30/2024 10:57 AM CDT Respiratory Rate 16 11/01/2023 9:50 AM COAT MAKER Oxygen Saturation 98% 07/30/2024 10:57 AM CDT Inhaled Oxygen Concentration 21% 01/19/2022 6 :57 AM CDT Weight 63.5 kg (140 lb) 07/30/2024 10:57 AM CDT Height 167.6 cm (5' 6) 07/30/2024 10:57 AM CDT Body Mass Index 22.6 07/30/2024 10:57 AM CDT Plan of Treatment Upcoming Encounters Date Type Department Care Team (Late st Contact Info) Description 07/29/2025 9:45 AM CDT Appointment [address] [address] Selin Eldridge MD [address] [place] [phone] 07/29/2025 10:00 AM CDT Appointment [address] [address] Selin Eldridge MD [address] [place] [address] [place] [phone] 07/29/2025 11:00 AM CDT Office Visit [facility] - General Surgery [address] [place] [phone] Selin Eldridge MD [address] [place] [phone] Health Maintenance Due Date Last Done Comments [...] last dose Medical Devices Implanted Type Area Paraplanner Device Identifier Shelf Expiration Date Model / Serial / Lot Coil Azur Cx 32cm 16mm .035in Dtch Loop Implanted:Qty: 1 on 01/05/2023 by Rigoberto Ramos MD at [facility] [employer] [facility] 08/16/2025 [id number] / / [id number] Description:implanted in the left gonadal vein Coil Azur Cx 32cm 16mm .035in Dtch Loop Implanted:Qty: 2 on 01/05/2023 by Rigoberto Ramos MD at [facility] [employer] [facility] 10/16/2027 [id number] / / [id number] Description:implanted in the left gonadal vein. Coil Azur Cx Hdrcl 38cm 12mm .021-.027in Implanted:Qty: 1 on 01/05/2023 by Rigoberto Ramos MD at [facility] 10/16/2027 [id number] / / [id number] Description:R gonadal vein Coil Azur Cx Hdrcl 34cm 14mm .021-.027in Implanted:Qty: 1 on 01/05/2023 by Rigoberto Ramos MD at [facility] 02/13/2025 [id number] / / [id number] Description:R gonadal vein Coil Azur Cx Hdrcl 32cm 10mm .021-.027in Implanted:Qty: 1 on 01/05/2023 by Rigoberto Ramos MD at [facility] 08/16/2026 [id number] / / [id number] Description:R gonadal vein Coil Azur Cx Hdrcl 36cm 18mm .021-.027in Implanted:Qty: 1 on 01/05/2023 by Rigoberto Ramos MD at [facility] 03/16/2025 [id number] / / [id number] Description:R gonadal Vein Coil Azur Cx Hdrcl 36cm 18mm .021-.027in Implanted:Qty: 1 on 01/05/2023 by Rigoberto Ramos MD at [facility] 05/16/2025 [id number] / / [id number] Coil Azur Cx Hdrcl 36cm 18mm .021-.027in Implanted:Qty: 1 on 01/05/2023 by Rigoberto Ramos MD at [facility] 03/16/2025 [id number] / / [id number] Description:R gonadal vein Procedures Procedure Name Priority [...] Report dictated by Lizandro Valdivia MD (residential fee appraiser). Ann-Marie Ramey MD (medical resident) assisted in the interpretation of this study. I, Bernarda Daniel MD, FACR have personally reviewed and interpreted this examination/study. > Interpreting Provider: Bernarda Daniel MD, FACR on 07/30/2024 10:55 AM Narrative 07/30/2024 10:55 AM CDT EXAMINATIONS: BILATERAL DIGITAL SCREENING MAMMOGRAM AND BILATERAL BREAST TOMOSYNTHESIS LOCATION: [facility] EXAM DATE: 07/30/2024 HISTORY: Screening. 38-year-old female [...] screening mammography. For further information, please call [phone]. Risk assessment based upon the BRCAPRO model. COMPARISON: Comparison is made to prior mammograms back to 11/08/2020 and the most recent examination on 08/11/2023 from from [place], [place]. The most recent ultrasound examination was performed on 01/02/2024 from [facility]. TECHNIQUE: Tomosynthesis (3D) and reconstructed synthetic 2-D [...] Most Recently Relevant to Health Maintenance Insurance [facility] Address: [address] [phone] * Guarantor: AKHIL MELENDEZ Account Type Relation to Patient Date of Phone Billing Address Personal/Family [phone] [facility] [facility] [place]ANCE Member Subscriber Plan / Payer (Ef fective for All Dates) Name:Akhil Melendez Member ID:Not on file Relation to Subscriber:Not on file Name:AKHIL MELENDEZ Subscriber ID:Not on file Address: [address] [place], [place] [phone] Payer ID:Not on file Group ID:Not on file Type:Self Pay Address: [place], [place] * Guarantor: AKHIL MELENDEZ Account Type Relation to Patient Date of Phone Billing Address Personal/Family [address] [phone] [facility] SELF PAY NO INSURANCE Member Subscriber Plan / Payer (Ef fective for All Dates) Name:Akhil Melendez Member ID:Not on file Relation to Subscriber:Not on file Name:AKHIL MELENDEZ Subscriber ID:Not on file Address: [address] [phone] Payer ID:Not on file Group ID:Not on file Type:Self Pay Address: [place], [place] * Guarantor: AKHIL MELENDEZ Account Type Relation to Patient Date of Phone Billing Address Personal/Family [address] [phone] [facility] SELF PAY NO INSURANCE Member Subscriber Plan / Payer (Ef fective for All Dates) Name:Akhil Melendez Member ID:Not on file Relation to Subscriber:Not on file Name:AKHIL MELENDEZ Subscriber ID:Not on file Address: [address] [place] [phone] Payer ID:Not on file Group ID:Not on file Type:Self Pay Address: [place], [place] Care Teams Paper Pattern Folder Relationship Specialty Start Date End Date Tegan Gama DO [address] [place] [phone] PCP - General Family Medicine 03/10/23
--- OUTSIDE RECORDS SUMMARY | 2025-05-07 16:20 | XMS_ITS | Continuity of Care Document ---
Author Organization [employer] [facility] Address [address] [place] [address] Phone Care Team Providers Care Engraving Press Operator Name Role Phone Unavailable Unavailable Unavailable Medications [...] PROB FOCUS HX; PROB FOCUS EXAM; STRTFWD OFFICE OUTPT EST 10 MIN BLOOD COUNT; COMPLETE (CBC), AUTOMATED (HGB, HCT, RBC, WBC AND PLATELET COUNT) BASIC METABOLIC PANEL CALCIUM TOTAL HUMAN PAPILLOMA VIRUS VACCINE QUADRIV 3 DOSE IM URINE TEST, BY VISUAL COLOR CO MPARISON METHODS Injection, medroxyprogesterone acetate ( Depo-Provera), 150 mg HUMAN PAPILLOMA VIRUS VACCINE QUADRIV 3 DOSE IM OFFICE OUTPT EST 10 MIN OFFICE OUTPT EST 25 MIN Injection, medroxyprogesterone acetate ( Depo-Provera), 150 mg OFFICE/OUTPATIENT VISIT, EST URINE TEST, BY VISUAL COLOR CO MPARISON METHODS OFFICE/OUTPATIENT VISIT, EST Injection, medroxyprogesterone acetate ( Depo-Provera), 150 mg OFFICE/OUTPATIENT VISIT, EST URINE TEST, BY VISUAL COLOR CO MPARISON METHODS Injection, medroxyprogesterone acetate ( Depo-Provera), 150 mg COLLECTION OF VENOUS BLOOD BY VENIPUNCTU RE GONADOTROPIN, CHORIONIC (HCG); QUALITATI VE Injection, medroxyprogesterone acetate ( Depo-Provera), 150 mg OFFICE/OUTPATIENT VISIT, EST URNLS DIP STICK/TABLET RGNT AUTO W/O RONALD CHYLMD TRACH, DNA, DIR PROBE N.GONORRHOEAE, DNA, DIR PROB SMEAR, WET MOUNT, SALINE/INK BLOOD COUNT; COMPLETE (CBC), AUTOMATED (HGB, HCT, RBC, WBC AND PLATELET COUNT) OFFICE OUTPT EST 25 MIN CYTP C/V AUTO THIN LYR PREPJ SCR SYS PHY S Injection, medroxyprogesterone acetate ( Depo-Provera), 150 mg OFFICE OUTPT EST 25 MIN URINE TEST, BY VISUAL COLOR CO MPARISON METHODS URNLS DIP STICK/TABLET RGNT AUTO W/O RONALD URNLS DIP STICK/TABLET RGNT AUTO W/O RONALD Injection, medroxyprogesterone acetate ( Depo-Provera), 150 mg OFFICE OUTPT EST 25 MIN URINE TEST, BY VISUAL COLOR CO MPARISON METHODS Advance Directives Directive Yes / No Effective Date File Name No Information Encounters Encounter Description Practice Location Reason(s) For Visit Diagnoses Date Provider Providers Copied on Encounter [facility] [address], [place], [place], [id number] , [place] tel: [phone] Historic Immunization Location No Information 9 No Information OFFICE CONSULT, 15 MIN, 3 AC COMPS: PROB FOCUS HX; PROB FOCUS EXAM; STRTFWD [facility], [address], [place], [place], [address] , [place] tel: [phone] [facility] ECONOMIC PROBLEM 8 No Information OFFICE OUTPT EST 10 MIN [facility], [address], [place], [place], [address] , [place] tel: [phone] [facility] CONTRACEPT PILL SURVEILLVACCIN FOR DISEASE NEC 8 No Information OFFICE OUTPT EST 10 MIN [facility], [address], [place], [place], [address] , [place] tel: [phone] [facility] VACCIN FOR DISEASE NECCONTRACEPT SURVEILL NEC 7 No Information OFFICE OUTPT EST 25 MIN [facility], [address], [place], [place], [address] , [place] tel: [phone] [facility] LUMP OR MASS IN BREAST 7 Donnell Richard. [address], [place], [place], [address], [place]. tel:[phone] OFFICE/OUTPA TIENT VISIT, EST [facility], [address], [place], [place], [address] , [place] tel: [phone] [facility] OTALGIA NOSACUTE PHARYNGITISRHI NITIS DUE TO POLLEN 7 No Information OFFICE/OUTPA TIENT VISIT, EST [facility], [address], [place], [place], [address] , [place] tel: [phone] [facility] CONTRACEPT PILL SURVEILL 7 No Information OFFICE/OUTPA TIENT VISIT, EST [facility], [address], [place], [place], [address] , [place] tel: [phone] [facility] [place] CONTRACEPT PILL SURVEILL 6 No Information OFFICE/OUTPA TIENT VISIT, EST [facility], [address], [place], [place], [address] , [place] tel: [phone] [facility] [place] CONTRACEPT SURVEILL NOS 6 No Information OFFICE OUTPT EST 25 MIN [facility], [address], [place], [place], [address] , [place] tel: [phone] [facility] ROUTINE DIRECTOR FURNITURE EXAMINATION 6 No Information OFFICE OUTPT EST 25 MIN [facility], [address], [place], [place], [address] , [place] tel: [phone] [facility] CONTRACEPT PILL SURVEILLROUTIN E DIRECTOR FURNITURE EXAMINATIONLUM P OR MASS IN BREAST 6 No Information OFFICE OUTPT EST 25 MIN [facility], [address], [place], [place], [address] , [place] tel: [phone] Dionne [facility] Conversion ROUTINE DIRECTOR FURNITURE EXAMINATIONCON TRACEPT PILL SURVEILL 6 No Information [...]
--- OUTSIDE RECORDS SUMMARY | 2025-05-07 16:20 | XMS_ITS | Clinical Summary ---
Author Organization [facility] Address [address] [place] [address] Care Team Providers Care Photogrammetrist Name Role Phone Bucky Abreu MD Unavailable Arben Mendoza MD Unavailable [phone] Rigoberto Ramos MD Unavailable [phone] Gregorio Land MD Unavailable [phone] Rei Cid NP Unavailable [phone] Khari Jason MD Primary Care Provider [phone] Allergies Active Allergy Reactions Criticality Noted Date [...] 10/24/2023 Assessment & Plan (10/24/2023 11:21 AM MANAGER SHAREPOINT): Acute problem-this is a new problem Recommend [...] 10/24/2023 Assessment & Plan (10/24/2023 11:23 AM MANAGER SHAREPOINT): Acute problem-this is a new problem Recommend [...] 10/04/2023 Assessment & Plan (10/24/2023 11:19 AM MANAGER SHAREPOINT): Acute on chronic problem-this is recurring problem Recommend taking OTC Tylenol and ibuprofen-use as directed Alternate ice and heat therapy to left shoulder p.r.n. at 20 minute intervals Ordered EMG/NCS bilateral upper extremities Follow-up with PCP as scheduled Continue to monitor Follow-up with rheumatoid specialist as scheduled Assessment & Plan (10/04/2023 11:28 AM MANAGER SHAREPOINT): OTC NSAIDs recommended. Please take your omeprazole daily. Pain in both feet 10/04/2023 Assessment & Plan (10/04/2023 11:29 AM MANAGER SHAREPOINT): Xrays ordered, add OTC NSAIDs, such as Aleve. Use as directed. Pain in both knees 10/04/2023 Assessment & Plan (10/04/2023 11:29 AM MANAGER SHAREPOINT): Xrays ordered, add OTC NSAIDs, such as Aleve. Use as directed. Abnormal thyroid function test 09/27/2023 Assessment & Plan (09/27/2023 4:24 PM MANAGER SHAREPOINT): Chronic, worsening Low TSH with normal free [...] year Assessment & Plan (11/28/2023 8:34 AM MANAGER SHAREPOINT): History of Fan's thyroiditis Elevated TPO antibodies Repeat recent thyroid function test, within normal limits Patient hot flashes are not explain due to her thyroid Advised patient to see executive vice president business development Assessment & Plan (06/03/2023 11:16 AM CDT): Currently not on any medications. Patient reports that her supply manager told her she no longer needed levothyroxine. [...] (12/12/2019): Added automatically from request for surgery [id number] Assessment & Plan (12/26/2019 1:42 PM CDT): Had an episode of abdominal cramping recently. Likely related to constipation. Colonoscopy, EGD, and CT negative. Diastasis of rectus abdominis 11/21/2019 Assessment & Plan (11/21/2019 12:01 PM MANAGER SHAREPOINT): With a couple of loops of non [...] fiber. Assessment & Plan (12/12/2019 1:55 PM MANAGER SHAREPOINT): Pt is unsure of her BM pattern. [...] issues. Assessment & Plan (11/20/2019 2:31 PM MANAGER SHAREPOINT): Intermittent issues with constipation. Pt is unsure of pattern and states she doesn't pay attention to when she goes. She does know she can skip a couple of days. She doesn't take anything for her constipation. Spoke with patient and appears she has poor diet. She says she eats fast food a lot and loves scottish fries. Discussed importance of eating a fresh [...] was extenenesively evaluated by Endocrinology department at [facility] No other abnormalities found TSH was [...] was extenenesively evaluated by Endocrinology department at [facility] No other abnormalities found Plan: Explained [...] nausea. Assessment & Plan (12/12/2019 1:54 PM MANAGER SHAREPOINT): Pt having intermittent episodes of nausea. EGD was normal. Possible dyspepsia. Pt appears to have overall poor diet. Will start on pantoprazole 40mg daily and instructed to keep food journal of things that are causing the nausea/pain. Instructed to avoid too heavy/high fat, fast foods. Assessment & Plan (11/20/2019 2:35 PM MANAGER SHAREPOINT): Intermittent episodes of nausea on and off. No vomiting. Discussed avoiding high fat, fried foods and avoiding fast food. Will schedule EGD due to complaints of LUQ pain and intermittent nausea. Upper abdominal pain 11/20/2019 023 Overview (11/20/2019): Added automatically from request for surgery [id number] Assessment & Plan (12/12/2019 1:52 PM MANAGER SHAREPOINT): Intermittent episodes. Pt says she had LUQ [...] 03/13/2025 8:30 AM CDT [facility] [address] [place] [phone] Gregorio Land MD Migraine with aura and without status migrainosus, not intractable (Primary Dx) 03/13/2025 [facility] [address] [facility] [address] [place] [phone] Kris Tyler MA [employer] [facility] 02/08/2025 2:50 PM CDT Lab [facility] [address] [place] [address] from Last 3 Months Immunizations Immunization Administration [...] on file Legal Sex Female 3:57 AM MANAGER SHAREPOINT Gender Identity Female 08/04/2021 8:37 AM CDT [...] Comments Blood Pressure 97/75 10/22/2024 8:40 AM MANAGER SHAREPOINT Pulse 92 10/22/2024 8:40 AM MANAGER SHAREPOINT Temperature 36.7 C (98 F) 10/22/2024 8:40 AM MANAGER SHAREPOINT Respiratory Rate 16 10/22/2024 8:40 AM MANAGER SHAREPOINT Oxygen Saturation 100% 10/22/2024 8:40 AM MANAGER SHAREPOINT Inhaled Oxygen Concentration - - Weight 63.5 [...] BLOOD ORDERABLES Final Resul t [facility] ([place]) 1 [facility] Department [place] [address] * Differential, auto (02/08/2025 2:59 PM CDT) [...] LAB BLOOD ORDERABLES Final Resul t [facility] ([place]) 1 [facility] Department [place] [address] * (ABNORMAL) Urinalysis reflex to microscopic (02/08/2025 2:59 PM CDT) Color, ur Yellow Yellow Clarity, ur Turbid(A) Clear [facility] ([place]) Specific gravity, ur 1.022 1.003 - 1.030 [facility] ([place]) pH, urine 5.5 [facility] ([place]) Comment: Interpretive Data U rine pH is affected by diet, medications, systemic acid-base disturbances, and renal tubular function. pH may affect urinary stone formation. For example, urine pH below 6.0 may help reduce the tendency for calcium phosphate stones and pH greater than 6.0 may reduce the tendency for uric acid stone formation. Source: [facility] Current Interpretive Data was last revised [...] Resul t [facility] ([place]) 1 [facility] Department [place] [address] * (ABNORMAL) CBC with auto differential (02/08/2025 [...] RDW SD 42.8 35.7 - 48.1 fL [facility] ([place]) NRBC abs 0.00 0.00 - 0.01 K/cumm [facility] ([place]) Blood 02/08/2025 2:59 PM CDT 02/08/2025 3:03 PM CDT Man Sidhu MD LAB BLOOD ORDERABLES Final Resul t Performing Organization Address City/[facility]/ZIP Co de Phone Number [facility] ([place]) 1 [facility] [place] [address] * Vitamin D 25 hydroxy (02/08/2025 2:59 PM CDT) Vitamin D 25-OH 32 30 - 80 ng/mL Blood 02/08/2025 2:59 PM CDT 02/08/2025 3:03 PM CDT Man Sidhu MD LAB BLOOD ORDERABLES Final Resul t Performing Organization Address [facility] de Phone Number [facility] ([place]) 1 [facility] [place] [address] * Renal function panel (02/08/2025 2:59 PM CDT) Sodium 141 135 - 145 mmol/L Potassium, pl 3.4 3.3 - 4.9 mmol/L [facility] ([place]) Chloride 104 97 - 110 mmol/L [facility] ([place]) CO2 23 22 - 32 mmol/L [facility] ([place] Anion gap 14 2 - 15 mmol/L [facility] [place] BUN 12 6 - 25 mg/dL [facility] [place] Creatinine 1.02 0.60 - 1.10 mg/dL [facility] ([place]) Glucose 100 70 - 199 mg/dL [facility] ([place]) Comment: Interpretive Data Fasting glucose [...] Calcium 9.3 8.5 - 10.3 mg/dL [facility] ([place]) Phosphorus, pl 3.5 2.3 - 4.5 mg/dL [facility] ([place]) Albumin 4.6 3.5 - 5.0 g/dL [facility] ([place]) Blood 02/08/2025 2:59 PM CDT 02/08/2025 3:03 PM CDT Man Sidhu MD LAB BLOOD ORDERABLES Final Resul t [facility] ([place]) 1 [facility] Department [place] [address] * Screening Mammogram Bilateral W Cristian (08/11/2023) Anatomical Region Laterality Modality Breast Bilateral Mammography Generic External Data Provider IMG MAMMO PROCEDU RES Final Result * Hepatitis C antibody (03/15/2023 11:25 AM CDT) Hep C Ab Nonreactive Nonreactive [facility] ([place]) Comment: Interpretive Data Nonreactive: Antibodies to HCV [...] last revised on 2020. Testing performed by: [facility], [address] [place] [address], [place]., [address] Blood 03/15/2023 11:2 5 AM CDT 03/15/2023 11:29 PM CDT Tegan Gama DO LAB MICROBIOLOGY - GENERAL ORDERABLES Final Result [facility] ([place]) 1 [facility] Department [place] [address] * HM PAP SMEAR WITH HPV (07/23/2022) Scribed Pap Smear w/HPV Normal Generic External Data Provider HEALTH MAINTENANC E Final Result from Last 3 Months or Most Recently Relevant to Health Maintenance Insurance [facility] CHOICE PLUS Advance Directives For more information, please contact: [phone] * Full Code (Latest Code Status on File) Date Activated Date Inactivated Comments 12/19/2019 9:42 AM 12/19/2019 5:00 PM * Full Code Date Activated Date Inactivated Comments 12/19/2019 9:42 AM 12/19/2019 9:42 AM * Full Code Date Activated Date Inactivated Comments 12/05/2019 6:51 AM 12/05/2019 1:19 PM * Full Code Date Activated Date Inactivated Comments 12/05/2019 6:51 AM 12/05/2019 6:51 AM Care Teams Photogrammetrist Relationship Specialty Start Date End Date Khari Jason MD [address] [place] [address] PCP - General Emergency Medicine 03/05/24 Bucky Abreu MD [address] [phone] Referring Physician Hematology 03/15/23 Arben Mendoza MD [address] [place] [address] Referring Physician Obstetrics and Gynecology 03/15/23 Rigoberto Ramos MD [address] DIV OF RADIOLOGY [place], [place] [id number] Radiation Therapy 03/15/23 Gregorio Land MD [address] [place] [address] Referring Physician Neurology 03/15/23 Rei Cid NP [address] [place] [address] Nurse Practitioner Family Practice 03/15/23
--- OUTSIDE RECORDS SUMMARY | 2025-05-07 16:20 | XMS_ITS | Encounter Summary ---
Author Organization [facility] Healthcare Address [address] [place] [address] Care Team Providers Care Technical Designer Name Role Phone Unavailable Primary Care Provider Unavailabl e Reason for Visit * Diagnostic Imaging (Routine) - Closed Specialty Diagnoses / Procedures Referred By Contac t Referred To Contact Procedures Breast Imaging Diagnostic Outside Reference Rose Mary Hale MD PhD Phone: tel: fax: Referral ID Status Reason Start Date Expiration Date Visits Re quested Visits Authorized [id number] Closed 12/30/2021 01/29/2023 1 1 Encounter Details Date Type Department Care Team (Late st Contact Info) Description 02/02/2016 Hospital Encounter [facility] [address] [place] [phone] Social History Tobacco Use Types Packs/Day Years [...] on file Legal Sex Female 3:57 AM SENIOR TELECOMMUNICATIONS CONSULTANT Gender Identity Female 08/04/2021 8:37 AM CDT [...] only and have not been reviewed by [facility]iology. There will be no report generated by a [facility] Radiologist. Narrative [facility]_M[facility]MO[facility] - 12/30/2021 [...] COVID: Suspected 09/17/2021 09/17/2021 09/17/2021 4:54 PM SENIOR TELECOMMUNICATIONS CONSULTANT COVID19 09/17/2021 09/17/2021 10/01/2021 3:05 AM SENIOR TELECOMMUNICATIONS CONSULTANT COVID: Recovered Comment:Added based on recent COVID infection. 10/01/2021 12/22/2021 01/29/2022 3:05 AM C DT COVID: Suspected 06/09/2022 06/09/2022 06/09/2022 5:57 PM CDT COVID: Suspected 08/30/2022 08/30/2022 08/30/2022 6:50 PM SENIOR TELECOMMUNICATIONS CONSULTANT COVID: Suspected 03/05/2024 03/05/2024 03/05/2024 8:34 PM CDT COVID: Suspected 10/22/2024 10/22/2024 10/22/2024 9:49 AM SENIOR TELECOMMUNICATIONS CONSULTANT documented as of this encounter
--- OUTSIDE RECORDS SUMMARY | 2025-05-07 16:20 | XMS_ITS | Encounter Summary ---
Author Organization [facility] Healthcare Address [address] [place] [address] Care Team Providers Care Nurse Transition Name Role Phone Unavailable Primary Care Provider Unavailabl e Reason for Visit * Diagnostic Imaging (Routine) - Closed Specialty Diagnoses / Procedures Referred By Contac t Referred To Contact Procedures Breast Imaging US Outside Reference Rose Mary Hale MD PhD Phone: tel: fax: Referral ID Status Reason Start Date Expiration Date Visits Re quested Visits Authorized [id number] Closed 12/30/2021 01/29/2023 1 1 Encounter Details Date Type Department Care Team (Late st Contact Info) Description 01/26/2017 Hospital Encounter [facility] [address] [place] [address] Social History Tobacco Use Types Packs/Day Years [...] on file Legal Sex Female 3:57 AM PHOTO OPTICS TECHNICIAN Gender Identity Female 08/04/2021 8:37 AM CDT [...] only and have not been reviewed by [facility] Radiology. There will be no report generated by a [facility] Radiologist. Narrative [facility]_MAMMO[facility] - 12/30/2021 11:28 [...] COVID: Suspected 09/17/2021 09/17/2021 09/17/2021 4:54 PM PHOTO OPTICS TECHNICIAN COVID19 09/17/2021 09/17/2021 10/01/2021 3:05 AM PHOTO OPTICS TECHNICIAN COVID: Recovered Comment:Added based on recent COVID infection. 10/01/2021 12/22/2021 01/29/2022 3:05 AM C DT COVID: Suspected 06/09/2022 06/09/2022 06/09/2022 5:57 PM CDT COVID: Suspected 08/30/2022 08/30/2022 08/30/2022 6:50 PM PHOTO OPTICS TECHNICIAN COVID: Suspected 03/05/2024 03/05/2024 03/05/2024 8:34 PM CDT COVID: Suspected 10/22/2024 10/22/2024 10/22/2024 9:49 AM PHOTO OPTICS TECHNICIAN documented as of this encounter
--- OUTSIDE RECORDS SUMMARY | 2025-05-07 16:20 | XMS_ITS | Encounter Summary ---
Author Organization [facility] Address [address] [facility] [address] Care Team Providers Care Children'S Librarian Name Role Phone Tegan Gama DO Primary Care Provider [phone] Encounter Details Date Type Department Care Team (Late st Contact Info) Description 11/11/2023 Telephone [facility] - Neurology [address] [place] [address], [place] [address] Gregorio Land MD [address] [place] [phone] Social History Tobacco Use Types Packs/Day [...] on file Legal Sex Female 6:27 AM DISCHARGE PLANNER Gender Identity Not on file Sexual Orientation [...] coming back.) [facility]acy:[facility] Patient call back number: [phone] . HARGE PLANNER documented in this encounter Plan of Treatment Upcoming Encounters Date Type Department Care Team (Late st Contact Info) Description 07/29/2025 9:45 AM CDT Appointment [address] [address] Selin Eldridge MD [address] [facility] [address] [place] [address] 07/29/2025 10:00 AM CDT Appointment [address] [address] Selin Eldridge MD [address] [facility] [address] [place] [address] 07/29/2025 11:00 AM CDT Office Visit [facility] - General Surgery [address] [place] [address] Selin Eldridge MD [address] [facility] [address] [place] [address] documented as of this encounter [...] on filedocumented in this encounter Care Teams Children'S Librarian Relationship Specialty Start Date End Date Tegan Gama DO [address] [facility] [address] [place] [phone] PCP - General Family Medicine 03/10/23 documented as of this encounter
--- OUTSIDE RECORDS SUMMARY | 2025-05-07 16:20 | XMS_ITS | Data Portability ---
Author Organization [facility] [place] Address [address] [place] [place] [place] [address] Care Team Providers Care Survey Project Manager Name Role Phone NOA ALANIS Primary Care [...] recorded. Lab urinalysis, dipstick 2024 025 [email or web address] [place], [address], [place], [address], 16:51:16 culture, urine 2024 025 [facility] (Lab), [address], [place], [address], 21:57:23 unlisted lab - women's health swab plus, NIKOLE 2024 025 [facility] (Lab), [address], [place], [address], 21:57:23 urinalysis, dipstick 2024 025 [email or web address] [place], [address], [place], [address], 5 16:17:04 hormone panel, serum or plasma 2023 024 [facility] (Lab), [address], [place], [address], 4 07:18:32 Referral None recorded. Procedures None recorded. Surgeries hysteroscop y, with endometrial ablation (SURG) 2023 024 [facility], [facility] [facility], [place], [address], 4 10:04:23 hysteroscop y,surgical with removal of leiomyomata (SURG) [address] [place] [address], [facility] [facility], [place], [address], 4 09:55:03 Imaging None recorded. Medication Orders fluconazole 150 mg tablet 2024 025 [facility], [address] [place], [address], 5 16:51:16 Bactrim DS 800 mg-160 mg tablet 2024 025 [facility], [address] [place], [address], 5 15:58:17 Patient TargetsNo targets recorded. Patient [...] 154-3 243 pg/mL 2nd Trime ster 1561- 66627 pg/mL 3rd Trime ster 8525- >3000 0 pg/mL Not Available [facility] (Lab) [address] [facility], [place], [address], 01/13/2024 07:18:32 01/12/20 24 01/12/2024 FSH, LH, [...] use: 25.8- 134.8 mIU/m L Not Available [facility] (Lab) [address] [facility], [place], [address], 01/13/2024 07:18:32 01/12/20 24 01/12/2024 FSH, LH, [...] use: 7.7-5 8.5 mIU/m L Not Available [facility] (Lab) [address] [place], [address], 01/13/2024 07:18:32 01/12/20 24 01/12/2024 TSH, REFLE X FREE T4 TSH 0.58 uIU/m L 0.30-[address] [facility] (Lab) [address] , [place], [address], 01/13/2024 07:18:33 07/09/20 24 07/09/2024 IMAGE GUIDE [...] epith elial Charmaine gutiérrez or Surya merida ([facility]) . Claritza lopez by Sri Reis [...] as clini genny warra nted. Not Available [facility] (Lab) [address], [place], [address], 07/16/2024 19:40:58 11/14/19 25 11/14/2024 CT/GC AND TRICH OMONA S VAGIN GI (RRNA ), URINE chlamydia trachomatis, PCR Negati ve negati ve Not Available [facility] (Lab) [address], [place], [address], 11/15/2024 16:21:48 11/14/19 25 11/14/2024 CT/GC AND TRICH OMONA S VAGIN GI (RRNA ), URINE neisseria gonorrhoeae, PCR Negati ve negati ve Not Available [facility] (Lab) [address] [facility], [place], [address], 11/15/2024 16:21:48 11/14/19 25 11/14/2024 CT/GC AND TRICH OMONA S VAGIN GI (RRNA ), URINE trichomonas vaginalis ribosomal RNA (rrna) Negati ve negati ve Not Available [facility] (Lab) [address] [facility], [place], [address], 11/15/2024 16:21:48 11/14/19 25 11/14/2024 CULTU RE: URINE result report SEE RESULT S BELOW Test: Cultu re: Urine Speci men Sourc e: Urine - Clean Catch Speci men Type: Urine Speci men Date: 2024 1538 Resul t Date: 2024 2209 Resul t Statu s: Final resul t Abnor mal: No Resul ting Lab: [facility] [address] [facility] [address] Tel: CULTU RE ----- ----- ----- --- No growt h in 1 day (dete ction level of 10,00 0 colon ies / ml.) Not Available [facility] (Lab) [address] [place], [address], 11/15/2024 23:11:39 11/14/19 25 11/14/2024 HIV 1/2 ANTIG EN/AN TIBOD Y, REFLE X CONFI RMATI ON HIV antigen/anti body Nonrea ctive nonrea ctive HIV-1 antig en and HIV-1 /HIV- 2 antib odies were not detec srinath. No labor atory evide nce of HIV infec tion. Not Available [facility] (Lab) [address] [place] [facility] [place] [facility] [place], [address], 11/16/2024 04:35:49 11/14/1911/14/2024 HEPAT ITIS B SURFA CE ANTIG EN hepatitis B surface antigen Non-re active non-re active This assay was perfo rmed using [employer] ratio n reage nts and test kits. Value s obtai etienne with other assay metho ds or kits canno t be used inter montana eably . Not Available [facility] (Lab) [address] [facility], [place], [address], 11/16/2024 04:35:50 11/14/1911/14/2024 HERPE S SIMPL EX VIRUS TYPE 2 SPECI FIC AB, IGG herpes simplex virus 2 IgG Negati ve negati ve Not Available [facility] (Lab) [address] [facility], [place], [address], 11/16/2024 04:35:50 11/14/19 25 11/14/2024 HERPE S SIMPL EX VIRUS TYPE 2 SPECI FIC AB, IGG herpes simples virus 2 IgG, quant <0.2 ai 0.0-0. [address] [facility] (Lab) [address] [facility], [place], [address], 11/16/2024 04:35:50 11/14/1911/14/2024 HEPAT ITIS B CORE, IGM hepatitis B core IgM antibody Non-re active non-re active IgM anti- HBc not detec srinath. Does not exclu de the possi bilit y of expos ure to or infec tion with HBV. Not Available [facility] (Lab) [address] [facility], [place], [address], 11/16/2024 04:35:50 11/14/1911/14/2024 RPR SCREE N, REFLE X TITER /CONF IRMAT ION RPR screen Nonrea ctive nonrea ctive Not Available [facility] (Lab) [address] [facility], [place], [address], 11/16/2024 04:35:51 11/14/19 25 11/14/2024 HEPAT ITIS C ANTIB POLO SCREE N, REFLE X TO CONFI RMATI ON hepatitis C antibody Non-re active non-re active Antib odies to HCV Not Detec srinath, does not exclu de the possi bilit y of expos ure to HCV. Not Available [facility] (Lab) [address], [place], [address], 11/16/2024 04:35:51 11/14/19 25 11/14/2024 urina lysis , dipst ick Leukocytes trace Not [facility] [address], [place], [address], 11/14/2024 16:16:36 11/14/19 25 11/14/2024 urina lysis , dipst ick Protein trace Not Available [place] [address], [place], [address], 11/14/2024 16:16:36 11/14/19 25 11/14/2024 urina lysis , dipst ick pH 8 Not Available [place] [address], [place], [address], 11/14/2024 16:16:36 11/14/19 25 11/14/2024 urina lysis , dipst ick Blood ++ Not Available [place] [address], [place], [address], 11/14/2024 16:16:36 11/14/19 25 11/14/2024 urina lysis , dipst ick Specific Elizabeth 1.000 Not Available [facility] [address], [place], [address], 11/14/2024 16:16:36 11/14/19 25 11/14/2024 urina lysis , dipst ick Appearance cloudy Not Available [facility] all[facility] [address], [place], [address], 11/14/2024 16:16:36 11/14/19 25 11/14/2024 urina lysis , dipst ick Color yellow Not Available [place] [address], [place], [address], 11/14/2024 16:16:36 02/14/20 25 02/13/2025 WOMEN 'S HEALT H SWAB PLUS, NIKOLE bacterial vaginosis (bv), tma Negati ve negati ve Not Available [facility] (Lab) [address] [facility], [place], [address], 02/14/2025 21:57:23 02/14/20 25 02/13/2025 WOMEN 'S HEALT H SWAB PLUS, NIKOLE vladimir species, tma Negati ve negati ve Not Available [facility] (Lab) [address] [place], [address], 02/14/2025 21:57:23 02/14/20 25 02/13/2025 WOMEN 'S HEALT H SWAB PLUS, NIKOLE vladimir glabrata, tma Negati ve negati ve Not Available [facility] (Lab) [address] [place], [address], 02/14/2025 21:57:23 02/14/20 25 02/13/2025 WOMEN 'S HEALT H SWAB PLUS, NIKOLE trichomonas vaginalis, tma Negati ve negati ve Not Available [facility] (Lab) [address] [place], [address], 02/14/2025 21:57:23 02/14/20 25 02/13/2025 WOMEN 'S HEALT H SWAB PLUS, NIKOLE chlamydia trachomatis, PCR Negati ve negati ve Not Available [facility] (Lab) [address] [place], [address], 02/14/2025 21:57:23 02/14/20 25 02/13/2025 WOMEN 'S [...] ded in this panel . Not Available [facility] (Lab) [address] [facility], [place], [address], 02/14/2025 21:57:23 02/14/20 25 02/13/2025 CULTU RE: URINE result report SEE RESULT S BELOW Test: Cultu re: Urine Speci men Sourc e: Urine - Clean Catch Speci men Type: Urine Speci men Date: 2024 1614 Resul t Date: 2053 Resul t Statu s: Final resul t Abnor mal: No Resul ting Lab: [facility] [address] [facility] [address] Tel: CULTU RE ----- ----- ----- --- No growt h in 1 day (dete ction level of 10,00 0 colon ies / ml.) Not Available [facility] (Lab) [address] [facility], [place], [address], 02/14/2025 21:57:23 02/14/20 25 02/13/2025 urina lysis , dipst ick Leukocytes - Not [facility] [address], [place], [address], 02/13/2025 16:33:53 02/14/20 25 02/13/2025 urina lysis , dipst ick Nitrite - Not Available [place] [address], [place], [address], 02/13/2025 16:33:53 02/14/20 25 02/13/2025 urina lysis , dipst ick Urobilinogen - Not Available [facility] vladimir [address], [place], [address], 02/13/2025 16:33:53 02/14/20 25 02/13/2025 urina lysis , dipst ick Protein trace Not Available [place] [address], [place], [address], 02/13/2025 16:33:53 02/14/20 25 02/13/2025 urina lysis , dipst ick pH 8 Not Available [place] [address], [place], [address], 02/13/2025 16:33:53 02/14/20 25 02/13/2025 urina lysis , dipst ick Specific Elizabeth 1.[address] [facility] [address], [place], [address], 02/13/2025 16:33:53 02/14/20 25 02/13/2025 urina lysis , dipst ick Ketone - Not Available [place] [address], [place], [address], 02/13/2025 16:33:53 02/14/20 25 02/13/2025 urina lysis , dipst ick Bilirubin - Not Available [facility] [address], [place], [address], 02/13/2025 16:33:53 02/14/2002/13/2025 urina lysis , dipst ick Glucose - Not Available [place] [address], [place], [address], 02/13/2025 16:33:53 02/14/20 25 02/13/2025 urina lysis , dipst ick Appearance clear Not Available [facility] [address], [place], [address], 02/13/2025 16:33:53 02/14/2002/13/2025 urina lysis , dipst ick Color yellow Not Available [place] [address], [place], [address], 02/13/2025 16:33:53 Result Notes None recorded. Problems Name Problem SNOMED Code Status Onset Date Resolution Date Notes Provider Name and Address Organization Details Recorded Time Adult health examinat ion Completed 201305/16/2021 Routine general medical examinat ion at a health care facility ;Practic e ID: 0001 [facility] 12:28:50 Speciali zed medical examinat ion Completed 201305/16/2021 Routine gynecolo gical examinat ion;Prac robert ID: 0001 Yazmin jaurez [facility] 12:30:22 Speciali zed medical examinat ion Completed 201305/16/2021 Other specifie d chlamydi al diseases ;Practic e ID: 0001 Yazmin juarez [facility] 12:30:24 Venereal disease screenin g Completed 201305/16/2021 Screenin g examinat ion for venereal disease; Practice ID: 0001 Yazmin [facility] 12:30:38 Leukorrh ea [id number] Completed 201305/16/2021 Leukorrh ea, not specifie d as infectiv e;Record ed Elsewher e: No Locat ion: [facility] S ource: EHR Shredding Machine Tender niko: N Practi ce ID: 0001 Ramiro lable Time: 09:00:00 AM Yazmin juarez [facility] 12:29:48 Urinary tract infectio us disease 03134618 Completed 201305/16/2021 Urinary tract infectio n, site not specifie d;Practi ce ID: 0001 [facility] 12:30:34 Pregnanc y test negative [id number] Completed 201305/16/2021 Negative Pregnanc y Test;Pra ctice ID: 0001 Yazmin Olivera [facility] 12:30:09 Pain of joint 50061538 Completed 201405/16/2021 Pain in joint, site unspecif ied;Prac robert ID: 0001 [facility] 12:29:45 Blood in urine [id number] Completed 201405/16/2021 HEMATURI A NOS;Prac robert ID: 0001 Yazmin Olivera [facility] 12:29:02 Increase d frequenc y of urinatio n 046029049 Completed 201405/16/2021 Urinary frequenc y;Practi ce ID: 0001 Yazmin Olivera [facility] 12:29:41 Abdomina l pain [id number] Completed 201405/16/2021 Left flank pain;Rec orded Elsewher e: No Locat ion: [facility] S ource: EHR Shredding Machine Tender niko: N Practi ce ID: 0001 Ramiro lable Time: 11:00:00 AM Yazmin juarez [facility] 12:28:[address] Concept Completed 201405/16/2021 Encntr for general adult medical exam w/o abnormal findings ;Practic e ID: 0001 Yazmin juarez [facility] 12:30:16 Screenin g for malignan t neoplasm of cervix Completed 201405/16/2021 Encounte r for screenin g for malignan t neoplasm of cervix;P ractice ID: 0001 Yazmin juarez [facility] 12:30:11 Mammogra phi calcific ation of breast 260848420 Completed 201405/16/2021 Mammogra phic calcifcn found on diagnost ic imaging of breast;R ecorded Elsewher e: No Locat ion: [facility] S ource: EHR Shredding Machine Tender niko: N Ricardoti ce ID: 0001 Ramiro lable Time: 09:30:00 AM Yazmin juarez [facility] 12:29:56 Vaginola bial hernia Completed 201505/16/2021 Other specifie d noninfla mmatory disorder s of vagina;P ractice ID: 0001 Yazmin juarez [facility] 12:30:36 Acute vaginiti s 80667414 Completed 201505/16/2021 Acute vaginiti s;Practi ce ID: 0001 Yazmin juarez [facility] 12:28:46 Infectio n screenin g Completed 201505/16/2021 Encounte r for screenin g for oth infec/pa rastc diseases ;Practic e ID: 0001 Yazmin juarez [facility] 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 12:30:20 Breast lump [id number] Completed 201605/16/2021 Unspecif ied lump in breast;P ractice ID: 0001 Yazmin Olivera [facility] 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 12:30:18 Pregnanc y detectio n examinat ion Completed 201605/16/2021 Encounte r for pregnanc y test, result positive ;Recorde d Elsewher e: No Locat ion: [facility] S ource: EHR Shredding Machine Tender niko: N Practi ce ID: 0001 Ramiro lable Time: 04:15:00 PM Yazmin juarez [facility] 12:30:07 Amenorrh ea [id number] Completed 201605/16/2021 Amenorrh ea, unspecif ied;Prac robert ID: 0001 Yazmin juarez [facility] 12:28:54 Nausea [id number] Completed 201605/16/2021 Nausea;P ractice ID: 0001 Yazmin juarez [facility] 12:29:59 Finding of general energy 157676211 Completed 201605/16/2021 Other fatigue; Practice ID: 0001 Yazmin Olivera [facility] 12:29:19 Normal pregnanc y in multigra justin [id number] 4106 Completed 201605/16/2021 Encounte r for suprvsn of normal pregnanc y, third trimeste r;Record ed Elsewher e: No [facility] S [facility]: EHR Shredding Machine Tender niko: N Practi ce ID: 0001 Ramiro lable Time: 11:45:00 AM Yazmin Olivera [facility] 12:30:01 Antenata l screenin g Completed 201605/16/2021 Encounte r for antenata l screenin g for nuchal transluc ency;Pra ctice ID: 0001 Yazmin juarez [facility] 12:28:56 Antenata l screenin g for malforma tion Completed 201605/16/2021 Encounte r for antenata l screenin g for malforma tions;Pr actice ID: 0001 Yazmin Olivera [facility] 12:28:58 Localize d enlarged lymph nodes [id number] Completed 201605/16/2021 Localize d enlarged lymph node;Rec orded Elsewher e: No Locat ion: [facility] S ource: EHR Shredding Machine Tender niko: N Pam ce ID: 0001 Ramiro lable Time: 09:45:00 AM Yazmin Olivera [facility] 12:29:50 Gestatio n period, 26 weeks [id number] Completed 201705/16/2021 26 weeks gestatio n of pregnanc y;Record ed Elsewher e: No Locat ion: [facility] S ource: EHR Shredding Machine Tender niko: N Practi ce ID: 0001 Ramiro lable Time: 09:45:00 AM Yazminrubens Olivera [facility] 12:29:21 Placenta previa [id number] Completed 201705/16/2021 Placenta previa specifie d as w/o hemor, second trimeste r;Practi ce ID: 0001 Yazmin juarez [facility] 12:30:05 Pregnanc y, childbir th and puerperi um finding Completed 201705/16/2021 Oth pregnanc y related conditio ns, third trimeste r;Practi ce ID: 0001 Yazmin juarez, [facility] 12:29:10 Gestatio n period, 31 weeks [id number] Completed 201705/16/2021 31 weeks gestatio n of pregnanc y;Practi ce ID: 0001 Yazmin juarez [facility] 12:29:23 Backache [id number] Completed 201705/16/2021 Dorsalgi a, unspecif ied;Prac robert ID: 0001 Yazmin juarez, [facility] 12:29:00 Complica tion of pregnanc y, childbir th and/or puerperi um [id number] Completed 201705/16/2021 Oth diseases and conditio ns compl preg/chl dbrth;Pr actice ID: 0001 Yazmin Olivera [facility] 12:30:32 Gestatio n period, 32 weeks [id number] Completed 201705/16/2021 32 weeks gestatio n of pregnanc y;Practi ce ID: 0001 Yazmin juarez [facility] 12:29:25 Gestatio n period, 33 weeks [id number] Completed 201705/16/2021 33 weeks gestatio n of pregnanc y;Record ed Elsewher e: No Locat ion: [facility] S ource: EHR Shredding Machine Tender niko: N Practi ce ID: 0001 Ramiro lable Time: 08:30:00 AM Yazmin juarez [facility] 12:29:26 Gestatio n period, 34 weeks [id number] Completed 201705/16/2021 34 weeks gestatio n of pregnanc y;Practi ce ID: 0001 Yazmin juarez [facility] 12:29:29 Gestatio n period, 35 weeks [id number] Completed 201705/16/2021 35 weeks gestatio n of pregnanc y;Record ed Elsewher e: No Locat ion: [facility] S ource: EHR Shredding Machine Tender niko: N Practi ce ID: 0001 Ramiro lable Time: 11:30:00 AM Yazmin juarez [facility] 12:29:31 Gestatio n period, 36 weeks [id number] Completed 201705/16/2021 36 weeks gestatio n of pregnanc y;Record ed Elsewher e: No Locat ion: [facility] S ource: EHR Shredding Machine Tender niko: N Practi ce ID: 0001 Ramiro lable Time: 09:15:00 AM Yazminrubens juarez [facility] 12:29:32 Gestatio n period, 37 weeks [id number] Completed 201705/16/2021 37 weeks gestatio n of pregnanc y;Practi ce ID: 0001 Yazmin juarez [facility] 12:29:[address] Concept Completed 201705/16/2021 Matern care for abnlt fetl hrt rate or rhym, 3rd tri, unsp;Rec orded Elsewher e: No Locat ion: [facility] S ource: EHR Shredding Machine Tender niko: N Practi ce ID: 0001 Ramiro lable Time: 10:30:00 AM Yazmin Olivera [facility] 12:30:15 Gestatio n period, 38 weeks [id number] Completed 201705/16/2021 38 weeks gestatio n of pregnanc y;Record ed Elsewher e: No Locat ion: [facility] S ource: EHR Shredding Machine Tender niko: N Practi ce ID: 0001 Ramiro lable Time: 08:30:00 AM Yazmin juarez [facility] 12:29:36 heart finding Completed 201705/16/2021 Abnlt in heart rate and rhythm comp labor and delivery ;Practic e ID: 0001 Yazmin juarez [facility] 12:29:16 Single live from singleto n pregnanc y [id number] Completed 201705/16/2021 Single live ;Pr actice ID: 0001 Yazmin juarez [facility] 12:30:13 Gestatio n period, 39 weeks [id number] Completed 201705/16/2021 39 weeks gestatio n of pregnanc y;Practi ce ID: 0001 Yazmin juarez [facility] 12:29:38 Lochia finding Completed 201705/16/2021 Encounte r for routine postpart um follow-u p;Practi ce ID: 0001 Yazmin juarez [facility] 12:29:53 Steriliz ation procedur e Active 2017 Encounte r for steriliz ation;Pr actice ID: 0001 Not Available [facility] 0 21:38:47 Broad ligament lacerati on syndrome [id number] Completed 201705/16/2021 Oth noninfla mmatory disord of ovary, fallop and broad ligmt;Pr actice ID: 0001 Yazmin juarez [facility] 12:29:08 Lesion of ovary Completed 201805/16/2021 Other ovarian cyst, unspecif ied side;Rec orded Elsewher e: No Locat ion: [facility] S ource: EHR Shredding Machine Tender niko: N Practi ce ID: 0001 Ramiro lable Time: 09:00:00 AM Yazmin juarez [facility] 1 12:29:14 Left lower quadrant pain [id number] Completed 201805/16/2021 Left lower quadrant pain;Pra ctice ID: 0001 Yazmin Olivera [facility] 1 12:29:47 Lesion of ovary Completed 201805/16/2021 Other ovarian cyst, right side;Rec orded Elsewher e: No Locat ion: [facility] S ource: EHR Shredding Machine Tender niko: N Practi ce ID: 0001 Ramiro lable Time: 02:30:00 PM Yazmin Olivera [facility] 1 12:29:12 Pelvic and perineal pain [id number] Completed 201805/16/2021 Pelvic and perineal pain;Rec orded Elsewher e: No Locat ion: [facility] S ource: EHR Shredding Machine Tender niko: N Practi ce ID: [id number] Ramiro lable Time: 04:30:00 PM Yazmin Olivera [facility] 1 12:30:03 Alopecia [id number] Active 2018 Alopecia ;Recorde d Elsewher e: No Locat ion: [facility] S ource: EHR Shredding Machine Tender niko: N Practi ce ID: [id number] Ramiro lable Time: 10:00:00 AM Not Available [facility] 0 21:38:29 Problem Notes None recorded. Procedures Surgical History Date Name Laterality Status Provider Name and Address Organization Details Recorded Time Date of Last Pap Smear completed Arielle Williamson [facility] 11/14/2024 16:03:37 HYSTEROSCOPY, WITH ENDOMETRIAL ABLATION (SURG) completed Morgan Calderón [facility] 03/02/2024 11:14:15 024 Date of Last Mammogram completed Arielle Williamson [facility] 01/12/2024 14:09:49 022 breast procedure completed [facility] 07/23/2022 10:50:05 022 biopsy of breast completed [facility] 07/23/2022 10:47:38 022 parathyroidectomy completed [facility] 07/23/2022 10:40:02 017 breast procedure completed [facility] 07/23/2022 10:46:32 Tubal Ligation completed [facility] 05/16/2021 09:10:12 Imaging Results None recorded. [...] e: No Locat ion: Immanuel burden [facility] M odify By: [email or web address] Encounte r [...] Prescrib ed Elsewher e: Yes Loca tion: [facility] odify By: [email or web address] richardson En counter DateTime [...] ed Elsewher e: No Locat ion: [facility] odify By: marci Espinoza r DateTime : 12/23/19 18 02:00:00 PM Not Available Not Available Not Available cephalexi n 500 mg capsule take 1 capsule by oral route every 6 hours 02/22 completed Prescrib ed Elsewher e: No [facility]: marci Espinoza r [...] completed Not Available Not Available Not Available Gackle 10 mg-325 mg tablet take 1 tablet by oral route every 4 - 6 hours as needed for pain 09/10 completed Prescrib ed Elsewher e: No Locat ion: Mimingozi burden [facility] Stan odify By: marci guidry DateTime [...] Elsewher e: No Locat ion: Immanuel burden [facility] odify By: [email or web address] trick En counter DateTime : 07/17/20 14 10:30:00 AM Not Available Not Available Not Available Ortho Evra 150 mcg-35 mcg/24 hr transderm al patch apply 1 patch by transder mal route every week 08/21 completed Prescrib ed Elsewher e: Yes Loca tion: Immanuel [facility] odify By: [email or web address] trick En counter DateTime : 07/17/20 14 10:30:00 AM Not Available Not Available Not Available iron ER 325 mg (65 mg iron) capsule,e xtended release take 1 Tablet by Oral route 3 times every day 09/10 completed Prescrib ed Elsewher e: Yes [facility] odify By: marci Espinoza r DateTime : [...] Elsewher e: Yes Loca tion: Todd jenise [facility] odify By: [email or web address] z Encoun ter DateTime : 02/13/20 16 01:00:00 PM Not Available Not Available Not Available Monistat 3 4 % (200 mg)-2 %(9 gram)vagi nal pack,pref il appl and cream Use 1 prefille d applicat ion every night for 3 nights 01/19 completed Prescrib ed Elsewher e: No Locat ion: [facility] M odify By: [email or web address] z Encoun ter DateTime : 02/13/20 16 01:00:00 PM Not Available Not Available Not Available Vitals Date Recorded Body height Body mass index (BMI) Body weight Systolic And Diastolic Provider Name and Address Organization Details Last Updated DateTime 11/14/2024 167.64 cm 22.6 kg/m2 26874.93 g 103/64 mm[Hg] Arielle Clay [facility] 11/14/2024 16:02:45 Date Recorded Body height Body mass index (BMI) Body weight Systolic And Diastolic Provider Name and Address Organization Details Last Updated DateTime 01/12/2024 167.64 cm 21.1 kg/m2 09375.6 g 105/67 mm[Hg] Arielle [facility] 01/12/2024 14:02:51 Date Recorded Body height Body mass index (BMI) Body weight Systolic And Diastolic Provider Name and Address Organization Details Last Updated DateTime 02/13/2025 167.64 cm 23 kg/m2 89820.99 g 132/86 mm[Hg] Marija Campa [facility] 02/13/2025 16:15:30 Date Recorded Body height Body mass index (BMI) Body weight Systolic And Diastolic Provider Name and Address Organization Details Last Updated DateTime 03/09/2024 167.64 cm 21.1 kg/m2 71384.6 g 122/77 mm[Hg] Amaris Mayer [facility] 03/09/2024 15:03:43 Date Recorded Body height Body mass index (BMI) Body weight Systolic And Diastolic Provider Name and Address Organization Details Last Updated DateTime 07/07/2024 167.64 cm 22.3 kg/m2 07029.75 g 116/81 mm[Hg] Arielle Clay [facility] 07/07/2024 12:19:37 Social History Question Answer Notes LastModified by Organizat ion Details LastModified Time Tobacco Smoking Status Never Smoker Yazmin juarez, [facility] 08/04/2023 15:06:24 Do You Have An Advance Directive? No Information n ot available 04/08/2021 How Many Years Have You Consumed Alcohol? 0 [email or web address] Information not available 02/13/2025 Are You Blind [...] Or The Highest Degree You Have Received? 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 Occasional Information not available 04/08/2021 Mental Status Question Answer Note LastModified by Organization D etails LastModified Time Do you feel stressed (tense, restless, nervous, or anxious, or unable to sleep at night)? [id number] Information not available 04/08/2021 Family History Relationship [...] History of malignant neoplasm of kidney 56 [email or web address] Not available 2023 14:55:33 Paternal Grandmother Family history of breast cancer Patern al Great Grandm other- from Breast CA [email or web address] Not available 03/09/2024 14:55:33 Paternal Grandfather Family [...] Diagnosis ICD10 Code Diagnosis Note [id number] [facility] [address] [address] 03/14/2020 11:51:17 04/17/2020 18:13:16 Acute urinary tract infection 889945508 N39.0 [id number] Arben Mendoza MD [facility] [address] [address] 05/14/2020 17:10:07 05/14/2020 17:51:37 Gynecologic examination 41094035 Z01.419 This patient is here for her annual exam. A thorough history was taken. A physical exam was performed. Age appropriat e routine health screening was ordered, performed, and discussed. Recommende d testing was ordered. She was asked to follow up in one year. She will be informed of any test results. Dyspareunia 19886089 N94 .10 Vaginitis 44715672 N76.0 [id number] Arben Mendoza MD [facility] [address],[place] [address] 05/15/2020 15:00:26 05/15/2020 15:33:08 Pain in pelvis 15041451 R10.2 [id number] Arben Mendoza MD [facility] [address],[place] [address] 06/07/2020 10:41:32 06/07/2020 11:25:21 Pain in pelvis 97705982 R10.2 This patient is a 35-year-ol d female presents for follow-up on pelvic pain. Her pelvic pain has resolved. Her pain with intercours e has resolved. All her pelvic ultrasound was normal. We agreed to follow up as needed. [id number] Arben Mendoza MD [facility] [address],[place] [address] 04/08/2021 18:13:16 04/09/2021 09:16:27 Cyst of ovary 11196228 N83.209 THIS PATIENT IS A 36-YEAR-OL D [...] ergics. We need to check her urine. [id number] MD Chuck Melo [address],[place] [address] 04/13/2021 10:00:07 04/13/2021 10:41:56 Cyst of right ovary [id number] N83.291 [id number] Arben Mendoza MD [facility] [address],[place] [address] 04/24/2021 13:06:28 04/25/2021 09:51:17 Cyst of ovary 86304959 N83.209 discussed normal ultrasound results with patient over the phone. She has no complaints . [id number] Arben Mendoza MD [facility] [address] [address] 05/16/2021 12:25:47 05/16/2021 13:23:51 Vulvovaginitis 73150710 N76.0 Gynecologi c examination 52129796 Z01.419 This patient is here for her annual exam. A thorough history was taken. A physical exam was performed. Age appropriat e routine health screening was ordered, performed, and discussed. Recommende d testing was ordered. She was asked to follow up in one year. She will be informed of any test results. [id number] Arben Mendoza MD [facility] [address],[place] [address] 07/23/2022 10:16:38 07/23/2022 11:10:44 Gynecologic examination 30508675 Z01.419 Z11.51 This patient is here for her annual exam. A thorough history was taken. A physical exam was performed. Age appropriat e routine health screening was ordered, performed, and discussed. Recommende d testing was ordered. She was asked to follow up in one year. She will be informed of any test results. Night sweats 65309742 R6 1 [id number] [facility] [address] [address] 10/13/2022 09:41:46 10/14/2022 15:39:14 Menorrhagia 421588287 N92.0 D64.9 Today we discussed updating TVUS.Consi gayle the following for possible causes of the pain she describes: pelvic congestion syndrome, arterio/ve nous malformati ons, hernia etc. 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 Contracept ion care management 046110210 Z30.9 Counseled on multiple options today.Will await results to determine best options moving forward. [id number] Arben Mendoza MD [facility] [address] [address] 10/14/2022 12:25:58 10/14/2022 15:01:25 Menorrhagia 015078886 N92.0 [id number] [facility] [address] [address] 10/22/2022 10:31:26 10/22/2022 11:16:15 Menorrhagia 256024227 N92.0 D64.9 Reviewed US today.Opti ons discussed as noted below.Hx of tubal ligation which can also potentiall y cause an increase in menstrual flow in some women. Time spent in visit is a total of 30 mins with at least 50% of visit consisting of counseling and review of plan of care. Uterine leiomyoma 295577 05 D25.9 Reviewed USSmall fibroid stable (can effect menses making them heavier).P aratubal cyst-will repeat us in 6-8wks (no pain currently outside of menstrual cycle). Contracept ion care management 689796773 Z30.9 Discussed all control options and pt [...] for placement appt. Pelvic con gestion syndrome 72126452 N94.89 US noted Dilated pelvic vessels which could be indicative of PCS.Will request a consultati on to evaluate if there is a possibilit y of this issue/othe r issue that is connected with the pain she experience s in her calves only during the onset of her menstrual cycle.Refe rral placed and agreeablel to this plan. [id number] Arben Mendoza MD [facility] [address] [address] 12/14/2022 16:26:57 12/14/2022 17:33:42 Cyst of right ovary 3300257572 9740769 N83.291 D25.9 N92.0 [id number] Arben Mendoza MD [facility] [address] [address] 12/30/2022 13:51:04 12/30/2022 15:24:42 Pain in pelvis 99535153 R10.2 Patient is a 37-year-ol d female [...] counseling . She will follow-up as needed. [id number] Charlene Black [facility] [address] [address] 07/21/2023 11:55:13 07/21/2023 14:51:48 Pain in pelvis 73647406 R10.2 This patient is a 38 -year-old [...] fever, chills. Pain of left breast 1010 288140 N64.4 12-1 o'clock position an area of thickened breast tissue and tenderness presentHx of breast bx'sBenign Ordered imagingWil l schedule [id number] Arben Mendoza MD [facility] [address] [address] 07/26/2023 11:40:34 07/26/2023 13:25:22 Pain in pelvis 60135462 R10.2 Patient is a 37-year-ol d female [...] counseling . She will follow-up as needed. [id number] Charlene Black [facility] [address],[place] [address] 07/27/2023 11:20:33 07/27/2023 11:39:39 Pain in pelvis 35270364 R10.2 N92.0 Today we reviewed US.Underst anding [...] , education of patient's plan of care. [id number] Arben Mendoza MD [facility] [address],[place] [address] 08/04/2023 15:02:01 08/04/2023 16:01:52 Pain in pelvis 28972560 R10.2 this patient is a 38-year-ol d [...] hysterecto my bilateral salpingect norbert. Uterine leiomyoma 930024 05 D25.9 Pelvic con gestion syndrome 06456829 N94.89 Menorrhagia 572911146 N9 2.0 Anemia 010820743 D64.9 [id number] Arben Mendoza MD [facility] [address] [address] 01/12/2024 13:50:08 01/12/2024 22:08:17 Menorrhagia 835007657 N92.0 this patient is a 38-year-ol d [...] sweats. To evaluate sex hormones. Menopausal symptom 53569 002 N95.1 Uterine leiomyoma 410492 05 D25.9 [id number] Arben Mendoza MD [facility] [address] [address] 03/09/2024 14:55:28 03/09/2024 16:06:27 Postoperative care 974147982 Z48.89 patient presents for postop follow-up after endometria l ablation. She is recovering normally. She has Watery vaginal discharge. She denies any foul-smell ing discharge. She denies any nausea, vomiting, fever, chills. [id number] Arben Mendoza MD [facility] [address] [address] 07/07/2024 12:12:55 07/09/2024 09:22:52 Gynecologic examination 14945228 Z01.419 Z11.51 Annual gynecologi radha exam performed. [...] smear- today laboratory evaluation - std's only [id number] Arben Mendoza MD [facility] [address],[facility] [address] 11/14/2024 15:41:58 11/14/2024 16:38:23 Dysuria 62157012 R30.0 This patient is a 39-year-ol d female who presents for urinary symptoms. She has dysuria. She has some frequency. We agreed to treat for urinary tract infection. We will culture her urine. She was prescribed antibiotic s. We talked about the risks, benefits, and alternativ es to antibiotic s. She was given precaution s and instructio ns [id number] Arben Mendoza MD [facility] [address] [address] 02/13/2025 15:54:35 02/13/2025 16:53:22 Urinary system finding 421675676 R39.9 Urine dipstick negative.W ill send urine culture to r/o infection. Advised to drink clear fluids and avoid bladder irritants. Venereal d isease screening 187321290 Z11.3 Pt requested STI testing.Di scussed the various types of STDs, related symptoms and the potential consequenc es (including effects on fertility) of STD infections . Reviewed ways to limit exposure and prevention techniques . Vaginal discharge 161924 006 N89.8 Reviewed the various causes of [...] Otero Member ID Guarantor Name 03/03/2025 1 [facility] [id number] Cawana Blissit [id number] Cawana Blissit 02/14/2025 1 [facility] [id number] Cawana Blissit [id number] Cawana Blissit 02/08/2025 1 [facility] (MEDICAID HMO) [id number] Cawana Blissit [id number] Cawana Blissit Notes Date Note Type Note Provider Name and Address Organization Details Recorded Time 01/12/2024 text/html this patient is a 38-year-old female with severe menorrhagia. We reviewed her ultrasound results today and her symptoms. She has a submucosal fibroid. We talked about treatment options. We agreed to treat with hysteroscopic myomectomy and endometrial ablation. We spent over 40 minutes [id number]. We discussed all medical treatment options along with surgical treatment options that included hysterectomy. We reviewed the endometrial ablation procedure and the myomectomy in detail. We talked about risks in detail. We made a decision today to perform surgery. We will proceed with hysteroscopic myomectomy and endometrial ablation Arben Mendoza MD [address], [place], [address], [facility] 01/12/2024 18:44:37 03/09/2024 text/html patient presents for postop follow-up after endometrial ablation. She is recovering normally. She has Watery vaginal discharge. She denies any foul-smelling discharge. She denies any nausea, vomiting, fever, chills. Arben Mendoza MD [address], [place], [address], [facility] 03/09/2024 15:53:03 07/07/2024 text/html Annual GYNReport ed bypatient.History:n o gynecologic complaints Urinary symptoms:No hematuria Vulva:No genital lesion Vagina:Normal vaginal discharge Breast:No breast pain Current Contraception:Satis fied with current contraception; Tubal ligation Sexual complaints:No sexual complaints; No pain during intercourse Menopausal Symptoms:No menopausal symptoms Psychological symptoms:No depression; No anxiety Preventive measures:Encourage self breast examination Arben Mendoza MD [address], [place], [address], [facility] 07/07/2024 12:57:04 11/14/2024 text/html This patient is a 39-year-old female who presents for urinary symptoms. She has dysuria. She has some frequency. We agreed to treat for urinary tract infection. We will culture her urine. She was prescribed antibiotics. We talked about the risks, benefits, and alternatives to antibiotics. She was given precautions and instructions Arben Mendoza MD [address], [place], [address], [facility] 11/14/2024 16:35:30 02/13/2025 text/html 39 y/o [...] N/V/F/C/D AMANDA SHOEMAKER NP [address], [place], [address], [facility] 02/13/2025 16:52:09 OBGyn Episode Ob Episode Information Episode Created Date Number of Fetuses Patient Bloodtype Patient rh Status Prepregnancy Weight lbs Domestic Partner Domestic Partner Phone Father Name Communication Electronic Technician Status 05/14/20 20 1 CLOSED Fetus Data [...] Domestic Partner Domestic Partner Phone Father Name Communication Electronic Technician Status 05/14/20 20 1 CLOSED Fetus Data [...] Domestic Partner Domestic Partner Phone Father Name Communication Electronic Technician Status 05/14/20 20 1 CLOSED Fetus Data [...]
[2025-05-07 18:17] LABS: Ferritin 76.60 ng/mL (6.24-137)
== END 2025-05-07 16:17 | disposition home or self-care (01) ==
PROVIDERS: PCP Emergency Medicine; Visit Provider Internal Medicine Hematology & Oncology
DX: D64.9 Anemia, unspecified (principal)
CPT/HCPCS: 36415; 82728